=== PATIENT | female | born 1930 | race African-American/Black ===

== ENCOUNTER 2017-06-13 13:53 | Inpatient (IN) | payer MEDICARE, OTHER ==
[~2017-06-13] VITALS: Ht 165.1 cm; Wt 167.8 kg
[2017-06-13 14:23] VITALS: BP 130/8
--- NOTE | 2017-06-13 14:28 | Emergency Room Report ---
History of Present Illness General Chief Complaint: Altered Level of Consciousness Source: Medical Record, EMS Present Illness HPI Patient is an 87-year-old female brought in by EMS after increased altered level consciousness. She gradual onset of symptoms. Patient was noted to have been brought in from home. Patient had reported increased difficulty with ambulation. Patient is normally ambulatory with walker. The patient's history is limited by mental status Allergies: Coded Allergies: IODINE (Verified Allergy, Mild, 08/17/08) Uncoded Allergies: CONTRAST MEDIA (Allergy, Mild, 08/17/08) Patient History Past Medical History: see triage record Reviewed Nursing Documentation: PMH: Agreed, PSxH: Agreed Nursing Documentation-PMH Past Medical History: No History, Except For Hx Hypertension: Yes Hx Diabetes: Yes Review of Systems All Other Systems: negative except mentioned in HPI Physical Exam Vital Signs Date Time Temp Pulse Resp B/P (MAP) Pulse Ox O2 Delivery O2 Flow Rate FiO2 06/13/17 13:49 100.0 120 18 140/90 98 Nasal Cannula 6.0 Sp02 EP Interpretation: reviewed, normal General Appearance: moderate distress, obese, Chronically Ill Head: atraumatic ENT: normal ENT inspection, hearing grossly normal, normal voice Neck: normal inspection, full range of motion, supple, no bony tend Respiratory: normal inspection, no retraction, other - tachypnea Cardiovascular #1: tachycardia, edema Gastrointestinal: normal inspection, normal bowel sounds, non tender, soft, no guarding, no hernia Genitourinary: no CVA tenderness Musculoskeletal: normal inspection, back normal, normal range of motion Neurologic: normal inspection, alert, oriented x3, responsive, permit coordinator III-XII nml as tested, speech normal, motor weakness Psychiatric: normal inspection, judgement/insight normal, mood/affect normal Skin: normal inspection, normal color, no rash Medical Decision Making Diagnostic Impression: Primary Impression: Altered level of consciousness Additional Impressions: Sepsis Pyelonephritis Morbid obesity Hyperkalemia Renal insufficiency Pleural effusion ER Course Patient presented for altered mental status. Differential diagnosis included but was not limited to ischemic stroke, subarachnoid hemorrhage, hypoglycemia, spinal cord injury, neurodegenerative disorder, urinary tract infection, hypoxemia.Because of complexity of patient's case laboratory testing and imaging studies were ordered. EKG interpreted by me shows sinus tachycardia with a rate of [address] or T wave changes patient was noted to have low voltage which is likely related to the patient's body habitus. There is a right branch block. The patient started on IV fluids.Patient started on IV antibiotics. Laboratory testing showed evidence of acute renal insufficiency as well as hyperkalemia. Patient given oral Kayexalate as well as IV calcium. Dr. Fields was contacted for inpatient management due to complexity of medical condition. Labs Test 06/13/17 14:10 White Blood Count 18.5 K/UL (4.8-10.8) Red Blood Count 3.43 M/UL (4.20-5.40) Hemoglobin 10.4 G/DL (12.0-16.0) Hematocrit 35.2 % (37.0-47.0) Mean Corpuscular Volume 103 FL (80-99) Mean Corpuscular Hemoglobin 30.1 PG (27.0-31.0) Mean Corpuscular Hemoglobin Concent 29.4 G/DL (32.0-36.0) Red Cell Distribution Width 14.7 % (11.6-14.8) Platelet Count 204 K/UL (150-450) Mean Platelet Volume 7.1 FL (6.5-10.1) Neutrophils (%) (Auto) % (45.0-75.0) Lymphocytes (%) (Auto) % (20.0-45.0) Monocytes (%) (Auto) % (1.0-10.0) Eosinophils (%) (Auto) % (0.0-3.0) Basophils (%) (Auto) % (0.0-2.0) Prothrombin Time 11.0 SEC (9.30-11.50) Prothromb Time International Ratio 1.1 (0.9-1.1) Activated Partial Thromboplast Time 28 SEC (23-33) Urine Color Yellow Urine Appearance Cloudy Urine pH 7 (4.5-8.0) Urine Specific [place] 1.010 (1.005-1.035) Urine Protein 2+ (NEGATIVE) Urine Glucose (UA) Negative (NEGATIVE) Urine Ketones Negative (NEGATIVE) Urine Occult Blood 4+ (NEGATIVE) Urine Nitrite Negative (NEGATIVE) Urine Bilirubin Negative (NEGATIVE) Urine Urobilinogen Normal MG/DL (0.0-1.0) Urine Leukocyte Esterase 3+ (NEGATIVE) Urine RBC 2-4 /HPF (0 - 2) Urine WBC Tntc /HPF (0 - 2) Urine Squamous Epithelial Cells Few /LPF (NONE/OCC) Urine Bacteria Many /HPF (NONE) Sodium Level 139 MMOL/L (136-145) Potassium Level 6.7 MMOL/L (3.5-5.1) Chloride Level 104 MMOL/L (98-107) Carbon Dioxide Level 24 MMOL/L (21-32) Anion Gap 11 mmol/L (5-15) Blood Urea Nitrogen 97 mg/dL (7-18) Creatinine 4.4 MG/DL (0.55-1.30) Estimat Glomerular Filtration Rate mL/min (>60) Glucose Level 179 MG/DL (74-106) Lactic Acid Level 1.70 mmol/L (0.66-2.22) Calcium Level 9.4 MG/DL (8.5-10.1) Total Bilirubin 0.6 MG/DL (0.2-1.0) Aspartate Amino Transf (AST/SGOT) 49 U/L (15-37) Alanine Aminotransferase (ALT/SGPT) 47 U/L (12-78) Alkaline Phosphatase 323 U/L (46-116) Total Creatine Kinase 27 U/L (26-308) Creatine Kinase MB 0.5 NG/ML (0.0-3.6) Creatine Kinase MB Relative Index 1.8 Troponin I 0.000 ng/mL (0.000-0.056) Pro-B-Type Natriuretic Peptide 1937 pg/mL (0-125) Total Protein 6.2 G/DL (6.4-8.2) Albumin 2.0 G/DL (3.4-5.0) Globulin 4.2 g/dL Albumin/Globulin Ratio 0.5 (1.0-2.7) Lipase 61 U/L (73-393) EKG Diagnostic Results Rate: tachycardiac - 132 ST Segments: no acute changes Rhythm Strip Diag. Results EP Interpretation: yes Rhythm: no PVC's, no ectopy Last Vital Signs Date Time Temp Pulse Resp B/P (MAP) Pulse Ox O2 Delivery O2 Flow Rate FiO2 06/13/17 14:23 99.0 130 24 130/8 98 Nasal Cannula 3.0 Status: unchanged Disposition: ADMITTED INPATIENT Condition: Serious Scripts Unable to Obtain Active Prescriptions or Reported Meds Daryl Holt Jun 13, 2017 14:28
[2017-06-13 14:46] VITALS: BP 109/65
[2017-06-13 14:58] LABS: HEMATOCRIT 35.2 % (37.0-47.0); HEMOGLOBIN 10.4 G/DL (12.0-16.0); MEAN CORPUSCULAR VOLUME 103 FL (80-99); PLATELET COUNT 204 K/UL (150-450); RED BLOOD COUNT 3.43 M/UL (4.20-5.40); RED CELL DISTRIBUTION WIDTH 14.7 % (11.6-14.8); WHITE BLOOD COUNT 18.5 K/UL (4.8-10.8)
[2017-06-13 14:59] LABS: APPEARANCE,URINE CLOUDY; BILIRUBIN, URINE NEGATIVE (NEGATIVE); GLUCOSE, URINE (UA) NEGATIVE (NEGATIVE); KETONES,URINE NEGATIVE (NEGATIVE); LEUKOCYTE ESTERASE ,URINE 3+ (NEGATIVE); NITRITE,URINE NEGATIVE (NEGATIVE); PH,URINE 7 (4.5-8.0); PROTEIN,URINE 2+ (NEGATIVE); UROBILINOGEN,URINE NORMAL MG/DL (0.0-1.0)
[2017-06-13 15:02] LABS: ALANINE AMINOTRANSFERASE 47 U/L (12-78); ALBUMIN/GLOBULIN RATIO 0.5 (1.0-2.7); ALKALINE PHOSPHATASE 323 U/L (46-116); ANION GAP 11 mmol/L (5-15); ASPARTATE AMINO TRANSFERASE 49 U/L (15-37); BILIRUBIN,TOTAL 0.6 MG/DL (0.2-1.0); BLOOD UREA NITROGEN 97 mg/dL (7-18); CALCIUM 9.4 MG/DL (8.5-10.1); CARBON DIOXIDE 24 MMOL/L (21-32); CHLORIDE 104 MMOL/L (98-107); CKMB 0.5 NG/ML (0.0-3.6); CREATINE KINASE 27 U/L (26-308); CREATININE 4.4 MG/DL (0.55-1.30); SODIUM 139 MMOL/L (136-145)
[2017-06-13 15:05] LABS: COLOR,URINE YELLOW
[2017-06-13] MEDS ORDERED: Unasyn 3gm Inj ONE (15:08)
[2017-06-13 15:10] LABS: POTASSIUM 6.7 MMOL/L (3.5-5.1)
[2017-06-13 15:14] LABS: INR 1.1 (0.9-1.1)
[2017-06-13] MEDS ORDERED: Ampicillin/Sulbactam Sod 3 GM in NS 110 ML IVPB ONE (15:15)
[2017-06-13] MEDS ORDERED: Sodium Polystyrene Sulfonate 15gm Powder ORAL ONE (15:45)
[2017-06-13] MEDS ORDERED: Calcium Gluconate 1gm/10ml vial IVP ONE (15:45)
[2017-06-13 15:46] VITALS: BP 136/70
[2017-06-13] MEDS ORDERED: Miralax 17gm pkt ORAL PRN (16:00)
[2017-06-13] MEDS ORDERED: Nitroglycerin Subl 0.4mg tab SL PRN (16:00)
[2017-06-13] MEDS ORDERED: Morphine Sulfate 4mg/ml Inj IVP PRN (16:00)
[2017-06-13] MEDS ORDERED: Albuterol/Ipratropium 3ml neb HHN PRN (16:00)
--- NOTE | 2017-06-13 16:05 | Diagnostic Imaging Report ---
Indication: Shortness of breath Technique: One view of the chest Comparison: 08/16/2008 Findings: There is suggestion of bilateral mild interstitial congestion. Hazy opacity throughout the right lung probably reflects a large pleural effusion, but there could also be some underlying airspace consolidation as well. There is some consolidation and atelectasis at the left lung base. The heart size is upper limits of normal Impression: Suspect large right pleural effusion Bilateral interstitial congestion. Possible right lung airspace disease Left basilar atelectasis and possible consolidation
[2017-06-13 16:57] VITALS: BP 120/67
--- NOTE | 2017-06-13 17:29 | Consultation ---
Consult Note Consult Note asked to eval at the request of dr Eason for renal failure Patient is an 87-year-old female brought in by EMS after increased altered level consciousness. She gradual onset of symptoms. Patient was noted to have been brought in from home. Patient had reported increased difficulty with ambulation. Patient is normally ambulatory with walker. The patient's history is limited by mental status Allergies: IODINE (Verified Allergy, Mild, 08/17/08) CONTRAST MEDIA (Allergy, Mild, 08/17/08) Past Medical History: No History, Except For Hx Hypertension: Yes Hx Diabetes: Yes patient seen in ER Examined Data reviewed Discussed with RN . Assessment/Plan Acute renal failure HyperKalemia Possible CKD Anemia HypoAlbuminemia Leukocytosis and Sepsis and UTI Morbid Obesity Urinary retention: after carrera over one liter urine removed from bladder Fluid challenge- Monitor renal parameters avoid nephrotoxics Anemia goldman Keep BP and BS in check JD WOO Jun 13, 2017 17:29
[2017-06-13 17:45] VITALS: BP 126/54
[2017-06-13] MEDS ORDERED: Cefepime HCl 2 GM in D5W 110 ML IV ONE (18:00)
--- NOTE | 2017-06-13 18:53 | History and Physical ---
History of Present Illness General Date patient seen: Jun 13, 2017 Reason for Hospitalization: Altered Level of Consciousness Present Illness HPI 87-year-old female brought in by EMS after increased altered level consciousness with gradual onset of symptoms. . Patient had reported increased difficulty with ambulation. Patient is normally ambulatory with walker. She was recently hospitalized at [facility] for the same problems including renal failure. Pt can't give any history and all information is obtained form medical records. Allergies: Coded Allergies: IODINE (Verified Allergy, Mild, 08/17/08) Uncoded Allergies: CONTRAST MEDIA (Allergy, Mild, 08/17/08) Medication History Scheduled Allopurinol* (Allopurinol*), 300 MG ORAL DAILY, (Reported) Ferrous Sulfate* (Ferrous Sulfate*), 325 MG ORAL DAILY, (Reported) Gabapentin* (Gabapentin*), 600 MG ORAL BID, (Reported) Levothyroxine Sodium* (Levothyroxine Sodium*), 112 MCG ORAL DAILY, (Reported) Lidocaine (Lidoderm), 1 PATCH TOPIC DAILY, (Reported) Montelukast Sodium* (Montelukast Sodium*), 10 MG ORAL DAILY, (Reported) Omeprazole (Omeprazole), 10 MG ORAL DAILY, (Reported) Ramipril* (Ramipril*), 5 MG ORAL DAILY, (Reported) Simvastatin (Zocor), 20 MG ORAL BEDTIME, (Reported) Scheduled PRN Temazepam* (Temazepam*), 30 MG ORAL BEDTIME PRN for Insomnia, (Reported) Patient History Healthcare 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 Resuscitation status Advanced Directive on File Past Medical/Surgical History Past Medical/Surgical History: (1) Hypothyroid (2) Morbid obesity Review of Systems All Other Systems: negative except mentioned in HPI Physical Exam General Appearance: WD/WN Lines, tubes and drains: peripheral HEENT: normocephalic, atraumatic Neck: non-tender, normal alignment Respiratory/Chest: chest wall non-tender, lungs clear Breasts: no masses Cardiovascular/Chest: normal peripheral pulses Abdomen: normal bowel sounds Genitourinary/Rectal: normal genital exam Last 24 Hour Vital Signs Date Time Temp Pulse Resp B/P (MAP) Pulse Ox O2 Delivery O2 Flow Rate FiO2 06/13/17 16:57 98.2 121 19 120/67 2 06/13/17 15:46 97.1 126 20 136/70 Nasal Cannula 06/13/17 14:46 98.6 125 13 109/65 06/13/17 14:23 99.0 130 24 130/8 98 Nasal Cannula 3.0 06/13/17 13:49 100.0 120 18 140/90 98 Nasal Cannula 6.0 Laboratory Tests Test 06/13/17 14:10 White Blood Count 18.5 K/UL (4.8-10.8) H Red Blood Count 3.43 M/UL (4.20-5.40) L Hemoglobin 10.4 G/DL (12.0-16.0) L Hematocrit 35.2 % (37.0-47.0) L Mean Corpuscular Volume 103 FL (80-99) H Mean Corpuscular Hemoglobin 30.1 PG (27.0-31.0) Mean Corpuscular Hemoglobin Concent 29.4 G/DL (32.0-36.0) L Red Cell Distribution Width 14.7 % (11.6-14.8) Platelet Count 204 K/UL (150-450) Mean Platelet Volume 7.1 FL (6.5-10.1) Neutrophils (%) (Auto) % (45.0-75.0) Lymphocytes (%) (Auto) % (20.0-45.0) Monocytes (%) (Auto) % (1.0-10.0) Eosinophils (%) (Auto) % (0.0-3.0) Basophils (%) (Auto) % (0.0-2.0) Differential Total Cells Counted 100 Neutrophils % (Manual) 77 % (45-75) H Lymphocytes % (Manual) 5 % (20-45) L Monocytes % (Manual) 6 % (1-10) Eosinophils % (Manual) 2 % (0-3) Basophils % (Manual) 0 % (0-2) Band Neutrophils 10 % (0-8) H Platelet Estimate Adequate Platelet Morphology Normal Polychromasia 1+ Hypochromasia 1+ Anisocytosis 1+ Macrocytosis 2+ Prothrombin Time 11.0 SEC (9.30-11.50) Prothromb Time International Ratio 1.1 (0.9-1.1) Activated Partial Thromboplast Time 28 SEC (23-33) Urine Color Yellow Urine Appearance Cloudy Urine pH 7 (4.5-8.0) Urine Specific [place] 1.010 (1.005-1.035) Urine Protein 2+ (NEGATIVE) H Urine Glucose (UA) Negative (NEGATIVE) Urine Ketones Negative (NEGATIVE) Urine Occult Blood 4+ (NEGATIVE) H Urine Nitrite Negative (NEGATIVE) Urine Bilirubin Negative (NEGATIVE) Urine Urobilinogen Normal MG/DL (0.0-1.0) Urine Leukocyte Esterase 3+ (NEGATIVE) H Urine RBC 2-4 /HPF (0 - 2) H Urine WBC Tntc /HPF (0 - 2) H Urine Squamous Epithelial Cells Few /LPF (NONE/OCC) Urine Bacteria Many /HPF (NONE) H Sodium Level 139 MMOL/L (136-145) Potassium Level 6.7 MMOL/L (3.5-5.1) *H Chloride Level 104 MMOL/L (98-107) Carbon Dioxide Level 24 MMOL/L (21-32) Anion Gap 11 mmol/L (5-15) Blood Urea Nitrogen 97 mg/dL (7-18) H Creatinine 4.4 MG/DL (0.55-1.30) H Estimat Glomerular Filtration Rate mL/min (>60) Glucose Level 179 MG/DL (74-106) H Lactic Acid Level 1.70 mmol/L (0.66-2.22) Calcium Level 9.4 MG/DL (8.5-10.1) Total Bilirubin 0.6 MG/DL (0.2-1.0) Aspartate Amino Transf (AST/SGOT) 49 U/L (15-37) H Alanine Aminotransferase (ALT/SGPT) 47 U/L (12-78) Alkaline Phosphatase 323 U/L (46-116) H Total Creatine Kinase 27 U/L (26-308) Creatine Kinase MB 0.5 NG/ML (0.0-3.6) Creatine Kinase MB Relative Index 1.8 Troponin I 0.000 ng/mL (0.000-0.056) C-Reactive Protein, Quantitative 41.9 mg/dL (0.00-0.90) H Pro-B-Type Natriuretic Peptide 1937 pg/mL (0-125) H Total Protein 6.2 G/DL (6.4-8.2) L Albumin 2.0 G/DL (3.4-5.0) L Globulin 4.2 g/dL Albumin/Globulin Ratio 0.5 (1.0-2.7) L Lipase 61 U/L (73-393) L Microbiology Date/Time Source Procedure Growth Status 06/13/17 14:10 Nasal Nares Influenza Types A,B Antigen (STEFAN) - Final Complete Height (Feet): 5 Height (Inches): 5.00 Weight (Pounds): 370 Medications Current Medications Medications (Trade) Dose Ordered Sig/Lakshmi Route PRN Reason Start Time Stop Time Status Last Admin Dose Admin Acetaminophen (Tylenol) 650 mg Q4H PRN ORAL fever 06/13/17 16:00 07/13/17 15:59 Albuterol/ Ipratropium (Albuterol/ Ipratropium) 3 ml Q4H PRN HHN Shortness of Breath 06/13/17 16:00 06/18/17 15:59 Cefepime HCl 1 gm/ Dextrose 55 ml @ 110 mls/hr Q24H IVPB 06/14/17 18:00 06/21/17 17:59 Dextrose (Dextrose 50%) STAT PRN IV Hypoglycemia 06/13/17 16:00 07/13/17 15:59 Docusate Sodium (Colace) 100 mg THREE TIMES A DAY ORAL 06/13/17 18:00 07/13/17 17:59 Famotidine (Pepcid I.v.) 20 mg QHS IVP 06/13/17 21:00 07/13/17 20:59 Heparin Sodium (Porcine) (Heparin 5000 units/ml) 5,000 units EVERY 12 HOURS SUBQ 06/13/17 21:00 07/13/17 20:59 Morphine Sulfate (Morphine Sulfate) 2 mg Q4H PRN IVP Moderate Pain (Pain Scale 4-6) 06/13/17 16:00 06/20/17 15:59 Nitroglycerin (Ntg) 0.4 mg Every 5 Minutes PRN SL Prn Chest Pain 06/13/17 16:00 07/13/17 15:59 Ondansetron HCl (Zofran) 4 mg Q6H PRN IVP Nausea & Vomiting 06/13/17 16:00 07/13/17 15:59 Polyethylene Glycol (Miralax) 17 gm DAILYPRN PRN ORAL Constipation 06/13/17 16:00 07/13/17 15:59 Sodium Chloride 1,000 ml @ 100 mls/hr Q10H IVLG 06/14/17 17:30 07/14/17 17:29 Temazepam (Restoril) 15 mg HSPRN PRN ORAL Insomnia 06/13/17 16:00 06/20/17 15:59 Vancomycin HCl (Vanco rx to dose) 1 ea DAILYPRN PRN MISC RX TO DOSE PROTOCOL 06/13/17 16:45 07/13/17 16:44 Vancomycin HCl/ Dextrose 250 ml @ 166.667 mls/hr ONCE ONCE IVPB 06/13/17 21:00 06/13/17 22:29 Assessment/Plan Problem List: (1) Altered level of consciousness ICD Codes: R40.4 - Transient alteration of awareness SNOMED: 6569805, 05054970780020 (2) Hyperkalemia ICD Codes: E87.5 - Hyperkalemia SNOMED: 90511836, 372956026 (3) Pleural effusion ICD Codes: J90 - Pleural effusion, not elsewhere classified SNOMED: 94783889 (4) Hypothyroid ICD Codes: E03.9 - Hypothyroidism, unspecified SNOMED: 99441560 (5) Renal insufficiency ICD Codes: N28.9 - Disorder of kidney and ureter, unspecified SNOMED: 454701595, 234520748 (6) Morbid obesity ICD Codes: E66.01 - Morbid (severe) obesity due to excess calories SNOMED: 335001311, 87034149320519 Assessment/Plan renal w/u echocardiogram iv fluids check electrolytes check TSH, T3 T4. cardio evaluation dvt prohylaxis KAILA HASSAN Jun 13, 2017 18:53
[2017-06-13 20:00] VITALS: BP 132/57
[2017-06-13] MEDS: Docusate 100mg cap ORAL SCH (20:11)
[2017-06-13] MEDS ORDERED: Vancomycin 1250mg/D5W 250ml 250 ML IVPB ONE (21:00)
--- NOTE | 2017-06-13 21:06 | Consultation ---
History of Present Illness General Date patient seen: Jun 13, 2017 Time patient seen: 20:59 Chief Complaint: Altered Level of Consciousness Present Illness HPI 87 y/o F with hx of HTN, DM, morbid obesity, ?CKD is brought to ED by EMS on with AMS, increased difficulty with ambulation (normally uses walker). In the ED foudn to ahve JERILYN, hyperkalemic, leukocytosis and urinary retention. Upon insertion of carrera 1 L of urine removed. Allergies: Coded Allergies: IODINE (Verified Allergy, Mild, 08/17/08) Uncoded Allergies: CONTRAST MEDIA (Allergy, Mild, 08/17/08) Medication History Scheduled Allopurinol* (Allopurinol*), 300 MG ORAL DAILY, (Reported) Ferrous Sulfate* (Ferrous Sulfate*), 325 MG ORAL DAILY, (Reported) Gabapentin* (Gabapentin*), 600 MG ORAL BID, (Reported) Levothyroxine Sodium* (Levothyroxine Sodium*), 112 MCG ORAL DAILY, (Reported) Lidocaine (Lidoderm), 1 PATCH TOPIC DAILY, (Reported) Montelukast Sodium* (Montelukast Sodium*), 10 MG ORAL DAILY, (Reported) Omeprazole (Omeprazole), 10 MG ORAL DAILY, (Reported) Ramipril* (Ramipril*), 5 MG ORAL DAILY, (Reported) Simvastatin (Zocor), 20 MG ORAL BEDTIME, (Reported) Scheduled PRN Temazepam* (Temazepam*), 30 MG ORAL BEDTIME PRN for Insomnia, (Reported) Patient History Healthcare 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 Resuscitation status Advanced Directive on File Patient History Narrative PMhx: as above SHx: reviewed Fhx: non contributory Review of Systems All Other Systems: negative except mentioned in HPI Physical Exam Physical Exam Narrative General Appearance: moderate distress, obese, Chronically Ill Head: atraumatic ENT: normal ENT inspection, hearing grossly normal, normal voice Neck: normal inspection, full range of motion, supple, no bony tend Respiratory: normal inspection, no retraction, other - tachypnea Cardiovascular tachycardia, edema Gastrointestinal: normal inspection, normal bowel sounds, non tender, soft, no guarding, no hernia Genitourinary: no CVA tenderness Musculoskeletal: normal inspection, back normal, normal range of motion Neurologic: normal inspection, alert, oriented x3, responsive, package checker III-XII nml as tested, speech normal, motor weakness Psychiatric: normal inspection, judgement/insight normal, mood/affect normal Skin: normal inspection, normal color, no rash Last 24 Hour Vital Signs Date Time Temp Pulse Resp B/P (MAP) Pulse Ox O2 Delivery O2 Flow Rate FiO2 06/13/17 19:54 121 21 126/87 Nasal Cannula 06/13/17 18:32 121 06/13/17 17:45 97.3 123 20 126/54 97 Nasal Cannula 2.0 06/13/17 16:57 98.2 121 19 120/67 2 06/13/17 15:46 97.1 126 20 136/70 Nasal Cannula 06/13/17 14:46 98.6 125 13 109/65 06/13/17 14:23 99.0 130 24 130/8 98 Nasal Cannula 3.0 06/13/17 13:49 100.0 120 18 140/90 98 Nasal Cannula 6.0 Laboratory Tests Test 06/13/17 14:10 White Blood Count 18.5 K/UL (4.8-10.8) H Red Blood Count 3.43 M/UL (4.20-5.40) L Hemoglobin 10.4 G/DL (12.0-16.0) L Hematocrit 35.2 % (37.0-47.0) L Mean Corpuscular Volume 103 FL (80-99) H Mean Corpuscular Hemoglobin 30.1 PG (27.0-31.0) Mean Corpuscular Hemoglobin Concent 29.4 G/DL (32.0-36.0) L Red Cell Distribution Width 14.7 % (11.6-14.8) Platelet Count 204 K/UL (150-450) Mean Platelet Volume 7.1 FL (6.5-10.1) Neutrophils (%) (Auto) % (45.0-75.0) Lymphocytes (%) (Auto) % (20.0-45.0) Monocytes (%) (Auto) % (1.0-10.0) Eosinophils (%) (Auto) % (0.0-3.0) Basophils (%) (Auto) % (0.0-2.0) Differential Total Cells Counted 100 Neutrophils % (Manual) 77 % (45-75) H Lymphocytes % (Manual) 5 % (20-45) L Monocytes % (Manual) 6 % (1-10) Eosinophils % (Manual) 2 % (0-3) Basophils % (Manual) 0 % (0-2) Band Neutrophils 10 % (0-8) H Platelet Estimate Adequate Platelet Morphology Normal Polychromasia 1+ Hypochromasia 1+ Anisocytosis 1+ Macrocytosis 2+ Prothrombin Time 11.0 SEC (9.30-11.50) Prothromb Time International Ratio 1.1 (0.9-1.1) Activated Partial Thromboplast Time 28 SEC (23-33) Urine Color Yellow Urine Appearance Cloudy Urine pH 7 (4.5-8.0) Urine Specific [place] 1.010 (1.005-1.035) Urine Protein 2+ (NEGATIVE) H Urine Glucose (UA) Negative (NEGATIVE) Urine Ketones Negative (NEGATIVE) Urine Occult Blood 4+ (NEGATIVE) H Urine Nitrite Negative (NEGATIVE) Urine Bilirubin Negative (NEGATIVE) Urine Urobilinogen Normal MG/DL (0.0-1.0) Urine Leukocyte Esterase 3+ (NEGATIVE) H Urine RBC 2-4 /HPF (0 - 2) H Urine WBC Tntc /HPF (0 - 2) H Urine Squamous Epithelial Cells Few /LPF (NONE/OCC) Urine Bacteria Many /HPF (NONE) H Sodium Level 139 MMOL/L (136-145) Potassium Level 6.7 MMOL/L (3.5-5.1) *H Chloride Level 104 MMOL/L (98-107) Carbon Dioxide Level 24 MMOL/L (21-32) Anion Gap 11 mmol/L (5-15) Blood Urea Nitrogen 97 mg/dL (7-18) H Creatinine 4.4 MG/DL (0.55-1.30) H Estimat Glomerular Filtration Rate mL/min (>60) Glucose Level 179 MG/DL (74-106) H Lactic Acid Level 1.70 mmol/L (0.66-2.22) Calcium Level 9.4 MG/DL (8.5-10.1) Total Bilirubin 0.6 MG/DL (0.2-1.0) Aspartate Amino Transf (AST/SGOT) 49 U/L (15-37) H Alanine Aminotransferase (ALT/SGPT) 47 U/L (12-78) Alkaline Phosphatase 323 U/L (46-116) H Total Creatine Kinase 27 U/L (26-308) Creatine Kinase MB 0.5 NG/ML (0.0-3.6) Creatine Kinase MB Relative Index 1.8 Troponin I 0.000 ng/mL (0.000-0.056) C-Reactive Protein, Quantitative 41.9 mg/dL (0.00-0.90) H Pro-B-Type Natriuretic Peptide 1937 pg/mL (0-125) H Total Protein 6.2 G/DL (6.4-8.2) L Albumin 2.0 G/DL (3.4-5.0) L Globulin 4.2 g/dL Albumin/Globulin Ratio 0.5 (1.0-2.7) L Lipase 61 U/L (73-393) L Microbiology Date/Time Source Procedure Growth Status 06/13/17 14:10 Nasal Nares Influenza Types A,B Antigen (STEFAN) - Final Complete Height (Feet): 5 Height (Inches): 5.00 Weight (Pounds): 370 Medications Current Medications Medications (Trade) Dose Ordered Sig/Lakshmi Route PRN Reason Start Time Stop Time Status Last Admin Dose Admin Acetaminophen (Tylenol) 650 mg Q4H PRN ORAL fever 06/13/17 16:00 07/13/17 15:59 Albuterol/ Ipratropium (Albuterol/ Ipratropium) 3 ml Q4H PRN HHN Shortness of Breath 06/13/17 16:00 06/18/17 15:59 Cefepime HCl 1 gm/ Dextrose 55 ml @ 110 mls/hr Q24H IVPB 06/14/17 18:00 06/21/17 17:59 Dextrose (Dextrose 50%) STAT PRN IV Hypoglycemia 06/13/17 16:00 07/13/17 15:59 Docusate Sodium (Colace) 100 mg THREE TIMES A DAY ORAL 06/13/17 18:00 07/13/17 17:59 06/13/17 20:11 Famotidine (Pepcid I.v.) 20 mg QHS IVP 06/13/17 21:00 07/13/17 20:59 Heparin Sodium (Porcine) (Heparin 5000 units/ml) 5,000 units EVERY 12 HOURS SUBQ 06/13/17 21:00 07/13/17 20:59 Morphine Sulfate (Morphine Sulfate) 2 mg Q4H PRN IVP Moderate Pain (Pain Scale 4-6) 06/13/17 16:00 06/20/17 15:59 Nitroglycerin (Ntg) 0.4 mg Every 5 Minutes PRN SL Prn Chest Pain 06/13/17 16:00 07/13/17 15:59 Ondansetron HCl (Zofran) 4 mg Q6H PRN IVP Nausea & Vomiting 06/13/17 16:00 07/13/17 15:59 Polyethylene Glycol (Miralax) 17 gm DAILYPRN PRN ORAL Constipation 06/13/17 16:00 07/13/17 15:59 Sodium Chloride 1,000 ml @ 100 mls/hr Q10H IVLG 06/14/17 17:30 07/14/17 17:29 Temazepam (Restoril) 15 mg HSPRN PRN ORAL Insomnia 06/13/17 16:00 06/20/17 15:59 Vancomycin HCl (Vanco rx to dose) 1 ea DAILYPRN PRN MISC RX TO DOSE PROTOCOL 06/13/17 16:45 07/13/17 16:44 Vancomycin HCl/ Dextrose 250 ml @ 166.667 mls/hr ONCE ONCE IVPB 06/13/17 21:00 06/13/17 22:29 Assessment/Plan Assessment/Plan Abx: IV Unasyn x1 06/13 IV Vanco 06/13- Cefepime 06/13- Assessment: Sepsis - likely 2ry to UTI, possible PNA -u.a wbc tntc, nit neg, luek +3; ucx p -CXR: Suspect large right pleural effusion Bilateral interstitial congestion. Possible right lung airspace disease Left basilar atelectasis and possible consolidation -Influenza neg Low grade fever/leukocytosis JERILYN/hyperkalemia-?CKD Urinary retention s/p carrera 06/13 -1l removed HTN DM morbid obesity Plan: -Continue IV Vancomycin and Cefepime pending cultures -obtain sputum cx -f/u cx -Monitor CBC/BMP, temperatures -aspiration precautions Thank you for this consultation. Will continue to follow along with you. Discussed with Krystle Nicole M.D. Jun 13, 2017 21:06
[2017-06-13] MEDS: Heparin 5000 units/ml inj SUBQ SCH (21:22)
[2017-06-13 22:24] LABS: APPEARANCE,URINE TURBID; BILIRUBIN, URINE NEGATIVE (NEGATIVE); COLOR,URINE PALE YELLOW; GLUCOSE, URINE (UA) NEGATIVE (NEGATIVE); KETONES,URINE NEGATIVE (NEGATIVE); LEUKOCYTE ESTERASE ,URINE 3+ (NEGATIVE); NITRITE,URINE NEGATIVE (NEGATIVE); PH,URINE 5 (4.5-8.0); PROTEIN,URINE 3+ (NEGATIVE); UROBILINOGEN,URINE NORMAL MG/DL (0.0-1.0)
[2017-06-14] VITALS: BP 111/56
[2017-06-14] MEDS ORDERED: OMEPRAZOLE10 M1 ORAL (00:20)
[2017-06-14] MEDS ORDERED: MONTELUKAST SOD10 MG ORAL (00:20)
[2017-06-14] MEDS ORDERED: FERROUS SULFAT325 MG ORAL (00:20)
[2017-06-14] MEDS ORDERED: LIDODERM700 M1 TOPIC (00:20)
[2017-06-14] MEDS ORDERED: ZOCOR20 M1 ORAL (00:20)
[2017-06-14] MEDS ORDERED: GABAPENTIN600 MG ORAL (00:20)
[2017-06-14] MEDS ORDERED: LEVOTHYROXINE112 MCG ORAL (00:20)
[2017-06-14] MEDS ORDERED: ALLOPURINOL300 M1 ORAL (00:20)
[2017-06-14] MEDS ORDERED: TEMAZEPAM30 MG ORAL (00:20)
[2017-06-14] MEDS ORDERED: RAMIPRIL5 MG ORAL (00:20)
[2017-06-14] MEDS ORDERED: Vancomycin 1 GM in D5W 275 ML IV SCH (00:30)
[2017-06-14 04:00] VITALS: BP 107/58
[2017-06-14 05:51] LABS: HEMATOCRIT 31.2 % (37.0-47.0); HEMOGLOBIN 9.3 G/DL (12.0-16.0); MEAN CORPUSCULAR VOLUME 102 FL (80-99); PLATELET COUNT 174 K/UL (150-450); RED BLOOD COUNT 3.06 M/UL (4.20-5.40); RED CELL DISTRIBUTION WIDTH 14.6 % (11.6-14.8)
[2017-06-14 06:30] LABS: % IRON SATURATION 17 % (15-50); IRON 18 ug/dL (50-175); TOTAL IRON BINDING CAPACITY 105 ug/dL (250-450)
[2017-06-14 06:41] LABS: CREATINE KINASE 23 U/L (26-308); GAMMA GLUTAMYL TRANSPEPTIDASE 134 U/L (5-85); PHOSPHORUS 5.1 MG/DL (2.5-4.9)
[2017-06-14 07:05] LABS: ALANINE AMINOTRANSFERASE 34 U/L (12-78); ALBUMIN/GLOBULIN RATIO 0.5 (1.0-2.7); ALKALINE PHOSPHATASE 250 U/L (46-116); ANION GAP 9 mmol/L (5-15); ASPARTATE AMINO TRANSFERASE 34 U/L (15-37); BILIRUBIN,TOTAL 0.5 MG/DL (0.2-1.0); BLOOD UREA NITROGEN 94 mg/dL (7-18); CALCIUM 9.5 MG/DL (8.5-10.1); CARBON DIOXIDE 23 MMOL/L (21-32); CHLORIDE 107 MMOL/L (98-107); CHOLESTEROL 88 MG/DL (< 200); CREATININE 3.9 MG/DL (0.55-1.30); FERRITIN > 2000 NG/ML (8-388); HDL CHOLESTEROL 27 MG/DL (40-60); SODIUM 140 MMOL/L (136-145); TRIGLYCERIDES 65 MG/DL (30-150)
[2017-06-14 07:07] LABS: POTASSIUM 6.1 MMOL/L (3.5-5.1)
[2017-06-14 08:00] VITALS: BP 132/58
[2017-06-14] MEDS: Docusate 100mg cap ORAL SCH ×3 (08:18→17:07)
[2017-06-14] MEDS: Heparin 5000 units/ml inj SUBQ SCH ×2 (08:20→20:29)
--- NOTE | 2017-06-14 10:24 | Infectious Diseases Prog Note ---
Assessment/Plan Assessment/Plan Abx: IV Unasyn x1 06/13 IV Vanco 06/13- Cefepime 06/13- Assessment: Sepsis - likely 2ry to UTI, possible PNA -u.a wbc tntc, nit neg, luek +3; ucx >100k GNB (id and sensi p) -CXR: Suspect large right pleural effusion Bilateral interstitial congestion. Possible right lung airspace disease Left basilar atelectasis and possible consolidation -Influenza neg -sp cx p Low grade fever/leukocytosis; fever improving, leukocytosis persistent Large R pleural effusion- ?related to JERILYN, r/o parapneumonic pleural effusion JERILYN/hyperkalemia-?CKD; improving Urinary retention s/p carrera 06/13 -1l removed HTN DM morbid obesity Plan: -Continue IV Vancomycin #2 pending sp cx and switch Cefepime #2 to Meropenem for ESBL coverage pending ID [id number] Ucx -06/13 SP Unasyn x1 -obtain sputum cx -f/u cx -Monitor CBC/BMP, temperatures -aspiration precautions Thank you for this consultation. Will continue to follow along with you. Discussed with RN Subjective Allergies: Coded Allergies: IODINE (Verified Allergy, Mild, 08/17/08) Uncoded Allergies: CONTRAST MEDIA (Allergy, Mild, 08/17/08) Subjective afebrile in >12hrs leukocytosis persistent at 3lNC ucx growing GNB Objective Vital Signs Last 24 Hour Vital Signs Date Time Temp Pulse Resp B/P (MAP) Pulse Ox O2 Delivery O2 Flow Rate FiO2 06/14/17 08:00 99.3 121 19 132/58 97 Nasal Cannula 3.0 06/14/17 07:45 121 06/14/17 04:00 120 06/14/17 04:00 98.7 121 22 107/58 97 Nasal Cannula 3.0 06/14/17 00:00 115 06/14/17 00:00 98.7 114 22 111/56 97 Nasal Cannula 3.0 06/13/17 20:00 124 06/13/17 20:00 98.6 98 20 132/57 98 Nasal Cannula 3.0 06/13/17 19:54 121 21 126/87 Nasal Cannula 06/13/17 18:32 121 06/13/17 17:45 97.3 123 20 126/54 97 Nasal Cannula 2.0 06/13/17 16:57 98.2 121 19 120/67 2 06/13/17 15:46 97.1 126 20 136/70 Nasal Cannula 06/13/17 14:46 98.6 125 13 109/65 06/13/17 14:23 99.0 130 24 130/8 98 Nasal Cannula 3.0 06/13/17 13:49 100.0 120 18 140/90 98 Nasal Cannula 6.0 Height (Feet): 5 Height (Inches): 5.00 Weight (Pounds): 370 Objective General Appearance: moderate distress, obese, Chronically Ill HEENT: atraumatic, no oral lesions Neck: normal inspection, full range of motion, supple, no bony tend Respiratory: normal inspection, no retraction, other - tachypnea Cardiovascular : tachycardia, edema Gastrointestinal: normal inspection, normal bowel sounds, non tender, soft, no guarding, no hernia Genitourinary: no CVA tenderness Musculoskeletal: normal inspection, back normal, normal range of motion Skin: normal inspection, normal color, no rash Microbiology Date/Time Source Procedure Growth Status 06/13/17 14:10 Nasal Nares Influenza Types A,B Antigen (STEFAN) - Final Complete 06/13/17 14:10 Urine,Clean Catch Urine Culture - Preliminary Gram Negative Bacillus 1 Resulted Laboratory Tests Test 06/13/17 14:10 06/13/17 22:00 06/14/17 04:55 White Blood Count 18.5 K/UL (4.8-10.8) H 18.0 K/UL (4.8-10.8) H Red Blood Count 3.43 M/UL (4.20-5.40) L 3.06 M/UL (4.20-5.40) L Hemoglobin 10.4 G/DL (12.0-16.0) L 9.3 G/DL (12.0-16.0) L Hematocrit 35.2 % (37.0-47.0) L 31.2 % (37.0-47.0) L Mean Corpuscular Volume 103 FL (80-99) H 102 FL (80-99) H Mean Corpuscular Hemoglobin 30.1 PG (27.0-31.0) 30.5 PG (27.0-31.0) Mean Corpuscular Hemoglobin Concent 29.4 G/DL (32.0-36.0) L 29.9 G/DL (32.0-36.0) L Red Cell Distribution Width 14.7 % (11.6-14.8) 14.6 % (11.6-14.8) Platelet Count 204 K/UL (150-450) 174 K/UL (150-450) Mean Platelet Volume 7.1 FL (6.5-10.1) 7.2 FL (6.5-10.1) Neutrophils (%) (Auto) % (45.0-75.0) % (45.0-75.0) Lymphocytes (%) (Auto) % (20.0-45.0) % (20.0-45.0) Monocytes (%) (Auto) % (1.0-10.0) % (1.0-10.0) Eosinophils (%) (Auto) % (0.0-3.0) % (0.0-3.0) Basophils (%) (Auto) % (0.0-2.0) % (0.0-2.0) Differential Total Cells Counted 100 Neutrophils % (Manual) 77 % (45-75) H Pending Lymphocytes % (Manual) 5 % (20-45) L Pending Monocytes % (Manual) 6 % (1-10) Eosinophils % (Manual) 2 % (0-3) Basophils % (Manual) 0 % (0-2) Band Neutrophils 10 % (0-8) H Platelet Estimate Adequate Pending Platelet Morphology Normal Pending Polychromasia 1+ Hypochromasia 1+ Anisocytosis 1+ Macrocytosis 2+ Prothrombin Time 11.0 SEC (9.30-11.50) Prothromb Time International Ratio 1.1 (0.9-1.1) Activated Partial Thromboplast Time 28 SEC (23-33) Urine Color Yellow Pale yellow Urine Appearance Cloudy Turbid Urine pH 7 (4.5-8.0) 5 (4.5-8.0) Urine Specific [place] 1.010 (1.005-1.035) 1.015 (1.005-1.035) Urine Protein 2+ (NEGATIVE) H 3+ (NEGATIVE) H Urine Glucose (UA) Negative (NEGATIVE) Negative (NEGATIVE) Urine Ketones Negative (NEGATIVE) Negative (NEGATIVE) Urine Occult Blood 4+ (NEGATIVE) H 5+ (NEGATIVE) H Urine Nitrite Negative (NEGATIVE) Negative (NEGATIVE) Urine Bilirubin Negative (NEGATIVE) Negative (NEGATIVE) Urine Urobilinogen Normal MG/DL (0.0-1.0) Normal MG/DL (0.0-1.0) Urine Leukocyte Esterase 3+ (NEGATIVE) H 3+ (NEGATIVE) H Urine RBC 2-4 /HPF (0 - 2) H Tntc /HPF (0 - 2) H Urine WBC Tntc /HPF (0 - 2) H Tntc /HPF (0 - 2) H Urine Squamous Epithelial Cells Few /LPF (NONE/OCC) None /LPF (NONE/OCC) Urine Bacteria Many /HPF (NONE) H Many /HPF (NONE) H Sodium Level 139 MMOL/L (136-145) 140 MMOL/L (136-145) Potassium Level 6.7 MMOL/L (3.5-5.1) *H 6.1 MMOL/L (3.5-5.1) *H Chloride Level 104 MMOL/L (98-107) 107 MMOL/L (98-107) Carbon Dioxide Level 24 MMOL/L (21-32) 23 MMOL/L (21-32) Anion Gap 11 mmol/L (5-15) 9 mmol/L (5-15) Blood Urea Nitrogen 97 mg/dL (7-18) H 94 mg/dL (7-18) H Creatinine 4.4 MG/DL (0.55-1.30) H 3.9 MG/DL (0.55-1.30) H Estimat Glomerular Filtration Rate mL/min (>60) mL/min (>60) Glucose Level 179 MG/DL (74-106) H 122 MG/DL (74-106) H Lactic Acid Level 1.70 mmol/L (0.66-2.22) Calcium Level 9.4 MG/DL (8.5-10.1) 9.5 MG/DL (8.5-10.1) Total Bilirubin 0.6 MG/DL (0.2-1.0) 0.5 MG/DL (0.2-1.0) Aspartate Amino Transf (AST/SGOT) 49 U/L (15-37) H 34 U/L (15-37) Alanine Aminotransferase (ALT/SGPT) 47 U/L (12-78) 34 U/L (12-78) Alkaline Phosphatase 323 U/L (46-116) H 250 U/L (46-116) H Total Creatine Kinase 27 U/L (26-308) 23 U/L (26-308) L Creatine Kinase MB 0.5 NG/ML (0.0-3.6) Creatine Kinase MB Relative Index 1.8 Troponin I 0.000 ng/mL (0.000-0.056) 0.000 ng/mL (0.000-0.056) C-Reactive Protein, Quantitative 41.9 mg/dL (0.00-0.90) H Pro-B-Type Natriuretic Peptide 1937 pg/mL (0-125) H 2248 pg/mL (0-125) H Total Protein 6.2 G/DL (6.4-8.2) L 6.4 G/DL (6.4-8.2) Albumin 2.0 G/DL (3.4-5.0) L 2.0 G/DL (3.4-5.0) L Globulin 4.2 g/dL 4.4 g/dL Albumin/Globulin Ratio 0.5 (1.0-2.7) L 0.5 (1.0-2.7) L Lipase 61 U/L (73-393) L Urine Eosinophils None seen Urine Random Sodium 24 MEQ/L (20-110) Hemoglobin A1c 6.3 % (4.3-6.0) H Uric Acid 4.2 MG/DL (2.6-7.2) Phosphorus Level 5.1 MG/DL (2.5-4.9) H Magnesium Level 1.8 MG/DL (1.8-2.4) Iron Level 18 ug/dL (50-175) L Total Iron Binding Capacity 105 ug/dL (250-450) L Percent Iron Saturation 17 % (15-50) Unsaturated Iron Binding 87 ug/dL (112-346) L Ferritin > 2000 NG/ML (8-388) H Gamma Glutamyl Transpeptidase 134 U/L (5-85) H Triglycerides Level 65 MG/DL (30-150) Cholesterol Level 88 MG/DL (< 200) LDL Cholesterol 47 mg/dL (<100) HDL Cholesterol 27 MG/DL (40-60) L Cholesterol/HDL Ratio 3.3 (3.3-4.4) Vitamin B12 Level 949 PG/ML (193-986) Folate 15.3 NG/ML (8.6-58.9) Thyroid Stimulating Hormone (TSH) 0.946 uiU/mL (0.358-3.740) Current Medications Medications (Trade) Dose Ordered Sig/Lakshmi Route PRN Reason Start Time Stop Time Status Last Admin Dose Admin Acetaminophen (Tylenol) 650 mg Q4H PRN ORAL fever 06/13/17 16:00 07/13/17 15:59 Albuterol/ Ipratropium (Albuterol/ Ipratropium) 3 ml Q4H PRN HHN Shortness of Breath 06/13/17 16:00 06/18/17 15:59 Cefepime HCl 1 gm/ Dextrose 55 ml @ 110 mls/hr Q24H IVPB 06/14/17 18:00 06/21/17 17:59 Dextrose (Dextrose 50%) STAT PRN IV Hypoglycemia 06/13/17 16:00 07/13/17 15:59 Docusate Sodium (Colace) 100 mg THREE TIMES A DAY ORAL 06/13/17 18:00 07/13/17 17:59 06/14/17 08:18 Famotidine (Pepcid I.v.) 20 mg QHS IVP 06/13/17 21:00 07/13/17 20:59 06/13/17 21:19 Heparin Sodium (Porcine) (Heparin 5000 units/ml) 5,000 units EVERY 12 HOURS SUBQ 06/13/17 21:00 07/13/17 20:59 06/14/17 08:20 Morphine Sulfate (Morphine Sulfate) 2 mg Q4H PRN IVP Moderate Pain (Pain Scale 4-6) 06/13/17 16:00 06/20/17 15:59 Nitroglycerin (Ntg) 0.4 mg Every 5 Minutes PRN SL Prn Chest Pain 06/13/17 16:00 07/13/17 15:59 Ondansetron HCl (Zofran) 4 mg Q6H PRN IVP Nausea & Vomiting 06/13/17 16:00 07/13/17 15:59 Polyethylene Glycol (Miralax) 17 gm DAILYPRN PRN ORAL Constipation 06/13/17 16:00 07/13/17 15:59 Sodium Chloride 1,000 ml @ 100 mls/hr Q10H IVLG 06/13/17 23:00 07/13/17 22:59 06/14/17 08:18 Temazepam (Restoril) 15 mg HSPRN PRN ORAL Insomnia 06/13/17 16:00 06/20/17 15:59 Vancomycin HCl (Vanco rx to dose) 1 ea DAILYPRN PRN MISC RX TO DOSE PROTOCOL 06/13/17 16:45 07/13/17 16:44 Krystle Calderon M.D. Jun 14, 2017 10:24
[2017-06-14] MEDS: Meropenem 500 MG in NS 55 ML IVPB SCH (11:03)
--- NOTE | 2017-06-14 11:09 | Pulmonology Progress Note ---
Assessment/Plan Problems: (1) Sepsis (2) Altered level of consciousness (3) Hyperkalemia (4) Renal insufficiency (5) Pleural effusion (6) Hypothyroid (7) Morbid obesity Assessment/Plan kayexalate iv fluids check cultures continue abx check urine cultures. check echo, labs in am all consults reviewed Subjective ROS Limited/Unobtainable: No Constitutional: Reports: no symptoms HEENT: Repors: no symptoms Respiratory: Reports: no symptoms Allergies: Coded Allergies: IODINE (Verified Allergy, Mild, 08/17/08) Uncoded Allergies: CONTRAST MEDIA (Allergy, Mild, 08/17/08) Objective Last 24 Hour Vital Signs Date Time Temp Pulse Resp B/P (MAP) Pulse Ox O2 Delivery O2 Flow Rate FiO2 06/14/17 08:00 99.3 121 19 132/58 97 Nasal Cannula 3.0 06/14/17 07:45 121 06/14/17 04:00 120 06/14/17 04:00 98.7 121 22 107/58 97 Nasal Cannula 3.0 06/14/17 00:00 115 06/14/17 00:00 98.7 114 22 111/56 97 Nasal Cannula 3.0 06/13/17 20:00 124 06/13/17 20:00 98.6 98 20 132/57 98 Nasal Cannula 3.0 06/13/17 19:54 121 21 126/87 Nasal Cannula 06/13/17 18:32 121 06/13/17 17:45 97.3 123 20 126/54 97 Nasal Cannula 2.0 06/13/17 16:57 98.2 121 19 120/67 2 06/13/17 15:46 97.1 126 20 136/70 Nasal Cannula 06/13/17 14:46 98.6 125 13 109/65 06/13/17 14:23 99.0 130 24 130/8 98 Nasal Cannula 3.0 06/13/17 13:49 100.0 120 18 140/90 98 Nasal Cannula 6.0 Intake and Output 06/13/17 06/14/17 19:00 07:00 Intake Total 1410 ml 1780.0 ml Output Total 2000 ml 600 ml Balance -590 ml 1180.0 ml Intake Oral 60 ml 120 ml IV Total 1350 ml 1660.0 ml Output Urine Total 2000 ml 600 ml Objective General Appearance: WD/WN, morbidly obese Lines, tubes and drains: peripheral HEENT: normocephalic, atraumatic Neck: non-tender, normal alignment Respiratory/Chest: chest wall non-tender, lungs clear Breasts: no masses Cardiovascular/Chest: normal peripheral pulses Abdomen: normal bowel sounds EXT. + edema Microbiology Date/Time Source Procedure Growth Status 06/13/17 14:10 Blood Blood Culture - Preliminary Resulted 06/13/17 13:50 Blood Blood Culture - Preliminary Resulted 06/13/17 14:10 Nasal Nares Influenza Types A,B Antigen (STEFAN) - Final Complete 06/13/17 14:10 Urine,Clean Catch Urine Culture - Preliminary Gram Negative Bacillus 1 Resulted Laboratory Tests 06/13/17 14:10: White Blood Count 18.5H, Red Blood Count 3.43L, Hemoglobin 10.4L, Hematocrit 35.2L, Mean Corpuscular Volume 103H, Mean Corpuscular Hemoglobin 30.1, Mean Corpuscular Hemoglobin Concent 29.4L, Red Cell Distribution Width 14.7, Platelet Count 204, Mean Platelet Volume 7.1, Neutrophils (%) (Auto) , Lymphocytes (%) (Auto) , Monocytes (%) (Auto) , Eosinophils (%) (Auto) , Basophils (%) (Auto) , Differential Total Cells Counted 100, Neutrophils % ( Manual) 77H, Lymphocytes % (Manual) 5L, Monocytes % (Manual) 6, Eosinophils % ( Manual) 2, Basophils % (Manual) 0, Band Neutrophils 10H, Platelet Estimate Adequate, Platelet Morphology Normal, Polychromasia 1+, Hypochromasia 1+, Anisocytosis 1+, Macrocytosis 2+, Prothrombin Time 11.0, Prothromb Time International Ratio 1.1, Activated Partial Thromboplast Time 28, Urine Color Yellow, Urine Appearance Cloudy, Urine pH 7, Urine Specific [place] 1.010, Urine Protein 2+H, Urine Glucose (UA) Negative, Urine Ketones Negative, Urine Occult Blood 4+H, Urine Nitrite Negative, Urine Bilirubin Negative, Urine Urobilinogen Normal, Urine Leukocyte Esterase 3+H, Urine RBC 2-4H, Urine WBC TntcH, Urine Squamous Epithelial Cells Few, Urine Bacteria ManyH, Sodium Level 139, Potassium Level 6.7*H, Chloride Level 104, Carbon Dioxide Level 24, Anion Gap 11, Blood Urea Nitrogen 97H, Creatinine 4.4H, Estimat Glomerular Filtration Rate , Glucose Level 179H, Lactic Acid Level 1.70, Calcium Level 9.4, Total Bilirubin 0.6, Aspartate Amino Transf (AST/SGOT) 49H, Alanine Aminotransferase ( ALT/SGPT) 47, Alkaline Phosphatase 323H, Total Creatine Kinase 27, Creatine Kinase MB 0.5, Creatine Kinase MB Relative Index 1.8, Troponin I 0.000, C- Reactive Protein, Quantitative 41.9H, Pro-B-Type Natriuretic Peptide 1937H, Total Protein 6.2L, Albumin 2.0L, Globulin 4.2, Albumin/Globulin Ratio 0.5L, Lipase 61L 06/13/17 22:00: Urine Color Pale yellow, Urine Appearance Turbid, Urine pH 5, Urine Specific [place] 1.015, Urine Protein 3+H, Urine Glucose (UA) Negative, Urine Ketones Negative, Urine Occult Blood 5+H, Urine Nitrite Negative, Urine Bilirubin Negative, Urine Urobilinogen Normal, Urine Leukocyte Esterase 3+H, Urine RBC TntcH, Urine WBC TntcH, Urine Squamous Epithelial Cells None, Urine Bacteria ManyH, Urine Eosinophils None seen, Urine Random Sodium 24 06/14/17 04:55: White Blood Count 18.0H, Red Blood Count 3.06L, Hemoglobin 9.3L, Hematocrit 31.2L, Mean Corpuscular Volume 102H, Mean Corpuscular Hemoglobin 30.5, Mean Corpuscular Hemoglobin Concent 29.9L, Red Cell Distribution Width 14.6, Platelet Count 174, Mean Platelet Volume 7.2, Neutrophils (%) (Auto) , Lymphocytes (%) (Auto) , Monocytes (%) (Auto) , Eosinophils (%) (Auto) , Basophils (%) (Auto) , Neutrophils % (Manual) [Pending], Lymphocytes % (Manual) [Pending], Platelet Estimate [Pending], Platelet Morphology [Pending], Sodium Level 140, Potassium Level 6.1*H, Chloride Level 107, Carbon Dioxide Level 23, Anion Gap 9, Blood Urea Nitrogen 94H, Creatinine 3.9H, Estimat Glomerular Filtration Rate , Glucose Level 122H, Calcium Level 9.5, Total Bilirubin 0.5, Aspartate Amino Transf (AST/SGOT) 34, Alanine Aminotransferase (ALT/SGPT) 34, Alkaline Phosphatase 250H, Total Creatine Kinase 23L, Troponin I 0.000, Pro-B- Type Natriuretic Peptide 2248H, Total Protein 6.4, Albumin 2.0L, Globulin 4.4, Albumin/Globulin Ratio 0.5L, Hemoglobin A1c 6.3H, Uric Acid 4.2, Phosphorus Level 5.1H, Magnesium Level 1.8, Iron Level 18L, Total Iron Binding Capacity 105L, Percent Iron Saturation 17, Unsaturated Iron Binding 87L, Ferritin > 2000H , Gamma Glutamyl Transpeptidase 134H, Triglycerides Level 65, Cholesterol Level 88, LDL Cholesterol 47, HDL Cholesterol 27L, Cholesterol/HDL Ratio 3.3, Vitamin B12 Level 949, Folate 15.3, Thyroid Stimulating Hormone (TSH) 0.946 Current Medications Medications (Trade) Dose Ordered Sig/Lakshmi Route PRN Reason Start Time Stop Time Status Last Admin Dose Admin Acetaminophen (Tylenol) 650 mg Q4H PRN ORAL fever 06/13/17 16:00 07/13/17 15:59 Albuterol/ Ipratropium (Albuterol/ Ipratropium) 3 ml Q4H PRN HHN Shortness of Breath 06/13/17 16:00 06/18/17 15:59 Dextrose (Dextrose 50%) STAT PRN IV Hypoglycemia 06/13/17 16:00 07/13/17 15:59 Docusate Sodium (Colace) 100 mg THREE TIMES A DAY ORAL 06/13/17 18:00 07/13/17 17:59 06/14/17 08:18 Famotidine (Pepcid I.v.) 20 mg QHS IVP 06/13/17 21:00 07/13/17 20:59 06/13/17 21:19 Heparin Sodium (Porcine) (Heparin 5000 units/ml) 5,000 units EVERY 12 HOURS SUBQ 06/13/17 21:00 07/13/17 20:59 06/14/17 08:20 Levothyroxine Sodium (Synthroid) 100 mcg DAILY@0630 ORAL 06/15/17 06:30 07/15/17 06:29 UNV Meropenem 500 mg/ Sodium Chloride 55 ml @ 110 mls/hr DAILY IVPB 06/14/17 11:00 06/19/17 10:59 06/14/17 11:03 Morphine Sulfate (Morphine Sulfate) 2 mg Q4H PRN IVP Moderate Pain (Pain Scale 4-6) 06/13/17 16:00 2/5/18 15:59 Nitroglycerin (Ntg) 0.4 mg Every 5 Minutes PRN SL Prn Chest Pain 06/13/17 16:00 07/13/17 15:59 Ondansetron HCl (Zofran) 4 mg Q6H PRN IVP Nausea & Vomiting 06/13/17 16:00 07/13/17 15:59 Polyethylene Glycol (Miralax) 17 gm DAILYPRN PRN ORAL Constipation 06/13/17 16:00 07/13/17 15:59 Sodium Polystyrene Sulfonate (Kayexalate) 45 gm ONCE ONCE ORAL 06/14/17 11:30 06/14/17 11:31 Sodium Chloride 1,000 ml @ 100 mls/hr Q10H IVLG 06/13/17 23:00 07/13/17 22:59 06/14/17 08:18 Temazepam (Restoril) 15 mg HSPRN PRN ORAL Insomnia 06/13/17 16:00 06/20/17 15:59 Vancomycin HCl (Vanco rx to dose) 1 ea DAILYPRN PRN MISC RX TO DOSE PROTOCOL 06/13/17 16:45 07/13/17 16:44 KAILA HASSAN Jun 14, 2017 11:09
[2017-06-14] MEDS ORDERED: Sodium Polystyrene Sulfonate 15gm Powder ORAL ONE (11:30)
[2017-06-14 12:00] VITALS: BP 123/95
--- NOTE | 2017-06-14 14:30 | Neurology Progress Note ---
Interim History Interim History ROS Limited/Unobtainable: No Objective Physical Exam Last Vital Signs Date Time Temp Pulse Resp B/P (MAP) Pulse Ox O2 Delivery O2 Flow Rate FiO2 06/14/17 12:00 123 06/14/17 12:00 99.2 20 123/95 98 Nasal Cannula 3.0 Laboratory Tests Test 06/13/17 22:00 06/14/17 04:55 Urine Color Pale yellow Urine Appearance Turbid Urine pH 5 (4.5-8.0) Urine Specific [place] 1.015 (1.005-1.035) Urine Protein 3+ (NEGATIVE) H Urine Glucose (UA) Negative (NEGATIVE) Urine Ketones Negative (NEGATIVE) Urine Occult Blood 5+ (NEGATIVE) H Urine Nitrite Negative (NEGATIVE) Urine Bilirubin Negative (NEGATIVE) Urine Urobilinogen Normal MG/DL (0.0-1.0) Urine Leukocyte Esterase 3+ (NEGATIVE) H Urine RBC Tntc /HPF (0 - 2) H Urine WBC Tntc /HPF (0 - 2) H Urine Squamous Epithelial Cells None /LPF (NONE/OCC) Urine Bacteria Many /HPF (NONE) H Urine Eosinophils None seen Urine Random Sodium 24 MEQ/L (20-110) White Blood Count 18.0 K/UL (4.8-10.8) H Red Blood Count 3.06 M/UL (4.20-5.40) L Hemoglobin 9.3 G/DL (12.0-16.0) L Hematocrit 31.2 % (37.0-47.0) L Mean Corpuscular Volume 102 FL (80-99) H Mean Corpuscular Hemoglobin 30.5 PG (27.0-31.0) Mean Corpuscular Hemoglobin Concent 29.9 G/DL (32.0-36.0) L Red Cell Distribution Width 14.6 % (11.6-14.8) Platelet Count 174 K/UL (150-450) Mean Platelet Volume 7.2 FL (6.5-10.1) Neutrophils (%) (Auto) % (45.0-75.0) Lymphocytes (%) (Auto) % (20.0-45.0) Monocytes (%) (Auto) % (1.0-10.0) Eosinophils (%) (Auto) % (0.0-3.0) Basophils (%) (Auto) % (0.0-2.0) Differential Total Cells Counted 100 Neutrophils % (Manual) 77 % (45-75) H Lymphocytes % (Manual) 4 % (20-45) L Monocytes % (Manual) 4 % (1-10) Eosinophils % (Manual) 0 % (0-3) Basophils % (Manual) 0 % (0-2) Band Neutrophils 15 % (0-8) H Platelet Estimate Adequate Platelet Morphology Normal Hypochromasia 1+ Macrocytosis 1+ Sodium Level 140 MMOL/L (136-145) Potassium Level 6.1 MMOL/L (3.5-5.1) *H Chloride Level 107 MMOL/L (98-107) Carbon Dioxide Level 23 MMOL/L (21-32) Anion Gap 9 mmol/L (5-15) Blood Urea Nitrogen 94 mg/dL (7-18) H Creatinine 3.9 MG/DL (0.55-1.30) H Estimat Glomerular Filtration Rate mL/min (>60) Glucose Level 122 MG/DL (74-106) H Hemoglobin A1c 6.3 % (4.3-6.0) H Uric Acid 4.2 MG/DL (2.6-7.2) Calcium Level 9.5 MG/DL (8.5-10.1) Phosphorus Level 5.1 MG/DL (2.5-4.9) H Magnesium Level 1.8 MG/DL (1.8-2.4) Iron Level 18 ug/dL (50-175) L Total Iron Binding Capacity 105 ug/dL (250-450) L Percent Iron Saturation 17 % (15-50) Unsaturated Iron Binding 87 ug/dL (112-346) L Ferritin > 2000 NG/ML (8-388) H Total Bilirubin 0.5 MG/DL (0.2-1.0) Gamma Glutamyl Transpeptidase 134 U/L (5-85) H Aspartate Amino Transf (AST/SGOT) 34 U/L (15-37) Alanine Aminotransferase (ALT/SGPT) 34 U/L (12-78) Alkaline Phosphatase 250 U/L (46-116) H Total Creatine Kinase 23 U/L (26-308) L Troponin I 0.000 ng/mL (0.000-0.056) Pro-B-Type Natriuretic Peptide 2248 pg/mL (0-125) H Total Protein 6.4 G/DL (6.4-8.2) Albumin 2.0 G/DL (3.4-5.0) L Globulin 4.4 g/dL Albumin/Globulin Ratio 0.5 (1.0-2.7) L Triglycerides Level 65 MG/DL (30-150) Cholesterol Level 88 MG/DL (< 200) LDL Cholesterol 47 mg/dL (<100) HDL Cholesterol 27 MG/DL (40-60) L Cholesterol/HDL Ratio 3.3 (3.3-4.4) Vitamin B12 Level 949 PG/ML (193-986) Folate 15.3 NG/ML (8.6-58.9) Thyroid Stimulating Hormone (TSH) 0.946 uiU/mL (0.358-3.740) Impression/Recommendations Recommendations #[id number] PARVIZ JEAN Jun 14, 2017 14:30
[2017-06-14] MEDS ORDERED: Tubing IV Secondary IV ONE (14:47)
[2017-06-14] MEDS ORDERED: NS 500ML ONE (14:47)
--- NOTE | 2017-06-14 15:05 | Nephrology Progress Note ---
Assessment/Plan Problem List: (1) Renal failure (ARF), acute on chronic (2) Sepsis (3) Morbid obesity (4) Hyperkalemia Assessment Acute renal failure cr down 3.9 HyperKalemia K down 6.1 Possible CKD Anemia HypoAlbuminemia Leukocytosis and Sepsis and UTI Morbid Obesity Urinary retention: after carrera over one liter urine removed from bladder Plan Fluid challenge- Monitor renal parameters avoid nephrotoxics Anemia goldman Keep BP and BS in check Kayexelate PO Subjective ROS Limited/Unobtainable: No Constitutional: Reports: malaise, weakness Objective Objective Last 24 Hour Vital Signs Date Time Temp Pulse Resp B/P (MAP) Pulse Ox O2 Delivery O2 Flow Rate FiO2 06/14/17 12:00 123 06/14/17 12:00 99.2 122 20 123/95 98 Nasal Cannula 3.0 06/14/17 08:00 99.3 121 19 132/58 97 Nasal Cannula 3.0 06/14/17 07:45 121 06/14/17 04:00 120 06/14/17 04:00 98.7 121 22 107/58 97 Nasal Cannula 3.0 06/14/17 00:00 115 06/14/17 00:00 98.7 114 22 111/56 97 Nasal Cannula 3.0 06/13/17 20:00 124 06/13/17 20:00 98.6 98 20 132/57 98 Nasal Cannula 3.0 06/13/17 19:54 121 21 126/87 Nasal Cannula 06/13/17 18:32 121 06/13/17 17:45 97.3 123 20 126/54 97 Nasal Cannula 2.0 06/13/17 16:57 98.2 121 19 120/67 2 06/13/17 15:46 97.1 126 20 136/70 Nasal Cannula Intake and Output 06/13/17 06/14/17 19:00 07:00 Intake Total 1410 ml 1780.0 ml Output Total 2000 ml 600 ml Balance -590 ml 1180.0 ml Intake Oral 60 ml 120 ml IV Total 1350 ml 1660.0 ml Output Urine Total 2000 ml 600 ml Laboratory Tests 06/13/17 22:00: Urine Color Pale yellow, Urine Appearance Turbid, Urine pH 5, Urine Specific [place] 1.015, Urine Protein 3+H, Urine Glucose (UA) Negative, Urine Ketones Negative, Urine Occult Blood 5+H, Urine Nitrite Negative, Urine Bilirubin Negative, Urine Urobilinogen Normal, Urine Leukocyte Esterase 3+H, Urine RBC TntcH, Urine WBC TntcH, Urine Squamous Epithelial Cells None, Urine Bacteria ManyH, Urine Eosinophils None seen, Urine Random Sodium 24 06/14/17 04:55: White Blood Count 18.0H, Red Blood Count 3.06L, Hemoglobin 9.3L, Hematocrit 31.2L, Mean Corpuscular Volume 102H, Mean Corpuscular Hemoglobin 30.5, Mean Corpuscular Hemoglobin Concent 29.9L, Red Cell Distribution Width 14.6, Platelet Count 174, Mean Platelet Volume 7.2, Neutrophils (%) (Auto) , Lymphocytes (%) (Auto) , Monocytes (%) (Auto) , Eosinophils (%) (Auto) , Basophils (%) (Auto) , Differential Total Cells Counted 100, Neutrophils % ( Manual) 77H, Lymphocytes % (Manual) 4L, Monocytes % (Manual) 4, Eosinophils % ( Manual) 0, Basophils % (Manual) 0, Band Neutrophils 15H, Platelet Estimate Adequate, Platelet Morphology Normal, Hypochromasia 1+, Macrocytosis 1+, Sodium Level 140, Potassium Level 6.1*H, Chloride Level 107, Carbon Dioxide Level 23, Anion Gap 9, Blood Urea Nitrogen 94H, Creatinine 3.9H, Estimat Glomerular Filtration Rate , Glucose Level 122H, Hemoglobin A1c 6.3H, Uric Acid 4.2, Calcium Level 9.5, Phosphorus Level 5.1H, Magnesium Level 1.8, Iron Level 18L, Total Iron Binding Capacity 105L, Percent Iron Saturation 17, Unsaturated Iron Binding 87L, Ferritin > 2000H, Total Bilirubin 0.5, Gamma Glutamyl Transpeptidase 134H, Aspartate Amino Transf (AST/SGOT) 34, Alanine Aminotransferase (ALT/SGPT) 34, Alkaline Phosphatase 250H, Total Creatine Kinase 23L, Troponin I 0.000, Pro-B-Type Natriuretic Peptide 2248H, Total Protein 6.4, Albumin 2.0L, Globulin 4.4, Albumin/Globulin Ratio 0.5L, Triglycerides Level 65, Cholesterol Level 88, LDL Cholesterol 47, HDL Cholesterol 27L, Cholesterol/HDL Ratio 3.3, Vitamin B12 Level 949, Folate 15.3, Thyroid Stimulating Hormone (TSH) 0.946 Height (Feet): 5 Height (Inches): 5.00 Weight (Pounds): 370 General Appearance: no apparent distress, lethargic Cardiovascular: tachycardia Respiratory/Chest: decreased breath sounds Abdomen: soft, other - obese JD WOO Jun 14, 2017 15:05
[2017-06-14 16:00] VITALS: BP 110/63
--- NOTE | 2017-06-14 16:51 | Cardiology Progress Note ---
Assessment/Plan Assessment/Plan pleural effusion previously exudative hyperdynamic systolic function arf cri copd bacteremia uti metabolic encephalopathy avoid aggressive diuretic albumin or ns if hypotension develops abx may need repeat thoracentesis [id number] Objective Last 24 Hour Vital Signs Date Time Temp Pulse Resp B/P (MAP) Pulse Ox O2 Delivery O2 Flow Rate FiO2 06/14/17 12:00 123 06/14/17 12:00 99.2 122 20 123/95 98 Nasal Cannula 3.0 06/14/17 08:00 99.3 121 19 132/58 97 Nasal Cannula 3.0 06/14/17 07:45 121 06/14/17 04:00 120 06/14/17 04:00 98.7 121 22 107/58 97 Nasal Cannula 3.0 06/14/17 00:00 115 06/14/17 00:00 98.7 114 22 111/56 97 Nasal Cannula 3.0 06/13/17 20:00 124 06/13/17 20:00 98.6 98 20 132/57 98 Nasal Cannula 3.0 06/13/17 19:54 121 21 126/87 Nasal Cannula 06/13/17 18:32 121 06/13/17 17:45 97.3 123 20 126/54 97 Nasal Cannula 2.0 06/13/17 16:57 98.2 121 19 120/67 2 Intake and Output 06/13/17 06/14/17 19:00 07:00 Intake Total 1410 ml 1780.0 ml Output Total 2000 ml 600 ml Balance -590 ml 1180.0 ml Intake Oral 60 ml 120 ml IV Total 1350 ml 1660.0 ml Output Urine Total 2000 ml 600 ml Laboratory Tests Test 06/13/17 22:00 06/14/17 04:55 Urine Color Pale yellow Urine Appearance Turbid Urine pH 5 (4.5-8.0) Urine Specific [place] 1.015 (1.005-1.035) Urine Protein 3+ (NEGATIVE) H Urine Glucose (UA) Negative (NEGATIVE) Urine Ketones Negative (NEGATIVE) Urine Occult Blood 5+ (NEGATIVE) H Urine Nitrite Negative (NEGATIVE) Urine Bilirubin Negative (NEGATIVE) Urine Urobilinogen Normal MG/DL (0.0-1.0) Urine Leukocyte Esterase 3+ (NEGATIVE) H Urine RBC Tntc /HPF (0 - 2) H Urine WBC Tntc /HPF (0 - 2) H Urine Squamous Epithelial Cells None /LPF (NONE/OCC) Urine Bacteria Many /HPF (NONE) H Urine Eosinophils None seen Urine Random Sodium 24 MEQ/L (20-110) White Blood Count 18.0 K/UL (4.8-10.8) H Red Blood Count 3.06 M/UL (4.20-5.40) L Hemoglobin 9.3 G/DL (12.0-16.0) L Hematocrit 31.2 % (37.0-47.0) L Mean Corpuscular Volume 102 FL (80-99) H Mean Corpuscular Hemoglobin 30.5 PG (27.0-31.0) Mean Corpuscular Hemoglobin Concent 29.9 G/DL (32.0-36.0) L Red Cell Distribution Width 14.6 % (11.6-14.8) Platelet Count 174 K/UL (150-450) Mean Platelet Volume 7.2 FL (6.5-10.1) Neutrophils (%) (Auto) % (45.0-75.0) Lymphocytes (%) (Auto) % (20.0-45.0) Monocytes (%) (Auto) % (1.0-10.0) Eosinophils (%) (Auto) % (0.0-3.0) Basophils (%) (Auto) % (0.0-2.0) Differential Total Cells Counted 100 Neutrophils % (Manual) 77 % (45-75) H Lymphocytes % (Manual) 4 % (20-45) L Monocytes % (Manual) 4 % (1-10) Eosinophils % (Manual) 0 % (0-3) Basophils % (Manual) 0 % (0-2) Band Neutrophils 15 % (0-8) H Platelet Estimate Adequate Platelet Morphology Normal Hypochromasia 1+ Macrocytosis 1+ Sodium Level 140 MMOL/L (136-145) Potassium Level 6.1 MMOL/L (3.5-5.1) *H Chloride Level 107 MMOL/L (98-107) Carbon Dioxide Level 23 MMOL/L (21-32) Anion Gap 9 mmol/L (5-15) Blood Urea Nitrogen 94 mg/dL (7-18) H Creatinine 3.9 MG/DL (0.55-1.30) H Estimat Glomerular Filtration Rate mL/min (>60) Glucose Level 122 MG/DL (74-106) H Hemoglobin A1c 6.3 % (4.3-6.0) H Uric Acid 4.2 MG/DL (2.6-7.2) Calcium Level 9.5 MG/DL (8.5-10.1) Phosphorus Level 5.1 MG/DL (2.5-4.9) H Magnesium Level 1.8 MG/DL (1.8-2.4) Iron Level 18 ug/dL (50-175) L Total Iron Binding Capacity 105 ug/dL (250-450) L Percent Iron Saturation 17 % (15-50) Unsaturated Iron Binding 87 ug/dL (112-346) L Ferritin > 2000 NG/ML (8-388) H Total Bilirubin 0.5 MG/DL (0.2-1.0) Gamma Glutamyl Transpeptidase 134 U/L (5-85) H Aspartate Amino Transf (AST/SGOT) 34 U/L (15-37) Alanine Aminotransferase (ALT/SGPT) 34 U/L (12-78) Alkaline Phosphatase 250 U/L (46-116) H Total Creatine Kinase 23 U/L (26-308) L Troponin I 0.000 ng/mL (0.000-0.056) C-Reactive Protein, Quantitative > 70.0 mg/dL (0.00-0.90) H Pro-B-Type Natriuretic Peptide 2248 pg/mL (0-125) H Total Protein 6.4 G/DL (6.4-8.2) Albumin 2.0 G/DL (3.4-5.0) L Globulin 4.4 g/dL Albumin/Globulin Ratio 0.5 (1.0-2.7) L Triglycerides Level 65 MG/DL (30-150) Cholesterol Level 88 MG/DL (< 200) LDL Cholesterol 47 mg/dL (<100) HDL Cholesterol 27 MG/DL (40-60) L Cholesterol/HDL Ratio 3.3 (3.3-4.4) Vitamin B12 Level 949 PG/ML (193-986) Folate 15.3 NG/ML (8.6-58.9) Thyroid Stimulating Hormone (TSH) 0.946 uiU/mL (0.358-3.740) Microbiology Date/Time Source Procedure Growth Status 06/13/17 14:10 Blood Blood Culture - Preliminary Resulted 06/13/17 13:50 Blood Blood Culture - Preliminary Resulted 06/13/17 14:10 Nasal Nares Influenza Types A,B Antigen (STEFAN) - Final Complete 06/13/17 14:10 Urine,Clean Catch Urine Culture - Preliminary Gram Negative Bacillus 1 Resulted KELSI LAL Jun 14, 2017 16:51
--- NOTE | 2017-06-14 17:37 | Cardiology Report ---
APPROVED REPORT EXAM: Two-dimensional and M-mode echocardiogram with Doppler and color Doppler. INDICATION Left ventricular function M-Mode DIMENSIONS IVSd1.5 (0.7-1.1cm)Left Atrium (MM)2.7 (1.6-4.0cm) LVDd2.3 (3.5-5.6cm)Aortic Root2.5 (2.0-3.7cm) PWd1.3 (0.7-1.1cm)Aortic Cusp Exc.1.8 (1.5-2.0cm) LVDs0.5 (2.5-4.0cm) PWs0.8 cm Technically difficult study due to poor acoustical windows. Normal left ventricular chamber size,Hyperdynamic systolic function and wall motion. Left ventricular ejection fraction estimated to be 70-75%.with evidence of cavity obliteration Mild left ventricular hypertrophy. No evidence of pericardial or pleural effusion. Left cardiac chamber sizes are within normal limits. Mild right atrial enlargement by 2D. Focal aortic valve sclerosis with adequate cusp excursion. Thickened mitral valve leaflets with normal excursion. Mild mitral annulus and aortic root calcification. Pulmonic valve not well visualized. Normal tricuspid valve structure. IVC is normal in size and collapsible with respiration. A color flow and spectral Doppler study was performed and revealed: No aortic regurgitation. No mitral regurgitation. Mitral diastolic velocities suggest reduced left ventricular relaxation c/w diastolic dysfunction grade 1. Moderate tricuspid regurgitation. Tricuspid systolic velocities suggests peak right ventricular systolic pressure of 53 mmHg Consistent with severe pulmonary hypertension. Pulmonic regurgitation present.
[2017-06-14] MEDS ORDERED: Cefepime 1gm in D5W 55ml IVPB SCH (18:00)
[2017-06-14 20:00] VITALS: BP 103/52
[2017-06-15] VITALS: BP 104/52
[2017-06-15] MEDS ORDERED: Vancomycin 1250mg/D5W 250ml IVPB ONE
[2017-06-15 04:00] VITALS: BP 130/71
[2017-06-15 06:21] LABS: HEMATOCRIT 32.5 % (37.0-47.0); HEMOGLOBIN 9.8 G/DL (12.0-16.0); MEAN CORPUSCULAR VOLUME 102 FL (80-99); PLATELET COUNT 185 K/UL (150-450); RED BLOOD COUNT 3.19 M/UL (4.20-5.40); RED CELL DISTRIBUTION WIDTH 14.7 % (11.6-14.8); WHITE BLOOD COUNT 19.3 K/UL (4.8-10.8)
[2017-06-15 07:16] LABS: ALANINE AMINOTRANSFERASE 49 U/L (12-78); ALBUMIN 1.8 G/DL (3.4-5.0); ALBUMIN/GLOBULIN RATIO 0.5 (1.0-2.7); ALKALINE PHOSPHATASE 387 U/L (46-116); ANION GAP 10 mmol/L (5-15); ASPARTATE AMINO TRANSFERASE 44 U/L (15-37); BILIRUBIN,TOTAL 0.4 MG/DL (0.2-1.0); BLOOD UREA NITROGEN 86 mg/dL (7-18); CALCIUM 8.8 MG/DL (8.5-10.1); CARBON DIOXIDE 24 MMOL/L (21-32); CHLORIDE 110 MMOL/L (98-107); CREATININE 3.3 MG/DL (0.55-1.30); PHOSPHORUS 5.2 MG/DL (2.5-4.9); POTASSIUM 4.7 MMOL/L (3.5-5.1); SODIUM 144 MMOL/L (136-145)
[2017-06-15 08:00] VITALS: BP 130/62
[2017-06-15] MEDS: Heparin 5000 units/ml inj SUBQ SCH ×2 (09:00→20:55)
[2017-06-15] MEDS: Docusate 100mg cap ORAL SCH ×4 (09:04→18:11)
[2017-06-15] MEDS: Meropenem 500 MG in NS 55 ML IVPB SCH (09:04)
--- NOTE | 2017-06-15 11:59 | Pulmonology Progress Note ---
Assessment/Plan Problems: (1) Sepsis (2) Altered level of consciousness (3) Hyperkalemia (4) Renal insufficiency (5) Bacteremia (6) Morbid obesity (7) Hypothyroid (8) Pleural effusion Assessment/Plan imrpoving iv fluids check cultures continue abx, GNR in blood check urine cultures. check echo, labs in am all consults reviewed Subjective ROS Limited/Unobtainable: No Interval Events: more awake, comfortable Allergies: Coded Allergies: IODINE (Verified Allergy, Mild, 08/17/08) Uncoded Allergies: CONTRAST MEDIA (Allergy, Mild, 08/17/08) Objective Last 24 Hour Vital Signs Date Time Temp Pulse Resp B/P (MAP) Pulse Ox O2 Delivery O2 Flow Rate FiO2 06/15/17 08:00 97.0 117 22 130/62 96 Nasal Cannula 2.0 06/15/17 08:00 116 06/15/17 04:00 98.4 116 16 130/71 97 Nasal Cannula 3.0 06/15/17 04:00 117 06/15/17 00:00 98.9 120 16 104/52 97 Nasal Cannula 3.0 06/15/17 00:00 123 06/14/17 20:00 98.9 120 20 103/52 100 Nasal Cannula 3.0 06/14/17 20:00 123 06/14/17 16:00 98.9 128 20 110/63 99 Nasal Cannula 3.0 06/14/17 16:00 127 06/14/17 12:00 123 06/14/17 12:00 99.2 122 20 123/95 98 Nasal Cannula 3.0 Intake and Output 06/14/17 06/15/17 19:00 07:00 Intake Total 1305 ml Output Total 900 ml 850 ml Balance 405 ml -850 ml Intake Oral 200 ml IV Total 1105 ml Output Urine Total 900 ml 850 ml Objective General Appearance: WD/WN, morbidly obese Lines, tubes and drains: peripheral HEENT: normocephalic, atraumatic Neck: non-tender, normal alignment Respiratory/Chest: chest wall non-tender, lungs clear Breasts: no masses Cardiovascular/Chest: normal peripheral pulses Abdomen: normal bowel sounds EXT. + edema Microbiology Date/Time Source Procedure Growth Status 06/13/17 14:10 Blood Blood Culture - Preliminary Gram Negative Bacillus 1 Resulted 06/13/17 13:50 Blood Blood Culture - Preliminary Gram Negative Bacillus 1 Resulted 06/13/17 14:10 Nasal Nares Influenza Types A,B Antigen (STEFAN) - Final Complete 06/13/17 14:10 Urine,Clean Catch Urine Culture - Final Klebsiella Pneumoniae Complete Laboratory Tests 06/14/17 20:10: Random Vancomycin Level 7.4 06/15/17 06:00: White Blood Count 19.3H, Red Blood Count 3.19L, Hemoglobin 9.8L, Hematocrit 32.5L, Mean Corpuscular Volume 102H, Mean Corpuscular Hemoglobin 30.6, Mean Corpuscular Hemoglobin Concent 30.1L, Red Cell Distribution Width 14.7, Platelet Count 185, Mean Platelet Volume 7.0, Neutrophils (%) (Auto) , Lymphocytes (%) (Auto) , Monocytes (%) (Auto) , Eosinophils (%) (Auto) , Basophils (%) (Auto) , Differential Total Cells Counted 100, Neutrophils % ( Manual) 85H, Lymphocytes % (Manual) 10L, Monocytes % (Manual) 4, Eosinophils % ( Manual) 1, Basophils % (Manual) 0, Band Neutrophils 0, Platelet Estimate Adequate, Platelet Morphology Normal, Sodium Level 144, Potassium Level 4.7, Chloride Level 110H, Carbon Dioxide Level 24, Anion Gap 10, Blood Urea Nitrogen 86H, Creatinine 3.3H, Estimat Glomerular Filtration Rate , Glucose Level 112H, Uric Acid 4.3, Calcium Level 8.8, Phosphorus Level 5.2H, Magnesium Level 1.8, Total Bilirubin 0.4, Aspartate Amino Transf (AST/SGOT) 44H, Alanine Aminotransferase (ALT/SGPT) 49, Alkaline Phosphatase 387H, Troponin I 0.000, Pro -B-Type Natriuretic Peptide 2106H, Total Protein 5.6L, Albumin 1.8L, Globulin 3.8, Albumin/Globulin Ratio 0.5L Current Medications Medications (Trade) Dose Ordered Sig/Lakshmi Route PRN Reason Start Time Stop Time Status Last Admin Dose Admin Acetaminophen (Tylenol) 650 mg Q4H PRN ORAL fever 06/13/17 16:00 07/13/17 15:59 Albuterol/ Ipratropium (Albuterol/ Ipratropium) 3 ml Q4H PRN HHN Shortness of Breath 06/13/17 16:00 06/18/17 15:59 Dextrose (Dextrose 50%) STAT PRN IV Hypoglycemia 1/29/18 16:00 07/13/17 15:59 Docusate Sodium (Colace) 100 mg THREE TIMES A DAY ORAL 06/13/17 18:00 07/13/17 17:59 06/15/17 09:04 Famotidine (Pepcid I.v.) 20 mg QHS IVP 06/13/17 21:00 07/13/17 20:59 06/14/17 20:27 Heparin Sodium (Porcine) (Heparin 5000 units/ml) 5,000 units EVERY 12 HOURS SUBQ 06/13/17 21:00 07/13/17 20:59 06/14/17 20:29 Levothyroxine Sodium (Synthroid) 100 mcg DAILY@0630 ORAL 06/15/17 06:30 07/15/17 06:29 06/15/17 06:40 Meropenem 500 mg/ Sodium Chloride 55 ml @ 110 mls/hr DAILY IVPB 06/14/17 11:00 06/19/17 10:59 06/15/17 09:04 Morphine Sulfate (Morphine Sulfate) 2 mg Q4H PRN IVP Moderate Pain (Pain Scale 4-6) 06/13/17 16:00 06/20/17 15:59 Nitroglycerin (Ntg) 0.4 mg Every 5 Minutes PRN SL Prn Chest Pain 06/13/17 16:00 07/13/17 15:59 Ondansetron HCl (Zofran) 4 mg Q6H PRN IVP Nausea & Vomiting 06/13/17 16:00 07/13/17 15:59 Polyethylene Glycol (Miralax) 17 gm DAILYPRN PRN ORAL Constipation 06/13/17 16:00 07/13/17 15:59 Sodium Chloride 1,000 ml @ 100 mls/hr Q10H IVLG 06/13/17 23:00 07/13/17 22:59 06/15/17 06:40 Temazepam (Restoril) 15 mg HSPRN PRN ORAL Insomnia 06/13/17 16:00 06/20/17 15:59 Vancomycin HCl (Vanco rx to dose) 1 ea DAILYPRN PRN MISC RX TO DOSE PROTOCOL 06/13/17 16:45 07/13/17 16:44 KAILA HASSAN Jun 15, 2017 11:59
[2017-06-15 12:00] VITALS: BP 137/73
--- NOTE | 2017-06-15 12:51 | Nephrology Progress Note ---
Assessment/Plan Problem List: (1) Renal failure (ARF), acute on chronic (2) Sepsis (3) Morbid obesity (4) Hyperkalemia Assessment Acute renal failure cr down 3.3 HyperKalemia K down 6.1 Possible CKD Anemia HypoAlbuminemia Leukocytosis and Sepsis and UTI Morbid Obesity Urinary retention: after carrera over one liter urine removed from bladder Plan Fluid challenge- Monitor renal parameters avoid nephrotoxics Anemia goldman Keep BP and BS in check Subjective ROS Limited/Unobtainable: No Constitutional: Reports: malaise Objective Objective Last 24 Hour Vital Signs Date Time Temp Pulse Resp B/P (MAP) Pulse Ox O2 Delivery O2 Flow Rate FiO2 06/15/17 08:00 97.0 117 22 130/62 96 Nasal Cannula 2.0 06/15/17 08:00 116 06/15/17 04:00 98.4 116 16 130/71 97 Nasal Cannula 3.0 06/15/17 04:00 117 06/15/17 00:00 98.9 120 16 104/52 97 Nasal Cannula 3.0 06/15/17 00:00 123 06/14/17 20:00 98.9 120 20 103/52 100 Nasal Cannula 3.0 06/14/17 20:00 123 06/14/17 16:00 98.9 128 20 110/63 99 Nasal Cannula 3.0 06/14/17 16:00 127 Intake and Output 06/14/17 06/15/17 19:00 07:00 Intake Total 1305 ml Output Total 900 ml 850 ml Balance 405 ml -850 ml Intake Oral 200 ml IV Total 1105 ml Output Urine Total 900 ml 850 ml Laboratory Tests 06/14/17 20:10: Random Vancomycin Level 7.4 06/15/17 06:00: White Blood Count 19.3H, Red Blood Count 3.19L, Hemoglobin 9.8L, Hematocrit 32.5L, Mean Corpuscular Volume 102H, Mean Corpuscular Hemoglobin 30.6, Mean Corpuscular Hemoglobin Concent 30.1L, Red Cell Distribution Width 14.7, Platelet Count 185, Mean Platelet Volume 7.0, Neutrophils (%) (Auto) , Lymphocytes (%) (Auto) , Monocytes (%) (Auto) , Eosinophils (%) (Auto) , Basophils (%) (Auto) , Differential Total Cells Counted 100, Neutrophils % ( Manual) 85H, Lymphocytes % (Manual) 10L, Monocytes % (Manual) 4, Eosinophils % ( Manual) 1, Basophils % (Manual) 0, Band Neutrophils 0, Platelet Estimate Adequate, Platelet Morphology Normal, Sodium Level 144, Potassium Level 4.7, Chloride Level 110H, Carbon Dioxide Level 24, Anion Gap 10, Blood Urea Nitrogen 86H, Creatinine 3.3H, Estimat Glomerular Filtration Rate , Glucose Level 112H, Uric Acid 4.3, Calcium Level 8.8, Phosphorus Level 5.2H, Magnesium Level 1.8, Total Bilirubin 0.4, Aspartate Amino Transf (AST/SGOT) 44H, Alanine Aminotransferase (ALT/SGPT) 49, Alkaline Phosphatase 387H, Troponin I 0.000, Pro -B-Type Natriuretic Peptide 2106H, Total Protein 5.6L, Albumin 1.8L, Globulin 3.8, Albumin/Globulin Ratio 0.5L Height (Feet): 5 Height (Inches): 5.00 Weight (Pounds): 370 General Appearance: no apparent distress Cardiovascular: tachycardia Respiratory/Chest: decreased breath sounds Abdomen: soft JD WOO Jun 15, 2017 12:51
[2017-06-15] MEDS ORDERED: D5 1/2NS 1,000 ML IV SCH (13:00)
--- NOTE | 2017-06-15 13:04 | Infectious Diseases Prog Note ---
Assessment/Plan Assessment/Plan Assessment: Sepsis - 2ry to UTI and bacteremia, possible PNA -r/o pyelonephritis, renal abscess -u.a wbc tntc, nit neg, luek +3; ucx >100k K. Pna (S Ceftriaxone) -CXR: Suspect large right pleural effusion Bilateral interstitial congestion. Possible right lung airspace disease Left basilar atelectasis and possible consolidation -Influenza neg -sp cx p -Bcx 08/17 GNB (id and sensi pending) Low grade fever/leukocytosis; fever improving, leukocytosis persistent Large R pleural effusion- ?related to JERILYN, r/o parapneumonic pleural effusion JERILYN/hyperkalemia-?CKD; improving Urinary retention s/p carrera 06/13 -1l removed HTN DM morbid obesity Plan: -Continue IV Vancomycin #3 pending sp cx and Continue Meropenem #2 for ESBL coverage pending ID GNR Bcx -06/14 SP Cefepime #2 -06/13 SP Unasyn x1 -f/u renal US -may need CT abd/p given bacteremia -obtain sputum cx -f/u cx -Monitor CBC/BMP, temperatures -aspiration precautions Thank you for this consultation. Will continue to follow along with you. Discussed with RN Subjective Allergies: Coded Allergies: IODINE (Verified Allergy, Mild, 08/17/08) Uncoded Allergies: CONTRAST MEDIA (Allergy, Mild, 08/17/08) Subjective afebrile in 48hrs leukocytosis persistent now bacteremic with GNRs Objective Vital Signs Last 24 Hour Vital Signs Date Time Temp Pulse Resp B/P (MAP) Pulse Ox O2 Delivery O2 Flow Rate FiO2 06/15/17 12:00 126 06/15/17 12:00 98.2 124 18 137/73 96 Nasal Cannula 2.0 06/15/17 08:00 97.0 117 22 130/62 96 Nasal Cannula 2.0 06/15/17 08:00 116 06/15/17 04:00 98.4 116 16 130/71 97 Nasal Cannula 3.0 06/15/17 04:00 117 06/15/17 00:00 98.9 120 16 104/52 97 Nasal Cannula 3.0 06/15/17 00:00 123 06/14/17 20:00 98.9 120 20 103/52 100 Nasal Cannula 3.0 06/14/17 20:00 123 06/14/17 16:00 98.9 128 20 110/63 99 Nasal Cannula 3.0 06/14/17 16:00 127 Height (Feet): 5 Height (Inches): 5.00 Weight (Pounds): 370 Objective General Appearance: moderate distress, obese, Chronically Ill HEENT: atraumatic, no oral lesions Neck: normal inspection, full range of motion, supple, no bony tend Respiratory: normal inspection, no retraction, other - tachypnea Cardiovascular : tachycardia, edema Gastrointestinal: normal inspection, normal bowel sounds, non tender, soft, no guarding, no hernia Genitourinary: no CVA tenderness Musculoskeletal: normal inspection, back normal, normal range of motion Skin: normal inspection, normal color, no rash Microbiology Date/Time Source Procedure Growth Status 06/13/17 14:10 Blood Blood Culture - Preliminary Gram Negative Bacillus 1 Resulted 06/13/17 13:50 Blood Blood Culture - Preliminary Gram Negative Bacillus 1 Resulted 06/13/17 14:10 Nasal Nares Influenza Types A,B Antigen (STEFAN) - Final Complete 06/13/17 14:10 Urine,Clean Catch Urine Culture - Final Klebsiella Pneumoniae Complete Laboratory Tests Test 06/14/17 20:10 06/15/17 06:00 Random Vancomycin Level 7.4 ug/mL White Blood Count 19.3 K/UL (4.8-10.8) H Red Blood Count 3.19 M/UL (4.20-5.40) L Hemoglobin 9.8 G/DL (12.0-16.0) L Hematocrit 32.5 % (37.0-47.0) L Mean Corpuscular Volume 102 FL (80-99) H Mean Corpuscular Hemoglobin 30.6 PG (27.0-31.0) Mean Corpuscular Hemoglobin Concent 30.1 G/DL (32.0-36.0) L Red Cell Distribution Width 14.7 % (11.6-14.8) Platelet Count 185 K/UL (150-450) Mean Platelet Volume 7.0 FL (6.5-10.1) Neutrophils (%) (Auto) % (45.0-75.0) Lymphocytes (%) (Auto) % (20.0-45.0) Monocytes (%) (Auto) % (1.0-10.0) Eosinophils (%) (Auto) % (0.0-3.0) Basophils (%) (Auto) % (0.0-2.0) Differential Total Cells Counted 100 Neutrophils % (Manual) 85 % (45-75) H Lymphocytes % (Manual) 10 % (20-45) L Monocytes % (Manual) 4 % (1-10) Eosinophils % (Manual) 1 % (0-3) Basophils % (Manual) 0 % (0-2) Band Neutrophils 0 % (0-8) Platelet Estimate Adequate Platelet Morphology Normal Sodium Level 144 MMOL/L (136-145) Potassium Level 4.7 MMOL/L (3.5-5.1) Chloride Level 110 MMOL/L (98-107) H Carbon Dioxide Level 24 MMOL/L (21-32) Anion Gap 10 mmol/L (5-15) Blood Urea Nitrogen 86 mg/dL (7-18) H Creatinine 3.3 MG/DL (0.55-1.30) H Estimat Glomerular Filtration Rate mL/min (>60) Glucose Level 112 MG/DL (74-106) H Uric Acid 4.3 MG/DL (2.6-7.2) Calcium Level 8.8 MG/DL (8.5-10.1) Phosphorus Level 5.2 MG/DL (2.5-4.9) H Magnesium Level 1.8 MG/DL (1.8-2.4) Total Bilirubin 0.4 MG/DL (0.2-1.0) Aspartate Amino Transf (AST/SGOT) 44 U/L (15-37) H Alanine Aminotransferase (ALT/SGPT) 49 U/L (12-78) Alkaline Phosphatase 387 U/L (46-116) H Troponin I 0.000 ng/mL (0.000-0.056) Pro-B-Type Natriuretic Peptide 2106 pg/mL (0-125) H Total Protein 5.6 G/DL (6.4-8.2) L Albumin 1.8 G/DL (3.4-5.0) L Globulin 3.8 g/dL Albumin/Globulin Ratio 0.5 (1.0-2.7) L Current Medications Medications (Trade) Dose Ordered Sig/Lakshmi Route PRN Reason Start Time Stop Time Status Last Admin Dose Admin Acetaminophen (Tylenol) 650 mg Q4H PRN ORAL fever 06/13/17 16:00 07/13/17 15:59 Albumin Human 500 ml @ 0 mls/hr Q0M ONCE IV 06/15/17 13:00 06/15/17 13:01 Albuterol/ Ipratropium (Albuterol/ Ipratropium) 3 ml Q4H PRN HHN Shortness of Breath 06/13/17 16:00 06/18/17 15:59 Dextrose (Dextrose 50%) STAT PRN IV Hypoglycemia 06/13/17 16:00 07/13/17 15:59 Dextrose/Sodium Chloride 1,000 ml @ 50 mls/hr Q20H IV 06/15/17 13:00 07/15/17 12:59 Docusate Sodium (Colace) 100 mg THREE TIMES A DAY ORAL 06/13/17 18:00 07/13/17 17:59 06/15/17 09:04 Famotidine (Pepcid I.v.) 20 mg QHS IVP 06/13/17 21:00 07/13/17 20:59 06/14/17 20:27 Heparin Sodium (Porcine) (Heparin 5000 units/ml) 5,000 units EVERY 12 HOURS SUBQ 06/13/17 21:00 07/13/17 20:59 06/14/17 20:29 Levothyroxine Sodium (Synthroid) 100 mcg DAILY@0630 ORAL 06/15/17 06:30 07/15/17 06:29 06/15/17 06:40 Meropenem 500 mg/ Sodium Chloride 55 ml @ 110 mls/hr DAILY IVPB 06/14/17 11:00 06/19/17 10:59 06/15/17 09:04 Morphine Sulfate (Morphine Sulfate) 2 mg Q4H PRN IVP Moderate Pain (Pain Scale 4-6) 06/13/17 16:00 06/20/17 15:59 Nitroglycerin (Ntg) 0.4 mg Every 5 Minutes PRN SL Prn Chest Pain 06/13/17 16:00 07/13/17 15:59 Ondansetron HCl (Zofran) 4 mg Q6H PRN IVP Nausea & Vomiting 06/13/17 16:00 07/13/17 15:59 Polyethylene Glycol (Miralax) 17 gm DAILYPRN PRN ORAL Constipation 06/13/17 16:00 07/13/17 15:59 Temazepam (Restoril) 15 mg HSPRN PRN ORAL Insomnia 06/13/17 16:00 06/20/17 15:59 Vancomycin HCl (Vanco rx to dose) 1 ea DAILYPRN PRN MISC RX TO DOSE PROTOCOL 06/13/17 16:45 07/13/17 16:44 Krystle Calderon M.D. Jun 15, 2017 13:03
--- NOTE | 2017-06-15 15:31 | Diagnostic Imaging Report ---
Indication: Abnormal renal function tests Technique: Grayscale and duplex images of the kidneys, retroperitoneum, and bladder were obtained. Comparison: none Findings: Right kidney measures 9.8 cm in length. Left kidney measures 10.5 cm in length. Both kidneys demonstrate normal echogenicity. There is mild to moderate left hydronephrosis. There is a 14 mm left renal parapelvic cyst. Normal inferior vena cava. Bladder is empty, contains a Mendez catheter. Impression: Mild to moderate left hydronephrosis, etiology not demonstrated. Consider CT for better characterization if clinically indicated Unremarkable right kidney Incidental finding left renal parapelvic cyst Empty bladder with a Mendez catheter.
[2017-06-15 16:00] VITALS: BP 137/73
--- NOTE | 2017-06-15 16:30 | Cardiology Progress Note ---
Assessment/Plan Assessment/Plan pleural effusion previously exudative hyperdynamic systolic function pulm htn arf cri copd bacteremia uti metabolic encephalopathy sinus tachy albumin or ns if hypotension develops hypotension abx iv wbc sltighlty more elevated to day may need repeat thoracentesis more awake and responsive to day remain tachy likely related to bacteremia echo noted hyperdynamic lv systolic function but pulm htn Subjective Cardiovascular: Denies: chest pain, lightheadedness Respiratory: Denies: shortness of breath Gastrointestinal/Abdominal: Denies: abdominal pain Genitourinary: Denies: burning Objective Last 24 Hour Vital Signs Date Time Temp Pulse Resp B/P (MAP) Pulse Ox O2 Delivery O2 Flow Rate FiO2 06/15/17 12:00 126 06/15/17 12:00 98.2 124 18 137/73 96 Nasal Cannula 2.0 06/15/17 08:00 97.0 117 22 130/62 96 Nasal Cannula 2.0 06/15/17 08:00 116 06/15/17 04:00 98.4 116 16 130/71 97 Nasal Cannula 3.0 06/15/17 04:00 117 06/15/17 00:00 98.9 120 16 104/52 97 Nasal Cannula 3.0 06/15/17 00:00 123 06/14/17 20:00 98.9 120 20 103/52 100 Nasal Cannula 3.0 06/14/17 20:00 123 General Appearance: no apparent distress, alert Neck: supple Cardiovascular: regular rhythm, tachycardia Respiratory/Chest: decreased breath sounds - right side , expiratory wheezing - left side Abdomen: normal bowel sounds, non tender, soft Extremities: no swelling Intake and Output 06/14/17 06/15/17 19:00 07:00 Intake Total 1305 ml Output Total 900 ml 850 ml Balance 405 ml -850 ml Intake Oral 200 ml IV Total 1105 ml Output Urine Total 900 ml 850 ml Laboratory Tests Test 06/14/17 20:10 06/15/17 06:00 Random Vancomycin Level 7.4 ug/mL White Blood Count 19.3 K/UL (4.8-10.8) H Red Blood Count 3.19 M/UL (4.20-5.40) L Hemoglobin 9.8 G/DL (12.0-16.0) L Hematocrit 32.5 % (37.0-47.0) L Mean Corpuscular Volume 102 FL (80-99) H Mean Corpuscular Hemoglobin 30.6 PG (27.0-31.0) Mean Corpuscular Hemoglobin Concent 30.1 G/DL (32.0-36.0) L Red Cell Distribution Width 14.7 % (11.6-14.8) Platelet Count 185 K/UL (150-450) Mean Platelet Volume 7.0 FL (6.5-10.1) Neutrophils (%) (Auto) % (45.0-75.0) Lymphocytes (%) (Auto) % (20.0-45.0) Monocytes (%) (Auto) % (1.0-10.0) Eosinophils (%) (Auto) % (0.0-3.0) Basophils (%) (Auto) % (0.0-2.0) Differential Total Cells Counted 100 Neutrophils % (Manual) 85 % (45-75) H Lymphocytes % (Manual) 10 % (20-45) L Monocytes % (Manual) 4 % (1-10) Eosinophils % (Manual) 1 % (0-3) Basophils % (Manual) 0 % (0-2) Band Neutrophils 0 % (0-8) Platelet Estimate Adequate Platelet Morphology Normal Sodium Level 144 MMOL/L (136-145) Potassium Level 4.7 MMOL/L (3.5-5.1) Chloride Level 110 MMOL/L (98-107) H Carbon Dioxide Level 24 MMOL/L (21-32) Anion Gap 10 mmol/L (5-15) Blood Urea Nitrogen 86 mg/dL (7-18) H Creatinine 3.3 MG/DL (0.55-1.30) H Estimat Glomerular Filtration Rate mL/min (>60) Glucose Level 112 MG/DL (74-106) H Uric Acid 4.3 MG/DL (2.6-7.2) Calcium Level 8.8 MG/DL (8.5-10.1) Phosphorus Level 5.2 MG/DL (2.5-4.9) H Magnesium Level 1.8 MG/DL (1.8-2.4) Total Bilirubin 0.4 MG/DL (0.2-1.0) Aspartate Amino Transf (AST/SGOT) 44 U/L (15-37) H Alanine Aminotransferase (ALT/SGPT) 49 U/L (12-78) Alkaline Phosphatase 387 U/L (46-116) H Troponin I 0.000 ng/mL (0.000-0.056) Pro-B-Type Natriuretic Peptide 2106 pg/mL (0-125) H Total Protein 5.6 G/DL (6.4-8.2) L Albumin 1.8 G/DL (3.4-5.0) L Globulin 3.8 g/dL Albumin/Globulin Ratio 0.5 (1.0-2.7) L Microbiology Date/Time Source Procedure Growth Status 06/13/17 14:10 Blood Blood Culture - Preliminary Gram Negative Bacillus 1 Resulted 06/13/17 13:50 Blood Blood Culture - Preliminary Gram Negative Bacillus 1 Resulted 06/13/17 14:10 Nasal Nares Influenza Types A,B Antigen (STEFAN) - Final Complete 06/13/17 14:10 Urine,Clean Catch Urine Culture - Final Klebsiella Pneumoniae Complete KELSI LAL Jun 15, 2017 16:30
[2017-06-15] MEDS ORDERED: Miralax 17gm pkt ORAL PRN (17:30)
[2017-06-15] MEDS ORDERED: Albuterol/Ipratropium 3ml neb HHN PRN (17:30)
[2017-06-15] MEDS ORDERED: Nitroglycerin Subl 0.4mg tab SL PRN (17:30)
[2017-06-15] MEDS ORDERED: Morphine Sulfate 4mg/ml Inj IVP PRN (17:30)
[2017-06-15] MEDS: D5 1/2NS 1,000 ML IV SCH (18:11)
--- NOTE | 2017-06-15 18:29 | General Progress Note ---
Assessment/Plan Problem List: (1) Hypothyroid ICD Codes: E03.9 - Hypothyroidism, unspecified SNOMED: 95725666 (2) Altered level of consciousness ICD Codes: R40.4 - Transient alteration of awareness SNOMED: 6868698, 74442661020198 (3) Renal insufficiency ICD Codes: N28.9 - Disorder of kidney and ureter, unspecified SNOMED: 275624706, 885622264 (4) Morbid obesity ICD Codes: E66.01 - Morbid (severe) obesity due to excess calories SNOMED: 224060836, 17471183141228 Assessment/Plan TSH is at target as OP on Levothyroxine 112 mcg daily resume same dosage I will sign off Subjective ROS Limited/Unobtainable: Yes Allergies: Coded Allergies: IODINE (Verified Allergy, Mild, 08/17/08) Uncoded Allergies: CONTRAST MEDIA (Allergy, Mild, 08/17/08) Subjective events noted Objective Last 24 Hour Vital Signs Date Time Temp Pulse Resp B/P (MAP) Pulse Ox O2 Delivery O2 Flow Rate FiO2 06/15/17 16:00 98.7 124 19 137/73 96 Nasal Cannula 2.0 06/15/17 16:00 121 06/15/17 12:00 126 06/15/17 12:00 98.2 124 18 137/73 96 Nasal Cannula 2.0 06/15/17 08:00 97.0 117 22 130/62 96 Nasal Cannula 2.0 06/15/17 08:00 116 06/15/17 04:00 98.4 116 16 130/71 97 Nasal Cannula 3.0 06/15/17 04:00 117 06/15/17 00:00 98.9 120 16 104/52 97 Nasal Cannula 3.0 06/15/17 00:00 123 06/14/17 20:00 98.9 120 20 103/52 100 Nasal Cannula 3.0 06/14/17 20:00 123 Intake and Output 06/14/17 06/15/17 19:00 07:00 Intake Total 1305 ml Output Total 900 ml 850 ml Balance 405 ml -850 ml Intake Oral 200 ml IV Total 1105 ml Output Urine Total 900 ml 850 ml Laboratory Tests 06/14/17 20:10: Random Vancomycin Level 7.4 06/15/17 06:00: White Blood Count 19.3H, Red Blood Count 3.19L, Hemoglobin 9.8L, Hematocrit 32.5L, Mean Corpuscular Volume 102H, Mean Corpuscular Hemoglobin 30.6, Mean Corpuscular Hemoglobin Concent 30.1L, Red Cell Distribution Width 14.7, Platelet Count 185, Mean Platelet Volume 7.0, Neutrophils (%) (Auto) , Lymphocytes (%) (Auto) , Monocytes (%) (Auto) , Eosinophils (%) (Auto) , Basophils (%) (Auto) , Differential Total Cells Counted 100, Neutrophils % ( Manual) 85H, Lymphocytes % (Manual) 10L, Monocytes % (Manual) 4, Eosinophils % ( Manual) 1, Basophils % (Manual) 0, Band Neutrophils 0, Platelet Estimate Adequate, Platelet Morphology Normal, Sodium Level 144, Potassium Level 4.7, Chloride Level 110H, Carbon Dioxide Level 24, Anion Gap 10, Blood Urea Nitrogen 86H, Creatinine 3.3H, Estimat Glomerular Filtration Rate , Glucose Level 112H, Uric Acid 4.3, Calcium Level 8.8, Phosphorus Level 5.2H, Magnesium Level 1.8, Total Bilirubin 0.4, Aspartate Amino Transf (AST/SGOT) 44H, Alanine Aminotransferase (ALT/SGPT) 49, Alkaline Phosphatase 387H, Troponin I 0.000, Pro -B-Type Natriuretic Peptide 2106H, Total Protein 5.6L, Albumin 1.8L, Globulin 3.8, Albumin/Globulin Ratio 0.5L Height (Feet): 5 Height (Inches): 5.00 Weight (Pounds): 370 General Appearance: no apparent distress Neck: normal alignment Cardiovascular: normal rate Respiratory/Chest: decreased breath sounds Abdomen: normal bowel sounds Edema: 1+ Arm (L), 1+ Arm (R), 1+ Leg (L), 1+ Leg (R), 1+ Pedal (L), 1+ Pedal ( R), 1+ Generalized Objective Current Medications Medications (Trade) Dose Ordered Sig/Lakshmi Route PRN Reason Start Time Stop Time Status Last Admin Dose Admin Acetaminophen (Tylenol) 650 mg Q4H PRN ORAL T>100.5 06/15/17 17:30 07/13/17 17:29 Albuterol/ Ipratropium (Albuterol/ Ipratropium) 3 ml Q4H PRN HHN Shortness of Breath 06/15/17 17:30 06/18/17 17:29 Dextrose (Dextrose 50%) STAT PRN IV Hypoglycemia 06/16/17 17:30 07/13/17 17:29 Dextrose/Sodium Chloride 1,000 ml @ 50 mls/hr Q20H IV 06/15/17 17:30 07/15/17 17:29 06/15/17 18:11 Docusate Sodium (Colace) 100 mg THREE TIMES A DAY ORAL 06/15/17 18:00 07/13/17 17:59 Famotidine (Pepcid I.v.) 20 mg QHS IVP 06/15/17 21:00 07/13/17 20:59 Heparin Sodium (Porcine) (Heparin 5000 units/ml) 5,000 units EVERY 12 HOURS SUBQ 06/15/17 21:00 07/13/17 20:59 Levothyroxine Sodium (Synthroid) 100 mcg DAILY@0630 ORAL 06/16/17 06:30 07/15/17 06:29 Meropenem 500 mg/ Sodium Chloride 55 ml @ 110 mls/hr DAILY IVPB 06/16/17 09:00 06/19/17 10:59 Morphine Sulfate (Morphine Sulfate) 2 mg Q4H PRN IVP Moderate Pain (Pain Scale 4-6) 06/15/17 17:30 06/20/17 17:29 Nitroglycerin (Ntg) 0.4 mg Every 5 Minutes PRN SL Prn Chest Pain 06/15/17 17:30 07/13/17 17:29 Ondansetron HCl (Zofran) 4 mg Q6H PRN IVP Nausea & Vomiting 06/15/17 17:30 07/13/17 17:29 Polyethylene Glycol (Miralax) 17 gm DAILYPRN PRN ORAL Constipation 06/15/17 17:30 07/15/17 17:29 Temazepam (Restoril) 15 mg HSPRN PRN ORAL Insomnia 06/16/17 21:00 06/20/17 20:59 Vancomycin HCl (Vanco rx to dose) 1 ea DAILYPRN PRN MISC RX TO DOSE PROTOCOL 06/15/17 17:30 07/15/17 17:29 CARMELO POLK Jun 15, 2017 18:29
--- NOTE | 2017-06-15 19:17 | Cardiology Report ---
APPROVED REPORT EKG Measurement Heart [id number] Sinus tachycardia Low voltage QRS Borderline ECG
[2017-06-15 20:00] VITALS: BP 147/57
[2017-06-16] VITALS: BP 148/76
--- NOTE | 2017-06-16 02:15 | Consultation ---
DATE OF CONSULTATION: 06/14/2017 CARDIOLOGY CONSULTATION CONSULTING PHYSICIAN: Alan Sheikh M.D. REFERRING PHYSICIAN: Beatriz Fields M.D. REASON FOR REFERRAL: Altered mentation and congestive heart failure. HISTORY OF PRESENT ILLNESS: This is an elderly female, who has got most of the care at [facility] where she was recently hospitalized and discharged from the acute hospital on 05/19/2017 to rehabilitation at the hospital itself subsequently discharged home. Apparently, she was discharged, she was actually doing much better, walking and talking, and being able to take care, so she was discharged home. Her daughters who are here right now tell me that she does not tell the much in terms of her medical conditions, but she has been doing much better and over the past few days has deteriorated, decreased mentation, and decreased ability to talk and walk and not as vibrant and awake as she usually is and therefore the paramedics were summoned. The patient was brought to the emergency room at [facility] and noted to have abnormalities and therefore admitted to the hospital. She is not able to provide any meaningful history at this time. She somewhat appears drowsy. PAST MEDICAL HISTORY: According to some records from [facility] that were sent here from her recent hospitalization includes history of acute congestive heart failure, acute exacerbation of obstructive pulmonary disease, respiratory distress, chronic thyroid disease, hypertension, renal insufficiency, pleural effusion, felt to be exudative in nature based on the report of the discharge summary, chronic cervical spine disease, chronic lumbar spine disease, history of bilateral cataract surgery, chronic hyperuricemia, hyperlipidemia, osteoarthritis, vitamin D deficiency, and insomnia and she had some urinary tract infections and hematuria apparently as well as possible obstructive sleep apnea, for which she has just received a CPAP. MEDICATIONS: Her medications, previously has been on allopurinol, iron, gabapentin, Synthroid, Lidoderm, Singulair, omeprazole, ramipril, temazepam, Zocor, and vitamin D, and also sildenafil 20 mg three times a day for pulmonary hypertension. SOCIAL HISTORY: She apparently lives at home right now. She does not smoke at this time, she used 40 years ago. She does drink some wine occasionally. REVIEW OF SYSTEMS: Unable to obtain. According to family members, GASTROINTESTINAL: There has not been any diarrhea or vomiting. GENITOURINARY: There has not been any complaints of discomfort on urination. PULMONARY: She has had occasional a week ago. CONSTITUTIONAL: There are no fevers or chills that have been reported. NEUROLOGICAL: . PHYSICAL EXAMINATION: GENERAL: Shows to be a tall elderly female, in no respiratory distress. NECK: Supple. No jugular venous distention. No abdominojugular reflux noted. LUNGS: Decreased breath sounds are noted on the right side. Few crackles on the left base. CARDIAC: Regular rhythm. Tachycardic. No RV lifts, heaves, or thrills. ABDOMEN: Abdomen is soft and obese. Positive bowel sounds. EXTREMITIES: A 1+ to 2+ edema of the lower extremities bilaterally. NEUROLOGICAL: She is arousable and responsive, but really noncommunicative. LABORATORY AND DIAGNOSTIC DATA: Echocardiogram shows ejection fraction of 70% to 75%, pulmonary artery systolic pressure in the 50s, mild diastolic relaxation abnormalities being noted on the electrocardiogram. Telemetry data shows sinus tachycardia. Her EKG is not available for me to review unfortunately in the chart. Laboratories, white count was 18.5, now 18, hemoglobin 9.3, and platelet count of 174. Sodium 140, potassium 6.1, chloride 107, bicarbonate 23, BUN 94, creatinine 3.9, and glucose of 122. A1c of 6.3 and her ferritin is greater than 2000. GGT of 134, AST and ALT are 34 each, and alkaline phosphatase of 250. CK of 23. CRP greater than 70. Troponin is 0. ProBNP of 2200. Albumin of 2.0. B12 949. Folic acid 15, and TSH is 0.946. INR is 1 and PTT of 28. Urinalysis, too numerous to count WBCs and RBCs, 3+ leukocyte esterase. Imaging, chest x-ray was performed showing large right-sided pleural effusion, bilateral interstitial congestion, possible lung airspace disease, left basilar atelectasis, possible consolidation. ASSESSMENT AND PLAN: 1. Pleural effusion with history of the same felt on prior evaluation to be transudative. 2. Tachycardia sinus, likely related to underlying infection. 3. Urinary tract infection. 4. Acute on chronic renal insufficiency. 5. History of systemic hypertension. 6. History of pulmonary hypertension. 7. History of diastolic heart failure. 8. Respiratory failure history. 9. Chronic obstructive pulmonary disease with recent exacerbation. 10. Spine disorder. 11. Hypothyroidism. 12. Gram-negative shabbir bacteremia. Dr. Fields, this patient was seen in cardiac consultation. Her echocardiogram shows hyperdynamic systolic function. I am not sure how much of her symptoms of heart failure, but certainly alteration of mentation may be related to her urinary tract infection. She does have a pleural effusion on the right side, previously felt to be exudative in nature. It looks like fluid is reaccumulated and she may require further thoracentesis. She has been seen in Neurology consultation by Dr. Bose and the recommendation depending. Her blood pressure appears to be adequate controlled was quite hesitant to give her too much medications for her blood pressure in light of the fact that she has hyperdynamic LV systolic function. I will follow up on the echocardiogram to see if truly that degree of hyperdynamic nature. I would be concerned about an intracardiac volume depletion and subsequent hypotension with that, so care must be used in terms of antibiotic administration. The patient is getting antibiotics for bacteremia that should help likely the tachycardia is related to the bacteremia as well. Alan Sheikh M.D. DR: CONI JOB#: [id number] CC:
[2017-06-16 04:00] VITALS: BP 152/83
--- NOTE | 2017-06-16 04:30 | Consultation ---
DATE OF CONSULTATION: 06/14/2017 NEUROLOGICAL CONSULTATION CONSULTING PHYSICIAN: John Bose M.D. REQUESTING PHYSICIAN: Beatriz Fields M.D. HISTORY OF PRESENT ILLNESS: This is an 87-year-old female, seen in neurological consultation to evaluate inability to ambulate. The patient, who appears to be fully awake and coherent, was unable to provide with a full medical history. She was brought to this facility from home where she was having increasing difficulty with ambulation. Usually, she was able to ambulate with a walker, but no longer, she was able to do so and with this, she was brought to this hospital. On admission, her vital signs were stable except temperature 100 and heart rate of 120. Her EKG revealed sinus tachycardia at rate of 132 with right bundle-branch block. The patient was initially treated with IV fluids and antibiotics. Diagnostic studies included a chest x-ray revealing suspected large right pleural effusion, bilateral interstitial congestion, and possibly right lung airspace disease. There was left basilar atelectasis and possible central aeration. Her laboratory work included CBC study with WBC 18.5, hemoglobin 10.4, and hematocrit 35.1. Coagulation panel was normal. Urinalysis with WBCs too numerous to count, 3+ leukocyte esterase, and 2+ protein. Her chemistry was abnormal, potassium 6.7, BUN of 97, creatinine 4.4, and blood sugar 179. Elevated BNP at 1937. Alkaline phosphatase 325. Normal troponin. BNP elevated at 2248 and CRP is 41.9. Normal B12, folate, and TSH. Since admission till present, there was no much changes in mental status although the patient is maintained now on IV fluids and antibiotics. FAMILY HISTORY: Noncontributory. SOCIAL HISTORY: The patient insists she lives alone. She is able to ambulate with a walker, no longer though. She is indicating also that she has no close family. REVIEW OF SYSTEMS: Generalized weakness, hard to ambulate, and swelling in both lower extremities. PHYSICAL EXAMINATION: GENERAL: Well-developed and morbidly obese female, lying comfortably in bed, fully awake. VITAL SIGNS: Now are stable with heart rate of 122, temperature 99.2, blood pressure 123/95, and pulse oximetry 98%. HEENT: Head normocephalic. There is no evidence of trauma. Eyes, ears, and throat are clear. NECK: Supple. No meningeal signs. MUSCULOSKELETAL EXAMINATION: Remarkable for significant lymphedema of both lower extremities. Peripheral pulses 1+ of both upper extremities. Unable to palpate lower extremities. MENTAL STATUS: She is alert and oriented to her name, age, year, and address, but unable to recall who is the President of [employer]. She was insisting she has no major medical problems. She was unaware of having any medications. Although according to admission notes, she is maintained on allopurinol, gabapentin, Montelukast, omeprazole, Ramipril, simvastatin, and temazepam. CRANIAL NERVE II: Pupils both responding to light and accommodation. Extraocular movements intact. No nystagmus. CRANIAL NERVE V: Normal corneal responses. CRANIAL NERVE VII: No asymmetry. CRANIAL NERVE VIII: Slight decrease in hearing. CRANIAL NERVES IX THROUGH XII: Tongue is in midline. Symmetric palate elevation. MOTOR EXAMINATION: Able to lift arms against the gravity with the strength 5-/5. The patient was able to wiggle both feet and able to bend slightly right knee, but not left knee. Unable to lift both lower extremities against the gravity. Deep tendon reflexes depressed bilaterally. Plantar responses flexor. SENSORY EXAMINATION: Decreased response to pin stimulation at the stockings distribution of both lower extremities. GAIT: Not tested. IMPRESSION: 1. New onset of generalized weakness due to underlying toxic metabolic derangement. 2. Morbid obesity. 3. Significant lower extremity lymphostasis. 4. Diabetes with diabetic polyneuropathy, paraparesis. 5. Hypothyroidism. 6. Urinary tract infection, rule out urosepsis. 7. Pulmonary insufficiency, bilateral interstitial congestion, and large right pleural effusion. DISCUSSION: The patient has mild cognitive impairment, but otherwise fully oriented. She is describing generalized weakness, which is contributing to an underlying infection and metabolic derangement. In addition, she has evidence of diabetic polyneuropathy, which may explain the part of her weakness in lower extremities. At this time, the patient is treated for underlying infection and metabolic derangement. We will get PT and OT to start mobility protocol. Start her on Ecotrin 81 mg daily. Hold statins for one month to rule out a statin myopathy. The patient needs a placement. She is unsafe to stay alone in an apartment. John Bose M.D. DR: BONIFACIO JOB#: [id number] CC:
[2017-06-16 07:08] LABS: HEMATOCRIT 30.3 % (37.0-47.0); HEMOGLOBIN 9.5 G/DL (12.0-16.0); MEAN CORPUSCULAR VOLUME 101 FL (80-99); PLATELET COUNT 195 K/UL (150-450); RED BLOOD COUNT 2.99 M/UL (4.20-5.40); RED CELL DISTRIBUTION WIDTH 14.4 % (11.6-14.8); WHITE BLOOD COUNT 20.3 K/UL (4.8-10.8)
[2017-06-16 07:26] LABS: ALANINE AMINOTRANSFERASE 38 U/L (12-78); ALBUMIN/GLOBULIN RATIO 0.4 (1.0-2.7); ALKALINE PHOSPHATASE 335 U/L (46-116); ANION GAP 10 mmol/L (5-15); ASPARTATE AMINO TRANSFERASE 28 U/L (15-37); BILIRUBIN,TOTAL 0.4 MG/DL (0.2-1.0); BLOOD UREA NITROGEN 75 mg/dL (7-18); CALCIUM 9.2 MG/DL (8.5-10.1); CARBON DIOXIDE 26 MMOL/L (21-32); CHLORIDE 110 MMOL/L (98-107); PHOSPHORUS 4.9 MG/DL (2.5-4.9); POTASSIUM 3.8 MMOL/L (3.5-5.1); SODIUM 146 MMOL/L (136-145)
[2017-06-16 08:00] VITALS: BP 158/91
[2017-06-16] MEDS: Docusate 100mg cap ORAL SCH ×3 (08:43→17:16)
[2017-06-16] MEDS: Heparin 5000 units/ml inj SUBQ SCH ×3 (08:49→20:34)
[2017-06-16] MEDS ORDERED: Meropenem 500 MG in NS 55 ML IVPB SCH (09:00)
[2017-06-16 12:00] VITALS: BP 168/88
--- NOTE | 2017-06-16 12:46 | Infectious Diseases Prog Note ---
Assessment/Plan Assessment/Plan Assessment: Sepsis - 2ry to UTI and bacteremia, possible PNA -r/o pyelonephritis, renal abscess -u.a wbc tntc, nit neg, luek +3; ucx >100k K. Pna (S Ceftriaxone) -Renal US: Mild to moderate left hydronephrosis, etiology not demonstrated. ConsiderCT for better characterization if clinically indicate. Unremarkable right kidney. Incidental finding left renal parapelvic cyst. Empty bladder with a Carrera catheter. -CXR: Suspect large right pleural effusion Bilateral interstitial congestion. Possible right lung airspace disease Left basilar atelectasis and possible consolidation -Influenza neg -sp cx p -Bcx 06/13 08/17 K. pna(S Ceftriaxone); 06/15 Bcx p Low grade fever/leukocytosis; fever improving, leukocytosis worsening- likely 2ry to either obstructive infected stone vs renal absces (likely poor source control rather than abx failure) Large R pleural effusion- ?related to JERILYN, r/o parapneumonic pleural effusion JERILYN/hyperkalemia-?CKD; improving Urinary retention s/p carrera 06/13 -1l removed HTN DM morbid obesity Plan: -Continue IV Vancomycin #4 pending sp cx and switch Meropenem #08/27 to Ceftriaxone for K.pna UTI and bacteremia -06/14 SP Cefepime #2 -06/13 SP Unasyn x1 -CT abd/p wo to further evaluate -Recommend urology evaluation -f/u cx -Monitor CBC/BMP, temperatures -aspiration precautions Thank you for this consultation. Will continue to follow along with you. Discussed with RN Subjective Allergies: Coded Allergies: IODINE (Verified Allergy, Mild, 08/17/08) Uncoded Allergies: CONTRAST MEDIA (Allergy, Mild, 08/17/08) Subjective afebrile in 72 hrs leukocytosis worsening repaet Bcx p Hydronephrosis on renal US Cr improving Objective Vital Signs Last 24 Hour Vital Signs Date Time Temp Pulse Resp B/P (MAP) Pulse Ox O2 Delivery O2 Flow Rate FiO2 06/16/17 08:00 97.9 114 20 158/91 96 06/16/17 06:50 Nasal Cannula 3.0 32 06/16/17 06:50 106 16 Nasal Cannula 3.0 32 06/16/17 06:50 96 Nasal Cannula 3.0 32 06/16/17 04:00 97.7 103 20 152/83 95 2/1/18 00:00 97.9 110 22 148/76 94 06/15/17 21:42 98.6 06/15/17 21:16 97 Nasal Cannula 3.0 32 06/15/17 21:16 Nasal Cannula 3.0 32 06/15/17 21:16 111 18 Nasal Cannula 3.0 32 06/15/17 20:00 98.6 22 147/57 95 06/15/17 16:00 98.7 124 19 137/73 96 Nasal Cannula 2.0 06/15/17 16:00 121 Height (Feet): 5 Height (Inches): 5.00 Weight (Pounds): 370 Objective General Appearance: moderate distress, obese, Chronically Ill HEENT: atraumatic, no oral lesions Neck: normal inspection, full range of motion, supple, no bony tend Respiratory: normal inspection, no retraction, other - tachypnea Cardiovascular : tachycardia, edema Gastrointestinal: normal inspection, normal bowel sounds, non tender, soft, no guarding, no hernia Genitourinary: no CVA tenderness Musculoskeletal: normal inspection, back normal, normal range of motion Skin: normal inspection, normal color, no rash Microbiology Date/Time Source Procedure Growth Status 06/13/17 14:10 Blood Blood Culture - Final Klebsiella Pneumoniae Complete 06/13/17 13:50 Blood Blood Culture - Final Klebsiella Pneumoniae Complete 06/13/17 22:49 Nasal Nares Left MRSA Culture - Final NO METHICILLIN RESISTANT STAPH AUREUS... Complete 06/13/17 14:10 Nasal Nares Influenza Types A,B Antigen (STEFAN) - Final Complete 06/13/17 14:10 Urine,Clean Catch Urine Culture - Final Klebsiella Pneumoniae Complete 06/13/17 22:49 Rectum VRE Culture - Final NO VANCOMYCIN RESISTANT ENTEROCOCCUS ... Complete Laboratory Tests Test 06/16/17 04:35 White Blood Count 20.3 K/UL (4.8-10.8) H Red Blood Count 2.99 M/UL (4.20-5.40) L Hemoglobin 9.5 G/DL (12.0-16.0) L Hematocrit 30.3 % (37.0-47.0) L Mean Corpuscular Volume 101 FL (80-99) H Mean Corpuscular Hemoglobin 31.6 PG (27.0-31.0) H Mean Corpuscular Hemoglobin Concent 31.3 G/DL (32.0-36.0) L Red Cell Distribution Width 14.4 % (11.6-14.8) Platelet Count 195 K/UL (150-450) Mean Platelet Volume 7.1 FL (6.5-10.1) Neutrophils (%) (Auto) % (45.0-75.0) Lymphocytes (%) (Auto) % (20.0-45.0) Monocytes (%) (Auto) % (1.0-10.0) Eosinophils (%) (Auto) % (0.0-3.0) Basophils (%) (Auto) % (0.0-2.0) Differential Total Cells Counted 100 Neutrophils % (Manual) 91 % (45-75) H Lymphocytes % (Manual) 6 % (20-45) L Monocytes % (Manual) 3 % (1-10) Eosinophils % (Manual) 0 % (0-3) Basophils % (Manual) 0 % (0-2) Band Neutrophils 0 % (0-8) Platelet Estimate Adequate Platelet Morphology Normal Hypochromasia 1+ Macrocytosis 1+ Sodium Level 146 MMOL/L (136-145) H Potassium Level 3.8 MMOL/L (3.5-5.1) Chloride Level 110 MMOL/L (98-107) H Carbon Dioxide Level 26 MMOL/L (21-32) Anion Gap 10 mmol/L (5-15) Blood Urea Nitrogen 75 mg/dL (7-18) H Creatinine 3.0 MG/DL (0.55-1.30) H Estimat Glomerular Filtration Rate mL/min (>60) Glucose Level 135 MG/DL (74-106) H Uric Acid 4.5 MG/DL (2.6-7.2) Calcium Level 9.2 MG/DL (8.5-10.1) Phosphorus Level 4.9 MG/DL (2.5-4.9) Magnesium Level 1.8 MG/DL (1.8-2.4) Total Bilirubin 0.4 MG/DL (0.2-1.0) Aspartate Amino Transf (AST/SGOT) 28 U/L (15-37) Alanine Aminotransferase (ALT/SGPT) 38 U/L (12-78) Alkaline Phosphatase 335 U/L (46-116) H Troponin I 0.000 ng/mL (0.000-0.056) C-Reactive Protein, Quantitative 22.9 mg/dL (0.00-0.90) H Pro-B-Type Natriuretic Peptide 2314 pg/mL (0-125) H Total Protein 6.5 G/DL (6.4-8.2) Albumin 2.0 G/DL (3.4-5.0) L Globulin 4.5 g/dL Albumin/Globulin Ratio 0.4 (1.0-2.7) L Current Medications Medications (Trade) Dose Ordered Sig/Lakshmi Route PRN Reason Start Time Stop Time Status Last Admin Dose Admin Acetaminophen (Tylenol) 650 mg Q4H PRN ORAL T>100.5 06/15/17 17:30 07/13/17 17:29 Albuterol/ Ipratropium (Albuterol/ Ipratropium) 3 ml Q4H PRN HHN Shortness of Breath 06/15/17 17:30 06/18/17 17:29 Dextrose (Dextrose 50%) STAT PRN IV Hypoglycemia 06/16/17 17:30 07/13/17 17:29 Dextrose/Sodium Chloride 1,000 ml @ 50 mls/hr Q20H IV 06/15/17 17:30 07/15/17 17:29 06/15/17 18:11 Docusate Sodium (Colace) 100 mg THREE TIMES A DAY ORAL 06/15/17 18:00 07/13/17 17:59 Famotidine (Pepcid I.v.) 20 mg QHS IVP 06/15/17 21:00 07/13/17 20:59 06/15/17 21:12 Heparin Sodium (Porcine) (Heparin 5000 units/ml) 5,000 units EVERY 12 HOURS SUBQ 06/15/17 21:00 07/13/17 20:59 Levothyroxine Sodium (Synthroid) 112 mcg DAILY@0630 ORAL 06/16/17 06:30 07/16/17 06:29 06/16/17 06:21 Meropenem 500 mg/ Sodium Chloride 55 ml @ 110 mls/hr DAILY IVPB 06/16/17 09:00 06/19/17 10:59 06/16/17 08:50 Morphine Sulfate (Morphine Sulfate) 2 mg Q4H PRN IVP Moderate Pain (Pain Scale 4-6) 06/15/17 17:30 06/20/17 17:29 06/15/17 21:12 Nitroglycerin (Ntg) 0.4 mg Every 5 Minutes PRN SL Prn Chest Pain 06/15/17 17:30 07/13/17 17:29 Ondansetron HCl (Zofran) 4 mg Q6H PRN IVP Nausea & Vomiting 06/15/17 17:30 07/13/17 17:29 Polyethylene Glycol (Miralax) 17 gm DAILYPRN PRN ORAL Constipation 06/15/17 17:30 07/15/17 17:29 Temazepam (Restoril) 15 mg HSPRN PRN ORAL Insomnia 06/16/17 21:00 06/20/17 20:59 Vancomycin HCl (Vanco rx to dose) 1 ea DAILYPRN PRN MISC RX TO DOSE PROTOCOL 06/15/17 17:30 07/15/17 17:29 Krystle Calderon M.D. Jun 16, 2017 12:46
[2017-06-16] MEDS: D5 1/2NS 1,000 ML IV SCH (13:16)
[2017-06-16 16:00] VITALS: BP 149/83
[2017-06-16] MEDS: Carvedilol 12.5mg tab ORAL ONE ×2 (17:28→17:42)
--- NOTE | 2017-06-16 19:30 | Cardiology Progress Note ---
Assessment/Plan Assessment/Plan pleural effusion previously exudative hyperdynamic systolic function pulm htn arf cri copd bacteremia uti metabolic encephalopathy sinus tachy albumin or ns if hypotension develops hypotension abx iv wbc more elevated to day may need repeat thoracentesis more awake and responsive to day remain tachy likely related to bacteremia seem Abit improved echo noted hyperdynamic lv systolic function but pulm htn want to go hoem but i have todl her she si not ready d/w dtr at bedside Subjective Cardiovascular: Reports: palpitations, Denies: chest pain, lightheadedness Respiratory: Denies: shortness of breath Gastrointestinal/Abdominal: Denies: abdominal pain Genitourinary: Denies: burning Objective Last 24 Hour Vital Signs Date Time Temp Pulse Resp B/P (MAP) Pulse Ox O2 Delivery O2 Flow Rate FiO2 06/16/17 17:42 117 168/88 06/16/17 16:00 97.7 124 20 149/83 93 06/16/17 12:00 98.1 117 20 168/88 97 06/16/17 08:00 97.9 114 20 158/91 96 06/16/17 06:50 Nasal Cannula 3.0 32 06/16/17 06:50 106 16 Nasal Cannula 3.0 32 06/16/17 06:50 96 Nasal Cannula 3.0 32 06/16/17 04:00 97.7 103 20 152/83 95 06/16/17 00:00 97.9 110 22 148/76 94 06/15/17 21:42 98.6 06/15/17 21:16 97 Nasal Cannula 3.0 32 06/15/17 21:16 Nasal Cannula 3.0 32 06/15/17 21:16 111 18 Nasal Cannula 3.0 32 06/15/17 20:00 98.6 22 147/57 95 General Appearance: alert Neck: supple Cardiovascular: normal rate, regular rhythm Respiratory/Chest: decreased breath sounds Abdomen: normal bowel sounds, non tender, soft Extremities: severe edema Intake and Output 06/15/17 06/16/17 19:00 07:00 Intake Total 1542 ml 600 ml Output Total 1250 ml 2200 ml Balance 292 ml -1600 ml Intake Oral 337 ml IV Total 1205 ml 600 ml Output Urine Total 1250 ml 2200 ml # Bowel Movements 2 5 Laboratory Tests Test 06/16/17 04:35 White Blood Count 20.3 K/UL (4.8-10.8) H Red Blood Count 2.99 M/UL (4.20-5.40) L Hemoglobin 9.5 G/DL (12.0-16.0) L Hematocrit 30.3 % (37.0-47.0) L Mean Corpuscular Volume 101 FL (80-99) H Mean Corpuscular Hemoglobin 31.6 PG (27.0-31.0) H Mean Corpuscular Hemoglobin Concent 31.3 G/DL (32.0-36.0) L Red Cell Distribution Width 14.4 % (11.6-14.8) Platelet Count 195 K/UL (150-450) Mean Platelet Volume 7.1 FL (6.5-10.1) Neutrophils (%) (Auto) % (45.0-75.0) Lymphocytes (%) (Auto) % (20.0-45.0) Monocytes (%) (Auto) % (1.0-10.0) Eosinophils (%) (Auto) % (0.0-3.0) Basophils (%) (Auto) % (0.0-2.0) Differential Total Cells Counted 100 Neutrophils % (Manual) 91 % (45-75) H Lymphocytes % (Manual) 6 % (20-45) L Monocytes % (Manual) 3 % (1-10) Eosinophils % (Manual) 0 % (0-3) Basophils % (Manual) 0 % (0-2) Band Neutrophils 0 % (0-8) Platelet Estimate Adequate Platelet Morphology Normal Hypochromasia 1+ Macrocytosis 1+ Sodium Level 146 MMOL/L (136-145) H Potassium Level 3.8 MMOL/L (3.5-5.1) Chloride Level 110 MMOL/L (98-107) H Carbon Dioxide Level 26 MMOL/L (21-32) Anion Gap 10 mmol/L (5-15) Blood Urea Nitrogen 75 mg/dL (7-18) H Creatinine 3.0 MG/DL (0.55-1.30) H Estimat Glomerular Filtration Rate mL/min (>60) Glucose Level 135 MG/DL (74-106) H Uric Acid 4.5 MG/DL (2.6-7.2) Calcium Level 9.2 MG/DL (8.5-10.1) Phosphorus Level 4.9 MG/DL (2.5-4.9) Magnesium Level 1.8 MG/DL (1.8-2.4) Total Bilirubin 0.4 MG/DL (0.2-1.0) Aspartate Amino Transf (AST/SGOT) 28 U/L (15-37) Alanine Aminotransferase (ALT/SGPT) 38 U/L (12-78) Alkaline Phosphatase 335 U/L (46-116) H Troponin I 0.000 ng/mL (0.000-0.056) C-Reactive Protein, Quantitative 22.9 mg/dL (0.00-0.90) H Pro-B-Type Natriuretic Peptide 2314 pg/mL (0-125) H Total Protein 6.5 G/DL (6.4-8.2) Albumin 2.0 G/DL (3.4-5.0) L Globulin 4.5 g/dL Albumin/Globulin Ratio 0.4 (1.0-2.7) L Microbiology Date/Time Source Procedure Growth Status 06/13/17 22:49 Nasal Nares Left MRSA Culture - Final NO METHICILLIN RESISTANT STAPH AUREUS... Complete 06/13/17 22:49 Rectum VRE Culture - Final NO VANCOMYCIN RESISTANT ENTEROCOCCUS ... Complete KELSI LAL Jun 16, 2017 19:30
[2017-06-16 20:00] VITALS: BP 112/73
[2017-06-16] MEDS: Carvedilol 12.5mg tab ORAL SCH (20:33)
--- NOTE | 2017-06-16 22:19 | Pulmonology Progress Note ---
Assessment/Plan Problems: (1) Sepsis (2) Renal failure (ARF), acute on chronic (3) Altered level of consciousness (4) Hyperkalemia (5) Bacteremia (6) Hypothyroid (7) Pleural effusion (8) Hydronephrosis (9) Morbid obesity Assessment/Plan imrpoving iv fluids check cultures psych evaluation continue abx, GNR in blood check urine cultures. check echo, labs in am all consults reviewed urology consult called Subjective ROS Limited/Unobtainable: No Interval Events: awake, confused, Allergies: Coded Allergies: IODINE (Verified Allergy, Mild, 08/17/08) Uncoded Allergies: CONTRAST MEDIA (Allergy, Mild, 08/17/08) Objective Last 24 Hour Vital Signs Date Time Temp Pulse Resp B/P (MAP) Pulse Ox O2 Delivery O2 Flow Rate FiO2 06/16/17 20:33 103 112/73 06/16/17 20:00 98.0 103 20 112/73 96 06/16/17 19:34 115 18 Nasal Cannula 3.0 32 06/16/17 19:34 Nasal Cannula 3.0 32 06/16/17 19:34 96 Nasal Cannula 3.0 32 06/16/17 17:42 117 168/88 06/16/17 16:00 97.7 124 20 149/83 93 06/16/17 12:00 98.1 117 20 168/88 97 06/16/17 08:00 97.9 114 20 158/91 96 06/16/17 06:50 Nasal Cannula 3.0 32 06/16/17 06:50 106 16 Nasal Cannula 3.0 32 06/16/17 06:50 96 Nasal Cannula 3.0 32 06/16/17 04:00 97.7 103 20 152/83 95 06/16/17 00:00 97.9 110 22 148/76 94 Intake and Output 06/15/17 06/16/17 19:00 07:00 Intake Total 1542 ml 600 ml Output Total 1250 ml 2200 ml Balance 292 ml -1600 ml Intake Oral 337 ml IV Total 1205 ml 600 ml Output Urine Total 1250 ml 2200 ml # Bowel Movements 2 5 Objective General Appearance: WD/WN, morbidly obese Lines, tubes and drains: peripheral HEENT: normocephalic, atraumatic Neck: non-tender, normal alignment Respiratory/Chest: chest wall non-tender, lungs clear Breasts: no masses Cardiovascular/Chest: normal peripheral pulses Abdomen: normal bowel sounds EXT. + edema Microbiology Date/Time Source Procedure Growth Status 06/13/17 22:49 Nasal Nares Left MRSA Culture - Final NO METHICILLIN RESISTANT STAPH AUREUS... Complete 06/13/17 22:49 Rectum VRE Culture - Final NO VANCOMYCIN RESISTANT ENTEROCOCCUS ... Complete Laboratory Tests 06/16/17 04:35: White Blood Count 20.3H, Red Blood Count 2.99L, Hemoglobin 9.5L, Hematocrit 30.3L, Mean Corpuscular Volume 101H, Mean Corpuscular Hemoglobin 31.6H, Mean Corpuscular Hemoglobin Concent 31.3L, Red Cell Distribution Width 14.4, Platelet Count 195, Mean Platelet Volume 7.1, Neutrophils (%) (Auto) , Lymphocytes (%) (Auto) , Monocytes (%) (Auto) , Eosinophils (%) (Auto) , Basophils (%) (Auto) , Differential Total Cells Counted 100, Neutrophils % ( Manual) 91H, Lymphocytes % (Manual) 6L, Monocytes % (Manual) 3, Eosinophils % ( Manual) 0, Basophils % (Manual) 0, Band Neutrophils 0, Platelet Estimate Adequate, Platelet Morphology Normal, Hypochromasia 1+, Macrocytosis 1+, Sodium Level 146H, Potassium Level 3.8, Chloride Level 110H, Carbon Dioxide Level 26, Anion Gap 10, Blood Urea Nitrogen 75H, Creatinine 3.0H, Estimat Glomerular Filtration Rate , Glucose Level 135H, Uric Acid 4.5, Calcium Level 9.2, Phosphorus Level 4.9, Magnesium Level 1.8, Total Bilirubin 0.4, Aspartate Amino Transf (AST/SGOT) 28, Alanine Aminotransferase (ALT/SGPT) 38, Alkaline Phosphatase 335H, Troponin I 0.000, C-Reactive Protein, Quantitative 22.9H, Pro- B-Type Natriuretic Peptide 2314H, Total Protein 6.5, Albumin 2.0L, Globulin 4.5 , Albumin/Globulin Ratio 0.4L Current Medications Medications (Trade) Dose Ordered Sig/Lakshmi Route PRN Reason Start Time Stop Time Status Last Admin Dose Admin Acetaminophen (Tylenol) 650 mg Q4H PRN ORAL T>100.5 06/15/17 17:30 07/13/17 17:29 Albuterol/ Ipratropium (Albuterol/ Ipratropium) 3 ml Q4H PRN HHN Shortness of Breath 06/15/17 17:30 06/18/17 17:29 Carvedilol (Coreg) 12.5 mg EVERY 12 HOURS ORAL 06/16/17 21:00 07/16/17 20:59 06/16/17 20:33 Ceftriaxone Sodium 2 gm/ Sodium Chloride 55 ml @ 110 mls/hr Q24H IVPB 06/17/17 09:00 06/24/17 08:59 Clonidine HCl (Catapres Tab) 0.1 mg Q6H PRN ORAL elevated BP 06/16/17 15:45 07/16/17 15:44 Dextrose 1,000 ml @ 50 mls/hr Q20H IV 06/16/17 16:30 07/16/17 16:29 06/16/17 17:42 Dextrose (Dextrose 50%) STAT PRN IV Hypoglycemia 06/16/17 17:30 07/13/17 17:29 Docusate Sodium (Colace) 100 mg THREE TIMES A DAY ORAL 06/15/17 18:00 07/13/17 17:59 Famotidine (Pepcid I.v.) 20 mg QHS IVP 06/15/17 21:00 07/13/17 20:59 06/16/17 20:33 Heparin Sodium (Porcine) (Heparin 5000 units/ml) 5,000 units EVERY 12 HOURS SUBQ 06/15/17 21:00 07/13/17 20:59 06/16/17 20:34 Levothyroxine Sodium (Synthroid) 112 mcg DAILY@0630 ORAL 06/16/17 06:30 07/16/17 06:29 06/16/17 06:21 Morphine Sulfate (Morphine Sulfate) 2 mg Q4H PRN IVP Moderate Pain (Pain Scale 4-6) 06/15/17 17:30 06/20/17 17:29 06/15/17 21:12 Nitroglycerin (Ntg) 0.4 mg Every 5 Minutes PRN SL Prn Chest Pain 06/15/17 17:30 07/13/17 17:29 Ondansetron HCl (Zofran) 4 mg Q6H PRN IVP Nausea & Vomiting 06/15/17 17:30 07/13/17 17:29 Polyethylene Glycol (Miralax) 17 gm DAILYPRN PRN ORAL Constipation 06/15/17 17:30 07/15/17 17:29 Quetiapine Fumarate (SEROquel) 25 mg Q6H PRN ORAL AGITATION 06/16/17 18:00 07/16/17 17:59 06/16/17 20:33 Temazepam (Restoril) 15 mg HSPRN PRN ORAL Insomnia 06/16/17 21:00 06/20/17 20:59 Vancomycin HCl (Vanco rx to dose) 1 ea DAILYPRN PRN MISC RX TO DOSE PROTOCOL 06/15/17 17:30 07/15/17 17:29 KAILA HASSAN Jun 16, 2017 22:18
[2017-06-17] VITALS (7 sets, daily range): BP systolic 95–137; BP diastolic 58–88
[2017-06-17 08:57] LABS: HEMATOCRIT 31.8 % (37.0-47.0); HEMOGLOBIN 9.5 G/DL (12.0-16.0); MEAN CORPUSCULAR VOLUME 102 FL (80-99); PLATELET COUNT 208 K/UL (150-450); RED BLOOD COUNT 3.11 M/UL (4.20-5.40); RED CELL DISTRIBUTION WIDTH 14.8 % (11.6-14.8); WHITE BLOOD COUNT 15.7 K/UL (4.8-10.8)
--- NOTE | 2017-06-17 09:00 | Pulmonology Progress Note ---
Assessment/Plan Assessment/Plan ASSESSMENT Sepsis with Klebsiella bacteremia( due to UTI) Klebsiella UTI acute toxic metabolic encephalopathy ( likely due to sepsis and metabolic derangement/ARF, hyperkalemia)-resolving Acute on chronic renal failure Hyperkalemia R pleural effusion anemia of chronic disease moderate pulmonary HTN L hydronephrosis ( mild to moderate) urinary retention ( s/p Mendez) hypothyroidism PLAN OF CARE [facility] floor still signif. leukocytosis, afebrile Abx, ID follows bl and urine cx + Klebsiella, last bl cx 06/15 prel negative Influenza screen negative ECHO no evidence of vegetation, with pEF 70-75% and RVSP of 53 c/w moderate pulm HTN O2 HHN prn initial CXR with large R pleural effusion ECHO no evidence of effusion fup with CXR today for pleural effusion nephro follows Gentle IVF monitor renal parameters, lytes, correct as needed, creat trending down renal US c/w mild to moderate L hydroneprosis, evidence of urinary retention relieved with Mendez placement monitor counts, anemia w/up c/w anemia of chronic disease and high ferritin level TSH WNL, cont current dose of levothyroxine DVT GI prophylaxis elevate LE currently on oral diuretic daily consider to intensify diuretic treatment when renal function normalized dc plan to SNF this afternoon ID to clarify abx regimen case discussed and evaluated by supervising physician Subjective Allergies: Coded Allergies: IODINE (Verified Allergy, Mild, 08/17/08) Uncoded Allergies: CONTRAST MEDIA (Allergy, Mild, 08/17/08) Subjective still with leukocytosis , but trengind down; afebrile creat down to 2.7 Objective Last 24 Hour Vital Signs Date Time Temp Pulse Resp B/P (MAP) Pulse Ox O2 Delivery O2 Flow Rate FiO2 06/17/17 08:02 97.9 96 22 124/72 99 Nasal Cannula 2.0 06/17/17 07:12 94 20 Nasal Cannula 2.0 28 06/17/17 07:12 Nasal Cannula 2.0 28 06/17/17 07:12 96 Nasal Cannula 2.0 28 06/17/17 04:00 97.5 90 20 112/71 100 06/17/17 00:00 98.6 100 20 125/88 95 06/16/17 20:33 103 112/73 06/16/17 20:00 98.0 103 20 112/73 96 06/16/17 19:34 115 18 Nasal Cannula 3.0 32 06/16/17 19:34 Nasal Cannula 3.0 32 06/16/17 19:34 96 Nasal Cannula 3.0 32 06/16/17 17:42 117 168/88 06/16/17 16:00 97.7 124 20 149/83 93 06/16/17 12:00 98.1 117 20 168/88 97 Intake and Output 06/16/17 06/17/17 19:00 07:00 Intake Total 775 ml 600 ml Output Total 1600 ml Balance 775 ml -1000 ml Intake Oral 75 ml IV Total 700 ml 600 ml Output Urine Total 1600 ml # Bowel Movements 1 General Appearance: no acute distress, other - elderly morbidly obese AA female in NAD HEENT: normocephalic, atraumatic, anicteric, mucous membranes moist Respiratory/Chest: lungs clear - with moderate air exchange Abdomen: normal bowel sounds, soft, non tender - obese Extremities: other - +3 edema BLE Neurologic/Psychiatric: abnormal gait, alert, responsive Microbiology Date/Time Source Procedure Growth Status 06/15/17 15:15 Blood Blood Culture - Preliminary NO GROWTH AFTER 24 HOURS Resulted 06/15/17 15:00 Blood Blood Culture - Preliminary NO GROWTH AFTER 24 HOURS Resulted Laboratory Tests 06/17/17 06:51: White Blood Count [Pending], Red Blood Count [Pending], Hemoglobin [Pending], Hematocrit [Pending], Mean Corpuscular Volume [Pending], Mean Corpuscular Hemoglobin [Pending], Mean Corpuscular Hemoglobin Concent [Pending], Red Cell Distribution Width [Pending], Platelet Count [Pending], Mean Platelet Volume [ Pending], Neutrophils (%) (Auto) [Pending], Lymphocytes (%) (Auto) [Pending], Monocytes (%) (Auto) [Pending], Eosinophils (%) (Auto) [Pending], Basophils (%) (Auto) [Pending], Erythrocyte Sedimentation Rate [Pending], Sodium Level [ Pending], Potassium Level [Pending], Chloride Level [Pending], Carbon Dioxide Level [Pending], Blood Urea Nitrogen [Pending], Creatinine [Pending], Estimat Glomerular Filtration Rate [Pending], Glucose Level [Pending], Calcium Level [ Pending], Phosphorus Level [Pending], Magnesium Level [Pending], Total Bilirubin [Pending], Aspartate Amino Transf (AST/SGOT) [Pending], Alanine Aminotransferase (ALT/SGPT) [Pending], Alkaline Phosphatase [Pending], C- Reactive Protein, Quantitative [Pending], Total Protein [Pending], Albumin [ Pending], Globulin [Pending], Random Vancomycin Level [Pending] Current Medications Medications (Trade) Dose Ordered Sig/Lakshmi Route PRN Reason Start Time Stop Time Status Last Admin Dose Admin Acetaminophen (Tylenol) 650 mg Q4H PRN ORAL T>100.5 06/15/17 17:30 07/13/17 17:29 Albuterol/ Ipratropium (Albuterol/ Ipratropium) 3 ml Q4H PRN HHN Shortness of Breath 06/15/17 17:30 06/18/17 17:29 Carvedilol (Coreg) 12.5 mg EVERY 12 HOURS ORAL 06/16/17 21:00 07/16/17 20:59 06/16/17 20:33 Ceftriaxone Sodium 2 gm/ Sodium Chloride 55 ml @ 110 mls/hr Q24H IVPB 06/17/17 09:00 06/24/17 08:59 Clonidine HCl (Catapres Tab) 0.1 mg Q6H PRN ORAL elevated BP 06/16/17 15:45 07/16/17 15:44 Dextrose 1,000 ml @ 50 mls/hr Q20H IV 06/16/17 16:30 07/16/17 16:29 06/16/17 17:42 Dextrose (Dextrose 50%) STAT PRN IV Hypoglycemia 06/16/17 17:30 07/13/17 17:29 Docusate Sodium (Colace) 100 mg THREE TIMES A DAY ORAL 06/15/17 18:00 07/13/17 17:59 Famotidine (Pepcid I.v.) 20 mg QHS IVP 06/15/17 21:00 07/13/17 20:59 06/16/17 20:33 Heparin Sodium (Porcine) (Heparin 5000 units/ml) 5,000 units EVERY 12 HOURS SUBQ 06/15/17 21:00 07/13/17 20:59 06/16/17 20:34 Levothyroxine Sodium (Synthroid) 112 mcg DAILY@0630 ORAL 06/16/17 06:30 07/16/17 06:29 06/17/17 06:21 Morphine Sulfate (Morphine Sulfate) 2 mg Q4H PRN IVP Moderate Pain (Pain Scale 4-6) 06/15/17 17:30 06/20/17 17:29 06/15/17 21:12 Nitroglycerin (Ntg) 0.4 mg Every 5 Minutes PRN SL Prn Chest Pain 06/15/17 17:30 07/13/17 17:29 Ondansetron HCl (Zofran) 4 mg Q6H PRN IVP Nausea & Vomiting 06/15/17 17:30 07/13/17 17:29 Polyethylene Glycol (Miralax) 17 gm DAILYPRN PRN ORAL Constipation 06/15/17 17:30 07/15/17 17:29 Quetiapine Fumarate (SEROquel) 25 mg Q6H PRN ORAL AGITATION 06/16/17 18:00 07/16/17 17:59 06/16/17 20:33 Temazepam (Restoril) 15 mg HSPRN PRN ORAL Insomnia 06/16/17 21:00 06/20/17 20:59 Vancomycin HCl (Vanco rx to dose) 1 ea DAILYPRN PRN MISC RX TO DOSE PROTOCOL 06/15/17 17:30 07/15/17 17:29 Meron Parekh NP ([facility]) Jun 17, 2017 09:00
[2017-06-17] MEDS: Docusate 100mg cap ORAL SCH ×3 (09:12→18:00)
[2017-06-17] MEDS: Carvedilol 12.5mg tab ORAL SCH ×2 (09:12→20:53)
[2017-06-17] MEDS: Heparin 5000 units/ml inj SUBQ SCH ×2 (09:13→20:53)
[2017-06-17] MEDS ORDERED: Albuterol/Ipratropium 3ml neb HHN PRN (09:30)
[2017-06-17 09:35] LABS: ALANINE AMINOTRANSFERASE 36 U/L (12-78); ALBUMIN/GLOBULIN RATIO 0.4 (1.0-2.7); ALKALINE PHOSPHATASE 309 U/L (46-116); ANION GAP 9 mmol/L (5-15); ASPARTATE AMINO TRANSFERASE 24 U/L (15-37); BILIRUBIN,TOTAL 0.4 MG/DL (0.2-1.0); BLOOD UREA NITROGEN 68 mg/dL (7-18); CALCIUM 9.2 MG/DL (8.5-10.1); CARBON DIOXIDE 27 MMOL/L (21-32); CHLORIDE 108 MMOL/L (98-107); CREATININE 2.7 MG/DL (0.55-1.30); POTASSIUM 4.1 MMOL/L (3.5-5.1); SODIUM 144 MMOL/L (136-145)
[2017-06-17 09:36] LABS: PHOSPHORUS 4.8 MG/DL (2.5-4.9)
[2017-06-17] MEDS: cefTRIAXone 2 GM in NS 55 ML IVPB SCH (10:25)
[2017-06-17] MEDS ORDERED: Vancomycin 1250mg/D5W 250ml IVPB ONE (11:30)
--- NOTE | 2017-06-17 11:55 | Nephrology Progress Note ---
Assessment/Plan Problem List: (1) Renal failure (ARF), acute on chronic Assessment: better (2) Morbid obesity (3) Anasarca (4) UTI (urinary tract infection) Plan abxs diuretics follow labs 24 hr urine once S creatinine stable --> nephrotic ? Subjective Subjective feels ok Objective Objective Last 24 Hour Vital Signs Date Time Temp Pulse Resp B/P (MAP) Pulse Ox O2 Delivery O2 Flow Rate FiO2 06/17/17 11:33 98.0 98 20 125/59 97 06/17/17 09:12 96 124/72 06/17/17 08:02 97.9 96 22 124/72 99 Nasal Cannula 2.0 06/17/17 07:12 94 20 Nasal Cannula 2.0 28 06/17/17 07:12 Nasal Cannula 2.0 28 06/17/17 07:12 96 Nasal Cannula 2.0 28 06/17/17 04:00 97.5 90 20 112/71 100 06/17/17 00:00 98.6 100 20 125/88 95 06/16/17 20:33 103 112/73 06/16/17 20:00 98.0 103 20 112/73 96 06/16/17 19:34 115 18 Nasal Cannula 3.0 32 06/16/17 19:34 Nasal Cannula 3.0 32 06/16/17 19:34 96 Nasal Cannula 3.0 32 06/16/17 17:42 117 168/88 06/16/17 16:00 97.7 124 20 149/83 93 06/16/17 12:00 98.1 117 20 168/88 97 Intake and Output 06/16/17 06/17/17 19:00 07:00 Intake Total 775 ml 600 ml Output Total 1600 ml Balance 775 ml -1000 ml Intake Oral 75 ml IV Total 700 ml 600 ml Output Urine Total 1600 ml # Bowel Movements 1 Laboratory Tests 06/17/17 06:51: White Blood Count 15.7H, Red Blood Count 3.11L, Hemoglobin 9.5L, Hematocrit 31.8L, Mean Corpuscular Volume 102H, Mean Corpuscular Hemoglobin 30.6, Mean Corpuscular Hemoglobin Concent 30.0L, Red Cell Distribution Width 14.8, Platelet Count 208, Mean Platelet Volume 6.9, Neutrophils (%) (Auto) , Lymphocytes (%) (Auto) , Monocytes (%) (Auto) , Eosinophils (%) (Auto) , Basophils (%) (Auto) , Differential Total Cells Counted 100, Neutrophils % ( Manual) 84H, Lymphocytes % (Manual) 6L, Monocytes % (Manual) 9, Eosinophils % ( Manual) 1, Basophils % (Manual) 0, Band Neutrophils 0, Platelet Estimate Adequate, Platelet Morphology Normal, Hypochromasia 2+, Macrocytosis 1+, Erythrocyte Sedimentation Rate 109H, Sodium Level 144, Potassium Level 4.1, Chloride Level 108H, Carbon Dioxide Level 27, Anion Gap 9, Blood Urea Nitrogen 68H, Creatinine 2.7H, Estimat Glomerular Filtration Rate , Glucose Level 111H, Calcium Level 9.2, Phosphorus Level 4.8, Magnesium Level 1.7L, Total Bilirubin 0.4, Aspartate Amino Transf (AST/SGOT) 24, Alanine Aminotransferase (ALT/SGPT) 36, Alkaline Phosphatase 309H, C-Reactive Protein, Quantitative 36.3H, Total Protein 6.6, Albumin 2.0L, Globulin 4.6, Albumin/Globulin Ratio 0.4L, Random Vancomycin Level 9.9 Height (Feet): 5 Height (Inches): 5.00 Weight (Pounds): 370 Cardiovascular: normal rate Respiratory/Chest: lungs clear Extremities: severe edema LESLIE JACKSON Jun 17, 2017 11:55
[2017-06-17] MEDS ORDERED: COREG12.5 MG ORAL (13:59)
[2017-06-17] MEDS ORDERED: COLACE100 MG ORAL (13:59)
[2017-06-17] MEDS ORDERED: FUROSEMIDE40 MG ORAL (13:59)
[2017-06-17] MEDS ORDERED: CEFTRIAXON2 GM/50 ML IV (13:59)
[2017-06-17] MEDS ORDERED: SEROQUEL25 MG ORAL (13:59)
[2017-06-17] MEDS ORDERED: MIRALAX17 G2 ORAL (13:59)
--- NOTE | 2017-06-17 14:17 | Diagnostic Imaging Report ---
Indication: Dyspnea Comparison: 06/13/2017 A single view chest radiograph was obtained. Findings: There is evidence of a right pleural effusion. There is evidence of pulmonary edema. Basal atelectasis present. Heart is enlarged. IMPRESSION: No significant change. Evidence of interstitial edema and right pleural effusion
[2017-06-17] MEDS: Furosemide 40mg tab ORAL SCH (14:30)
--- NOTE | 2017-06-17 14:44 | Infectious Diseases Prog Note ---
Assessment/Plan Assessment/Plan Assessment: Sepsis - 2ry to UTI and bacteremia, possible PNA -r/o pyelonephritis, renal abscess ; improving -u.a wbc tntc, nit neg, luek +3; ucx >100k K. Pna (S Ceftriaxone, Cipro/levo) -Renal US: Mild to moderate left hydronephrosis, etiology not demonstrated. ConsiderCT for better characterization if clinically indicate. Unremarkable right kidney. Incidental finding left renal parapelvic cyst. Empty bladder with a Carrera catheter. -CXR: Suspect large right pleural effusion Bilateral interstitial congestion. Possible right lung airspace disease Left basilar atelectasis and possible consolidation -Influenza neg -sp cx p -Bcx 06/13 08/17 K. pna(S Ceftriaxone); 06/15 Bcx NTD Low grade fever/leukocytosis; fever improving, leukocytosis improving Large R pleural effusion- ?related to JERILYN, r/o parapneumonic pleural effusion JERILYN/hyperkalemia-?CKD; improving Urinary retention s/p carrera 06/13 -1l removed HTN DM morbid obesity Plan: -d/c IV Vancomycin #5 and continue Ceftriaxone #5/ for K.pna UTI and bacteremia -06/16 SP Meropenem #4 -06/14 SP Cefepime #2 -06/13 SP Unasyn x1 -needs f/u of hydronephrosis seen in Renal US; ordered CT abd/p but could not be bone as patient did not fit on CT scan machine -f/u cx -Monitor CBC/BMP, temperatures -aspiration precautions Thank you for this consultation. Will continue to follow along with you. Discussed with RN and primary team. Subjective Allergies: Coded Allergies: IODINE (Verified Allergy, Mild, 08/17/08) Uncoded Allergies: CONTRAST MEDIA (Allergy, Mild, 08/17/08) Subjective afebrile leukocytosis improving repaet Bcx NTD Cr improving Objective Vital Signs Last 24 Hour Vital Signs Date Time Temp Pulse Resp B/P (MAP) Pulse Ox O2 Delivery O2 Flow Rate FiO2 06/17/17 13:53 Nasal Cannula 2.0 06/17/17 11:33 98.0 98 20 125/59 97 06/17/17 09:12 96 124/72 06/17/17 08:02 97.9 96 22 124/72 99 Nasal Cannula 2.0 06/17/17 07:12 94 20 Nasal Cannula 2.0 28 06/17/17 07:12 Nasal Cannula 2.0 28 06/17/17 07:12 96 Nasal Cannula 2.0 28 06/17/17 04:00 97.5 90 20 112/71 100 06/17/17 00:00 98.6 100 20 125/88 95 06/16/17 20:33 103 112/73 06/16/17 20:00 98.0 103 20 112/73 96 06/16/17 19:34 115 18 Nasal Cannula 3.0 32 06/16/17 19:34 Nasal Cannula 3.0 32 06/16/17 19:34 96 Nasal Cannula 3.0 32 06/16/17 17:42 117 168/88 06/16/17 16:00 97.7 124 20 149/83 93 Height (Feet): 5 Height (Inches): 5.00 Weight (Pounds): 370 Objective General Appearance: moderate distress, obese, Chronically Ill HEENT: atraumatic, no oral lesions Neck: normal inspection, full range of motion, supple, no bony tend Respiratory: normal inspection, no retraction, other - tachypnea Cardiovascular : tachycardia, edema Gastrointestinal: normal inspection, normal bowel sounds, non tender, soft, no guarding, no hernia Genitourinary: no CVA tenderness Musculoskeletal: normal inspection, back normal, normal range of motion Skin: normal inspection, normal color, no rash Microbiology Date/Time Source Procedure Growth Status 06/15/17 15:15 Blood Blood Culture - Preliminary NO GROWTH AFTER 24 HOURS Resulted 06/15/17 15:00 Blood Blood Culture - Preliminary NO GROWTH AFTER 24 HOURS Resulted Laboratory Tests Test 06/17/17 06:51 White Blood Count 15.7 K/UL (4.8-10.8) H Red Blood Count 3.11 M/UL (4.20-5.40) L Hemoglobin 9.5 G/DL (12.0-16.0) L Hematocrit 31.8 % (37.0-47.0) L Mean Corpuscular Volume 102 FL (80-99) H Mean Corpuscular Hemoglobin 30.6 PG (27.0-31.0) Mean Corpuscular Hemoglobin Concent 30.0 G/DL (32.0-36.0) L Red Cell Distribution Width 14.8 % (11.6-14.8) Platelet Count 208 K/UL (150-450) Mean Platelet Volume 6.9 FL (6.5-10.1) Neutrophils (%) (Auto) % (45.0-75.0) Lymphocytes (%) (Auto) % (20.0-45.0) Monocytes (%) (Auto) % (1.0-10.0) Eosinophils (%) (Auto) % (0.0-3.0) Basophils (%) (Auto) % (0.0-2.0) Differential Total Cells Counted 100 Neutrophils % (Manual) 84 % (45-75) H Lymphocytes % (Manual) 6 % (20-45) L Monocytes % (Manual) 9 % (1-10) Eosinophils % (Manual) 1 % (0-3) Basophils % (Manual) 0 % (0-2) Band Neutrophils 0 % (0-8) Platelet Estimate Adequate Platelet Morphology Normal Hypochromasia 2+ Macrocytosis 1+ Erythrocyte Sedimentation Rate 109 MM/HR (0-42) H Sodium Level 144 MMOL/L (136-145) Potassium Level 4.1 MMOL/L (3.5-5.1) Chloride Level 108 MMOL/L (98-107) H Carbon Dioxide Level 27 MMOL/L (21-32) Anion Gap 9 mmol/L (5-15) Blood Urea Nitrogen 68 mg/dL (7-18) H Creatinine 2.7 MG/DL (0.55-1.30) H Estimat Glomerular Filtration Rate mL/min (>60) Glucose Level 111 MG/DL (74-106) H Calcium Level 9.2 MG/DL (8.5-10.1) Phosphorus Level 4.8 MG/DL (2.5-4.9) Magnesium Level 1.7 MG/DL (1.8-2.4) L Total Bilirubin 0.4 MG/DL (0.2-1.0) Aspartate Amino Transf (AST/SGOT) 24 U/L (15-37) Alanine Aminotransferase (ALT/SGPT) 36 U/L (12-78) Alkaline Phosphatase 309 U/L (46-116) H C-Reactive Protein, Quantitative 36.3 mg/dL (0.00-0.90) H Total Protein 6.6 G/DL (6.4-8.2) Albumin 2.0 G/DL (3.4-5.0) L Globulin 4.6 g/dL Albumin/Globulin Ratio 0.4 (1.0-2.7) L Random Vancomycin Level 9.9 ug/mL Current Medications Medications (Trade) Dose Ordered Sig/Lakshmi Route PRN Reason Start Time Stop Time Status Last Admin Dose Admin Acetaminophen (Tylenol) 650 mg Q4H PRN ORAL T>100.5 06/15/17 17:30 07/13/17 17:29 Albuterol/ Ipratropium (Albuterol/ Ipratropium) 3 ml Q4H PRN HHN Shortness of Breath 06/17/17 09:30 06/20/17 09:29 Carvedilol (Coreg) 12.5 mg EVERY 12 HOURS ORAL 06/16/17 21:00 07/16/17 20:59 06/17/17 09:12 Ceftriaxone Sodium 2 gm/ Sodium Chloride 55 ml @ 110 mls/hr Q24H IVPB 06/17/17 09:00 06/24/17 08:59 06/17/17 10:25 Clonidine HCl (Catapres Tab) 0.1 mg Q6H PRN ORAL elevated BP 06/16/17 15:45 07/16/17 15:44 Dextrose (Dextrose 50%) STAT PRN IV Hypoglycemia 06/16/17 17:30 07/13/17 17:29 Docusate Sodium (Colace) 100 mg THREE TIMES A DAY ORAL 06/15/17 18:00 07/13/17 17:59 06/17/17 14:30 Famotidine (Pepcid I.v.) 20 mg QHS IVP 06/15/17 21:00 07/13/17 20:59 06/16/17 20:33 Furosemide (Lasix) 40 mg DAILY ORAL 06/17/17 12:30 07/17/17 12:29 06/17/17 14:30 Heparin Sodium (Porcine) (Heparin 5000 units/ml) 5,000 units EVERY 12 HOURS SUBQ 06/15/17 21:00 07/13/17 20:59 06/17/17 09:13 Levothyroxine Sodium (Synthroid) 112 mcg DAILY@0630 ORAL 06/16/17 06:30 07/16/17 06:29 06/17/17 06:21 Morphine Sulfate (Morphine Sulfate) 2 mg Q4H PRN IVP Moderate Pain (Pain Scale 4-6) 06/15/17 17:30 06/20/17 17:29 06/15/17 21:12 Nitroglycerin (Ntg) 0.4 mg Every 5 Minutes PRN SL Prn Chest Pain 06/15/17 17:30 07/13/17 17:29 Ondansetron HCl (Zofran) 4 mg Q6H PRN IVP Nausea & Vomiting 06/15/17 17:30 07/13/17 17:29 Polyethylene Glycol (Miralax) 17 gm DAILYPRN PRN ORAL Constipation 06/15/17 17:30 07/15/17 17:29 Quetiapine Fumarate (SEROquel) 25 mg Q6H PRN ORAL AGITATION 06/16/17 18:00 07/16/17 17:59 06/16/17 20:33 Temazepam (Restoril) 15 mg HSPRN PRN ORAL Insomnia 06/16/17 21:00 06/20/17 20:59 Vancomycin HCl (Vanco rx to dose) 1 ea DAILYPRN PRN MISC RX TO DOSE PROTOCOL 06/15/17 17:30 07/15/17 17:29 Krystle Calderon M.D. Jun 17, 2017 14:44
--- NOTE | 2017-06-17 17:41 | Cardiology Progress Note ---
Assessment/Plan Assessment/Plan pleural effusion previously exudative hyperdynamic systolic function pulm htn arf cri copd bacteremia uti metabolic encephalopathy sinus tachy albumin or ns if hypotension develops hypotension abx iv wbc more elevated to day may need repeat thoracentesis less tachy echo noted hyperdynamic lv systolic function but pulm htn want to go hoem Subjective Cardiovascular: Denies: chest pain, lightheadedness, palpitations Respiratory: Denies: shortness of breath Gastrointestinal/Abdominal: Denies: abdominal pain Genitourinary: Denies: burning Objective Last 24 Hour Vital Signs Date Time Temp Pulse Resp B/P (MAP) Pulse Ox O2 Delivery O2 Flow Rate FiO2 06/17/17 16:00 97.7 94 21 137/70 96 06/17/17 13:53 Nasal Cannula 2.0 06/17/17 11:33 98.0 98 20 125/59 97 06/17/17 09:12 96 124/72 06/17/17 08:02 97.9 96 22 124/72 99 Nasal Cannula 2.0 06/17/17 07:12 94 20 Nasal Cannula 2.0 28 06/17/17 07:12 Nasal Cannula 2.0 28 06/17/17 07:12 96 Nasal Cannula 2.0 28 06/17/17 04:00 97.5 90 20 112/71 100 06/17/17 00:00 98.6 100 20 125/88 95 06/16/17 20:33 103 112/73 06/16/17 20:00 98.0 103 20 112/73 96 06/16/17 19:34 115 18 Nasal Cannula 3.0 32 06/16/17 19:34 Nasal Cannula 3.0 32 06/16/17 19:34 96 Nasal Cannula 3.0 32 06/16/17 17:42 117 168/88 General Appearance: alert Cardiovascular: normal rate, regular rhythm Respiratory/Chest: lungs clear Abdomen: normal bowel sounds, non tender, soft Extremities: moderate edema Intake and Output 06/16/17 06/17/17 19:00 07:00 Intake Total 775 ml 600 ml Output Total 1600 ml Balance 775 ml -1000 ml Intake Oral 75 ml IV Total 700 ml 600 ml Output Urine Total 1600 ml # Bowel Movements 1 Laboratory Tests Test 06/17/17 06:51 White Blood Count 15.7 K/UL (4.8-10.8) H Red Blood Count 3.11 M/UL (4.20-5.40) L Hemoglobin 9.5 G/DL (12.0-16.0) L Hematocrit 31.8 % (37.0-47.0) L Mean Corpuscular Volume 102 FL (80-99) H Mean Corpuscular Hemoglobin 30.6 PG (27.0-31.0) Mean Corpuscular Hemoglobin Concent 30.0 G/DL (32.0-36.0) L Red Cell Distribution Width 14.8 % (11.6-14.8) Platelet Count 208 K/UL (150-450) Mean Platelet Volume 6.9 FL (6.5-10.1) Neutrophils (%) (Auto) % (45.0-75.0) Lymphocytes (%) (Auto) % (20.0-45.0) Monocytes (%) (Auto) % (1.0-10.0) Eosinophils (%) (Auto) % (0.0-3.0) Basophils (%) (Auto) % (0.0-2.0) Differential Total Cells Counted 100 Neutrophils % (Manual) 84 % (45-75) H Lymphocytes % (Manual) 6 % (20-45) L Monocytes % (Manual) 9 % (1-10) Eosinophils % (Manual) 1 % (0-3) Basophils % (Manual) 0 % (0-2) Band Neutrophils 0 % (0-8) Platelet Estimate Adequate Platelet Morphology Normal Hypochromasia 2+ Macrocytosis 1+ Erythrocyte Sedimentation Rate 109 MM/HR (0-42) H Sodium Level 144 MMOL/L (136-145) Potassium Level 4.1 MMOL/L (3.5-5.1) Chloride Level 108 MMOL/L (98-107) H Carbon Dioxide Level 27 MMOL/L (21-32) Anion Gap 9 mmol/L (5-15) Blood Urea Nitrogen 68 mg/dL (7-18) H Creatinine 2.7 MG/DL (0.55-1.30) H Estimat Glomerular Filtration Rate mL/min (>60) Glucose Level 111 MG/DL (74-106) H Calcium Level 9.2 MG/DL (8.5-10.1) Phosphorus Level 4.8 MG/DL (2.5-4.9) Magnesium Level 1.7 MG/DL (1.8-2.4) L Total Bilirubin 0.4 MG/DL (0.2-1.0) Aspartate Amino Transf (AST/SGOT) 24 U/L (15-37) Alanine Aminotransferase (ALT/SGPT) 36 U/L (12-78) Alkaline Phosphatase 309 U/L (46-116) H C-Reactive Protein, Quantitative 36.3 mg/dL (0.00-0.90) H Total Protein 6.6 G/DL (6.4-8.2) Albumin 2.0 G/DL (3.4-5.0) L Globulin 4.6 g/dL Albumin/Globulin Ratio 0.4 (1.0-2.7) L Random Vancomycin Level 9.9 ug/mL Microbiology Date/Time Source Procedure Growth Status 06/15/17 15:15 Blood Blood Culture - Preliminary NO GROWTH AFTER 24 HOURS Resulted 06/15/17 15:00 Blood Blood Culture - Preliminary NO GROWTH AFTER 24 HOURS Resulted KELSI LAL Jun 17, 2017 17:41
--- NOTE | 2017-06-17 20:00 | Consultation ---
DATE OF CONSULTATION: 06/17/2017 UROLOGY CONSULTATION ATTENDING/CONSULTING PHYSICIAN: Beatriz Fields M.D. CHIEF COMPLAINT/HISTORY OF PRESENT ILLNESS: I was asked by Dr. Fields to evaluate this 87-year-old female regarding history of hydronephrosis noted on renal ultrasound. Briefly, the patient was brought in by EMS with altered mental status. She was recently hospitalized with a note for the same and also had renal failure at that time. She was admitted for management of these issues. A renal ultrasound was done to evaluate her renal function and revealed [id number] left hydronephrosis. As such, I was asked to evaluate the patient. PAST MEDICAL HISTORY: 1. Hypothyroidism. 2. Morbid obesity. 3. Renal insufficiency. MEDICATIONS: Please see chart for current medications and administration details. Briefly, the patient is receiving ceftriaxone for antibiotic coverage as well as vancomycin. ALLERGIES: No known drug allergies. SOCIAL HISTORY: Unremarkable. FAMILY HISTORY: Noncontributory. REVIEW OF SYSTEMS: A 12-system review of systems was limited by the patient's mental status. She could not provide any additional information. PHYSICAL EXAMINATION: GENERAL: The patient is an elderly female, awake, alert, and in no obvious distress. HEENT: NC/AT. EOMI. NECK: Supple. Full range of motion. Oropharynx clear. CHEST: Within normal limits. ABDOMEN: Soft, obese, nontender, and nondistended. EXTREMITIES: Warm and well-perfused. No cyanosis, clubbing, or edema. BACK: No CVA tenderness to percussion. NEUROLOGIC: Grossly nonfocal. LABORATORY DATA: Sodium 146, potassium 3.8, chloride 110, bicarbonate 26, BUN 75, creatinine 3, glucose 135, and calcium 9.2. LFTs within normal limits. Alkaline phosphatase 335. White blood cell count 20.3, hematocrit 30.3, and platelets 195,000. PT 11.0. INR 1.1. PTT 28. Urinalysis, specific gravity 1.015 and pH 5.0. Dip test notable for 3+ protein, 5+ occult blood, and 3+ leukocyte esterase. Microanalysis is too numerous to count white and red blood cells per high-power field and many bacteria seen. Urine culture with Klebsiella pneumoniae. Blood cultures with same. DIAGNOSTIC IMAGING: Renal ultrasound with [id number] left hydronephrosis, etiology not demonstrated. Both kidneys demonstrate normal echogenicity. There is a left parapelvic renal cyst. Bladder is empty and contains a Mendez catheter. ASSESSMENT AND PLAN: In summary, the patient is an 87-year-old female with a history of renal insufficiency. Renal ultrasound to evaluate the same revealed left [id number] hydronephrosis. The patient also had a urinary tract infection, which has been treated. Physical exam is essentially unremarkable outside of some alteration in mental status. I am going to order a CT stone survey to evaluate for the presence of a ureteral stone or other source of obstruction to explain the hydronephrosis. Depending on the results, we will institute a plan of care for this patient. Thank you for allowing me to participate in the care of this nice lady. Please do not hesitate to contact me with any questions that you may further have regarding her care. I will see her with you as needed. Billy Butterfield M.D. DR: JESSICA JOB#: [id number] CC:
--- NOTE | 2017-06-17 22:15 | Progress Note ---
DATE: 06/17/2017 SUBJECTIVE: The patient has a sitter and confused. She was holding a phone and talking pretending that she was talking to other person. She is illogical and not able to be engaged and answer the questions appropriately. The patient has no insight. She lacks capacity and is unable to discuss her medical conditions. MENTAL STATUS EXAMINATION: The patient is alert and oriented times self. Mood is agitated. Affect is flat. Thought process, there is a paucity of thought content. Thought content, no suicidal or homicidal ideations. ASSESSMENT: Encephalopathy and dementia. PLAN: 1. We will continue the Seroquel p.r.n. 2. Continue the sitter. 3. The patient lacks capacity to leave against medical advice. Alyssa Alvarado M.D. DR: CALVIN JOB#: [id number] CC:
--- NOTE | 2017-06-18 02:15 | Consultation ---
DATE OF CONSULTATION: 06/16/2017 HISTORY OF PRESENT ILLNESS: This is an 87-year-old female with a history of multiple medical problems. The patient has been confused, disorganized, is unable to provide history. The patient has cognitive impairment and is illogical. The patient has been agitated and wanted to leave. Therefore, family was contacted who apparently came and calmed the patient down. The patient is delusional and is unable to understand process, communicate, nor appreciate. The patient is unable to appreciate information given to her in regards to her medical condition. PAST PSYCHIATRIC HISTORY: Dementia, depression, and agitation. PAST MEDICAL HISTORY: Pleural effusion, hyperkalemia, morbid obesity, pyelonephritis, renal insufficiency, sepsis, hypothyroid, bacteremia, hydronephrosis, anasarca, and urinary tract infection. ALLERGIES: Contrast media and iodine. SUBSTANCE ABUSE HISTORY: No known history of illicit drug use or alcohol. MENTAL STATUS EXAMINATION: The patient is alert and oriented times self and place. Mood is agitated. Affect is flat. Thought process is disorganized. Thought content positive for delusions. No suicidal or homicidal ideations. Cognition is impaired. Insight and judgment non-existent. ASSESSMENT: AXIS I Dementia. Encephalopathy. AXIS II Deferred. AXIS III As above. AXIS IV Low. AXIS V Global assessment of functioning is 20. PLAN: 1. The patient will be continued on Seroquel 25 mg q.6 h. p.r.n. for agitation. 2. The patient lacks capacity to leave against medical advice. 3. We will continue follow and readjust the medications. Alyssa Alvarado M.D. DR: JESUS ALBERTO JOB#: [id number] CC:
[2017-06-18 03:40] VITALS: BP 122/70
[2017-06-18 08:18] VITALS: BP 137/74
[2017-06-18] MEDS ORDERED: CEFTRIAXON2 GM/50 ML IV (08:32)
--- NOTE | 2017-06-18 08:32 | Pulmonology Progress Note ---
Assessment/Plan Assessment/Plan ASSESSMENT Sepsis with Klebsiella bacteremia( due to UTI) Klebsiella UTI acute toxic metabolic encephalopathy ( likely due to sepsis and metabolic derangement/ARF, hyperkalemia)-resolving Acute on chronic renal failure Hyperkalemia R pleural effusion diabetes diabetic polyneuropathy with paraparesis new onset of generalized weakness due to underlying toxic metabolic derangement. significant lower extremity lymphostasis. anemia of chronic disease moderate pulmonary HTN L hydronephrosis ( mild to moderate) urinary retention ( s/p Mendez) hypothyroidism morbid obesity anasarca PLAN OF CARE [facility] floor still leukocytosis, but trending down, afebrile Abx, ID follows bl and urine cx + Klebsiella, last bl cx 06/15 prel negative Influenza screen negative ECHO no evidence of vegetation, with pEF 70-75% and RVSP of 53 c/w moderate pulm HTN O2 HHN prn initial CXR with large R pleural effusion ECHO no evidence of effusion fup CXR with pleural effusion nephro follows Gentle IVF monitor renal parameters, lytes, correct as needed, creat trending down renal US c/w mild to moderate L hydroneprosis, evidence of urinary retention relieved with Mendez placement monitor counts, anemia w/up c/w anemia of chronic disease and high ferritin level TSH WNL, cont current dose of levothyroxine DVT GI prophylaxis elevate LE currently on oral diuretic daily consider to intensify diuretic treatment when renal function normalized BS stable HgA1c- 6.3 ; Staplix upon dc dc to SNF today on IV abx case discussed and evaluated by supervising physician Subjective Allergies: Coded Allergies: IODINE (Verified Allergy, Mild, 08/17/08) Uncoded Allergies: CONTRAST MEDIA (Allergy, Mild, 08/17/08) Subjective mild leukocytosis; afebrile creat down to 2.6 unable to be dc today since ambulance did not have bariatric gurney Objective Last 24 Hour Vital Signs Date Time Temp Pulse Resp B/P (MAP) Pulse Ox O2 Delivery O2 Flow Rate FiO2 06/18/17 08:18 97.7 95 21 137/74 95 Nasal Cannula 3.0 06/18/17 03:40 97.9 87 20 122/70 99 Room Air 06/18/17 00:00 97 Nasal Cannula 2.0 06/17/17 23:40 97.9 92 20 95/58 96 Nasal Cannula 06/17/17 20:53 99 137/71 2//18 19:43 98.1 99 20 137/71 98 Nasal Cannula 06/17/17 19:10 Nasal Cannula 2.0 28 06/17/17 19:10 97 Nasal Cannula 2.0 28 06/17/17 19:10 101 20 Nasal Cannula 2.0 28 06/17/17 16:00 97.7 94 21 137/70 96 06/17/17 13:53 Nasal Cannula 2.0 06/17/17 11:33 98.0 98 20 125/59 97 06/17/17 09:12 96 124/72 Intake and Output 06/17/17 06/18/17 19:00 07:00 Intake Total 720 ml Output Total 700 ml Balance 20 ml Intake Oral 720 ml Output Urine Total 700 ml # Bowel Movements 1 Objective General Appearance: no acute distress, elderly morbidly obese AA female in NAD HEENT: normocephalic, atraumatic, anicteric, mucous membranes moist Respiratory/Chest: lungs clear - with moderate air exchange Abdomen: normal bowel sounds, soft, non tender - obese Extremities: +3 edema BLE Neurologic/Psychiatric: abnormal gait, alert, responsive Microbiology Date/Time Source Procedure Growth Status 06/15/17 15:15 Blood Blood Culture - Preliminary NO GROWTH AFTER 24 HOURS Resulted 06/15/17 15:00 Blood Blood Culture - Preliminary NO GROWTH AFTER 24 HOURS Resulted Laboratory Tests 06/18/17 07:40: White Blood Count [Pending], Red Blood Count [Pending], Hemoglobin [Pending], Hematocrit [Pending], Mean Corpuscular Volume [Pending], Mean Corpuscular Hemoglobin [Pending], Mean Corpuscular Hemoglobin Concent [Pending], Red Cell Distribution Width [Pending], Platelet Count [Pending], Mean Platelet Volume [ Pending], Neutrophils (%) (Auto) [Pending], Lymphocytes (%) (Auto) [Pending], Monocytes (%) (Auto) [Pending], Eosinophils (%) (Auto) [Pending], Basophils (%) (Auto) [Pending], Sodium Level [Pending], Potassium Level [Pending], Chloride Level [Pending], Carbon Dioxide Level [Pending], Blood Urea Nitrogen [Pending], Creatinine [Pending], Estimat Glomerular Filtration Rate [Pending], Glucose Level [Pending], Calcium Level [Pending] Current Medications Medications (Trade) Dose Ordered Sig/Lakshmi Route PRN Reason Start Time Stop Time Status Last Admin Dose Admin Acetaminophen (Tylenol) 650 mg Q4H PRN ORAL T>100.5 06/15/17 17:30 07/13/17 17:29 Albuterol/ Ipratropium (Albuterol/ Ipratropium) 3 ml Q4H PRN HHN Shortness of Breath 06/17/17 09:30 06/20/17 09:29 Carvedilol (Coreg) 12.5 mg EVERY 12 HOURS ORAL 06/16/17 21:00 07/16/17 20:59 06/17/17 20:53 Ceftriaxone Sodium 2 gm/ Sodium Chloride 55 ml @ 110 mls/hr Q24H IVPB 06/17/17 09:00 06/24/17 08:59 06/17/17 10:25 Clonidine HCl (Catapres Tab) 0.1 mg Q6H PRN ORAL elevated BP 06/16/17 15:45 07/16/17 15:44 Dextrose (Dextrose 50%) STAT PRN IV Hypoglycemia 06/16/17 17:30 07/13/17 17:29 Docusate Sodium (Colace) 100 mg THREE TIMES A DAY ORAL 06/15/17 18:00 07/13/17 17:59 06/17/17 14:30 Famotidine (Pepcid I.v.) 20 mg QHS IVP 06/15/17 21:00 07/13/17 20:59 06/16/17 20:33 Furosemide (Lasix) 40 mg DAILY ORAL 06/17/17 12:30 07/17/17 12:29 06/17/17 14:30 Heparin Sodium (Porcine) (Heparin 5000 units/ml) 5,000 units EVERY 12 HOURS SUBQ 06/15/17 21:00 07/13/17 20:59 06/17/17 09:13 Levothyroxine Sodium (Synthroid) 112 mcg DAILY@0630 ORAL 06/16/17 06:30 07/16/17 06:29 06/18/17 05:49 Morphine Sulfate (Morphine Sulfate) 2 mg Q4H PRN IVP Moderate Pain (Pain Scale 4-6) 06/15/17 17:30 06/20/17 17:29 06/15/17 21:12 Nitroglycerin (Ntg) 0.4 mg Every 5 Minutes PRN SL Prn Chest Pain 06/15/17 17:30 07/13/17 17:29 Ondansetron HCl (Zofran) 4 mg Q6H PRN IVP Nausea & Vomiting 06/15/17 17:30 07/13/17 17:29 Polyethylene Glycol (Miralax) 17 gm DAILYPRN PRN ORAL Constipation 06/15/17 17:30 07/15/17 17:29 Quetiapine Fumarate (SEROquel) 25 mg Q6H PRN ORAL AGITATION 06/16/17 18:00 07/16/17 17:59 06/18/17 05:49 Temazepam (Restoril) 15 mg HSPRN PRN ORAL Insomnia 06/16/17 21:00 06/20/17 20:59 06/17/17 21:25 [facility] center[facility] Urias NP Jun 18, 2017 08:32
[2017-06-18] MEDS: Carvedilol 12.5mg tab ORAL SCH (08:59)
[2017-06-18] MEDS: Furosemide 40mg tab ORAL SCH (08:59)
[2017-06-18] MEDS: Docusate 100mg cap ORAL SCH ×2 (08:59→13:00)
[2017-06-18] MEDS: Heparin 5000 units/ml inj SUBQ SCH (09:00)
[2017-06-18 09:08] LABS: EOSINOPHILS % (AUTO) 1.3 % (0.0-3.0); HEMATOCRIT 30.3 % (37.0-47.0); LYMPHOCYTES % (AUTO) 7.8 % (20.0-45.0); MEAN CORPUSCULAR VOLUME 103 FL (80-99); MONOCYTES % (AUTO) 5.1 % (1.0-10.0); NEUTROPHILS % (AUTO) 84.7 % (45.0-75.0); PLATELET COUNT 217 K/UL (150-450); RED BLOOD COUNT 2.95 M/UL (4.20-5.40); WHITE BLOOD COUNT 12.8 K/UL (4.8-10.8)
[2017-06-18] MEDS: cefTRIAXone 2 GM in NS 55 ML IVPB SCH (09:32)
[2017-06-18 10:22] LABS: ANION GAP 8 mmol/L (5-15); BLOOD UREA NITROGEN 71 mg/dL (7-18); CALCIUM 8.7 MG/DL (8.5-10.1); CARBON DIOXIDE 28 MMOL/L (21-32); CHLORIDE 109 MMOL/L (98-107); CREATININE 2.6 MG/DL (0.55-1.30); POTASSIUM 4.7 MMOL/L (3.5-5.1); SODIUM 145 MMOL/L (136-145)
--- NOTE | 2017-06-18 10:59 | Nephrology Progress Note ---
Assessment/Plan Problem List: (1) Renal failure (ARF), acute on chronic Assessment: better (2) Morbid obesity (3) Anasarca (4) UTI (urinary tract infection) Plan daily lasix DC today Subjective Subjective feels ok Objective Objective Last 24 Hour Vital Signs Date Time Temp Pulse Resp B/P (MAP) Pulse Ox O2 Delivery O2 Flow Rate FiO2 06/18/17 08:59 95 137/74 06/18/17 08:18 97.7 95 21 137/74 95 Nasal Cannula 3.0 06/18/17 03:40 97.9 87 20 122/70 99 Room Air 06/18/17 00:00 97 Nasal Cannula 2.0 06/17/17 23:40 97.9 92 20 95/58 96 Nasal Cannula 06/17/17 20:53 99 137/71 06/17/17 19:43 98.1 99 20 137/71 98 Nasal Cannula 06/17/17 19:10 Nasal Cannula 2.0 28 06/17/17 19:10 97 Nasal Cannula 2.0 28 06/17/17 19:10 101 20 Nasal Cannula 2.0 28 06/17/17 16:00 97.7 94 21 137/70 96 06/17/17 13:53 Nasal Cannula 2.0 06/17/17 11:33 98.0 98 20 125/59 97 Intake and Output 06/17/17 06/18/17 19:00 07:00 Intake Total 720 ml Output Total 700 ml Balance 20 ml Intake Oral 720 ml Output Urine Total 700 ml # Bowel Movements 1 Laboratory Tests 06/18/17 07:40: White Blood Count 12.8H, Red Blood Count 2.95L, Hemoglobin 9.0L, Hematocrit 30.3L, Mean Corpuscular Volume 103H, Mean Corpuscular Hemoglobin 30.5, Mean Corpuscular Hemoglobin Concent 29.7L, Red Cell Distribution Width 15.0H, Platelet Count 217, Mean Platelet Volume 7.6, Neutrophils (%) (Auto) 84.7H, Lymphocytes (%) (Auto) 7.8L, Monocytes (%) (Auto) 5.1, Eosinophils (%) (Auto) 1.3, Basophils (%) (Auto) 1.0, Sodium Level 145, Potassium Level 4.7, Chloride Level 109H, Carbon Dioxide Level 28, Anion Gap 8, Blood Urea Nitrogen 71H, Creatinine 2.6H, Estimat Glomerular Filtration Rate , Glucose Level 106, Calcium Level 8.7 Height (Feet): 5 Height (Inches): 5.00 Weight (Pounds): 370 Cardiovascular: normal rate Respiratory/Chest: lungs clear Extremities: moderate edema LESLIE JACKSON Jun 18, 2017 10:59
--- NOTE | 2017-06-18 11:07 | Infectious Diseases Prog Note ---
Assessment/Plan Assessment/Plan Assessment: Sepsis - 2ry to UTI and bacteremia, possible PNA -r/o pyelonephritis, renal abscess ; improving -u.a wbc tntc, nit neg, luek +3; ucx >100k K. Pna (S Ceftriaxone, Cipro/levo) -Renal US: Mild to moderate left hydronephrosis, etiology not demonstrated. ConsiderCT for better characterization if clinically indicate. Unremarkable right kidney. Incidental finding left renal parapelvic cyst. Empty bladder with a Carrera catheter. -CXR: Suspect large right pleural effusion Bilateral interstitial congestion. Possible right lung airspace disease Left basilar atelectasis and possible consolidation -Influenza neg -sp cx p -Bcx 06/13 08/17 K. pna(S Ceftriaxone); 06/15 Bcx NTD Low grade fever/leukocytosis; fever improving, leukocytosis improving Large R pleural effusion- ?related to JERILYN, r/o parapneumonic pleural effusion JERILYN/hyperkalemia-?CKD; improving Urinary retention s/p carrera 06/13 -1l removed HTN DM morbid obesity Plan: -Continue Ceftriaxone #10/27 for K.pna UTI and bacteremia -2/2 SP IV Vancomycin #5 -06/16 SP Meropenem #4 -06/14 SP Cefepime #2 -06/13 SP Unasyn x1 -needs f/u of hydronephrosis seen in Renal US; ordered CT abd/p but could not be bone as patient did not fit on CT scan machine -f/u cx -Monitor CBC/BMP, temperatures -aspiration precautions Thank you for this consultation. Will continue to follow along with you. Discussed with RN and primary team. Subjective Allergies: Coded Allergies: IODINE (Verified Allergy, Mild, 08/17/08) Uncoded Allergies: CONTRAST MEDIA (Allergy, Mild, 08/17/08) Subjective afebrile leukocytosis improving repaet Bcx NTD Cr improving Objective Vital Signs Last 24 Hour Vital Signs Date Time Temp Pulse Resp B/P (MAP) Pulse Ox O2 Delivery O2 Flow Rate FiO2 06/18/17 08:59 95 137/74 06/18/17 08:18 97.7 95 21 137/74 95 Nasal Cannula 3.0 06/18/17 03:40 97.9 87 20 122/70 99 Room Air 06/18/17 00:00 97 Nasal Cannula 2.0 06/17/17 23:40 97.9 92 20 95/58 96 Nasal Cannula 06/17/17 20:53 99 137/71 06/17/17 19:43 98.1 99 20 137/71 98 Nasal Cannula 06/17/17 19:10 Nasal Cannula 2.0 28 06/17/17 19:10 97 Nasal Cannula 2.0 28 06/17/17 19:10 101 20 Nasal Cannula 2.0 28 06/17/17 16:00 97.7 94 21 137/70 96 06/17/17 13:53 Nasal Cannula 2.0 06/17/17 11:33 98.0 98 20 125/59 97 Height (Feet): 5 Height (Inches): 5.00 Weight (Pounds): 370 Objective General Appearance: moderate distress, obese, Chronically Ill HEENT: atraumatic, no oral lesions Neck: normal inspection, full range of motion, supple, no bony tend Respiratory: normal inspection, no retraction, other - tachypnea Cardiovascular : tachycardia, edema Gastrointestinal: normal inspection, normal bowel sounds, non tender, soft, no guarding, no hernia Genitourinary: no CVA tenderness Musculoskeletal: normal inspection, back normal, normal range of motion Skin: normal inspection, normal color, no rash Microbiology Date/Time Source Procedure Growth Status 06/15/17 15:15 Blood Blood Culture - Preliminary NO GROWTH AFTER 24 HOURS Resulted 06/15/17 15:00 Blood Blood Culture - Preliminary NO GROWTH AFTER 24 HOURS Resulted Laboratory Tests Test 06/18/17 07:40 White Blood Count 12.8 K/UL (4.8-10.8) H Red Blood Count 2.95 M/UL (4.20-5.40) L Hemoglobin 9.0 G/DL (12.0-16.0) L Hematocrit 30.3 % (37.0-47.0) L Mean Corpuscular Volume 103 FL (80-99) H Mean Corpuscular Hemoglobin 30.5 PG (27.0-31.0) Mean Corpuscular Hemoglobin Concent 29.7 G/DL (32.0-36.0) L Red Cell Distribution Width 15.0 % (11.6-14.8) H Platelet Count 217 K/UL (150-450) Mean Platelet Volume 7.6 FL (6.5-10.1) Neutrophils (%) (Auto) 84.7 % (45.0-75.0) H Lymphocytes (%) (Auto) 7.8 % (20.0-45.0) L Monocytes (%) (Auto) 5.1 % (1.0-10.0) Eosinophils (%) (Auto) 1.3 % (0.0-3.0) Basophils (%) (Auto) 1.0 % (0.0-2.0) Sodium Level 145 MMOL/L (136-145) Potassium Level 4.7 MMOL/L (3.5-5.1) Chloride Level 109 MMOL/L (98-107) H Carbon Dioxide Level 28 MMOL/L (21-32) Anion Gap 8 mmol/L (5-15) Blood Urea Nitrogen 71 mg/dL (7-18) H Creatinine 2.6 MG/DL (0.55-1.30) H Estimat Glomerular Filtration Rate mL/min (>60) Glucose Level 106 MG/DL (74-106) Calcium Level 8.7 MG/DL (8.5-10.1) Current Medications Medications (Trade) Dose Ordered Sig/Lakshmi Route PRN Reason Start Time Stop Time Status Last Admin Dose Admin Acetaminophen (Tylenol) 650 mg Q4H PRN ORAL T>100.5 06/15/17 17:30 07/13/17 17:29 Albuterol/ Ipratropium (Albuterol/ Ipratropium) 3 ml Q4H PRN HHN Shortness of Breath 06/17/17 09:30 06/20/17 09:29 Carvedilol (Coreg) 12.5 mg EVERY 12 HOURS ORAL 06/16/17 21:00 07/16/17 20:59 06/18/17 08:59 Ceftriaxone Sodium 2 gm/ Sodium Chloride 55 ml @ 110 mls/hr Q24H IVPB 06/17/17 09:00 06/24/17 08:59 06/18/17 09:32 Clonidine HCl (Catapres Tab) 0.1 mg Q6H PRN ORAL elevated BP 06/16/17 15:45 07/16/17 15:44 Dextrose (Dextrose 50%) STAT PRN IV Hypoglycemia 06/16/17 17:30 07/13/17 17:29 Docusate Sodium (Colace) 100 mg THREE TIMES A DAY ORAL 06/15/17 18:00 07/13/17 17:59 06/18/17 08:59 Famotidine (Pepcid I.v.) 20 mg QHS IVP 06/15/17 21:00 07/13/17 20:59 06/16/17 20:33 Furosemide (Lasix) 40 mg DAILY ORAL 06/17/17 12:30 07/17/17 12:29 06/18/17 08:59 Heparin Sodium (Porcine) (Heparin 5000 units/ml) 5,000 units EVERY 12 HOURS SUBQ 06/15/17 21:00 07/13/17 20:59 06/18/17 09:00 Levothyroxine Sodium (Synthroid) 112 mcg DAILY@0630 ORAL 06/16/17 06:30 07/16/17 06:29 06/18/17 05:49 Morphine Sulfate (Morphine Sulfate) 2 mg Q4H PRN IVP Moderate Pain (Pain Scale 4-6) 06/15/17 17:30 06/20/17 17:29 06/15/17 21:12 Nitroglycerin (Ntg) 0.4 mg Every 5 Minutes PRN SL Prn Chest Pain 06/15/17 17:30 07/13/17 17:29 Ondansetron HCl (Zofran) 4 mg Q6H PRN IVP Nausea & Vomiting 06/15/17 17:30 07/13/17 17:29 Polyethylene Glycol (Miralax) 17 gm DAILYPRN PRN ORAL Constipation 06/15/17 17:30 07/15/17 17:29 Quetiapine Fumarate (SEROquel) 25 mg Q6H PRN ORAL AGITATION 06/16/17 18:00 07/16/17 17:59 06/18/17 05:49 Temazepam (Restoril) 15 mg HSPRN PRN ORAL Insomnia 06/16/17 21:00 06/20/17 20:59 06/17/17 21:25 Krystle Calderon M.D. Jun 18, 2017 11:06
[2017-06-18 12:00] VITALS: BP 120/64
--- NOTE | 2017-06-18 16:02 | Cardiology Report ---
APPROVED REPORT EKG Measurement Heart [id number] VT [id number] Sinus rhythm with arrhythmia RBBB Otherwise normal ECG
--- NOTE | 2017-06-19 23:05 | Progress Note ---
DATE: 06/18/2017 SUBJECTIVE: The patient continues to be dysphoric, withdrawn, has waxing waning consciousness, agitation. Poor insight and judgment. Cognitive impairment. MENTAL STATUS EXAMINATION: The patient is alert and oriented times self. Mood is neutral. Affect is flat. Thought process, there is a paucity of thought content. Thought content, no suicidal or homicidal ideation. ASSESSMENT: 1. Encephalopathy. 2. Dementia. 3. Depression. PLAN: We will continue current medication. Alyssa Alvarado M.D. DR: Yao JOB#: [id number] CC:
[2017-06-22] MEDS ORDERED: STARLIX60 MG ORAL (09:10)
[2017-06-22] MEDS ORDERED: ASPIRIN EC81 MG ORAL (09:10)
--- NOTE | 2017-06-22 09:10 | Discharge Summary ---
Discharge Summary Hospital Course Date of Admission Jun 13, 2017 at 14:35 Date of Discharge Jun 18, 2017 at 13:00 Admitting Diagnosis AMS, SEPSIS HPI Lena Bro is a 87 year old female who was admitted on Jun 13, 2017 at 14: 35 for Aletered Mental Status, Sepsis Hospital Course dc summary #[id number] Discharge Medications New Medications: Aspirin Ec* (Aspirin Ec*) 81 Mg Tablet.dr 81 MG ORAL DAILY, #30 TAB Ceftriaxone Na/Dextrose,Iso (Ceftriaxone 2 Gm Piggyback) 2 Gm/50 Ml Froz.piggy 2 GM IV DAILY, #8 BAG Nateglinide* (Starlix*) 60 Mg Tablet 60 MG ORAL THREE TIMES A DAY, #90 TAB Carvedilol (Coreg) 12.5 Mg Tablet 12.5 MG ORAL EVERY 12 HOURS, #60 TAB Docusate Sodium* (Colace*) 100 Mg Capsule 100 MG ORAL THREE TIMES A DAY, #30 CAP Furosemide* (Lasix*) 40 Mg Tablet 40 MG ORAL DAILY, #30 TAB Polyethylene Glycol 3350* (Miralax*) 17 Gm Powd.pack 17 GM ORAL DAILYPRN PRN, #30 PACK Quetiapine Fumarate* (Seroquel*) 25 Mg Tablet 25 MG ORAL Q6H PRN, #20 TAB Continued Medications: Gabapentin* (Gabapentin*) 600 Mg Tablet 600 MG ORAL BID, TAB Levothyroxine Sodium* (Levothyroxine Sodium*) 112 Mcg Tablet 112 MCG ORAL DAILY, TAB Take in the morning on an empty stomach, at least 30 minutes before food. Montelukast Sodium* (Montelukast Sodium*) 10 Mg Tablet 10 MG ORAL DAILY, TAB Omeprazole (Omeprazole) 10 Mg Capsule.dr 10 MG ORAL DAILY, #30 CAP 0 Refills Temazepam* (Temazepam*) 30 Mg Capsule 30 MG ORAL BEDTIME PRN for Insomnia, CAP Discharge Condition Upon Discharge: stable Discharge Disposition Patient was discharged to SNF/Subacute Facility(03) Discharge Diagnoses: Iglesia (Antony)Meron NP Jun 22, 2017 09:10
--- NOTE | 2017-06-23 00:01 | Discharge Summary 2 SIG ---
DATE OF ADMISSION: 06/13/2017 DATE OF DISCHARGE: 06/18/2017 HISTORY OF PRESENT ILLNESS: 87-year-old female with past medical history of diabetes and hypothyroidism, was brought to emergency department for evaluation with altered level of consciousness. The patient was brought from home. She had difficulty with ambulation. At baseline, she was ambulatory with a walker. Workup in the emergency room revealed fever, tachycardia, leukocytosis. The patient required placement on nasal cannula to maintain pulse oximetry above 92%, evidence of acute renal failure with BUN - 97 and creatinine -4.4. Urinalysis with evidence of urinary tract infection. Troponin negative. Pro BNP- 1937. Lipase and LFT within normal limits. Elevated potassium - 6.7. Chest x-ray revealed findings suspicious of large right pleural effusion.The patient was admitted with diagnoses of sepsis, altered mental status, hyperkalemia, pyelonephritis, renal insufficiency, and pleural effusion. HOSPITAL COURSE: The patient admitted. Cardiology, Urology, Neurology, ID, Nephrology, Endocrinology, and Psychiatric consults were requested. The patient started on empiric antibiotics. ID closely followed. Urine culture positive for Klebsiella. Blood culture positive for Klebsiella. Antibiotic regimen optimized based on culture as per ID management. Surveillance blood culture from 06/15/2017 were negative. Influenza screen test negative. The patient was discharged on IV antibiotics to complete the course for duration as specified by ID specialist. Aerospace Mechanic closely followed. Echocardiogram revealed no evidence of vegetation, ejection fraction of 70% to 75%, right ventricular systolic pressure of 53 consistent with moderate pulmonary hypertension, no evidence of pleural effusion. Supplemental oxygen and pulmonary toilet provided as needed. Initial chest x-ray showed large right pleural effusion. Followup chest x-ray still showed pleural effusion. Aerospace Mechanic recommended to intensify diuretic treatment when renal function normalized. Facility Engineer closely followed. The patient initially was on the IV fluids with monitoring of renal parameters and electrolytes. Electrolytes were corrected as needed. Hyperkalemia resolved with treatment. Creatinine trending down from initial 4.4 down to 2.6. Renal ultrasound revealed mild to moderate left hydronephrosis, evidence of urinary retention relieved with Mendez placement. Urologist seen and evaluated the patient, recommended close followup. If no improvement in the renal function, recommended CT scan to evaluate for presence of ureteral stone or other source of obstruction to explain the cause of hydronephrosis. Neurology consult was requested. Per neurologist, the patient had a new onset of generalized weakness due to the underlying toxic metabolic derangement including infection, acute renal failure, hyperkalemia. The patient also had significant lower extremities lymphostasis and evidence of diabetic polyneuropathy with paraparesis. Diabetic polyneuropathy along with the contributing infection likely contributed to the new onset of generalized weakness. The patient was treated for underlying infection and metabolic derangement. Mobility protocol started with PT/OT services. The patient was started on Ecotrin. Neurologist recommended to hold statin for one month to rule out statin myopathy. Neurologist recommended [facility] to the jail facility, at least for short time, since patient was unsafe to stay alone in apartment. BS was stable, [id number]. TSH was within normal limits. Roper Operator followed. DVT and GI prophylaxis provided. Hemoglobin and hematocrit were closely monitored, remained at baseline. Goal to keep hemoglobin above 7. Anemia workup was consistent with anemia of chronic disease, high ferritin noted. Psychiatrist seen and evaluated the patient, diagnosed the patient with encephalopathy, dementia, depression and n optimized her psychiatric medication regimen. Placement was found to jail facility. The patient was stable for discharge. FINAL DIAGNOSES: 1. Sepsis with Klebsiella bacteremia (due to urinary tract infection) 2. Klebsiella urinary tract infection. 3. Acute toxic metabolic encephalopathy (likely due to sepsis and metabolic derangement/acute renal failure, hyperkalemia), resolving. 4. Acute on chronic renal failure. 5. Hyperkalemia, resolved. 6. Right pleural effusion. 7. Anemia of chronic disease. 8. Moderate pulmonary hypertension. 9. Left hydronephrosis( [id number]) 10. Urinary retention , status post Mendez catheter. 11. Hypothyroidism. 12. Morbid obesity. 13. Anasarca. 14. Diabetes with diabetic polyneuropathy. 15. New onset of generalized weakness likely due to the underlying toxic metabolic derangement. 16. Significant lower extremity lymphostasis. 17. Diabetic polyneuropathy with paraparesis. 18. Depression 19. Dementia DISCHARGE MEDICATIONS: See medication reconciliation list. DISCHARGE INSTRUCTIONS: The patient discharged to jail facility. FOLLOWUP: Followup with medical doctor at the facility. Beatriz Fields M.D. I have been assigned to dictate discharge summary on this account and I was not involved in the patient's management. Meron Blandontawanda NJcPJc DR: Demond JOB#: [id number] CC: KARLENE
== END 2017-06-18 13:00 | DRG 871 ==
LOC: EDBD 13:53 → EMR 14:20 → 2E 14:35 → EDBEDREQ 15:02 → EDBEDREQSVC 15:58 → 2W 16:12 → 4W 06-15 16:37
DX: A41.9 Sepsis, unspecified organism (principal); G93.41 Metabolic encephalopathy; J90 Pleural effusion, not elsewhere classified; N17.9 Acute kidney failure, unspecified; I27.20 Pulmonary hypertension, unspecified; G82.20 Paraplegia, unspecified; Z68.42 Body mass index [BMI] 45.0-49.9, adult; N39.0 Urinary tract infection, site not specified; N13.30 Unspecified hydronephrosis; F03.90 Unspecified dementia, unspecified severity, without behavioral disturbance, psychotic disturbance, mood disturbance, and anxiety; E11.22 Type 2 diabetes mellitus with diabetic chronic kidney disease; E88.09 Other disorders of plasma-protein metabolism, not elsewhere classified; E11.40 Type 2 diabetes mellitus with diabetic neuropathy, unspecified; E87.5 Hyperkalemia; D63.8 Anemia in other chronic diseases classified elsewhere; E66.01 Morbid (severe) obesity due to excess calories; I12.9 Hypertensive chronic kidney disease with stage 1 through stage 4 chronic kidney disease, or unspecified chronic kidney disease; N18.9 Chronic kidney disease, unspecified; B96.1 Klebsiella pneumoniae [K. pneumoniae] as the cause of diseases classified elsewhere; E03.9 Hypothyroidism, unspecified; R33.9 Retention of urine, unspecified; R60.1 Generalized edema; I89.8 Other specified noninfective disorders of lymphatic vessels and lymph nodes; Z91.041 Radiographic dye allergy status; E78.5 Hyperlipidemia, unspecified; M19.90 Unspecified osteoarthritis, unspecified site; N28.1 Cyst of kidney, acquired; F32.9 Major depressive disorder, single episode, unspecified
CPT/HCPCS: 36415; 71045; 76775; 80048; 80053; 80061; 80202; 81001; 81003; 82378; 82550; 82553; 82607; 82728; 82746; 82803; 82977; 83036; 83540; 83550; 83605; 83690; 83735; 83880; 84100; 84300; 84443; 84484; 84550; 85007; 85025; 85610; 85651; 85730; 86140; 86710; 87040; 87070; 87081; 87086; 87181; 87205; 89050; 93005; 93306; 94664; 94760; 99285

== ENCOUNTER 2017-07-01 00:34 | Inpatient (IN) | payer MEDICARE, OTHER ==
[~2017-07-01] VITALS: Ht 172.7 cm; Wt 78.5 kg
[2017-07-01] VITALS (7 sets, daily range): BP systolic 108–153; BP diastolic 56–89
[~2017-07-01 00:34] MED LIST: ALLOPURINOL300 M1 ORAL; ASPIRIN EC81 MG ORAL; CEFTRIAXON2 GM/50 ML IV; COLACE100 MG ORAL; COREG12.5 MG ORAL; FERROUS SULFAT325 MG ORAL; FUROSEMIDE40 MG ORAL; GABAPENTIN600 MG ORAL; LEVOTHYROXINE112 MCG ORAL; LIDODERM700 M1 TOPIC; MIRALAX17 G2 ORAL; MONTELUKAST SOD10 MG ORAL; OMEPRAZOLE10 M1 ORAL; RAMIPRIL5 MG ORAL; SEROQUEL25 MG ORAL; STARLIX60 MG ORAL; TEMAZEPAM30 MG ORAL; ZOCOR20 M1 ORAL
[2017-07-01] MEDS ORDERED: Solu-MEDROL 125mg Inj IVP ONE (01:00)
[2017-07-01] MEDS ORDERED: Ipratropium 0.02% Inh Soln 2.5ml UD HHN ONE (01:00)
[2017-07-01] MEDS ORDERED: Albuterol ud Inhalation HHN ONE (01:00)
[2017-07-01] MEDS ORDERED: HUMULIN R100 UNIT/1 SUBQ (01:28)
[2017-07-01] MEDS ORDERED: CARVEDILOL12.5 MG ORAL (01:28)
[2017-07-01] MEDS ORDERED: ALBUTEROL2.5 MG/3 M INH (01:28)
[2017-07-01] MEDS ORDERED: MACRODANTIN50 MG ORAL (01:28)
[2017-07-01] MEDS ORDERED: MONTELUKAST SOD10 MG ORAL (01:28)
[2017-07-01] MEDS ORDERED: TEMAZEPAM30 MG ORAL (01:28)
[2017-07-01] MEDS ORDERED: LANTUS SOL100 UNIT/1 SUBQ (01:28)
[2017-07-01] MEDS ORDERED: NORCO 5-325 TA1 EACH ORAL (01:28)
[2017-07-01] MEDS ORDERED: ZOCOR20 MG ORAL (01:28)
[2017-07-01] MEDS ORDERED: LORazepam Inj 2mg/ml 1ml IM ONE (02:15)
[2017-07-01 03:38] LABS: HEMATOCRIT 32.1 % (37.0-47.0); HEMOGLOBIN 9.2 G/DL (12.0-16.0); MEAN CORPUSCULAR VOLUME 105 FL (80-99); PLATELET COUNT 338 K/UL (150-450); RED BLOOD COUNT 3.06 M/UL (4.20-5.40); RED CELL DISTRIBUTION WIDTH 14.7 % (11.6-14.8); WHITE BLOOD COUNT 6.9 K/UL (4.8-10.8)
[2017-07-01 04:01] LABS: ALANINE AMINOTRANSFERASE 38 U/L (12-78); ALBUMIN 2.5 G/DL (3.4-5.0); ALBUMIN/GLOBULIN RATIO 0.5 (1.0-2.7); ALKALINE PHOSPHATASE 149 U/L (46-116); ANION GAP -6 mmol/L (5-15); ASPARTATE AMINO TRANSFERASE 33 U/L (15-37); BILIRUBIN,TOTAL 0.3 MG/DL (0.2-1.0); BLOOD UREA NITROGEN 37 mg/dL (7-18); CALCIUM 9.6 MG/DL (8.5-10.1); CHLORIDE 104 MMOL/L (98-107); CKMB < 0.5 NG/ML (0.0-3.6); CREATINE KINASE 41 U/L (26-308); CREATININE 1.6 MG/DL (0.55-1.30); POTASSIUM 5.8 MMOL/L (3.5-5.1); SODIUM 142 MMOL/L (136-145)
[2017-07-01 04:05] LABS: CARBON DIOXIDE 43 MMOL/L (21-32)
--- NOTE | 2017-07-01 04:45 | Emergency Room Report ---
History of Present Illness General Chief Complaint: Dyspnea/Respdistress Source: Patient, Medical Record Present Illness HPI 87-year-old female presents to ED for shortness of breath. Per EMS patient hypoxic at group home. O2 sats in the 80s. Improved with oxygen. Patient notes history of COPD. Denies fevers or chills. Denies cough. Denies chest pain. No other aggravating relieving factors. Denies any other associated symptoms Allergies: Coded Allergies: IODINE (Verified Allergy, Mild, 08/17/08) Uncoded Allergies: CONTRAST MEDIA (Allergy, Mild, 08/17/08) Patient History Past Medical History: DM, COPD, pneumonia, CVA/TIA Past Surgical History: none Pertinent Family History: none Social History: Denies: smoking, alcohol use, drug use Last Menstrual Period: NA Now: No Immunizations: UTD Reviewed Nursing Documentation: PMH: Agreed, PSxH: Agreed Nursing Documentation-PMH Hx Cardiac Problems: Yes - Rt. pleural effusion, Rt. Thoracentensis Hx Hypertension: Yes - pulmonary HTN Hx COPD: Yes - pneumonia, dysphagia, sepsis Hx Diabetes: Yes Hx Cancer: No Hx Gastrointestinal Problems: No - acute kidney failure, ams Hx Neurological Problems: No - abnormal gait Hx Cerebrovascular Accident: Yes - hemiplegia, hemiparesis Review of Systems All Other Systems: negative except mentioned in HPI Physical Exam Vital Signs Date Time Temp Pulse Resp B/P (MAP) Pulse Ox O2 Delivery O2 Flow Rate FiO2 07/01/17 00:32 98.6 112 22 146/84 94 Nasal Cannula 6.0 98.6 07/01/17 01:00 32 Sp02 EP Interpretation: reviewed, normal General Appearance: no apparent distress, alert, GCS 15, non-toxic Head: normocephalic Eyes: bilateral eye normal inspection, bilateral eye PERRL ENT: hearing grossly normal, normal pharynx, no angioedema, normal voice Neck: normal inspection Respiratory: decreased breath sounds, wheezing Cardiovascular #1: no edema, tachycardia Gastrointestinal: normal bowel sounds, non tender, soft, non-distended, no guarding, no rebound Rectal: deferred Genitourinary: no CVA tenderness Musculoskeletal: normal inspection Neurologic: alert, oriented x3, responsive, motor strength/tone normal, sensory intact, speech normal Psychiatric: normal inspection Skin: normal inspection Lymphatic: normal inspection Medical Decision Making Diagnostic Impression: Primary Impression: Pleural effusion Additional Impressions: COPD exacerbation Renal failure (ARF), acute on chronic Qualified Codes: N17.9 - Acute kidney failure, unspecified; N18.9 - Chronic kidney disease, unspecified ER Course Hospital Course 87-year-old F presenting to ED with SOB. h/o COPD Differential diagnoses include: Pneumonia, CHF exacerbation, pneumothorax, fluid overload Clinical course Patient placed on stretcher. On grease cup filler with stable vitals. After initial history and physical, I ordered nebulizer treatments. I ordered labs, IV fluids, EKG, chest x-ray, blood cultures, UA. Labs - no leukocytosis noted, hemoglobin/hematocrit stable, BUN/Cr elevated, trop negative, lactate ok CXR - cardiomegaly, large R pleural effusion EKG - sinus tachycardia, no acute ischemic changes interpreted by me abx given Case discussed with Dr. Berman and he agreed to the patient to his service for further care and support I feel this is a highly complex case requiring extensive working including EKG/ Rhythm strip, Xray/CT/US, Blood/urine lab work, repeat exams while in ED, and administration of strong opiates/narcotics for pain control, admission to hospital or close patient follow up. Diagnosis - COPD exacerbation, pleural effusion, acute on chronic renal failure Patient admitted to telemetry in serious condition Labs Test 07/01/17 03:15 White Blood Count 6.9 K/UL (4.8-10.8) Red Blood Count 3.06 M/UL (4.20-5.40) Hemoglobin 9.2 G/DL (12.0-16.0) Hematocrit 32.1 % (37.0-47.0) Mean Corpuscular Volume 105 FL (80-99) Mean Corpuscular Hemoglobin 30.1 PG (27.0-31.0) Mean Corpuscular Hemoglobin Concent 28.7 G/DL (32.0-36.0) Red Cell Distribution Width 14.7 % (11.6-14.8) Platelet Count 338 K/UL (150-450) Mean Platelet Volume 6.6 FL (6.5-10.1) Neutrophils (%) (Auto) % (45.0-75.0) Lymphocytes (%) (Auto) % (20.0-45.0) Monocytes (%) (Auto) % (1.0-10.0) Eosinophils (%) (Auto) % (0.0-3.0) Basophils (%) (Auto) % (0.0-2.0) Sodium Level 142 MMOL/L (136-145) Potassium Level 5.8 MMOL/L (3.5-5.1) Chloride Level 104 MMOL/L (98-107) Carbon Dioxide Level 43 MMOL/L (21-32) Anion Gap -6 mmol/L (5-15) Blood Urea Nitrogen 37 mg/dL (7-18) Creatinine 1.6 MG/DL (0.55-1.30) Estimat Glomerular Filtration Rate mL/min (>60) Glucose Level 129 MG/DL (74-106) Lactic Acid Level 0.90 mmol/L (0.66-2.22) Calcium Level 9.6 MG/DL (8.5-10.1) Total Bilirubin 0.3 MG/DL (0.2-1.0) Aspartate Amino Transf (AST/SGOT) 33 U/L (15-37) Alanine Aminotransferase (ALT/SGPT) 38 U/L (12-78) Alkaline Phosphatase 149 U/L (46-116) Total Creatine Kinase 41 U/L (26-308) Creatine Kinase MB < 0.5 NG/ML (0.0-3.6) Creatine Kinase MB Relative Index 1.2 Troponin I 0.000 ng/mL (0.000-0.056) Pro-B-Type Natriuretic Peptide 1053 pg/mL (0-125) Total Protein 7.7 G/DL (6.4-8.2) Albumin 2.5 G/DL (3.4-5.0) Globulin 5.2 g/dL Albumin/Globulin Ratio 0.5 (1.0-2.7) EKG Diagnostic Results Rate: tachycardiac Rhythm: NSR ST Segments: no acute changes ASA given to the pt in ED: No Rhythm Strip Diag. Results EP Interpretation: yes Rhythm: NSR, no PVC's, no ectopy Chest X-Ray Diagnostic Results Chest X-Ray Diagnostic Results : Chest X-Ray Ordered: Yes # of Views/Limited/Complete: 1 View Indication: Shortness of Breath EP Interpretation: Yes Interpretation: no consolidation, no pneumothorax, other - large R pleural effusion Impression: Other - pleural effusion Electronically Signed by: Electronically signed by Aki Boss MD Last Vital Signs Date Time Temp Pulse Resp B/P (MAP) Pulse Ox O2 Delivery O2 Flow Rate FiO2 07/01/17 01:25 112 20 98 Nasal Cannula 4.0 36 07/01/17 00:50 98.6 133/66 98.6 Status: improved Disposition: ADMITTED INPATIENT Condition: Serious Referrals: KAILA HASSAN (PCP) AKI BOSS M.D. Jul 01, 2017 04:45
[2017-07-01] MEDS ORDERED: Acetaminophen 650 MG SUPP RECTAL PRN ×4 (05:30→13:30)
[2017-07-01] MEDS ORDERED: Norco 5mg/325mg tab ORAL PRN ×2 (05:30→12:00)
[2017-07-01] MEDS ORDERED: Miralax 17gm pkt ORAL PRN ×2 (05:30→12:00)
[2017-07-01] MEDS ORDERED: Albuterol/Ipratropium 3ml neb HHN PRN ×2 (05:30→12:00)
[2017-07-01] MEDS ORDERED: Solu-MEDROL 40mg Inj IVP SCH (06:00)
[2017-07-01] MEDS ORDERED: NovoLOG Insulin Flexpen SUBQ SCH (06:30)
[2017-07-01] MEDS ORDERED: Albuterol/Ipratropium 3ml neb HHN SCH ×2 (07:00→13:00)
[2017-07-01] MEDS ORDERED: Ramipril 5mg cap ORAL SCH (09:00)
[2017-07-01] MEDS ORDERED: Docusate 100mg cap ORAL SCH ×2 (09:00→13:00)
[2017-07-01] MEDS ORDERED: Nateglinide 60mg tab ORAL SCH (09:00)
[2017-07-01] MEDS ORDERED: Aspirin EC 81mg tab ORAL SCH (09:00)
[2017-07-01] MEDS ORDERED: Montelukast 10mg tablet ORAL SCH (09:00)
[2017-07-01] MEDS ORDERED: Heparin 5000 units/ml inj SUBQ SCH (09:00)
[2017-07-01] MEDS ORDERED: Carvedilol 12.5mg tab ORAL SCH (09:00)
[2017-07-01] MEDS ORDERED: Furosemide 40mg tab ORAL SCH (09:00)
--- NOTE | 2017-07-01 09:45 | Diagnostic Imaging Report ---
Indication: Shortness of breath Technique: One view of the chest Comparison: June 17, 2017 Findings: Interim increase in size of large right pleural effusion, with only a small amount of residual aerated lung in the right upper hemithorax. There is also increasing pleural fluid on the left. The heart size is difficult to assess, heart borders are obscured. There is generalized interstitial congestion which is similar in extent to the previous study. Impression: Increased large right pleural effusion, since June 17, 2017 Increased left pleural effusion as well, smaller than that on the right Interstitial edema
--- NOTE | 2017-07-01 12:02 | Wound Care Consultation ---
Wound Assessment Wound Assessment : Wound Number: 1 Wound Present on Admission: Yes New Wound: No Status Change of Wound: No Wound Location Body Site Modif: mid Wound Location Body Site: coccyx Wound Type: pressure ulcer Bola Test: Does not Bola Pressure Ulcer Stage: II Wound Thickness: Partial Thickness Wound Length: 1.5 Wound Width: 0.3 Wound Depth: 0.1 Percent of Wound Rodriguez Hevia/Red: 100 Wound Drainage Description: Serosanguineous Wound Drainage Amount: Scant Wound Drainage Odor: None/Absent Tissue Surrounding Wound: Macerated Wound General Appearance: Reddened, Draining Wound Comment #1 Coccyx stage II pressure ulcer Recommendation -Local wound care per protocol -Keep clean and dry -Offload both heels -Heel protector on both heels -Optimize nutrition -Low air loss mattress -Turn and reposition -Assess and f/u accordingly for any changes DARREL PETER RN Jul 01, 2017 12:02
[2017-07-01] MEDS: NovoLOG Insulin Flexpen SUBQ SCH ×3 (12:30→20:08)
--- NOTE | 2017-07-01 12:42 | Consultation ---
History of Present Illness General Date patient seen: Jul 01, 2017 Time patient seen: 11:00 Chief Complaint: Dyspnea/Respdistress Referring physician: dr Berman Reason for Consultation: pulm consult Present Illness HPI 87-year-old female with PMH of COPD, pleural effusion, s/p thoracentesis, HTN, DM, CVA, presented to ED for shortness of breath. Per EMS patient was hypoxic at [facility]ial. O2 sats was in 80s, but improved with oxygen. No fevers or chills. No cough. No chest pain. patient presented tachycardic, tachypneic, afebrile, no leucocytosis on 6L O2 via NC sat only 94% ABG with evidence of severe acute respiratory acidosis, stared on BiPAp ABG repeated with some improvement, however still significant acidosis with hypercapnia K-5.8 BUN/creat- 37/1.6 lactic acid WNL CXR with large R pleural effusion, significantly increased compared with prior CXR troponin negative ECG with NSR no acute ischemic changes LFT ok HH down to 9.2/32.1 patient was admitted for further management Allergies: Coded Allergies: IODINE (Verified Allergy, Mild, 08/17/08) Uncoded Allergies: CONTRAST MEDIA (Allergy, Mild, 08/17/08) Medication History Scheduled Allopurinol* (Allopurinol*), 300 MG ORAL DAILY, (Reported) Aspirin Ec* (Aspirin Ec*), 81 MG ORAL DAILY Carvedilol (Coreg), 12.5 MG ORAL EVERY 12 HOURS Carvedilol* (Carvedilol*), 12.5 MG ORAL EVERY 12 HOURS, (Reported) Ceftriaxone Na/Dextrose,Iso (Ceftriaxone 2 Gm Piggyback), 2 GM IV DAILY Docusate Sodium* (Colace*), 100 MG ORAL THREE TIMES A DAY Ferrous Sulfate* (Ferrous Sulfate*), 325 MG ORAL DAILY, (Reported) Furosemide* (Lasix*), 40 MG ORAL DAILY Gabapentin* (Gabapentin*), 600 MG ORAL BID, (Reported) Insulin Glargine (Lantus), 0 SUBQ BEDTIME, (Reported) Levothyroxine Sodium* (Levothyroxine Sodium*), 112 MCG ORAL DAILY, (Reported) Lidocaine (Lidoderm), 1 PATCH TOPIC DAILY, (Reported) Montelukast Sodium* (Montelukast Sodium*), 10 MG ORAL DAILY, (Reported) Montelukast Sodium* (Montelukast Sodium*), 10 MG ORAL DAILY, (Reported) Nateglinide* (Starlix*), 60 MG ORAL THREE TIMES A DAY Nitrofurantoin Macrocrystal (Macrodantin*), 100 MG ORAL BID, (Reported) Omeprazole (Omeprazole), 10 MG ORAL DAILY, (Reported) Ramipril* (Ramipril*), 5 MG ORAL DAILY, (Reported) Simvastatin (Zocor), 20 MG ORAL BEDTIME, (Reported) Scheduled PRN Albuterol Sulfate* (Albuterol Sulfate Hhn*), 3 ML INH Q4H PRN for Shortness of Breath, (Reported) Hydrocodone Bit/Acetaminophen 5-325* (Shoshone 5-325*), 1 TAB ORAL Q12HR PRN for For Pain, (Reported) Polyethylene Glycol 3350* (Miralax*), 17 GM ORAL DAILYPRN PRN Quetiapine Fumarate* (Seroquel*), 25 MG ORAL Q6H PRN Temazepam* (Temazepam*), 30 MG ORAL BEDTIME PRN for Insomnia, (Reported) Temazepam* (Temazepam*), 15 MG ORAL BEDTIME PRN for Insomnia, (Reported) Miscellaneous Medications Insulin Regular, Human (Humulin R), 0 SUBQ, (Reported) Patient History Healthcare 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 Resuscitation status Full Code Advanced Directive on File Past Medical/Surgical History Past Medical/Surgical History: (1) HLD (hyperlipidemia) (2) CKD (chronic kidney disease) (3) DM2 (diabetes mellitus, type 2) (4) Hyperkalemia (5) COPD (chronic obstructive pulmonary disease) (6) Hypothyroidism (7) HTN (hypertension) (8) Pleural effusion (9) Anasarca Review of Systems ROS Narrative unable to obtain due to patient ALOC Physical Exam General Appearance: other - bedridden, obese, somnolent, poorly resposnive4 AA female on BiPAP 15/5 FiO2 35% Lines, tubes and drains: peripheral HEENT: normocephalic, atraumatic, anicteric Neck: supple Respiratory/Chest: decreased breath sounds - R>L Cardiovascular/Chest: tachycardia - ST on tele Abdomen: normal bowel sounds, non tender, soft - obese Extremities: other - edema BLE with chronic lymphedema Skin Exam: other - coccyx st 2 POA decub ulcer Neurologic: abnormal gait, other - somnolent, Last 24 Hour Vital Signs Date Time Temp Pulse Resp B/P (MAP) Pulse Ox O2 Delivery O2 Flow Rate FiO2 07/01/17 10:19 78 26 95 Bi-pap 07/01/17 10:18 78 26 Bi-pap 35 07/01/17 10:12 78 26 95 Bi-pap 35 07/01/17 09:38 97.2 105 22 153/88 100 Bi-pap 07/01/17 09:00 93 118/70 07/01/17 09:00 97.5 93 22 118/70 95 Bi-pap 07/01/17 08:42 78 26 94 Facial 35 07/01/17 07:38 101 29 92 Facial 35 07/01/17 05:33 109 28 133/66 99 3.0 07/01/17 05:20 98.1 108 21 141/74 99 Nasal Cannula 4.0 36 98.1 07/01/17 01:25 112 20 98 Nasal Cannula 4.0 36 07/01/17 01:01 108 26 94 Nasal Cannula 3.0 32 07/01/17 01:00 108 26 Nasal Cannula 3.0 32 07/01/17 00:50 98.6 28 133/66 99 Nasal Cannula 6.0 98.6 07/01/17 00:45 109 28 Nasal Cannula 4.0 07/01/17 00:32 98.6 112 22 146/84 94 Nasal Cannula 6.0 98.6 Laboratory Tests Test 07/01/17 03:15 07/01/17 06:46 07/01/17 09:18 07/01/17 12:00 White Blood Count 6.9 K/UL (4.8-10.8) Red Blood Count 3.06 M/UL (4.20-5.40) L Hemoglobin 9.2 G/DL (12.0-16.0) L Hematocrit 32.1 % (37.0-47.0) L Mean Corpuscular Volume 105 FL (80-99) H Mean Corpuscular Hemoglobin 30.1 PG (27.0-31.0) Mean Corpuscular Hemoglobin Concent 28.7 G/DL (32.0-36.0) L Red Cell Distribution Width 14.7 % (11.6-14.8) Platelet Count 338 K/UL (150-450) Mean Platelet Volume 6.6 FL (6.5-10.1) Neutrophils (%) (Auto) % (45.0-75.0) Lymphocytes (%) (Auto) % (20.0-45.0) Monocytes (%) (Auto) % (1.0-10.0) Eosinophils (%) (Auto) % (0.0-3.0) Basophils (%) (Auto) % (0.0-2.0) Sodium Level 142 MMOL/L (136-145) Pending Potassium Level 5.8 MMOL/L (3.5-5.1) H Pending Chloride Level 104 MMOL/L (98-107) Pending Carbon Dioxide Level 43 MMOL/L (21-32) *H Pending Anion Gap -6 mmol/L (5-15) L Blood Urea Nitrogen 37 mg/dL (7-18) H Pending Creatinine 1.6 MG/DL (0.55-1.30) H Pending Estimat Glomerular Filtration Rate mL/min (>60) Pending Glucose Level 129 MG/DL (74-106) H Pending Lactic Acid Level 0.90 mmol/L (0.66-2.22) Calcium Level 9.6 MG/DL (8.5-10.1) Pending Total Bilirubin 0.3 MG/DL (0.2-1.0) Aspartate Amino Transf (AST/SGOT) 33 U/L (15-37) Alanine Aminotransferase (ALT/SGPT) 38 U/L (12-78) Alkaline Phosphatase 149 U/L (46-116) H Total Creatine Kinase 41 U/L (26-308) Creatine Kinase MB < 0.5 NG/ML (0.0-3.6) Creatine Kinase MB Relative Index 1.2 Troponin I 0.000 ng/mL (0.000-0.056) Pro-B-Type Natriuretic Peptide 1053 pg/mL (0-125) H Total Protein 7.7 G/DL (6.4-8.2) Albumin 2.5 G/DL (3.4-5.0) L Globulin 5.2 g/dL Albumin/Globulin Ratio 0.5 (1.0-2.7) L Arterial Blood pH 7.200 (7.350-7.450) 7.330 (7.350-7.450) Arterial Blood Partial Pressure CO2 129.6 mmHg (35.0-45.0) *H 83.2 mmHg (35.0-45.0) *H Arterial Blood Partial Pressure O2 77.7 mmHg (75.0-100.0) 59.3 mmHg (75.0-100.0) L Arterial Blood HCO3 50.2 mmol/L (22.0-26.0) H 43.1 mmol/L (22.0-26.0) H Arterial Blood Oxygen Saturation 94.2 % (92.0-98.0) 91.7 % (92.0-98.0) L Arterial Blood Base Excess 18.4 14.6 Chapito Test Positive Positive Microbiology Date/Time Source Procedure Growth Status 07/01/17 05:10 Nasal Nares Influenza Types A,B Antigen (STEFAN) - Final Complete Height (Feet): 5 Height (Inches): 8.00 Weight (Pounds): 200 Medications Current Medications Medications (Trade) Dose Ordered Sig/Lakshmi Route PRN Reason Start Time Stop Time Status Last Admin Dose Admin Acetaminophen (Tylenol) 650 mg Q4H PRN ORAL Mild Pain (Pain Scale 1-3) 07/01/17 12:00 07/31/17 11:59 Acetaminophen (Tylenol) 650 mg Q4H PRN ORAL fever 07/01/17 12:00 07/31/17 11:59 Acetaminophen (Tylenol) 650 mg Q4H PRN RECTAL fever 07/01/17 12:00 07/31/17 11:59 Acetaminophen (Tylenol) 650 mg Q4H PRN RECTAL Mild Pain (Pain Scale 1-3) 07/01/17 13:30 07/31/17 05:29 Acetaminophen/ Hydrocodone Bitart (Shoshone 5/325) 1 tab Q12H PRN ORAL Pain 4-10 07/01/17 12:00 07/08/17 11:59 Albuterol/ Ipratropium (Albuterol/ Ipratropium) 3 ml Q4H PRN HHN Shortness of Breath 07/01/17 12:00 07/06/17 11:59 Albuterol/ Ipratropium (Albuterol/ Ipratropium) 3 ml Q6HRT HHN 07/01/17 13:00 07/06/17 06:59 Allopurinol (Allopurinol) 300 mg DAILY ORAL 07/01/17 13:00 07/31/17 12:59 Aspirin (Ecotrin) 81 mg DAILY ORAL 07/01/17 13:00 07/31/17 12:59 Atorvastatin Calcium (Lipitor) 10 mg BEDTIME ORAL 07/01/17 21:00 07/31/17 20:59 Bisacodyl (Dulcolax) 10 mg DAILYPRN PRN RECTAL Constipation 07/01/17 12:00 07/31/17 11:59 Carvedilol (Coreg) 12.5 mg EVERY 12 HOURS ORAL 07/01/17 13:00 07/31/17 12:59 Dextrose (Dextrose 50%) STAT PRN IV Hypoglycemia 07/01/17 12:00 07/31/17 11:59 Docusate Sodium (Colace) 100 mg EVERY 12 HOURS ORAL 07/01/17 13:00 07/31/17 12:59 Ferrous Sulfate (Feosol) 325 mg DAILY ORAL 07/01/17 13:00 07/31/17 12:59 Gabapentin (Neurontin) 600 mg BID ORAL 07/01/17 13:00 07/31/17 12:59 Heparin Sodium (Porcine) (Heparin 5000 units/ml) 5,000 units EVERY 12 HOURS SUBQ 07/01/17 13:00 07/31/17 12:59 Insulin Aspart (NovoLOG) BEFORE MEALS AND HS SUBQ 07/01/17 12:30 07/31/17 12:29 Levofloxacin 150 ml @ 100 mls/hr Q48H IVPB 07/03/17 05:00 07/10/17 04:59 Levothyroxine Sodium (Synthroid) 112 mcg DAILY@0630 ORAL 07/02/17 06:30 07/31/17 06:29 Lidocaine (Lidoderm 5% PATCH) 1 patch DAILY TDERMAL 07/01/17 13:00 07/31/17 12:59 Methylprednisolone Sodium Succinate (Solu-MEDROL) 40 mg EVERY 6 HOURS IVP 07/01/17 12:00 07/31/17 05:59 Montelukast Sodium (Singulair) 10 mg DAILY ORAL 07/01/17 13:00 07/31/17 12:59 Nateglinide (Starlix) 60 mg THREE TIMES A DAY ORAL 07/01/17 13:00 07/31/17 08:59 Ondansetron HCl (Zofran) 4 mg Q6H PRN IVP Nausea & Vomiting 07/01/17 12:00 07/31/17 11:59 Polyethylene Glycol (Miralax) 17 gm DAILYPRN PRN ORAL Constipation 07/01/17 12:00 07/31/17 11:59 Quetiapine Fumarate (SEROquel) 25 mg Q6H PRN ORAL agitation 07/01/17 12:00 07/31/17 11:59 Assessment/Plan Assessment/Plan ASSESSMENT acute hypoxemic hypercapnic RF requiring BiPAP large R pleural effusion acute COPD exacerbation moderate pulmonary HTN acute renal failure on CKD hyperkalemia DM HTN Hx of CVA Hyperlipidemia Hypothyroidism anemia sacral st 2 decub ulcer, POA PLAN OF CARE NITHIN Bipap pulmonary toilet ATC and PRN add CPT with HHN tid elevate R side of the chest at all times to promote drainage for now thoracentesis pending wth pleural fluid analysis and cx check INR prior IV steroids empiric abx sputum cx fup with CXR ID consult per PMD last ECHO with pEF, and evidence of moderate pulmonary HTN likely due to COPD check ECHO venous Duplex BLE on ASA, BB, LALO , statin BP, BS management check TSH, continue current dose of levothyroxine for now monitor renal parameters, lytes, avoid nephrotoxic, treat hyperkalemia nephro consult ARF likely due to diuretic use, on hold now , on CKD renal US DVT prophylaxis pain management bowel regimen monitor HH, transfuse prn BS management , check HgA1c wound care as per wound nurse recs case discussed and evaluated by supervising physician [facility]Meron CHADWICK Jul 01, 2017 12:42
[2017-07-01] MEDS: Solu-MEDROL 40mg Inj IVP SCH ×3 (12:53→23:48)
[2017-07-01] MEDS: Aspirin EC 81mg tab ORAL SCH (13:00)
[2017-07-01] MEDS: Heparin 5000 units/ml inj SUBQ SCH ×2 (13:00→20:05)
[2017-07-01] MEDS: Montelukast 10mg tablet ORAL SCH (13:00)
[2017-07-01] MEDS: Nateglinide 60mg tab ORAL SCH ×2 (13:00→20:01)
[2017-07-01] MEDS: Carvedilol 12.5mg tab ORAL SCH ×2 (13:00→20:01)
[2017-07-01 13:27] LABS: INR 1.1 (0.9-1.1)
--- NOTE | 2017-07-01 14:12 | Cardiology Report ---
APPROVED REPORT EKG Measurement Heart [id number] Sinus tachycardia Possible Left atrial enlargement Low voltage QRS Borderline ECG
--- NOTE | 2017-07-01 14:28 | History and Physical ---
History of Present Illness General Date patient seen: Jul 01, 2017 Time patient seen: 14:00 Reason for Hospitalization: Acute COPD exacerbation, Large R pleural effusion Present Illness HPI 87y/o female with pmh of HTN, DM2, hypothyroidism, COPD who presents with SOB. Unable to obtain history from pt as she is currently on BiPAP. Per EMS, pt hypoxic at SNF. O2 says in the 80s but improved w/ supplemental O2. No reports of f/c, chest pain, cough, abd pain, n/v, d/c, dysuria. In ED, pt w/ O2 sat 94% on 6L O2 via NC.CXR showed large R pleural effusion. Pt given levaquin, nebs, solumedrol 125mg IV, ativan 2mg IM. On admission to [facility], pt noted to be drowsy/sleepy. ABG showed acute respiratory acidosis w/ pH 7.2 and CO2 120s. Pt placed on BiPAP 15/5 and transferred to [facility]. Allergies: Coded Allergies: IODINE (Verified Allergy, Mild, 08/17/08) Uncoded Allergies: CONTRAST MEDIA (Allergy, Mild, 08/17/08) Medication History Scheduled Allopurinol* (Allopurinol*), 300 MG ORAL DAILY, (Reported) Aspirin Ec* (Aspirin Ec*), 81 MG ORAL DAILY Carvedilol (Coreg), 12.5 MG ORAL EVERY 12 HOURS Carvedilol* (Carvedilol*), 12.5 MG ORAL EVERY 12 HOURS, (Reported) Ceftriaxone Na/Dextrose,Iso (Ceftriaxone 2 Gm Piggyback), 2 GM IV DAILY Docusate Sodium* (Colace*), 100 MG ORAL THREE TIMES A DAY Ferrous Sulfate* (Ferrous Sulfate*), 325 MG ORAL DAILY, (Reported) Furosemide* (Lasix*), 40 MG ORAL DAILY Gabapentin* (Gabapentin*), 600 MG ORAL BID, (Reported) Insulin Glargine (Lantus), 0 SUBQ BEDTIME, (Reported) Levothyroxine Sodium* (Levothyroxine Sodium*), 112 MCG ORAL DAILY, (Reported) Lidocaine (Lidoderm), 1 PATCH TOPIC DAILY, (Reported) Montelukast Sodium* (Montelukast Sodium*), 10 MG ORAL DAILY, (Reported) Montelukast Sodium* (Montelukast Sodium*), 10 MG ORAL DAILY, (Reported) Nateglinide* (Starlix*), 60 MG ORAL THREE TIMES A DAY Nitrofurantoin Macrocrystal (Macrodantin*), 100 MG ORAL BID, (Reported) Omeprazole (Omeprazole), 10 MG ORAL DAILY, (Reported) Ramipril* (Ramipril*), 5 MG ORAL DAILY, (Reported) Simvastatin (Zocor), 20 MG ORAL BEDTIME, (Reported) Scheduled PRN Albuterol Sulfate* (Albuterol Sulfate Hhn*), 3 ML INH Q4H PRN for Shortness of Breath, (Reported) Hydrocodone Bit/Acetaminophen 5-325* ([place] 5-325*), 1 TAB ORAL Q12HR PRN for For Pain, (Reported) Polyethylene Glycol 3350* (Miralax*), 17 GM ORAL DAILYPRN PRN Quetiapine Fumarate* (Seroquel*), 25 MG ORAL Q6H PRN Temazepam* (Temazepam*), 30 MG ORAL BEDTIME PRN for Insomnia, (Reported) Temazepam* (Temazepam*), 15 MG ORAL BEDTIME PRN for Insomnia, (Reported) Miscellaneous Medications Insulin Regular, Human (Humulin R), 0 SUBQ, (Reported) Patient History History Provided By: Patient, Medical Record, EMS Healthcare 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 Resuscitation status Full Code Advanced Directive on File Past Medical/Surgical History Past Medical/Surgical History: (1) COPD (chronic obstructive pulmonary disease) (2) CKD (chronic kidney disease) (3) DM2 (diabetes mellitus, type 2) (4) HTN (hypertension) (5) HLD (hyperlipidemia) (6) Hypothyroidism (7) Hypothyroid Family History Family History: Patient reports no known family medical history. Social History Social History: (1) resides in [facility] Review of Systems Constitutional: Reports: malaise, weakness Eye: Reports: no symptoms ENT: Reports: no symptoms Respiratory: Reports: shortness of breath, wheezing Cardiovascular: Reports: no symptoms Gastrointestinal: Reports: no symptoms Genitourinary: Reports: no symptoms Musculoskeletal: Reports: no symptoms Skin: Reports: no symptoms Psychiatric: Reports: no symptoms Neurological: Reports: no symptoms Endocrine: Reports: no symptoms Hematologic/Lymphatic: Reports: no symptoms Physical Exam Physical Exam Narrative General: alert, cooperative, no distress, appears stated age, boese Head: normocephalic, without obvious abnormality, atraumatic Eyes: conjunctivae/corneas clear. PERRL, EOM's intact Throat: lips, mucosa, and tongue normal. MMM Neck: supple, symmetrical, trachea midline, and no JVD Lungs: +wheezing b/l, decreased breath sounds R>L Heart: regular rate and rhythm, S1, S2 normal, no murmur, click, rub or gallop Abdomen: soft, non-tender, non-distended, bowel sounds normal; no masses or organomegaly Extremities: extremities normal, atraumatic, no cyanosis or edema Pulses: 2+ and symmetric Skin: skin color, texture, turgor normal; no rashes or lesions Neurologic: grossly normal, no focal deficits Last 24 Hour Vital Signs Date Time Temp Pulse Resp B/P (MAP) Pulse Ox O2 Delivery O2 Flow Rate FiO2 07/01/17 13:00 102 148/89 07/01/17 12:58 107 26 95 Bi-pap 07/01/17 12:45 102 26 96 Facial 35 07/01/17 12:41 102 24 96 07/01/17 10:19 78 26 95 Bi-pap 07/01/17 10:18 78 26 Bi-pap 35 07/01/17 10:12 78 26 95 Bi-pap 35 07/01/17 09:38 97.2 105 22 153/88 100 Bi-pap 07/01/17 09:00 93 118/70 07/01/17 09:00 97.5 93 22 118/70 95 Bi-pap 07/01/17 08:42 78 26 94 Facial 35 07/01/17 07:38 101 29 92 Facial 35 07/01/17 05:33 109 28 133/66 99 3.0 07/01/17 05:20 98.1 108 21 141/74 99 Nasal Cannula 4.0 36 98.1 07/01/17 01:25 112 20 98 Nasal Cannula 4.0 36 07/01/17 01:01 108 26 94 Nasal Cannula 3.0 32 07/01/17 01:00 108 26 Nasal Cannula 3.0 32 07/01/17 00:50 98.6 28 133/66 99 Nasal Cannula 6.0 98.6 07/01/17 00:45 109 28 Nasal Cannula 4.0 07/01/17 00:32 98.6 112 22 146/84 94 Nasal Cannula 6.0 98.6 Laboratory Tests Test 07/01/17 03:15 07/01/17 06:46 07/01/17 09:18 07/01/17 12:00 White Blood Count 6.9 K/UL (4.8-10.8) Red Blood Count 3.06 M/UL (4.20-5.40) L Hemoglobin 9.2 G/DL (12.0-16.0) L Hematocrit 32.1 % (37.0-47.0) L Mean Corpuscular Volume 105 FL (80-99) H Mean Corpuscular Hemoglobin 30.1 PG (27.0-31.0) Mean Corpuscular Hemoglobin Concent 28.7 G/DL (32.0-36.0) L Red Cell Distribution Width 14.7 % (11.6-14.8) Platelet Count 338 K/UL (150-450) Mean Platelet Volume 6.6 FL (6.5-10.1) Neutrophils (%) (Auto) % (45.0-75.0) Lymphocytes (%) (Auto) % (20.0-45.0) Monocytes (%) (Auto) % (1.0-10.0) Eosinophils (%) (Auto) % (0.0-3.0) Basophils (%) (Auto) % (0.0-2.0) Sodium Level 142 MMOL/L (136-145) Pending Potassium Level 5.8 MMOL/L (3.5-5.1) H Pending Chloride Level 104 MMOL/L (98-107) Pending Carbon Dioxide Level 43 MMOL/L (21-32) *H Pending Anion Gap -6 mmol/L (5-15) L Blood Urea Nitrogen 37 mg/dL (7-18) H Pending Creatinine 1.6 MG/DL (0.55-1.30) H Pending Estimat Glomerular Filtration Rate mL/min (>60) Pending Glucose Level 129 MG/DL (74-106) H Pending Lactic Acid Level 0.90 mmol/L (0.66-2.22) Calcium Level 9.6 MG/DL (8.5-10.1) Pending Total Bilirubin 0.3 MG/DL (0.2-1.0) Aspartate Amino Transf (AST/SGOT) 33 U/L (15-37) Alanine Aminotransferase (ALT/SGPT) 38 U/L (12-78) Alkaline Phosphatase 149 U/L (46-116) H Total Creatine Kinase 41 U/L (26-308) Creatine Kinase MB < 0.5 NG/ML (0.0-3.6) Creatine Kinase MB Relative Index 1.2 Troponin I 0.000 ng/mL (0.000-0.056) Pro-B-Type Natriuretic Peptide 1053 pg/mL (0-125) H Total Protein 7.7 G/DL (6.4-8.2) Albumin 2.5 G/DL (3.4-5.0) L Globulin 5.2 g/dL Albumin/Globulin Ratio 0.5 (1.0-2.7) L Arterial Blood pH 7.200 (7.350-7.450) 7.330 (7.350-7.450) Arterial Blood Partial Pressure CO2 129.6 mmHg (35.0-45.0) *H 83.2 mmHg (35.0-45.0) *H Arterial Blood Partial Pressure O2 77.7 mmHg (75.0-100.0) 59.3 mmHg (75.0-100.0) L Arterial Blood HCO3 50.2 mmol/L (22.0-26.0) H 43.1 mmol/L (22.0-26.0) H Arterial Blood Oxygen Saturation 94.2 % (92.0-98.0) 91.7 % (92.0-98.0) L Arterial Blood Base Excess 18.4 14.6 Chapito Test Positive Positive Test 07/01/17 13:10 Prothrombin Time 11.1 SEC (9.30-11.50) Prothromb Time International Ratio 1.1 (0.9-1.1) Activated Partial Thromboplast Time 21 SEC (23-33) L Microbiology Date/Time Source Procedure Growth Status 07/01/17 05:10 Nasal Nares Influenza Types A,B Antigen (STEFAN) - Final Complete Height (Feet): 5 Height (Inches): 8.00 Weight (Pounds): 200 Medications Current Medications Medications (Trade) Dose Ordered Sig/Lakshmi Route PRN Reason Start Time Stop Time Status Last Admin Dose Admin Acetaminophen (Tylenol) 650 mg Q4H PRN ORAL Mild Pain (Pain Scale 1-3) 07/01/17 12:00 07/31/17 11:59 Acetaminophen (Tylenol) 650 mg Q4H PRN ORAL fever 07/01/17 12:00 07/31/17 11:59 Acetaminophen (Tylenol) 650 mg Q4H PRN RECTAL fever 07/01/17 12:00 07/31/17 11:59 Acetaminophen (Tylenol) 650 mg Q4H PRN RECTAL Mild Pain (Pain Scale 1-3) 07/01/17 13:30 07/31/17 05:29 Acetaminophen/ Hydrocodone Bitart ([place] 5/325) 1 tab Q12H PRN ORAL Pain 4-10 07/01/17 12:00 07/08/17 11:59 Albuterol/ Ipratropium (Albuterol/ Ipratropium) 3 ml Q4H PRN HHN Shortness of Breath 07/01/17 12:00 07/06/17 11:59 Albuterol/ Ipratropium (Albuterol/ Ipratropium) 3 ml Q6HRT HHN 07/01/17 19:00 07/06/17 18:59 Allopurinol (Allopurinol) 300 mg DAILY ORAL 07/01/17 13:00 07/31/17 12:59 Aspirin (Ecotrin) 81 mg DAILY ORAL 07/01/17 13:00 07/31/17 12:59 Atorvastatin Calcium (Lipitor) 10 mg BEDTIME ORAL 07/01/17 21:00 07/31/17 20:59 Bisacodyl (Dulcolax) 10 mg DAILYPRN PRN RECTAL Constipation 07/01/17 12:00 07/31/17 11:59 Carvedilol (Coreg) 12.5 mg EVERY 12 HOURS ORAL 07/01/17 13:00 07/31/17 12:59 Dextrose (Dextrose 50%) STAT PRN IV Hypoglycemia 07/01/17 12:00 07/31/17 11:59 Docusate Sodium (Colace) 100 mg EVERY 12 HOURS ORAL 07/01/17 13:00 07/31/17 12:59 Ferrous Sulfate (Feosol) 325 mg DAILY ORAL 07/01/17 13:00 07/31/17 12:59 Gabapentin (Neurontin) 600 mg BID ORAL 07/01/17 13:00 07/31/17 12:59 Heparin Sodium (Porcine) (Heparin 5000 units/ml) 5,000 units EVERY 12 HOURS SUBQ 07/01/17 13:00 07/31/17 12:59 Insulin Aspart (NovoLOG) BEFORE MEALS AND HS SUBQ 07/01/17 12:30 07/31/17 12:29 Levofloxacin 150 ml @ 100 mls/hr Q48H IVPB 07/03/17 05:00 07/10/17 04:59 Levothyroxine Sodium (Synthroid) 112 mcg DAILY@0630 ORAL 07/02/17 06:30 07/31/17 06:29 Lidocaine (Lidoderm 5% PATCH) 1 patch DAILY TDERMAL 07/01/17 13:00 07/31/17 12:59 07/01/17 13:28 Methylprednisolone Sodium Succinate (Solu-MEDROL) 40 mg EVERY 6 HOURS IVP 07/01/17 12:00 07/31/17 05:59 07/01/17 12:53 Montelukast Sodium (Singulair) 10 mg DAILY ORAL 07/01/17 13:00 07/31/17 12:59 Nateglinide (Starlix) 60 mg THREE TIMES A DAY ORAL 07/01/17 13:00 07/31/17 08:59 Ondansetron HCl (Zofran) 4 mg Q6H PRN IVP Nausea & Vomiting 07/01/17 12:00 07/31/17 11:59 Polyethylene Glycol (Miralax) 17 gm DAILYPRN PRN ORAL Constipation 07/01/17 12:00 07/31/17 11:59 Quetiapine Fumarate (SEROquel) 25 mg Q6H PRN ORAL agitation 07/01/17 12:00 07/31/17 11:59 Assessment/Plan Problem List: (1) Acute respiratory failure with hypoxia and hypercapnia ICD Codes: J96.01 - Acute respiratory failure with hypoxia; J96.02 - Acute respiratory failure with hypercapnia SNOMED: 96697302, 67151233, 984125366 (2) Acute toxic metabolic encephalopathy (3) COPD with acute exacerbation ICD Codes: J44.1 - Chronic obstructive pulmonary disease with (acute) exacerbation SNOMED: 374176667 (4) CKD (chronic kidney disease) ICD Codes: N18.9 - Chronic kidney disease, unspecified SNOMED: 890617986 (5) Hyperkalemia ICD Codes: E87.5 - Hyperkalemia SNOMED: 72969383 (6) DM2 (diabetes mellitus, type 2) ICD Codes: E11.9 - Type 2 diabetes mellitus without complications SNOMED: 77226447 (7) HLD (hyperlipidemia) ICD Codes: E78.5 - Hyperlipidemia, unspecified SNOMED: 81218406 (8) HTN (hypertension) ICD Codes: I10 - Essential (primary) hypertension SNOMED: 79187223 (9) Hypothyroidism ICD Codes: E03.9 - Hypothyroidism, unspecified SNOMED: 70929014 Status: stable Assessment/Plan Admit to [facility] Pulm consulted Cont on BiPAP 15/5, titrate FiO2 to 88-92% Trend ABG Thoracentesis ordered given large R pleural effusion ID consulted Empiric levaquin for now F/u cultures Renal consulted Lasix 40mg IV fro volume overload and hyperkalemia Trend BMP closely Cont SNF meds Pain control, bowel regimen Supportive care DVT Prophylaxis: HSQ Code Status: Full Hospital Classification Declaration: Based on this initial evaluation, and depending on the patient's clinical course, I anticipate that this patient will require hospitalization for 2-3 days for acute COPD exacerbation and close respiratory/hemodynamic monitoring. Disposition: Once the patient is stable to leave the hospital, I anticipate the patient will likely be discharged to the following environment: back to SNF I spent 73 minutes on this patient's case, and >50% was dedicated to counseling and/or care coordination. Discussed with patient/family, nursing staff, SW/CM, pulm, ID regarding clinical status, treatment course, and disposition planning. Time of note may not reflect time of encounter. Luciana Velázquez M.D. Jul 01, 2017 14:28
[2017-07-01 14:50] LABS: ANION GAP 2 mmol/L (5-15); BLOOD UREA NITROGEN 36 mg/dL (7-18); CALCIUM 9.8 MG/DL (8.5-10.1); CHLORIDE 102 MMOL/L (98-107); CREATININE 1.6 MG/DL (0.55-1.30); POTASSIUM 5.5 MMOL/L (3.5-5.1); SODIUM 146 MMOL/L (136-145)
[2017-07-01 14:53] LABS: PHOSPHORUS 3.1 MG/DL (2.5-4.9)
[2017-07-01 14:57] LABS: CARBON DIOXIDE 43 MMOL/L (21-32)
--- NOTE | 2017-07-01 15:45 | Diagnostic Imaging Report ---
Indication: Post thoracentesis Technique: One view of the chest Comparison: 14 hours earlier Findings: Interim considerable improvement of previously demonstrated large right pleural effusion, with possibly some residual pleural fluid still present. Improved aeration of the right lung. No gross pneumothorax. There is some atelectasis at the right lung base. There is persistent left pleural fluid. Impression: Improved right pleural effusion, post thoracentesis. No radiographically evident convocation Other findings as described
--- NOTE | 2017-07-01 16:08 | Diagnostic Imaging Report ---
Indications: Right Pleural effusion, abnormal recent chest radiograph, shortness of breath Technique: Ultrasound used to localize optimal puncture site. Sterile prepping and draping right chest. Local anesthesia with 1% lidocaine. Under real-time ultrasound guidance, puncture pleural space using thoracentesis needle. Stylet removed. Catheter placed to vacuum bottle suction. Total 1000 milliliters of fluid aspirated. Patient tolerated procedure well, without immediate complication. Findings: Followup sonography demonstrates near complete resolution of pleural fluid. Impression: Successful ultrasound-guided thoracentesis, yielding 1000 milliliters of fluid
[2017-07-01] MEDS ORDERED: Sodium Polystyrene Sulfonate 15gm Powder ORAL ONE (16:30)
--- NOTE | 2017-07-01 16:49 | Consultation ---
Consult Note Consult Note asked to evaluate at the request of Dr Berman for renal failure and electrolyte imbalance 87y/o female with pmh of HTN, DM2, hypothyroidism, COPD who presents with SOB. Unable to obtain history from pt as she is currently on BiPAP. Per EMS, pt hypoxic at SNF. O2 says in the 80s but improved w/ supplemental O2. No reports of f/c, chest pain, cough, abd pain, n/v, d/c, dysuria. In ED, pt w/ O2 sat 94% on 6L O2 via NC.CXR showed large R pleural effusion. Pt given levaquin, nebs, solumedrol 125mg IV, ativan 2mg IM. On admission to tele, pt noted to be drowsy/sleepy. ABG showed acute respiratory acidosis w/ pH 7.2 and CO2 120s. Pt placed on BiPAP 15/5 and transferred to [facility]. 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 Acute component HyperKalemia Anemia HypoThyroidism DM Respiratory failure and Hypoxia Plan: Mendez UA U Na Anemia goldman 2D Echo Kidney GONZALES monitor renal parameters per orders JD WOO Jul 01, 2017 16:49
[2017-07-01 18:41] LABS: APPEARANCE,URINE CLEAR; BILIRUBIN, URINE NEGATIVE (NEGATIVE); COLOR,URINE PALE YELLOW; GLUCOSE, URINE (UA) NEGATIVE (NEGATIVE); KETONES,URINE 1+ (NEGATIVE); LEUKOCYTE ESTERASE ,URINE 2+ (NEGATIVE); NITRITE,URINE NEGATIVE (NEGATIVE); PH,URINE 5 (4.5-8.0); PROTEIN,URINE 2+ (NEGATIVE); UROBILINOGEN,URINE NORMAL MG/DL (0.0-1.0)
[2017-07-01] MEDS: Albuterol/Ipratropium 3ml neb HHN SCH (19:34)
[2017-07-01] MEDS: Docusate 100mg cap ORAL SCH (20:02)
[2017-07-02] VITALS: BP 135/69
[2017-07-02] MEDS: Albuterol/Ipratropium 3ml neb HHN SCH ×4 (01:32→20:03)
[2017-07-02 04:00] VITALS: BP 128/62
[2017-07-02 04:01] LABS: HEMATOCRIT 29.3 % (37.0-47.0); HEMOGLOBIN 8.6 G/DL (12.0-16.0); MEAN CORPUSCULAR VOLUME 102 FL (80-99); PLATELET COUNT 272 K/UL (150-450); RED BLOOD COUNT 2.86 M/UL (4.20-5.40); RED CELL DISTRIBUTION WIDTH 14.7 % (11.6-14.8); WHITE BLOOD COUNT 5.2 K/UL (4.8-10.8)
[2017-07-02 04:21] LABS: % IRON SATURATION 16 % (15-50); IRON 31 ug/dL (50-175); TOTAL IRON BINDING CAPACITY 193 ug/dL (250-450)
[2017-07-02 04:33] LABS: CREATINE KINASE 18 U/L (26-308); GAMMA GLUTAMYL TRANSPEPTIDASE 67 U/L (5-85)
[2017-07-02 04:36] LABS: CHOLESTEROL 144 MG/DL (< 200); FERRITIN 550 NG/ML (8-388); HDL CHOLESTEROL 52 MG/DL (40-60); TRIGLYCERIDES 66 MG/DL (30-150)
[2017-07-02 05:07] LABS: ALANINE AMINOTRANSFERASE 33 U/L (12-78); ALBUMIN 2.4 G/DL (3.4-5.0); ALBUMIN/GLOBULIN RATIO 0.5 (1.0-2.7); ALKALINE PHOSPHATASE 131 U/L (46-116); ANION GAP 3 mmol/L (5-15); ASPARTATE AMINO TRANSFERASE 19 U/L (15-37); BILIRUBIN,TOTAL 0.3 MG/DL (0.2-1.0); BLOOD UREA NITROGEN 38 mg/dL (7-18); CALCIUM 9.8 MG/DL (8.5-10.1); CARBON DIOXIDE 40 MMOL/L (21-32); CHLORIDE 103 MMOL/L (98-107); CREATININE 1.7 MG/DL (0.55-1.30); PHOSPHORUS 2.6 MG/DL (2.5-4.9); POTASSIUM 5.3 MMOL/L (3.5-5.1); SODIUM 146 MMOL/L (136-145)
[2017-07-02] MEDS: Solu-MEDROL 40mg Inj IVP SCH ×4 (05:34→23:42)
[2017-07-02] MEDS: NovoLOG Insulin Flexpen SUBQ SCH ×5 (05:34→21:11)
[2017-07-02 08:00] VITALS: BP 139/62
--- NOTE | 2017-07-02 09:20 | Nephrology Progress Note ---
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 Acute component HyperKalemia Anemia HypoThyroidism DM Respiratory failure and Hypoxia . Plan Low dose Lasix and Diamox Mendez UA : Proteinuria ++ U Na Anemia goldman 2D Echo Pending Kidney GONZALES Pending monitor renal parameters Optimize pulmonary status taper steroids as possible kayexelate per orders Subjective ROS Limited/Unobtainable: No Constitutional: Reports: malaise, weakness Objective Objective Last 24 Hour Vital Signs Date Time Temp Pulse Resp B/P (MAP) Pulse Ox O2 Delivery O2 Flow Rate FiO2 07/02/17 08:38 29 Facial 35 07/02/17 08:00 98.0 92 19 139/62 07/02/17 07:22 Bi-pap 35 07/02/17 07:22 Bi-pap 35 07/02/17 07:21 89 27 96 Facial 35 07/02/17 05:13 96 27 95 Facial 35 07/02/17 04:00 82 07/02/17 04:00 98.8 93 27 128/62 100 Bi-pap 35 07/02/17 03:07 89 28 96 Facial 35 07/02/17 01:09 91 26 96 Bi-pap 07/02/17 01:02 96 26 96 Bi-pap 35 07/02/17 01:00 98 26 94 Facial 35 07/02/17 00:00 92 07/02/17 00:00 99.0 101 26 135/69 98 Bi-pap 35 07/01/17 23:05 91 24 96 Facial 35 07/01/17 21:02 93 28 96 Facial 35 07/01/17 20:01 105 108/56 07/01/17 20:00 99.2 105 25 108/56 98 Bi-pap 35 07/01/17 20:00 102 07/01/17 19:29 98 28 95 Bi-pap 07/01/17 19:24 94 26 95 Bi-pap 35 18 19:21 96 32 95 Facial 35 07/01/17 19:02 94 29 Bi-pap 35 07/01/17 17:40 90 24 96 Facial 35 07/01/17 16:00 97 07/01/17 16:00 98.2 95 20 135/71 95 Bi-pap 35 07/01/17 15:19 96 24 96 Facial 35 07/01/17 13:00 102 148/89 07/01/17 12:58 107 26 95 Bi-pap 07/01/17 12:45 102 26 96 Facial 35 07/01/17 12:41 102 24 96 07/01/17 12:00 101 07/01/17 12:00 97.2 102 20 148/89 96 Bi-pap 35 07/01/17 10:19 78 26 95 Bi-pap 07/01/17 10:18 78 26 Bi-pap 35 07/01/17 10:12 78 26 95 Bi-pap 35 07/01/17 09:38 97.2 105 22 153/88 100 Bi-pap Intake and Output 07/01/17 07/02/17 19:00 07:00 Intake Total 200 ml Output Total 200 ml 800 ml Balance -200 ml -600 ml Intake Oral 200 ml Output Urine Total 200 ml 800 ml # Bowel Movements 1 Laboratory Tests 07/01/17 09:18: Arterial Blood pH 7.330L, Arterial Blood Partial Pressure CO2 83.2*H, Arterial Blood Partial Pressure O2 59.3L, Arterial Blood HCO3 43.1H, Arterial Blood Oxygen Saturation 91.7L, Arterial Blood Base Excess 14.6, Chapito Test Positive 07/01/17 13:10: Prothrombin Time 11.1, Prothromb Time International Ratio 1.1, Activated Partial Thromboplast Time 21L 07/01/17 14:15: Sodium Level 146H, Potassium Level 5.5H, Chloride Level 102, Carbon Dioxide Level 43*H, Anion Gap 2L, Blood Urea Nitrogen 36H, Creatinine 1.6H, Estimat Glomerular Filtration Rate , Glucose Level 137H, Calcium Level 9.8, Phosphorus Level 3.1, Magnesium Level 1.8 07/01/17 15:30: Body Fluid Source [Pending], Body Fluid Volume [Pending], Body Fluid Appearance Bloody, [place] [address], Body Fluid Total Nucleated Cells 112, Body Fluid Polynuclear WBCs (%) 5, Body Fluid Mononuclear WBCs (%) 15, Body Fluid Mesothelial Cells (%) 80, Body Fluid Total Protein [Pending], Body Fluid Lactate Dehydrogenase [Pending], Body Fluid Comment 07/01/17 18:15: Urine Color Pale yellow, Urine Appearance Clear, Urine pH 5, Urine Specific [place] 1.015, Urine Protein 2+H, Urine Glucose (UA) Negative, Urine Ketones 1+H , Urine Occult Blood 2+H, Urine Nitrite Negative, Urine Bilirubin Negative, Urine Urobilinogen Normal, Urine Leukocyte Esterase 2+H, Urine RBC 0-2, Urine WBC 0-2, Urine Squamous Epithelial Cells Occasional, Urine Amorphous Sediment FewH, Urine Bacteria Few, Urine Random Sodium 32 07/02/17 03:20: White Blood Count 5.2, Red Blood Count 2.86L, Hemoglobin 8.6L, Hematocrit 29.3L , Mean Corpuscular Volume 102H, Mean Corpuscular Hemoglobin 30.2, Mean Corpuscular Hemoglobin Concent 29.5L, Red Cell Distribution Width 14.7, Platelet Count 272, Mean Platelet Volume 7.0, Neutrophils (%) (Auto) , Lymphocytes (%) (Auto) , Monocytes (%) (Auto) , Eosinophils (%) (Auto) , Basophils (%) (Auto) , Differential Total Cells Counted 100, Neutrophils % ( Manual) 89H, Lymphocytes % (Manual) 10L, Monocytes % (Manual) 1, Eosinophils % ( Manual) 0, Basophils % (Manual) 0, Band Neutrophils 0, Platelet Estimate Adequate, Platelet Morphology Normal, Hypochromasia 1+, Anisocytosis 1+, Macrocytosis 1+, Sodium Level 146H, Potassium Level 5.3H, Chloride Level 103, Carbon Dioxide Level 40H, Anion Gap 3L, Blood Urea Nitrogen 38H, Creatinine 1.7H , Estimat Glomerular Filtration Rate , Glucose Level 133H, Hemoglobin A1c 6.8H, Uric Acid 6.0, Calcium Level 9.8, Phosphorus Level 2.6, Magnesium Level 1.7L, Iron Level 31L, Total Iron Binding Capacity 193L, Percent Iron Saturation 16, Unsaturated Iron Binding 162, Ferritin 550H, Total Bilirubin 0.3, Gamma Glutamyl Transpeptidase 67, Aspartate Amino Transf (AST/SGOT) 19, Alanine Aminotransferase (ALT/SGPT) 33, Alkaline Phosphatase 131H, Total Creatine Kinase 18L, Troponin I 0.009, Pro-B-Type Natriuretic Peptide 1622H, Total Protein 7.1, Albumin 2.4L, Globulin 4.7, Albumin/Globulin Ratio 0.5L, Triglycerides Level 66, Cholesterol Level 144, LDL Cholesterol 88, HDL Cholesterol 52, Cholesterol/HDL Ratio 2.8L, Vitamin B12 Level 793, Folate 15.1, Thyroid Stimulating Hormone (TSH) 2.299 07/02/17 08:58: Arterial Blood pH 7.540H, Arterial Blood Partial Pressure CO2 45.7H, Arterial Blood Partial Pressure O2 48.4*L, Arterial Blood HCO3 39.0H, Arterial Blood Oxygen Saturation 88.8L, Arterial Blood Base Excess 15.1, Chapito Test Positive Height (Feet): 5 Height (Inches): 8.00 Weight (Pounds): 200 General Appearance: mild distress EENT: other - on bipapa Cardiovascular: regular rhythm Respiratory/Chest: decreased breath sounds Abdomen: distended JD WOO Jul 02, 2017 09:20
[2017-07-02] MEDS ORDERED: Sodium Polystyrene Sulfonate 15gm Powder NG ONE (09:30)
[2017-07-02] MEDS: Docusate 100mg cap ORAL SCH ×3 (09:59→17:27)
[2017-07-02] MEDS: Nateglinide 60mg tab ORAL SCH ×3 (09:59→17:26)
[2017-07-02] MEDS: Carvedilol 12.5mg tab ORAL SCH ×2 (09:59→21:09)
[2017-07-02] MEDS: Aspirin EC 81mg tab ORAL SCH (10:00)
[2017-07-02] MEDS: Montelukast 10mg tablet ORAL SCH (10:00)
[2017-07-02] MEDS: Heparin 5000 units/ml inj SUBQ SCH ×2 (10:17→20:43)
--- NOTE | 2017-07-02 11:21 | Diagnostic Imaging Report ---
Indication: NG tube placement Comparison: None Single view of the abdomen obtained Findings: NG tube is in the stomach in good position. Bowel gas pattern is nonspecific. The lower infiltrates noted in the lungs. IMPRESSION: NG tube in good position
--- NOTE | 2017-07-02 11:55 | Diagnostic Imaging Report ---
Indication: Dyspnea Comparison: 07/01/2017 A single view chest radiograph was obtained. Findings: Bilateral pleural effusions suspected with interstitial edema. Heart size is normal. NG tube is in good position. IMPRESSION: CHF/interstitial edema. Bilateral pleural effusion
[2017-07-02 12:00] VITALS: BP 133/67
--- NOTE | 2017-07-02 12:00 | Consultation ---
Consult Note Consult Note ID dic # [id number] LEATHA HUTCHINSON M.D. Jul 02, 2017 12:00
--- NOTE | 2017-07-02 14:29 | Pulmonology Progress Note ---
Assessment/Plan Assessment/Plan ASSESSMENT acute hypoxemic hypercapnic RF requiring BiPAP large R pleural effusion s/p thoracentesis-1L acute COPD exacerbation moderate pulmonary HTN acute renal failure on CKD hyperkalemia DM HTN Hx of CVA Hyperlipidemia Hypothyroidism anemia sacral st 2 decub ulcer, POA PLAN OF CARE NITHIN dc Bipap, titrate O2 to keep sat above 92% BiPAP prn pulmonary toilet ATC and PRN conservative measures until tap , all done s/p thoracentesis 1L CXR post tap-no PNT pleural fluid cx prel negative , pleural fluid analysis noted , noninfectious hypercapnia resolved started on low dose Diamox s/p Lasix x 1 as pr nephro IV steroids and taper empiric abx sputum cx fup with CXR ID follows last ECHO with pEF, and evidence of moderate pulmonary HTN likely due to COPD ECHO venous Duplex BLE on ASA, BB, LALO , statin BP, BS management TSH WNL continue current dose of levothyroxine for now monitor renal parameters, lytes, avoid nephrotoxic, K -5.3 Kayexalate, s/p Lasix, check K in am nephro follows ARF likely due to diuretic use, on hold now , on CKD renal US DVT prophylaxis pain management bowel regimen monitor HH, transfuse prn BS management , HgA1c WNL wound care as per wound nurse recs case discussed and evaluated by supervising physician Subjective Allergies: Coded Allergies: IODINE (Verified Allergy, Mild, 08/17/08) Uncoded Allergies: CONTRAST MEDIA (Allergy, Mild, 08/17/08) Subjective on BiPAP ABG with resolved hypercapnia Objective Last 24 Hour Vital Signs Date Time Temp Pulse Resp B/P (MAP) Pulse Ox O2 Delivery O2 Flow Rate FiO2 07/02/17 12:43 87 22 98 Nasal Cannula 3.0 32 07/02/17 12:33 85 22 95 Nasal Cannula 3.0 32 07/02/17 12:00 97.8 98 19 133/67 98 Nasal Cannula 3.0 07/02/17 11:48 80 07/02/17 09:59 92 139/62 07/02/17 09:21 92 Nasal Cannula 2.0 28 07/02/17 09:21 Nasal Cannula 2.0 28 07/02/17 08:38 29 Facial 35 07/02/17 08:00 98.0 92 19 139/62 07/02/17 08:00 86 2/17/18 07:22 Bi-pap 35 07/02/17 07:22 Bi-pap 35 07/02/17 07:21 89 27 96 Facial 35 07/02/17 05:13 96 27 95 Facial 35 07/02/17 04:00 82 07/02/17 04:00 98.8 93 27 128/62 100 Bi-pap 35 07/02/17 03:07 89 28 96 Facial 35 07/02/17 01:09 91 26 96 Bi-pap 07/02/17 01:02 96 26 96 Bi-pap 35 07/02/17 01:00 98 26 94 Facial 35 07/02/17 00:00 92 07/02/17 00:00 99.0 101 26 135/69 98 Bi-pap 35 07/01/17 23:05 91 24 96 Facial 35 07/01/17 21:02 93 28 96 Facial 35 07/01/17 20:01 105 108/56 07/01/17 20:00 99.2 105 25 108/56 98 Bi-pap 35 07/01/17 20:00 102 07/01/17 19:29 98 28 95 Bi-pap 07/01/17 19:24 94 26 95 Bi-pap 35 07/01/17 19:21 96 32 95 Facial 35 07/01/17 19:02 94 29 Bi-pap 35 07/01/17 17:40 90 24 96 Facial 35 07/01/17 16:00 97 07/01/17 16:00 98.2 95 20 135/71 95 Bi-pap 35 07/01/17 15:19 96 24 96 Facial 35 Intake and Output 07/01/17 07/02/17 19:00 07:00 Intake Total 200 ml Output Total 200 ml 800 ml Balance -200 ml -600 ml Intake Oral 200 ml Output Urine Total 200 ml 800 ml # Bowel Movements 1 Objective General Appearance: bedridden, obese, awake, elderly AA female on BiPAP 15/5 FiO2 35% Lines, tubes and drains: peripheral HEENT: normocephalic, atraumatic, anicteric Neck: supple Respiratory/Chest: decreased breath sounds - R>L Cardiovascular/Chest: regular, SR on tele Abdomen: normal bowel sounds, non tender, soft - obese Extremities: edema BLE with chronic lymphedema Skin Exam: coccyx st 2 POA decub ulcer Neurologic: abnormal gait, somnolent, Microbiology Date/Time Source Procedure Growth Status 07/01/17 03:15 Blood Blood Culture - Preliminary NO GROWTH AFTER 24 HOURS Resulted 07/01/17 03:10 Blood Blood Culture - Preliminary NO GROWTH AFTER 24 HOURS Resulted 07/01/17 15:30 Pleural Fluid Gram Stain - Final Resulted 07/01/17 15:30 Pleural Fluid Body Fluid Culture - Preliminary NO GROWTH Resulted 07/01/17 05:10 Nasal Nares Influenza Types A,B Antigen (STEFAN) - Final Complete Laboratory Tests 07/01/17 15:30: Body Fluid Source [Pending], Body Fluid Volume [Pending], Body Fluid Appearance Bloody, Body Fluid [place] [address], Body Fluid Total Nucleated Cells 112, Body Fluid Polynuclear WBCs (%) 5, Body Fluid Mononuclear WBCs (%) 15, Body Fluid Mesothelial Cells (%) 80, Body Fluid Total Protein [Pending], Body Fluid Lactate Dehydrogenase [Pending], Body Fluid Comment 07/01/17 18:15: Urine Color Pale yellow, Urine Appearance Clear, Urine pH 5, Urine Specific [place] 1.015, Urine Protein 2+H, Urine Glucose (UA) Negative, Urine Ketones 1+H , Urine Occult Blood 2+H, Urine Nitrite Negative, Urine Bilirubin Negative, Urine Urobilinogen Normal, Urine Leukocyte Esterase 2+H, Urine RBC 0-2, Urine WBC 0-2, Urine Squamous Epithelial Cells Occasional, Urine Amorphous Sediment FewH, Urine Bacteria Few, Urine Random Sodium 32 07/02/17 03:20: White Blood Count 5.2, Red Blood Count 2.86L, Hemoglobin 8.6L, Hematocrit 29.3L , Mean Corpuscular Volume 102H, Mean Corpuscular Hemoglobin 30.2, Mean Corpuscular Hemoglobin Concent 29.5L, Red Cell Distribution Width 14.7, Platelet Count 272, Mean Platelet Volume 7.0, Neutrophils (%) (Auto) , Lymphocytes (%) (Auto) , Monocytes (%) (Auto) , Eosinophils (%) (Auto) , Basophils (%) (Auto) , Differential Total Cells Counted 100, Neutrophils % ( Manual) 89H, Lymphocytes % (Manual) 10L, Monocytes % (Manual) 1, Eosinophils % ( Manual) 0, Basophils % (Manual) 0, Band Neutrophils 0, Platelet Estimate Adequate, Platelet Morphology Normal, Hypochromasia 1+, Anisocytosis 1+, Macrocytosis 1+, Sodium Level 146H, Potassium Level 5.3H, Chloride Level 103, Carbon Dioxide Level 40H, Anion Gap 3L, Blood Urea Nitrogen 38H, Creatinine 1.7H , Estimat Glomerular Filtration Rate , Glucose Level 133H, Hemoglobin A1c 6.8H, Uric Acid 6.0, Calcium Level 9.8, Phosphorus Level 2.6, Magnesium Level 1.7L, Iron Level 31L, Total Iron Binding Capacity 193L, Percent Iron Saturation 16, Unsaturated Iron Binding 162, Ferritin 550H, Total Bilirubin 0.3, Gamma Glutamyl Transpeptidase 67, Aspartate Amino Transf (AST/SGOT) 19, Alanine Aminotransferase (ALT/SGPT) 33, Alkaline Phosphatase 131H, Total Creatine Kinase 18L, Troponin I 0.009, Pro-B-Type Natriuretic Peptide 1622H, Total Protein 7.1, Albumin 2.4L, Globulin 4.7, Albumin/Globulin Ratio 0.5L, Triglycerides Level 66, Cholesterol Level 144, LDL Cholesterol 88, HDL Cholesterol 52, Cholesterol/HDL Ratio 2.8L, Vitamin B12 Level 793, Folate 15.1, Thyroid Stimulating Hormone (TSH) 2.299 07/02/17 08:58: Arterial Blood pH 7.540H, Arterial Blood Partial Pressure CO2 45.7H, Arterial Blood Partial Pressure O2 48.4*L, Arterial Blood HCO3 39.0H, Arterial Blood Oxygen Saturation 88.8L, Arterial Blood Base Excess 15.1, Chapito Test Positive Current Medications Medications (Trade) Dose Ordered Sig/Lakshmi Route PRN Reason Start Time Stop Time Status Last Admin Dose Admin Acetaminophen (Tylenol) 650 mg Q4H PRN RECTAL fever 07/01/17 12:00 07/31/17 11:59 Acetaminophen (Tylenol) 650 mg Q4H PRN RECTAL Mild Pain (Pain Scale 1-3) 07/01/17 13:30 07/31/17 05:29 Acetaminophen/ Hydrocodone Bitart ([place] 5/325) 1 tab Q12H PRN ORAL Pain 4-10 07/01/17 12:00 07/08/17 11:59 Acetazolamide (Diamox) 250 mg TWICE A DAY NG 07/02/17 18:00 08/01/17 17:59 Albuterol/ Ipratropium (Albuterol/ Ipratropium) 3 ml Q4H PRN HHN Shortness of Breath 07/01/17 12:00 07/06/17 11:59 Albuterol/ Ipratropium (Albuterol/ Ipratropium) 3 ml Q6HRT HHN 07/01/17 19:00 07/06/17 18:59 07/02/17 12:32 Allopurinol (Allopurinol) 300 mg DAILY ORAL 07/01/17 13:00 07/31/17 12:59 07/02/17 10:00 Aspirin (Ecotrin) 81 mg DAILY ORAL 07/01/17 13:00 07/31/17 12:59 07/02/17 10:00 Atorvastatin Calcium (Lipitor) 10 mg BEDTIME ORAL 07/01/17 21:00 07/31/17 20:59 07/01/17 20:02 Bisacodyl (Dulcolax) 10 mg DAILYPRN PRN RECTAL Constipation 07/01/17 12:00 07/31/17 11:59 Carvedilol (Coreg) 12.5 mg EVERY 12 HOURS ORAL 07/01/17 13:00 07/31/17 12:59 07/02/17 09:59 Dextrose (Dextrose 50%) STAT PRN IV Hypoglycemia 07/01/17 12:00 07/31/17 11:59 Docusate Sodium (Colace) 100 mg TID ORAL 07/01/17 18:00 07/31/17 12:59 07/02/17 12:23 Heparin Sodium (Porcine) (Heparin 5000 units/ml) 5,000 units EVERY 12 HOURS SUBQ 07/01/17 13:00 07/31/17 12:59 07/01/17 20:05 Insulin Aspart (NovoLOG) BEFORE MEALS AND HS SUBQ 07/01/17 12:30 07/31/17 12:29 07/01/17 17:38 Lansoprazole (Prevacid) 30 mg BID NG 07/02/17 18:00 07/31/17 19:59 Levofloxacin 150 ml @ 100 mls/hr Q48H IVPB 07/03/17 05:00 07/10/17 04:59 Levothyroxine Sodium (Synthroid) 112 mcg DAILY@0630 ORAL 07/02/17 06:30 07/31/17 06:29 07/02/17 05:40 Lidocaine (Lidoderm 5% PATCH) 1 patch DAILY TDERMAL 07/01/17 13:00 07/31/17 12:59 07/02/17 10:01 Methylprednisolone Sodium Succinate (Solu-MEDROL) 40 mg EVERY 6 HOURS IVP 07/01/17 12:00 07/31/17 05:59 07/02/17 12:23 Montelukast Sodium (Singulair) 10 mg DAILY ORAL 07/01/17 13:00 07/31/17 12:59 07/02/17 10:00 Nateglinide (Starlix) 60 mg THREE TIMES A DAY ORAL 07/01/17 13:00 07/31/17 08:59 07/02/17 12:23 Ondansetron HCl (Zofran) 4 mg Q6H PRN IVP Nausea & Vomiting 07/01/17 12:00 07/31/17 11:59 Polyethylene Glycol (Miralax) 17 gm DAILYPRN PRN ORAL Constipation 07/01/17 12:00 07/31/17 11:59 Quetiapine Fumarate (SEROquel) 25 mg Q6H PRN ORAL agitation 07/01/17 12:00 07/31/17 11:59 [facility]Meron NP Jul 02, 2017 14:29
--- NOTE | 2017-07-02 15:00 | General Progress Note ---
Assessment/Plan Problem List: (1) Acute respiratory failure with hypoxia and hypercapnia ICD Codes: J96.01 - Acute respiratory failure with hypoxia; J96.02 - Acute respiratory failure with hypercapnia SNOMED: 11917438, 94829009, 401428501 (2) Acute toxic metabolic encephalopathy (3) COPD with acute exacerbation ICD Codes: J44.1 - Chronic obstructive pulmonary disease with (acute) exacerbation SNOMED: 892066177 (4) CKD (chronic kidney disease) ICD Codes: N18.9 - Chronic kidney disease, unspecified SNOMED: 578747664 (5) Hyperkalemia ICD Codes: E87.5 - Hyperkalemia SNOMED: 51121646 (6) DM2 (diabetes mellitus, type 2) Assessment & Plan: A1C 6.8 ICD Codes: E11.9 - Type 2 diabetes mellitus without complications SNOMED: 10911590 (7) HLD (hyperlipidemia) ICD Codes: E78.5 - Hyperlipidemia, unspecified SNOMED: 58129068 (8) HTN (hypertension) ICD Codes: I10 - Essential (primary) hypertension SNOMED: 44262649 (9) Hypothyroidism ICD Codes: E03.9 - Hypothyroidism, unspecified SNOMED: 18164793 Status: stable Assessment/Plan Pulm consulted Cont on BiPAP 15/5 qHS and PRN, titrate FiO2 to 88-92% Trend ABG Cont Nebs ATC and PRN Cont solu-medrol per pulm: currently 40mg IV q8h, wean as tolerated s/p thoracentesis w/ 1L removed from R side F/u pleural fluid studies ID consulted Empiric levaquin for now F/u cultures Renal consulted Lasix 20mg IV fro volume overload and hyperkalemia Diamox per renal for metabolic alkalosis s/p kayexylate on 07/01/17 for hyperkalemia Trend BMP closely Cont SNF meds Pain control, bowel regimen Supportive care DVT Prophylaxis: HSQ Code Status: Full Hospital Classification Declaration: Based on this initial evaluation, and depending on the patient's clinical course, I anticipate that this patient will require hospitalization for 2-3 days for acute COPD exacerbation and close respiratory/hemodynamic monitoring. Disposition: Once the patient is stable to leave the hospital, I anticipate the patient will likely be discharged to the following environment: back to SNF Discussed with patient/family, nursing staff, SW/CM, pulm, ID regarding clinical status, treatment course, and disposition planning. Time of note may not reflect time of encounter. Subjective Date patient seen: Jul 02, 2017 Time patient seen: 15:00 ROS Limited/Unobtainable: Yes Constitutional: Reports: malaise, weakness HEENT: Reports: no symptoms Cardiovascular: Reports: no symptoms Respiratory: Reports: shortness of breath Gastrointestinal/Abdominal: Reports: no symptoms Allergies: Coded Allergies: IODINE (Verified Allergy, Mild, 08/17/08) Uncoded Allergies: CONTRAST MEDIA (Allergy, Mild, 08/17/08) Subjective No acute o/n events s/p thoracentesis yesterday w/ 1L removed Off BiPAP today, ABG w/ improved CO2 to 40s Pt more awake, alert. SOB improved. Denies pain, f/c, n/v Objective Last 24 Hour Vital Signs Date Time Temp Pulse Resp B/P (MAP) Pulse Ox O2 Delivery O2 Flow Rate FiO2 07/02/17 12:43 87 22 98 Nasal Cannula 3.0 32 07/02/17 12:33 85 22 95 Nasal Cannula 3.0 32 07/02/17 12:00 97.8 98 19 133/67 98 Nasal Cannula 3.0 07/02/17 11:48 80 07/02/17 09:59 92 139/62 07/02/17 09:21 92 Nasal Cannula 2.0 28 07/02/17 09:21 Nasal Cannula 2.0 28 07/02/17 08:38 29 Facial 35 07/02/17 08:00 98.0 92 19 139/62 07/02/17 08:00 86 07/02/17 07:22 Bi-pap 35 07/02/17 07:22 Bi-pap 35 07/02/18 07:21 89 27 96 Facial 35 07/02/17 05:13 96 27 95 Facial 35 07/02/17 04:00 82 07/02/17 04:00 98.8 93 27 128/62 100 Bi-pap 35 07/02/17 03:07 89 28 96 Facial 35 07/02/ 01:09 91 26 96 Bi-pap 07/02/17 01:02 96 26 96 Bi-pap 35 07/02/ 01:00 98 26 94 Facial 35 07/02/17 00:00 92 07/02/17 00:00 99.0 101 26 135/69 98 Bi-pap 35 07/01/17 23:05 91 24 96 Facial 35 07/01/17 21:02 93 28 96 Facial 35 07/01/17 20:01 105 108/56 07/01/17 20:00 99.2 105 25 108/56 98 Bi-pap 35 07/01/17 20:00 102 07/01/17 19:29 98 28 95 Bi-pap 07/01/17 19:24 94 26 95 Bi-pap 35 07/01/17 19:21 96 32 95 Facial 35 07/01/17 19:02 94 29 Bi-pap 35 07/01/17 17:40 90 24 96 Facial 35 07/01/17 16:00 97 07/01/17 16:00 98.2 95 20 135/71 95 Bi-pap 35 07/01/17 15:19 96 24 96 Facial 35 Intake and Output 07/01/17 07/02/17 19:00 07:00 Intake Total 200 ml Output Total 200 ml 800 ml Balance -200 ml -600 ml Intake Oral 200 ml Output Urine Total 200 ml 800 ml # Bowel Movements 1 Laboratory Tests 07/01/17 15:30: Body Fluid Source [Pending], Body Fluid Volume [Pending], Body Fluid Appearance Bloody, Body Fluid RBC 17866, Body Fluid Total Nucleated Cells 112, Body Fluid Polynuclear WBCs (%) 5, Body Fluid Mononuclear WBCs (%) 15, Body Fluid Mesothelial Cells (%) 80, Body Fluid Total Protein [Pending], Body Fluid Lactate Dehydrogenase [Pending], Body Fluid Comment 07/01/17 18:15: Urine Color Pale yellow, Urine Appearance Clear, Urine pH 5, Urine Specific [place] 1.015, Urine Protein 2+H, Urine Glucose (UA) Negative, Urine Ketones 1+H , Urine Occult Blood 2+H, Urine Nitrite Negative, Urine Bilirubin Negative, Urine Urobilinogen Normal, Urine Leukocyte Esterase 2+H, Urine RBC 0-2, Urine WBC 0-2, Urine Squamous Epithelial Cells Occasional, Urine Amorphous Sediment FewH, Urine Bacteria Few, Urine Random Sodium 32 07/02/17 03:20: White Blood Count 5.2, Red Blood Count 2.86L, Hemoglobin 8.6L, Hematocrit 29.3L , Mean Corpuscular Volume 102H, Mean Corpuscular Hemoglobin 30.2, Mean Corpuscular Hemoglobin Concent 29.5L, Red Cell Distribution Width 14.7, Platelet Count 272, Mean Platelet Volume 7.0, Neutrophils (%) (Auto) , Lymphocytes (%) (Auto) , Monocytes (%) (Auto) , Eosinophils (%) (Auto) , Basophils (%) (Auto) , Differential Total Cells Counted 100, Neutrophils % ( Manual) 89H, Lymphocytes % (Manual) 10L, Monocytes % (Manual) 1, Eosinophils % ( Manual) 0, Basophils % (Manual) 0, Band Neutrophils 0, Platelet Estimate Adequate, Platelet Morphology Normal, Hypochromasia 1+, Anisocytosis 1+, Macrocytosis 1+, Sodium Level 146H, Potassium Level 5.3H, Chloride Level 103, Carbon Dioxide Level 40H, Anion Gap 3L, Blood Urea Nitrogen 38H, Creatinine 1.7H , Estimat Glomerular Filtration Rate , Glucose Level 133H, Hemoglobin A1c 6.8H, Uric Acid 6.0, Calcium Level 9.8, Phosphorus Level 2.6, Magnesium Level 1.7L, Iron Level 31L, Total Iron Binding Capacity 193L, Percent Iron Saturation 16, Unsaturated Iron Binding 162, Ferritin 550H, Total Bilirubin 0.3, Gamma Glutamyl Transpeptidase 67, Aspartate Amino Transf (AST/SGOT) 19, Alanine Aminotransferase (ALT/SGPT) 33, Alkaline Phosphatase 131H, Total Creatine Kinase 18L, Troponin I 0.009, Pro-B-Type Natriuretic Peptide 1622H, Total Protein 7.1, Albumin 2.4L, Globulin 4.7, Albumin/Globulin Ratio 0.5L, Triglycerides Level 66, Cholesterol Level 144, LDL Cholesterol 88, HDL Cholesterol 52, Cholesterol/HDL Ratio 2.8L, Vitamin B12 Level 793, Folate 15.1, Thyroid Stimulating Hormone (TSH) 2.299 07/02/17 08:58: Arterial Blood pH 7.540H, Arterial Blood Partial Pressure CO2 45.7H, Arterial Blood Partial Pressure O2 48.4*L, Arterial Blood HCO3 39.0H, Arterial Blood Oxygen Saturation 88.8L, Arterial Blood Base Excess 15.1, Chapito Test Positive Height (Feet): 5 Height (Inches): 8.00 Weight (Pounds): 200 Objective General: alert, cooperative, no distress, appears stated age, obese Head: normocephalic, without obvious abnormality, atraumatic Eyes: conjunctivae/corneas clear. PERRL, EOM's intact Throat: lips, mucosa, and tongue normal. MMM Neck: supple, symmetrical, trachea midline, and no JVD Lungs: +mild wheezing b/l Heart: regular rate and rhythm, S1, S2 normal, no murmur, click, rub or gallop Abdomen: soft, non-tender, non-distended, bowel sounds normal; no masses or organomegaly Extremities: extremities normal, atraumatic, no cyanosis or edema Pulses: 2+ and symmetric Skin: skin color, texture, turgor normal; no rashes or lesions Neurologic: grossly normal, no focal deficits Luciana Velázquez M.D. Jul 02, 2017 15:00
[2017-07-02 16:00] VITALS: BP 135/69
--- NOTE | 2017-07-02 16:00 | Consultation ---
DATE OF CONSULTATION: 07/02/2017 INFECTIOUS DISEASES CONSULTATION CONSULTING PHYSICIAN: Vinicius Brower M.D. REFERRING PHYSICIAN: Beatriz Fields M.D. and Luciana Velázquez M.D. REASON FOR CONSULTATION: Evaluation of the patient for pneumonia and COPD exacerbation. HISTORY OF PRESENT ILLNESS: The patient is an 87-year-old female with multiple medical problems as listed below, who was admitted to this medical center due to shortness of breath. The patient was found to have large pleural effusion. Infectious Diseases consultation has been requested for evaluation of the patient's antibiotic management for possible pneumonia and COPD exacerbation. The patient is confused, not able to provide detailed information. Information is gathered through the chart and speaking to the staff. REVIEW OF SYSTEMS: Limited due to the above and the patient's confusion. PAST MEDICAL HISTORY: 1. History of sepsis. 2. History of large pleural effusion. 3. History of acute kidney injury. 4. Hypertension. 5. Diabetes. 6. Morbid obesity. 7. Dementia. MEDICATIONS: Levaquin. ALLERGIES: No allergies to antibiotics. FAMILY HISTORY: Not available. PHYSICAL EXAMINATION: VITAL SIGNS: Temperature 98 degrees, pulse 86, and respiratory rate 18. HEENT: No pale conjunctivae. No icterus. NECK: No lymphadenopathy. CHEST: Coarse breathing sounds. Mild wheezes at bases of both lungs. Decreased right lower lobe breathing sounds. ABDOMEN: Soft. EXTREMITIES: No cyanosis at this time. NEUROLOGIC: Awake and confused. LABORATORY AND DIAGNOSTIC DATA: White blood cells 5, hemoglobin 8, and platelets 272. UA unremarkable. Pleural effusion resulted in 96,000 red blood cells, 112 white blood cells, LDH is pending, many mesothelial clumps, protein is pending. BUN 38 and creatinine 1.7. ALT and AST unremarkable. Alkaline phosphatase 131. Body fluid culture is pending. Influenza A and B test negative. Blood culture no growth. Abdominal x-ray is unremarkable. Chest x-ray showed improved right pleural effusion post thoracocentesis. ASSESSMENT: The patient is an 87-year-old female with, 1. Chronic obstructive pulmonary disease exacerbation. 2. Right-sided pleural effusion, status post tap, no evidence of parapneumonic versus empyema. 3. Afebrile. 4. Normal white blood cells. 5. Influenza A/B screen negative. PLAN: 1. We will continue the patient on Levaquin day #2/5. 2. Monitor CBC. 3. Monitor BMP. 4. Monitor cultures. 5. Monitor chest x-ray. 6. Continue respiratory support. 7. Based on the patient's clinical course and labs, we will do further recommendation. Thank you for this consultation. I will follow the patient during this admission. Vinicius Brower M.D. DR: MAYA JOB#: [id number] CC:
[2017-07-02 20:00] VITALS: BP 144/71
[2017-07-03] VITALS (7 sets, daily range): BP systolic 108–135; BP diastolic 55–74
[2017-07-03] MEDS: Albuterol/Ipratropium 3ml neb HHN SCH ×4 (01:10→18:58)
[2017-07-03] MEDS: NovoLOG Insulin Flexpen SUBQ SCH ×4 (05:45→21:00)
[2017-07-03] MEDS ORDERED: Solu-MEDROL 40mg Inj IVP SCH (06:00)
[2017-07-03 08:56] LABS: HEMOGLOBIN 8.2 G/DL (12.0-16.0); MEAN CORPUSCULAR VOLUME 99 FL (80-99); PLATELET COUNT 223 K/UL (150-450); RED BLOOD COUNT 2.71 M/UL (4.20-5.40); RED CELL DISTRIBUTION WIDTH 14.1 % (11.6-14.8); WHITE BLOOD COUNT 7.2 K/UL (4.8-10.8)
[2017-07-03] MEDS: Heparin 5000 units/ml inj SUBQ SCH ×2 (09:03→20:47)
[2017-07-03] MEDS: Montelukast 10mg tablet ORAL SCH (09:04)
[2017-07-03] MEDS: Nateglinide 60mg tab ORAL SCH ×3 (09:04→17:04)
[2017-07-03] MEDS: Docusate 100mg cap ORAL SCH ×3 (09:05→17:05)
[2017-07-03] MEDS: Aspirin EC 81mg tab ORAL SCH (09:05)
[2017-07-03] MEDS: Carvedilol 12.5mg tab ORAL SCH ×2 (09:05→20:51)
[2017-07-03 09:22] LABS: ALANINE AMINOTRANSFERASE 25 U/L (12-78); ALBUMIN 2.4 G/DL (3.4-5.0); ALBUMIN/GLOBULIN RATIO 0.5 (1.0-2.7); ALKALINE PHOSPHATASE 109 U/L (46-116); ANION GAP 4 mmol/L (5-15); ASPARTATE AMINO TRANSFERASE 20 U/L (15-37); BILIRUBIN,TOTAL 0.3 MG/DL (0.2-1.0); BLOOD UREA NITROGEN 41 mg/dL (7-18); CARBON DIOXIDE 39 MMOL/L (21-32); CHLORIDE 100 MMOL/L (98-107); CREATININE 1.9 MG/DL (0.55-1.30); PHOSPHORUS 3.2 MG/DL (2.5-4.9); POTASSIUM 3.4 MMOL/L (3.5-5.1); SODIUM 143 MMOL/L (136-145)
--- NOTE | 2017-07-03 10:40 | Pulmonology Progress Note ---
Assessment/Plan Assessment/Plan ASSESSMENT acute hypoxemic hypercapnic RF requiring BiPAP -resolved large R pleural effusion s/p thoracentesis-1L acute COPD exacerbation moderate pulmonary HTN acute renal failure on CKD hyperkalemia DM HTN Hx of CVA Hyperlipidemia Hypothyroidism anemia sacral st 2 decub ulcer, POA PLAN OF CARE NITHIN off Bipap, titrate O2 to keep sat above 92% BiPAP prn pulmonary toilet ATC and PRN conservative measures until tap , - all done s/p thoracentesis 1L CXR post tap-no PNT pleural fluid cx prel negative , pleural fluid analysis noted , noninfectious hypercapnia resolved started on low dose Diamox and s/p Lasix x 1 as pr nephro IV steroids and taper empiric abx sputum cx fup with CXR in am ID follows last ECHO with pEF, and evidence of moderate pulmonary HTN likely due to COPD ECHO venous Duplex BLE on ASA, BB, LALO , statin BP, BS management TSH WNL continue current dose of levothyroxine for now monitor renal parameters, lytes, avoid nephrotoxic, nephro follows ARF likely due to diuretic use, on hold now , on CKD renal US DVT prophylaxis pain management bowel regimen monitor HH, transfuse prn BS management , HgA1c WNL wound care as per wound nurse recs transfer to tele case discussed and evaluated by supervising physician Subjective Allergies: Coded Allergies: IODINE (Verified Allergy, Mild, 08/17/08) Uncoded Allergies: CONTRAST MEDIA (Allergy, Mild, 08/17/08) Subjective on O2 via NC sat stable more awake and responsive Objective Last 24 Hour Vital Signs Date Time Temp Pulse Resp B/P (MAP) Pulse Ox O2 Delivery O2 Flow Rate FiO2 07/03/17 09:05 95 111/65 07/03/17 08:00 98.2 95 19 111/65 100 Nasal Cannula 3.0 07/03/17 07:47 100 07/03/17 06:44 78 20 98 Nasal Cannula 3.0 32 07/03/17 06:33 Nasal Cannula 3.0 32 07/03/17 06:33 93 Nasal Cannula 3.0 32 07/03/17 06:33 77 20 94 Nasal Cannula 3.0 32 07/03/17 04:05 82 18 98 Facial 35 07/03/17 04:00 65 07/03/17 04:00 98.5 95 24 135/74 95 Nasal Cannula 3.0 07/03/17 01:24 82 18 97 Facial 30.0 35 07/03/17 01:22 82 18 97 Bi-pap 30 07/03/17 01:09 30 07/03/17 01:09 82 18 97 Bi-pap 30.0 30 07/03/17 00:19 82 18 97 Facial 35 07/03/17 00:00 98.6 97 24 119/55 97 Nasal Cannula 3.0 07/03/17 00:00 79 07/02/17 21:09 82 144/71 07/02/17 20:15 82 18 97 Nasal Cannula 3.0 32 07/02/17 20:02 82 18 97 Nasal Cannula 3.0 32 07/02/17 20:02 32 07/02/17 20:02 Nasal Cannula 3.0 32 07/02/17 20:01 97 Nasal Cannula 3.0 32 07/02/17 20:00 99.1 95 24 144/71 97 Nasal Cannula 3.0 07/02/17 20:00 102 07/02/17 16:00 82 07/02/17 16:00 98.9 90 18 135/69 97 Nasal Cannula 3.0 07/02/17 12:43 87 22 98 Nasal Cannula 3.0 32 07/02/17 12:33 85 22 95 Nasal Cannula 3.0 32 07/02/17 12:00 97.8 98 19 133/67 98 Nasal Cannula 3.0 07/02/17 11:48 80 Intake and Output 07/02/17 07/03/17 19:00 07:00 Intake Total 700 ml 200 ml Output Total 1000 ml 1000 ml Balance -300 ml -800 ml Intake Oral 700 ml 200 ml Output Urine Total 1000 ml 1000 ml # Bowel Movements 2 Objective General Appearance: bedridden, obese, awake, responsive, elderly AA female Lines, tubes and drains: peripheral HEENT: normocephalic, atraumatic, anicteric Neck: supple Respiratory/Chest : CTAB with decreased air exchange Cardiovascular/Chest: regular, SR on tele Abdomen: normal bowel sounds, non tender, soft , obese Extremities: edema BLE with chronic lymphedema Skin Exam: coccyx st 2 POA decub ulcer Neurologic: abnormal gait, somnolent, Microbiology Date/Time Source Procedure Growth Status 07/01/17 03:15 Blood Blood Culture - Preliminary NO GROWTH AFTER 48 HOURS Resulted 07/01/17 03:10 Blood Blood Culture - Preliminary NO GROWTH AFTER 48 HOURS Resulted 07/01/17 15:30 Pleural Fluid Gram Stain - Final Resulted 07/01/17 15:30 Pleural Fluid Body Fluid Culture - Preliminary NO GROWTH Resulted 07/01/17 05:26 Nose MRSA Culture - Final NO METHICILLIN RESISTANT STAPH AUREUS... Complete 07/01/17 05:10 Nasal Nares Influenza Types A,B Antigen (STEFAN) - Final Complete Laboratory Tests 07/03/17 08:30: White Blood Count 7.2, Red Blood Count 2.71L, Hemoglobin 8.2L, Hematocrit 27.0L , Mean Corpuscular Volume 99, Mean Corpuscular Hemoglobin 30.1, Mean Corpuscular Hemoglobin Concent 30.3L, Red Cell Distribution Width 14.1, Platelet Count 223, Mean Platelet Volume 6.9, Neutrophils (%) (Auto) , Lymphocytes (%) (Auto) , Monocytes (%) (Auto) , Eosinophils (%) (Auto) , Basophils (%) (Auto) , Differential Total Cells Counted 100, Neutrophils % ( Manual) 90H, Lymphocytes % (Manual) 8L, Monocytes % (Manual) 2, Eosinophils % ( Manual) 0, Basophils % (Manual) 0, Band Neutrophils 0, Platelet Estimate Adequate, Platelet Morphology Normal, Hypochromasia 1+, Sodium Level 143, Potassium Level 3.4L, Chloride Level 100, Carbon Dioxide Level 39H, Anion Gap 4L , Blood Urea Nitrogen 41H, Creatinine 1.9H, Estimat Glomerular Filtration Rate , Glucose Level 205H, Uric Acid 5.5, Calcium Level 9.0, Phosphorus Level 3.2, Magnesium Level 1.7L, Total Bilirubin 0.3, Aspartate Amino Transf (AST/SGOT) 20 , Alanine Aminotransferase (ALT/SGPT) 25, Alkaline Phosphatase 109, Pro-B-Type Natriuretic Peptide 2109H, Total Protein 6.8, Albumin 2.4L, Globulin 4.4, Albumin/Globulin Ratio 0.5L Current Medications Medications (Trade) Dose Ordered Sig/Lakshmi Route PRN Reason Start Time Stop Time Status Last Admin Dose Admin Acetaminophen (Tylenol) 650 mg Q4H PRN RECTAL fever 07/01/17 12:00 07/31/17 11:59 Acetaminophen (Tylenol) 650 mg Q4H PRN RECTAL Mild Pain (Pain Scale 1-3) 2/16/18 13:30 07/31/17 05:29 Acetaminophen/ Hydrocodone Bitart (Blanchard 5/325) 1 tab Q12H PRN ORAL Pain 4-10 07/01/17 12:00 07/08/17 11:59 Acetazolamide (Diamox) 250 mg TWICE A DAY ORAL 07/02/17 18:00 08/01/17 17:59 07/03/17 09:05 Albuterol/ Ipratropium (Albuterol/ Ipratropium) 3 ml Q4H PRN HHN Shortness of Breath 07/01/17 12:00 07/06/17 11:59 Albuterol/ Ipratropium (Albuterol/ Ipratropium) 3 ml Q6HRT HHN 07/01/17 19:00 07/06/17 18:59 07/03/17 06:33 Allopurinol (Allopurinol) 300 mg DAILY ORAL 07/01/17 13:00 07/31/17 12:59 07/03/17 09:04 Aspirin (Ecotrin) 81 mg DAILY ORAL 07/01/17 13:00 07/31/17 12:59 07/03/17 09:05 Atorvastatin Calcium (Lipitor) 10 mg BEDTIME ORAL 07/01/17 21:00 07/31/17 20:59 07/02/17 21:09 Bisacodyl (Dulcolax) 10 mg DAILYPRN PRN RECTAL Constipation 07/01/17 12:00 07/31/17 11:59 Carvedilol (Coreg) 12.5 mg EVERY 12 HOURS ORAL 07/01/17 13:00 07/31/17 12:59 07/03/17 09:05 Dextrose (Dextrose 50%) STAT PRN IV Hypoglycemia 07/01/17 12:00 07/31/17 11:59 Docusate Sodium (Colace) 100 mg TID ORAL 07/01/17 18:00 07/31/17 12:59 07/03/17 09:05 Heparin Sodium (Porcine) (Heparin 5000 units/ml) 5,000 units EVERY 12 HOURS SUBQ 07/01/17 13:00 07/31/17 12:59 07/03/17 09:03 Insulin Aspart (NovoLOG) BEFORE MEALS AND HS SUBQ 07/01/17 12:30 07/31/17 12:29 07/03/17 05:45 Lansoprazole (Prevacid) 30 mg BID ORAL 07/02/17 18:00 08/01/17 17:59 07/03/17 09:05 Levofloxacin 150 ml @ 100 mls/hr Q48H IVPB 07/03/17 05:00 07/10/17 04:59 07/03/17 05:23 Levothyroxine Sodium (Synthroid) 112 mcg DAILY@0630 ORAL 07/02/17 06:30 07/31/17 06:29 07/03/17 05:36 Lidocaine (Lidoderm 5% PATCH) 1 patch DAILY TDERMAL 07/01/17 13:00 07/31/17 12:59 07/03/17 09:04 Methylprednisolone Sodium Succinate (Solu-MEDROL) 40 mg EVERY 8 HOURS IVP 07/03/17 06:00 07/31/17 05:59 07/03/17 05:24 Montelukast Sodium (Singulair) 10 mg DAILY ORAL 07/01/17 13:00 07/31/17 12:59 07/03/17 09:04 Nateglinide (Starlix) 60 mg THREE TIMES A DAY ORAL 07/01/17 13:00 07/31/17 08:59 07/03/17 09:04 Ondansetron HCl (Zofran) 4 mg Q6H PRN IVP Nausea & Vomiting 07/01/17 12:00 07/31/17 11:59 Polyethylene Glycol (Miralax) 17 gm DAILYPRN PRN ORAL Constipation 07/01/17 12:00 07/31/17 11:59 Quetiapine Fumarate (SEROquel) 25 mg Q6H PRN ORAL agitation 07/01/17 12:00 07/31/17 11:59 Meron Parekh NP ([facility]) Jul 03, 2017 10:40
--- NOTE | 2017-07-03 11:26 | Nephrology Progress Note ---
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 Acute component HyperKalemia Anemia HypoThyroidism DM Respiratory failure and Hypoxia . Plan Low dose Lasix and Diamox Mendez UA : Proteinuria ++ U Na Anemia goldman 2D Echo Pending Kidney GONZALES Pending monitor renal parameters Optimize pulmonary status taper steroids as possible per orders Subjective ROS Limited/Unobtainable: No Constitutional: Reports: malaise Objective Objective Last 24 Hour Vital Signs Date Time Temp Pulse Resp B/P (MAP) Pulse Ox O2 Delivery O2 Flow Rate FiO2 07/03/17 09:05 95 111/65 07/03/17 08:00 98.2 95 19 111/65 100 Nasal Cannula 3.0 07/03/17 07:47 100 07/03/17 06:44 78 20 98 Nasal Cannula 3.0 32 07/03/17 06:33 Nasal Cannula 3.0 32 07/03/17 06:33 93 Nasal Cannula 3.0 32 07/03/17 06:33 77 20 94 Nasal Cannula 3.0 32 07/03/17 04:05 82 18 98 Facial 35 07/03/17 04:00 65 07/03/17 04:00 98.5 95 24 135/74 95 Nasal Cannula 3.0 07/03/17 01:24 82 18 97 Facial 30.0 35 07/03/17 01:22 82 18 97 Bi-pap 30 07/03/17 01:09 30 07/03/17 01:09 82 18 97 Bi-pap 30.0 30 07/03/17 00:19 82 18 97 Facial 35 07/03/17 00:00 98.6 97 24 119/55 97 Nasal Cannula 3.0 07/03/17 00:00 79 07/02/17 21:09 82 144/71 07/02/17 20:15 82 18 97 Nasal Cannula 3.0 32 07/02/17 20:02 82 18 97 Nasal Cannula 3.0 32 07/02/17 20:02 32 07/02/17 20:02 Nasal Cannula 3.0 32 07/02/17 20:01 97 Nasal Cannula 3.0 32 07/02/17 20:00 99.1 95 24 144/71 97 Nasal Cannula 3.0 07/02/17 20:00 102 07/02/17 16:00 82 07/02/17 16:00 98.9 90 18 135/69 97 Nasal Cannula 3.0 07/02/17 12:43 87 22 98 Nasal Cannula 3.0 32 07/02/17 12:33 85 22 95 Nasal Cannula 3.0 32 07/02/17 12:00 97.8 98 19 133/67 98 Nasal Cannula 3.0 07/02/17 11:48 80 Intake and Output 07/02/17 07/03/17 19:00 07:00 Intake Total 700 ml 200 ml Output Total 1000 ml 1000 ml Balance -300 ml -800 ml Intake Oral 700 ml 200 ml Output Urine Total 1000 ml 1000 ml # Bowel Movements 2 Laboratory Tests 07/03/17 08:30: White Blood Count 7.2, Red Blood Count 2.71L, Hemoglobin 8.2L, Hematocrit 27.0L , Mean Corpuscular Volume 99, Mean Corpuscular Hemoglobin 30.1, Mean Corpuscular Hemoglobin Concent 30.3L, Red Cell Distribution Width 14.1, Platelet Count 223, Mean Platelet Volume 6.9, Neutrophils (%) (Auto) , Lymphocytes (%) (Auto) , Monocytes (%) (Auto) , Eosinophils (%) (Auto) , Basophils (%) (Auto) , Differential Total Cells Counted 100, Neutrophils % ( Manual) 90H, Lymphocytes % (Manual) 8L, Monocytes % (Manual) 2, Eosinophils % ( Manual) 0, Basophils % (Manual) 0, Band Neutrophils 0, Platelet Estimate Adequate, Platelet Morphology Normal, Hypochromasia 1+, Sodium Level 143, Potassium Level 3.4L, Chloride Level 100, Carbon Dioxide Level 39H, Anion Gap 4L , Blood Urea Nitrogen 41H, Creatinine 1.9H, Estimat Glomerular Filtration Rate , Glucose Level 205H, Uric Acid 5.5, Calcium Level 9.0, Phosphorus Level 3.2, Magnesium Level 1.7L, Total Bilirubin 0.3, Aspartate Amino Transf (AST/SGOT) 20 , Alanine Aminotransferase (ALT/SGPT) 25, Alkaline Phosphatase 109, Pro-B-Type Natriuretic Peptide 2109H, Total Protein 6.8, Albumin 2.4L, Globulin 4.4, Albumin/Globulin Ratio 0.5L Height (Feet): 5 Height (Inches): 8.00 Weight (Pounds): 172 General Appearance: no apparent distress, other - breathing much easier EENT: other - on cannula Cardiovascular: tachycardia Respiratory/Chest: decreased breath sounds Abdomen: soft Objective no other changes JD WOO Jul 03, 2017 11:26
[2017-07-03 11:54] LABS: APPEARANCE,URINE SLIGHTLY CLOUDY; BILIRUBIN, URINE NEGATIVE (NEGATIVE); COLOR,URINE PALE YELLOW; GLUCOSE, URINE (UA) NEGATIVE (NEGATIVE); KETONES,URINE NEGATIVE (NEGATIVE); LEUKOCYTE ESTERASE ,URINE 3+ (NEGATIVE); NITRITE,URINE NEGATIVE (NEGATIVE); PH,URINE 8 (4.5-8.0); PROTEIN,URINE 2+ (NEGATIVE); UROBILINOGEN,URINE NORMAL MG/DL (0.0-1.0)
--- NOTE | 2017-07-03 21:43 | General Progress Note ---
Assessment/Plan Problem List: (1) Acute respiratory failure with hypoxia and hypercapnia ICD Codes: J96.01 - Acute respiratory failure with hypoxia; J96.02 - Acute respiratory failure with hypercapnia SNOMED: 19810547, 23344874, 683216056 (2) Acute toxic metabolic encephalopathy (3) COPD with acute exacerbation ICD Codes: J44.1 - Chronic obstructive pulmonary disease with (acute) exacerbation SNOMED: 534314487 (4) JERILYN on CKD (5) Hyperkalemia ICD Codes: E87.5 - Hyperkalemia SNOMED: 66012274 (6) DM2 (diabetes mellitus, type 2) Assessment & Plan: A1C 6.8 ICD Codes: E11.9 - Type 2 diabetes mellitus without complications SNOMED: 64064492 (7) HLD (hyperlipidemia) ICD Codes: E78.5 - Hyperlipidemia, unspecified SNOMED: 52358996 (8) HTN (hypertension) ICD Codes: I10 - Essential (primary) hypertension SNOMED: 20712035 (9) Hypothyroidism ICD Codes: E03.9 - Hypothyroidism, unspecified SNOMED: 65880570 Status: stable Assessment/Plan Pulm consulted Cont on BiPAP 15/5 qHS and PRN, titrate FiO2 to SpO2 88-92% Trend ABG Cont Nebs ATC and PRN Cont solu-medrol per pulm: decr to 40mg IV q12h, wean as tolerated s/p thoracentesis w/ 1L removed from R side F/u pleural fluid studies ID consulted Empiric levaquin for now F/u cultures Renal consulted LasixIV PRN for volume overload and hyperkalemia per renal Diamox per renal for metabolic alkalosis s/p kayexylate on 07/01/17 for hyperkalemia Trend BMP closely Cont SNF meds Pain control, bowel regimen Supportive care DVT Prophylaxis: HSQ Code Status: Full Hospital Classification Declaration: Based on this initial evaluation, and depending on the patient's clinical course, I anticipate that this patient will require hospitalization for 1-2 days for acute COPD exacerbation and close respiratory/hemodynamic monitoring. Disposition: Once the patient is stable to leave the hospital, I anticipate the patient will likely be discharged to the following environment: back to SNF Discussed with patient/family, nursing staff, SW/CM, pulm, ID regarding clinical status, treatment course, and disposition planning. Time of note may not reflect time of encounter. Subjective Date patient seen: Jul 03, 2017 Time patient seen: 15:20 ROS Limited/Unobtainable: No Constitutional: Reports: no symptoms HEENT: Reports: no symptoms Cardiovascular: Reports: no symptoms Respiratory: Reports: cough, shortness of breath Gastrointestinal/Abdominal: Reports: no symptoms Genitourinary: Reports: no symptoms Neurologic/Psychiatric: Reports: no symptoms Endocrine: Reports: no symptoms Allergies: Coded Allergies: IODINE (Verified Allergy, Mild, 08/17/08) Uncoded Allergies: CONTRAST MEDIA (Allergy, Mild, 08/17/08) All Systems: reviewed and negative except above Subjective No acute o/n events Used BiPAP last night, now doing well on NC Pt more awake, alert. SOB improved. Denies pain, f/c, n/v Objective Last 24 Hour Vital Signs Date Time Temp Pulse Resp B/P (MAP) Pulse Ox O2 Delivery O2 Flow Rate FiO2 07/03/17 20:51 84 115/60 07/03/17 20:00 98.0 88 19 108/64 95 Nasal Cannula 3.0 07/03/17 19:06 83 19 96 Nasal Cannula 3.0 32 07/03/17 18:57 Nasal Cannula 3.0 32 07/03/17 18:57 83 19 96 Nasal Cannula 3.0 32 07/03/17 18:57 32 07/03/17 18:56 96 Nasal Cannula 3.0 32 07/03/17 16:00 86 07/03/17 16:00 98.8 85 19 108/57 96 Nasal Cannula 3.0 07/03/17 15:42 97 07/03/17 12:47 89 22 Nasal Cannula 3.0 32 07/03/17 12:36 87 22 96 Nasal Cannula 3.0 32 07/03/17 11:54 75 07/03/17 11:51 99.0 83 19 114/61 96 Nasal Cannula 3.0 07/03/17 09:05 95 111/65 07/03/17 08:00 98.2 95 19 111/65 100 Nasal Cannula 3.0 07/03/17 07:47 100 07/03/17 06:44 78 20 98 Nasal Cannula 3.0 32 07/03/17 06:33 Nasal Cannula 3.0 32 07/03/17 06:33 93 Nasal Cannula 3.0 32 07/03/17 06:33 77 20 94 Nasal Cannula 3.0 32 07/03/17 04:05 82 18 98 Facial 35 07/03/17 04:00 65 07/03/17 04:00 98.5 95 24 135/74 95 Nasal Cannula 3.0 07/03/17 01:24 82 18 97 Facial 30.0 35 07/03/17 01:22 82 18 97 Bi-pap 30 07/03/17 01:09 30 07/03/17 01:09 82 18 97 Bi-pap 30.0 30 07/03/17 00:19 82 18 97 Facial 35 07/03/17 00:00 98.6 97 24 119/55 97 Nasal Cannula 3.0 07/03/17 00:00 79 07/02/17 21:09 82 144/71 Intake and Output 07/02/17 07/03/17 19:00 07:00 Intake Total 700 ml 200 ml Output Total 1000 ml 1000 ml Balance -300 ml -800 ml Intake Oral 700 ml 200 ml Output Urine Total 1000 ml 1000 ml # Bowel Movements 2 Laboratory Tests 07/03/17 08:30: White Blood Count 7.2, Red Blood Count 2.71L, Hemoglobin 8.2L, Hematocrit 27.0L , Mean Corpuscular Volume 99, Mean Corpuscular Hemoglobin 30.1, Mean Corpuscular Hemoglobin Concent 30.3L, Red Cell Distribution Width 14.1, Platelet Count 223, Mean Platelet Volume 6.9, Neutrophils (%) (Auto) , Lymphocytes (%) (Auto) , Monocytes (%) (Auto) , Eosinophils (%) (Auto) , Basophils (%) (Auto) , Differential Total Cells Counted 100, Neutrophils % ( Manual) 90H, Lymphocytes % (Manual) 8L, Monocytes % (Manual) 2, Eosinophils % ( Manual) 0, Basophils % (Manual) 0, Band Neutrophils 0, Platelet Estimate Adequate, Platelet Morphology Normal, Hypochromasia 1+, Sodium Level 143, Potassium Level 3.4L, Chloride Level 100, Carbon Dioxide Level 39H, Anion Gap 4L , Blood Urea Nitrogen 41H, Creatinine 1.9H, Estimat Glomerular Filtration Rate , Glucose Level 205H, Uric Acid 5.5, Calcium Level 9.0, Phosphorus Level 3.2, Magnesium Level 1.7L, Total Bilirubin 0.3, Aspartate Amino Transf (AST/SGOT) 20 , Alanine Aminotransferase (ALT/SGPT) 25, Alkaline Phosphatase 109, Pro-B-Type Natriuretic Peptide 2109H, Total Protein 6.8, Albumin 2.4L, Globulin 4.4, Albumin/Globulin Ratio 0.5L 07/03/17 09:00: Urine Color Pale yellow, Urine Appearance Slightly cloudy, Urine pH 8, Urine Specific [place] 1.010, Urine Protein 2+H, Urine Glucose (UA) Negative, Urine Ketones Negative, Urine Occult Blood 3+H, Urine Nitrite Negative, Urine Bilirubin Negative, Urine Urobilinogen Normal, Urine Leukocyte Esterase 3+H, Urine RBC 2-4H, Urine WBC 30-40H, Urine Squamous Epithelial Cells Few, Urine Bacteria Few Height (Feet): 5 Height (Inches): 8.00 Weight (Pounds): 172 Objective General: alert, cooperative, no distress, appears stated age, obese Head: normocephalic, without obvious abnormality, atraumatic Eyes: conjunctivae/corneas clear. PERRL, EOM's intact Throat: lips, mucosa, and tongue normal. MMM Neck: supple, symmetrical, trachea midline, and no JVD Lungs: +mild wheezing b/l Heart: regular rate and rhythm, S1, S2 normal, no murmur, click, rub or gallop Abdomen: soft, non-tender, non-distended, bowel sounds normal; no masses or organomegaly Extremities: extremities normal, atraumatic, no cyanosis or edema Pulses: 2+ and symmetric Skin: skin color, texture, turgor normal; no rashes or lesions Neurologic: grossly normal, no focal deficits Luciana Velázquez M.D. Jul 03, 2017 21:43
[2017-07-04] VITALS: BP 104/56
[2017-07-04] MEDS: Albuterol/Ipratropium 3ml neb HHN SCH ×4 (01:03→19:27)
[2017-07-04] MEDS ORDERED: Acetaminophen 650 MG SUPP RECTAL PRN ×4 (01:30→16:00)
[2017-07-04 04:00] VITALS: BP 119/62
[2017-07-04] MEDS: NovoLOG Insulin Flexpen SUBQ SCH ×4 (06:16→20:52)
[2017-07-04 07:41] LABS: BASOPHILS % (AUTO) 1.1 % (0.0-2.0); HEMATOCRIT 28.2 % (37.0-47.0); HEMOGLOBIN 8.5 G/DL (12.0-16.0); LYMPHOCYTES % (AUTO) 13.5 % (20.0-45.0); MEAN CORPUSCULAR VOLUME 101 FL (80-99); MONOCYTES % (AUTO) 10.3 % (1.0-10.0); NEUTROPHILS % (AUTO) 75.2 % (45.0-75.0); PLATELET COUNT 190 K/UL (150-450); RED BLOOD COUNT 2.81 M/UL (4.20-5.40); RED CELL DISTRIBUTION WIDTH 14.6 % (11.6-14.8)
[2017-07-04 07:44] LABS: ANION GAP 3 mmol/L (5-15); BLOOD UREA NITROGEN 44 mg/dL (7-18); CALCIUM 9.1 MG/DL (8.5-10.1); CARBON DIOXIDE 37 MMOL/L (21-32); CHLORIDE 102 MMOL/L (98-107); CREATININE 1.8 MG/DL (0.55-1.30); SODIUM 142 MMOL/L (136-145)
[2017-07-04 08:00] VITALS: BP 107/57
[2017-07-04 08:20] LABS: PHOSPHORUS 3.2 MG/DL (2.5-4.9)
[2017-07-04] MEDS ORDERED: Montelukast 10mg tablet ORAL SCH (09:00)
[2017-07-04] MEDS: Docusate 100mg cap ORAL SCH ×3 (09:00→18:18)
[2017-07-04] MEDS ORDERED: Aspirin EC 81mg tab ORAL SCH (09:00)
[2017-07-04] MEDS ORDERED: Heparin 5000 units/ml inj SUBQ SCH (09:00)
[2017-07-04] MEDS ORDERED: Carvedilol 12.5mg tab ORAL SCH (09:00)
[2017-07-04] MEDS: Nateglinide 60mg tab ORAL SCH ×3 (09:37→18:18)
--- NOTE | 2017-07-04 10:32 | Diagnostic Imaging Report ---
Indication: Shortness of breath Technique: One view of the chest Comparison: 07/02/2017 Findings: There are large bilateral pleural effusions again demonstrated. Pulmonary interstitial edema persist, unchanged. Interim removal of nasogastric tube. Heart size is difficult to assess. Impression: Bilateral pleural effusions and interstitial congestion, unchanged over 2 days Interim nasogastric tube removal
--- NOTE | 2017-07-04 10:44 | Pulmonology Progress Note ---
Assessment/Plan Assessment/Plan ASSESSMENT acute hypoxemic hypercapnic RF requiring BiPAP -resolved large R pleural effusion s/p thoracentesis-1L acute COPD exacerbation moderate pulmonary HTN acute renal failure on CKD hyperkalemia DM HTN Hx of CVA Hyperlipidemia Hypothyroidism anemia sacral st 2 decub ulcer, POA hypokalemia PLAN OF CARE tele off Bipap, titrate O2 to keep sat above 92% BiPAP prn pulmonary toilet ATC and PRN conservative measures until tap , - all done s/p thoracentesis 1L CXR post tap-no PNT pleural fluid cx prel negative , pleural fluid analysis noted , noninfectious hypercapnia resolved started on low dose Diamox and s/p Lasix x 1 as pr nephro IV steroids and taper empiric abx sputum cx fup with CXR in am ID follows last ECHO with pEF, and evidence of moderate pulmonary HTN likely due to COPD ECHO venous Duplex BLE on ASA, BB, LALO , statin BP, BS management TSH WNL continue current dose of levothyroxine for now monitor renal parameters, lytes, avoid nephrotoxic, nephro follows ARF likely due to diuretic use, on hold now , on CKD renal US DVT prophylaxis pain management bowel regimen monitor HH, transfuse prn BS management , HgA1c WNL wound care as per wound nurse recs transfer to [place] replace K, Mg stable case discussed and evaluated by supervising physician Subjective Allergies: Coded Allergies: IODINE (Verified Allergy, Mild, 08/17/08) Uncoded Allergies: CONTRAST MEDIA (Allergy, Mild, 08/17/08) All Systems: reviewed and negative except above Subjective on O2 via NC sat stable more awake and responsive no signs of res distress low K Objective Last 24 Hour Vital Signs Date Time Temp Pulse Resp B/P (MAP) Pulse Ox O2 Delivery O2 Flow Rate FiO2 07/04/17 09:38 72 108/59 07/04/17 08:20 84 18 100 Nasal Cannula 3.0 07/04/17 08:10 76 18 99 Nasal Cannula 3.0 07/04/17 08:09 Nasal Cannula 3.0 07/04/17 08:08 99 Nasal Cannula 3.0 07/04/17 08:00 97.3 71 18 107/57 97 3.0 07/04/17 04:00 71 07/04/17 04:00 97.5 75 18 119/62 96 Bi-pap 07/04/17 01:13 74 20 96 Bi-pap 35 07/04/17 01:12 74 20 96 Facial 35 07/04/17 01:02 35 07/04/17 01:01 72 20 96 Bi-pap 35 07/04/17 00:00 96.4 81 20 104/56 96 Bi-pap 07/04/17 00:00 72 07/03/17 23:09 90 19 95 Facial 3.0 32 07/03/17 22:30 98.4 90 19 131/68 95 Nasal Cannula 3.0 07/03/17 20:51 84 115/60 07/03/17 20:00 82 07/03/17 20:00 98.0 88 19 108/64 95 Nasal Cannula 3.0 07/03/17 19:06 83 19 96 Nasal Cannula 3.0 32 07/03/17 18:57 Nasal Cannula 3.0 32 07/03/17 18:57 83 19 96 Nasal Cannula 3.0 32 07/03/17 18:57 32 07/03/17 18:56 96 Nasal Cannula 3.0 32 07/03/17 16:00 86 07/03/17 16:00 98.8 85 19 108/57 96 Nasal Cannula 3.0 07/03/17 15:42 97 07/03/17 12:47 89 22 Nasal Cannula 3.0 32 07/03/17 12:36 87 22 96 Nasal Cannula 3.0 32 07/03/17 11:54 75 07/03/17 11:51 99.0 83 19 114/61 96 Nasal Cannula 3.0 Intake and Output 07/03/17 07/04/17 19:00 07:00 Intake Total 510 ml Output Total 700 ml 1150 ml Balance -190 ml -1150 ml Intake Oral 260 ml IV Total 250 ml Output Urine Total 700 ml 1150 ml Objective General Appearance: bedridden, obese, awake, responsive, elderly AA female Lines, tubes and drains: peripheral HEENT: normocephalic, atraumatic, anicteric Neck: supple Respiratory/Chest : CTAB with decreased air exchange Cardiovascular/Chest: regular, SR on tele Abdomen: normal bowel sounds, non tender, soft , obese Extremities: edema BLE with chronic lymphedema Skin Exam: coccyx st 2 POA decub ulcer Neurologic: abnormal gait, somnolent, Microbiology Date/Time Source Procedure Growth Status 07/01/17 15:30 Pleural Fluid Gram Stain - Final Resulted 07/01/17 15:30 Pleural Fluid Body Fluid Culture - Preliminary NO GROWTH Resulted 07/03/17 09:00 Urine,Clean Catch Urine Culture - Preliminary NO GROWTH Resulted Laboratory Tests 07/04/17 06:40: White Blood Count 7.0, Red Blood Count 2.81L, Hemoglobin 8.5L, Hematocrit 28.2L , Mean Corpuscular Volume 101H, Mean Corpuscular Hemoglobin 30.2, Mean Corpuscular Hemoglobin Concent 30.0L, Red Cell Distribution Width 14.6, Platelet Count 190, Mean Platelet Volume 7.1, Neutrophils (%) (Auto) 75.2H, Lymphocytes (%) (Auto) 13.5L, Monocytes (%) (Auto) 10.3H, Eosinophils (%) (Auto ) 0.0, Basophils (%) (Auto) 1.1, Sodium Level 142, Potassium Level 3.0L, Chloride Level 102, Carbon Dioxide Level 37H, Anion Gap 3L, Blood Urea Nitrogen 44H, Creatinine 1.8H, Estimat Glomerular Filtration Rate , Glucose Level 80#, Calcium Level 9.1, Phosphorus Level 3.2, Magnesium Level 1.8 Current Medications Medications (Trade) Dose Ordered Sig/Lakshmi Route PRN Reason Start Time Stop Time Status Last Admin Dose Admin Acetaminophen (Tylenol) 650 mg Q4H PRN RECTAL fever 07/04/17 00:00 07/31/17 11:59 Acetaminophen (Tylenol) 650 mg Q4H PRN RECTAL Mild Pain (Pain Scale 1-3) 07/04/17 01:30 07/31/17 05:29 Acetaminophen/ Hydrocodone Bitart ([place] 5/325) 1 tab Q12H PRN ORAL Pain 4-10 07/04/17 00:00 07/08/17 11:59 Acetazolamide (Diamox) 250 mg TWICE A DAY ORAL 07/04/17 09:00 08/01/17 17:59 07/04/17 09:37 Albuterol/ Ipratropium (Albuterol/ Ipratropium) 3 ml Q4H PRN HHN Shortness of Breath 07/04/17 00:00 07/06/17 11:59 Albuterol/ Ipratropium (Albuterol/ Ipratropium) 3 ml Q6HRT HHN 07/04/17 01:00 07/06/17 18:59 07/04/17 08:10 Allopurinol (Allopurinol) 300 mg DAILY ORAL 07/04/17 09:00 07/31/17 12:59 07/04/17 09:38 Aspirin (Ecotrin) 81 mg DAILY ORAL 07/04/17 09:00 07/31/17 12:59 07/04/17 09:39 Atorvastatin Calcium (Lipitor) 10 mg BEDTIME ORAL 07/04/17 21:00 07/31/17 20:59 Bisacodyl (Dulcolax) 10 mg DAILYPRN PRN RECTAL Constipation 07/04/17 12:00 07/31/17 11:59 Carvedilol (Coreg) 12.5 mg EVERY 12 HOURS ORAL 07/04/17 09:00 07/31/17 12:59 07/04/17 09:38 Dextrose (Dextrose 50%) STAT PRN IV Hypoglycemia 07/04/17 12:00 07/31/17 11:59 Docusate Sodium (Colace) 100 mg TID ORAL 07/04/17 09:00 07/31/17 12:59 07/04/17 09:00 Heparin Sodium (Porcine) (Heparin 5000 units/ml) 5,000 units EVERY 12 HOURS SUBQ 07/04/17 09:00 07/31/17 12:59 07/04/17 09:46 Insulin Aspart (NovoLOG) BEFORE MEALS AND HS SUBQ 07/04/17 06:30 07/31/17 12:29 Lansoprazole (Prevacid) 30 mg BID ORAL 07/04/17 09:00 08/01/17 17:59 07/04/17 09:37 Levofloxacin 150 ml @ 100 mls/hr Q48H IVPB 07/05/17 05:00 07/10/17 04:59 Levothyroxine Sodium (Synthroid) 112 mcg DAILY@0630 ORAL 07/04/17 06:30 07/31/17 06:29 07/04/17 06:19 Lidocaine (Lidoderm 5% PATCH) 1 patch DAILY TDERMAL 07/04/17 09:00 07/31/17 12:59 07/04/17 09:39 Methylprednisolone Sodium Succinate (Solu-MEDROL) 40 mg Q12H IVP 07/04/17 18:00 08/03/17 17:59 Montelukast Sodium (Singulair) 10 mg DAILY ORAL 07/04/17 09:00 07/31/17 12:59 07/04/17 09:37 Nateglinide (Starlix) 60 mg THREE TIMES A DAY ORAL 07/04/17 09:00 07/31/17 08:59 07/04/17 09:37 Ondansetron HCl (Zofran) 4 mg Q6H PRN IVP Nausea & Vomiting 07/04/17 00:00 07/31/17 11:59 Polyethylene Glycol (Miralax) 17 gm DAILYPRN PRN ORAL Constipation 07/04/17 12:00 07/31/17 11:59 Quetiapine Fumarate (SEROquel) 25 mg Q6H PRN ORAL agitation 07/04/17 00:00 07/31/17 11:59 [facility] ([facility])Meron NP Jul 04, 2017 10:44
--- NOTE | 2017-07-04 11:27 | Infectious Diseases Prog Note ---
Assessment/Plan Assessment/Plan ASSESSMENT: The patient is an 87-year-old female with, COPD exacerbation Right-sided pleural effusion sp tap, no evidence of parapneumonic versus empyema cxray : Bilateral pleural effusions and interstitial congestion, unchanged over 2 days Afebrile. Normal white blood cells. Influenza A/B screen negative. History of sepsis. HTN DM Morbid obesity Dementia. PLAN: continue the patient on Levaquin day # 4 /5 Monitor CBC. Monitor BMP. Monitor cultures. Monitor chest x-ray. Continue respiratory support. Subjective Constitutional: Denies: no symptoms, fever, chills, fatigue, anorexia, drenching sweats, other Allergies: Coded Allergies: IODINE (Verified Allergy, Mild, 08/17/08) Uncoded Allergies: CONTRAST MEDIA (Allergy, Mild, 08/17/08) Objective Vital Signs Last 24 Hour Vital Signs Date Time Temp Pulse Resp B/P (MAP) Pulse Ox O2 Delivery O2 Flow Rate FiO2 07/04/17 09:38 72 108/59 07/04/17 08:20 84 18 100 Nasal Cannula 3.0 07/04/17 08:10 76 18 99 Nasal Cannula 3.0 07/04/17 08:09 Nasal Cannula 3.0 07/04/17 08:08 99 Nasal Cannula 3.0 07/04/17 08:00 88 07/04/17 08:00 97.3 71 18 107/57 97 3.0 07/04/17 04:00 71 07/04/17 04:00 97.5 75 18 119/62 96 Bi-pap 07/04/17 01:13 74 20 96 Bi-pap 35 07/04/17 01:12 74 20 96 Facial 35 07/04/17 01:02 35 07/04/17 01:01 72 20 96 Bi-pap 35 07/04/17 00:00 96.4 81 20 104/56 96 Bi-pap 07/04/17 00:00 72 07/03/17 23:09 90 19 95 Facial 3.0 32 07/03/17 22:30 98.4 90 19 131/68 95 Nasal Cannula 3.0 07/03/17 20:51 84 115/60 07/03/17 20:00 82 07/03/17 20:00 98.0 88 19 108/64 95 Nasal Cannula 3.0 07/03/17 19:06 83 19 96 Nasal Cannula 3.0 32 07/03/17 18:57 Nasal Cannula 3.0 32 07/03/17 18:57 83 19 96 Nasal Cannula 3.0 32 07/03/17 18:57 32 07/03/17 18:56 96 Nasal Cannula 3.0 32 07/03/17 16:00 86 07/03/17 16:00 98.8 85 19 108/57 96 Nasal Cannula 3.0 07/03/17 15:42 97 07/03/17 12:47 89 22 Nasal Cannula 3.0 32 07/03/17 12:36 87 22 96 Nasal Cannula 3.0 32 07/03/17 11:54 75 07/03/17 11:51 99.0 83 19 114/61 96 Nasal Cannula 3.0 Height (Feet): 5 Height (Inches): 8.00 Weight (Pounds): 173 HEENT: mucous membranes moist Respiratory/Chest: no respiratory distress Cardiovascular: regular rhythm Abdomen: no organomegaly Microbiology Date/Time Source Procedure Growth Status 07/01/17 15:30 Pleural Fluid Gram Stain - Final Resulted 07/01/17 15:30 Pleural Fluid Body Fluid Culture - Preliminary NO GROWTH AFTER 48 HOURS Resulted 07/03/17 09:00 Urine,Clean Catch Urine Culture - Preliminary NO GROWTH Resulted Laboratory Tests Test 07/04/17 06:40 White Blood Count 7.0 K/UL (4.8-10.8) Red Blood Count 2.81 M/UL (4.20-5.40) L Hemoglobin 8.5 G/DL (12.0-16.0) L Hematocrit 28.2 % (37.0-47.0) L Mean Corpuscular Volume 101 FL (80-99) H Mean Corpuscular Hemoglobin 30.2 PG (27.0-31.0) Mean Corpuscular Hemoglobin Concent 30.0 G/DL (32.0-36.0) L Red Cell Distribution Width 14.6 % (11.6-14.8) Platelet Count 190 K/UL (150-450) Mean Platelet Volume 7.1 FL (6.5-10.1) Neutrophils (%) (Auto) 75.2 % (45.0-75.0) H Lymphocytes (%) (Auto) 13.5 % (20.0-45.0) L Monocytes (%) (Auto) 10.3 % (1.0-10.0) H Eosinophils (%) (Auto) 0.0 % (0.0-3.0) Basophils (%) (Auto) 1.1 % (0.0-2.0) Sodium Level 142 MMOL/L (136-145) Potassium Level 3.0 MMOL/L (3.5-5.1) L Chloride Level 102 MMOL/L (98-107) Carbon Dioxide Level 37 MMOL/L (21-32) H Anion Gap 3 mmol/L (5-15) L Blood Urea Nitrogen 44 mg/dL (7-18) H Creatinine 1.8 MG/DL (0.55-1.30) H Estimat Glomerular Filtration Rate mL/min (>60) Glucose Level 80 MG/DL (74-106) # Calcium Level 9.1 MG/DL (8.5-10.1) Phosphorus Level 3.2 MG/DL (2.5-4.9) Magnesium Level 1.8 MG/DL (1.8-2.4) Current Medications Medications (Trade) Dose Ordered Sig/Lakshmi Route PRN Reason Start Time Stop Time Status Last Admin Dose Admin Acetaminophen (Tylenol) 650 mg Q4H PRN RECTAL fever 07/04/17 00:00 07/31/17 11:59 Acetaminophen (Tylenol) 650 mg Q4H PRN RECTAL Mild Pain (Pain Scale 1-3) 07/04/17 01:30 07/31/17 05:29 Acetaminophen/ Hydrocodone Bitart ([place] 5/325) 1 tab Q12H PRN ORAL Pain 4-10 07/04/17 00:00 07/08/17 11:59 Acetazolamide (Diamox) 250 mg TWICE A DAY ORAL 07/04/17 09:00 08/01/17 17:59 07/04/17 09:37 Albuterol/ Ipratropium (Albuterol/ Ipratropium) 3 ml Q4H PRN HHN Shortness of Breath 07/04/17 00:00 07/06/17 11:59 Albuterol/ Ipratropium (Albuterol/ Ipratropium) 3 ml Q6HRT HHN 07/04/17 01:00 07/06/17 18:59 07/04/17 08:10 Allopurinol (Allopurinol) 300 mg DAILY ORAL 07/04/17 09:00 07/31/17 12:59 07/04/17 09:38 Aspirin (Ecotrin) 81 mg DAILY ORAL 07/04/17 09:00 07/31/17 12:59 07/04/17 09:39 Atorvastatin Calcium (Lipitor) 10 mg BEDTIME ORAL 07/04/17 21:00 07/31/17 20:59 Bisacodyl (Dulcolax) 10 mg DAILYPRN PRN RECTAL Constipation 07/04/17 12:00 07/31/17 11:59 Carvedilol (Coreg) 12.5 mg EVERY 12 HOURS ORAL 07/04/17 09:00 07/31/17 12:59 07/04/17 09:38 Dextrose (Dextrose 50%) STAT PRN IV Hypoglycemia 07/04/17 12:00 07/31/17 11:59 Docusate Sodium (Colace) 100 mg TID ORAL 07/04/17 09:00 07/31/17 12:59 07/04/17 09:00 Heparin Sodium (Porcine) (Heparin 5000 units/ml) 5,000 units EVERY 12 HOURS SUBQ 07/04/17 09:00 07/31/17 12:59 07/04/17 09:46 Insulin Aspart (NovoLOG) BEFORE MEALS AND HS SUBQ 07/04/17 06:30 07/31/17 12:29 Lansoprazole (Prevacid) 30 mg BID ORAL 07/04/17 09:00 08/01/17 17:59 07/04/17 09:37 Levofloxacin 150 ml @ 100 mls/hr Q48H IVPB 07/05/17 05:00 07/10/17 04:59 Levothyroxine Sodium (Synthroid) 112 mcg DAILY@0630 ORAL 07/04/17 06:30 07/31/17 06:29 07/04/17 06:19 Lidocaine (Lidoderm 5% PATCH) 1 patch DAILY TDERMAL 07/04/17 09:00 07/31/17 12:59 07/04/17 09:39 Methylprednisolone Sodium Succinate (Solu-MEDROL) 40 mg Q12H IVP 07/04/17 18:00 08/03/17 17:59 Montelukast Sodium (Singulair) 10 mg DAILY ORAL 07/04/17 09:00 07/31/17 12:59 07/04/17 09:37 Nateglinide (Starlix) 60 mg THREE TIMES A DAY ORAL 07/04/17 09:00 07/31/17 08:59 07/04/17 09:37 Ondansetron HCl (Zofran) 4 mg Q6H PRN IVP Nausea & Vomiting 07/04/17 00:00 07/31/17 11:59 Polyethylene Glycol (Miralax) 17 gm DAILYPRN PRN ORAL Constipation 07/04/17 12:00 07/31/17 11:59 Quetiapine Fumarate (SEROquel) 25 mg Q6H PRN ORAL agitation 07/04/17 00:00 07/31/17 11:59 LEATHA HUTCHINSON M.D. Jul 04, 2017 11:27
[2017-07-04 12:00] VITALS: BP 108/67
[2017-07-04] MEDS ORDERED: Miralax 17gm pkt ORAL PRN (12:00)
--- NOTE | 2017-07-04 13:34 | Nephrology Progress Note ---
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 Acute component HyperKalemia Anemia HypoThyroidism DM Respiratory failure and Hypoxia . Plan K supplement Low dose Lasix and Diamox Mendez UA : Proteinuria ++ U Na Anemia goldman 2D Echo Pending Kidney GONZALES Pending monitor renal parameters Optimize pulmonary status taper steroids as possible per orders Subjective ROS Limited/Unobtainable: No Constitutional: Reports: malaise Objective Objective Last 24 Hour Vital Signs Date Time Temp Pulse Resp B/P (MAP) Pulse Ox O2 Delivery O2 Flow Rate FiO2 07/04/17 12:00 98.0 85 18 108/67 95 Nasal Cannula 3.0 07/04/17 09:38 72 108/59 07/04/17 08:20 84 18 100 Nasal Cannula 3.0 07/04/17 08:10 76 18 99 Nasal Cannula 3.0 07/04/17 08:09 Nasal Cannula 3.0 07/04/17 08:08 99 Nasal Cannula 3.0 07/04/17 08:00 88 07/04/17 08:00 97.3 71 18 107/57 97 3.0 07/04/17 04:00 71 07/04/17 04:00 97.5 75 18 119/62 96 Bi-pap 07/04/17 01:13 74 20 96 Bi-pap 35 07/04/17 01:12 74 20 96 Facial 35 07/04/17 01:02 35 07/04/17 01:01 72 20 96 Bi-pap 35 07/04/17 00:00 96.4 81 20 104/56 96 Bi-pap 07/04/17 00:00 72 07/03/17 23:09 90 19 95 Facial 3.0 32 07/03/17 22:30 98.4 90 19 131/68 95 Nasal Cannula 3.0 07/03/17 20:51 84 115/60 07/03/17 20:00 82 07/03/17 20:00 98.0 88 19 108/64 95 Nasal Cannula 3.0 07/03/17 19:06 83 19 96 Nasal Cannula 3.0 32 07/03/17 18:57 Nasal Cannula 3.0 32 07/03/17 18:57 83 19 96 Nasal Cannula 3.0 32 07/03/17 18:57 32 07/03/17 18:56 96 Nasal Cannula 3.0 32 07/03/17 16:00 86 07/03/17 16:00 98.8 85 19 108/57 96 Nasal Cannula 3.0 07/03/17 15:42 97 Intake and Output 07/03/17 07/04/17 19:00 07:00 Intake Total 510 ml Output Total 700 ml 1150 ml Balance -190 ml -1150 ml Intake Oral 260 ml IV Total 250 ml Output Urine Total 700 ml 1150 ml Laboratory Tests 07/04/17 06:40: White Blood Count 7.0, Red Blood Count 2.81L, Hemoglobin 8.5L, Hematocrit 28.2L , Mean Corpuscular Volume 101H, Mean Corpuscular Hemoglobin 30.2, Mean Corpuscular Hemoglobin Concent 30.0L, Red Cell Distribution Width 14.6, Platelet Count 190, Mean Platelet Volume 7.1, Neutrophils (%) (Auto) 75.2H, Lymphocytes (%) (Auto) 13.5L, Monocytes (%) (Auto) 10.3H, Eosinophils (%) (Auto ) 0.0, Basophils (%) (Auto) 1.1, Sodium Level 142, Potassium Level 3.0L, Chloride Level 102, Carbon Dioxide Level 37H, Anion Gap 3L, Blood Urea Nitrogen 44H, Creatinine 1.8H, Estimat Glomerular Filtration Rate , Glucose Level 80#, Calcium Level 9.1, Phosphorus Level 3.2, Magnesium Level 1.8 Height (Feet): 5 Height (Inches): 8.00 Weight (Pounds): 173 General Appearance: no apparent distress Respiratory/Chest: decreased breath sounds Abdomen: soft Objective no other changes JD WOO Jul 04, 2017 13:34
[2017-07-04 16:00] VITALS: BP 120/62
[2017-07-04] MEDS ORDERED: Albuterol/Ipratropium 3ml neb HHN PRN ×2 (16:00)
[2017-07-04] MEDS ORDERED: Norco 5mg/325mg tab ORAL PRN ×2 (16:00)
[2017-07-04] MEDS ORDERED: Solu-MEDROL 40mg Inj IVP SCH ×2 (18:00)
[2017-07-04] MEDS: Solu-MEDROL 40mg Inj IVP SCH (18:18)
[2017-07-04 20:00] VITALS: BP 123/72
[2017-07-04] MEDS: Carvedilol 12.5mg tab ORAL SCH (20:51)
[2017-07-04] MEDS: Heparin 5000 units/ml inj SUBQ SCH (20:52)
--- NOTE | 2017-07-04 22:23 | General Progress Note ---
Assessment/Plan Problem List: (1) Acute respiratory failure with hypoxia and hypercapnia ICD Codes: J96.01 - Acute respiratory failure with hypoxia; J96.02 - Acute respiratory failure with hypercapnia SNOMED: 25401967, 29757389, 051598319 (2) Acute toxic metabolic encephalopathy (3) COPD with acute exacerbation ICD Codes: J44.1 - Chronic obstructive pulmonary disease with (acute) exacerbation SNOMED: 164928933 (4) JERILYN on CKD (5) Hyperkalemia ICD Codes: E87.5 - Hyperkalemia SNOMED: 75174198 (6) DM2 (diabetes mellitus, type 2) Assessment & Plan: A1C 6.8 ICD Codes: E11.9 - Type 2 diabetes mellitus without complications SNOMED: 04845885 (7) HLD (hyperlipidemia) ICD Codes: E78.5 - Hyperlipidemia, unspecified SNOMED: 99500982 (8) HTN (hypertension) ICD Codes: I10 - Essential (primary) hypertension SNOMED: 91198345 (9) Hypothyroidism ICD Codes: E03.9 - Hypothyroidism, unspecified SNOMED: 98835996 Status: stable Assessment/Plan Pulm consulted Cont on BiPAP 15/5 qHS and PRN, titrate FiO2 to SpO2 88-92% Trend ABG Cont Nebs ATC and PRN Cont solu-medrol per pulm: decr to 40mg IV q12h, wean as tolerated s/p thoracentesis w/ 1L removed from R side F/u pleural fluid studies ID consulted Empiric levaquin x 5 days per ID, currently day 4/5 F/u cultures Renal consulted Lasix IV PRN for volume overload and hyperkalemia per renal Diamox 250mg PO BID per renal for metabolic alkalosis s/p kayexylate on 07/01/17 for hyperkalemia Trend BMP closely Cont SNF meds Pain control, bowel regimen Supportive care DC planning likely back to SNF tomorrow. Renal would like to watch kidney fcn and electrolytes for one more day DVT Prophylaxis: HSQ Code Status: Full Hospital Classification Declaration: Based on this initial evaluation, and depending on the patient's clinical course, I anticipate that this patient will require hospitalization for 1-2 days for acute COPD exacerbation and close respiratory/hemodynamic monitoring. Disposition: Once the patient is stable to leave the hospital, I anticipate the patient will likely be discharged to the following environment: back to SNF Discussed with patient/family, nursing staff, SW/CM, pulm, ID regarding clinical status, treatment course, and disposition planning. Time of note may not reflect time of encounter. Subjective Date patient seen: Jul 04, 2017 Time patient seen: 15:00 ROS Limited/Unobtainable: No Constitutional: Reports: no symptoms HEENT: Reports: no symptoms Cardiovascular: Reports: no symptoms Respiratory: Reports: shortness of breath Gastrointestinal/Abdominal: Reports: no symptoms Genitourinary: Reports: no symptoms Neurologic/Psychiatric: Reports: no symptoms Endocrine: Reports: no symptoms Hematologic/Lymphatic: Reports: no symptoms Allergies: Coded Allergies: IODINE (Verified Allergy, Mild, 08/17/08) Uncoded Allergies: CONTRAST MEDIA (Allergy, Mild, 08/17/08) All Systems: reviewed and negative except above Subjective No acute o/n events Used BiPAP last night, now doing well on NC Pt more awake, alert. SOB improved. Denies pain, f/c, n/v Pt asking to go home but per family they are unable to care for pt at this time Objective Last 24 Hour Vital Signs Date Time Temp Pulse Resp B/P (MAP) Pulse Ox O2 Delivery O2 Flow Rate FiO2 07/04/17 20:51 81 123/72 07/04/17 20:00 98.2 81 20 123/72 94 07/04/17 19:47 77 20 97 Nasal Cannula 2.0 28 07/04/17 19:22 28 07/04/17 19:22 77 20 97 Nasal Cannula 2.0 28 07/04/17 19:21 Nasal Cannula 2.0 28 07/04/17 19:21 97 Nasal Cannula 2.0 28 07/04/17 16:00 97.3 77 20 120/62 97 07/04/17 14:05 70 20 100 Nasal Cannula 2.0 07/04/17 13:55 78 20 98 Nasal Cannula 3.0 07/04/17 12:00 98.0 85 18 108/67 95 Nasal Cannula 3.0 07/04/17 12:00 84 07/04/17 09:38 72 108/59 07/04/17 08:20 84 18 100 Nasal Cannula 3.0 07/04/17 08:10 76 18 99 Nasal Cannula 3.0 07/04/17 08:09 Nasal Cannula 3.0 07/04/17 08:08 99 Nasal Cannula 3.0 07/04/17 08:00 88 07/04/17 08:00 97.3 71 18 107/57 97 3.0 07/04/17 04:00 71 07/04/17 04:00 97.5 75 18 119/62 96 Bi-pap 07/04/17 01:13 74 20 96 Bi-pap 35 07/04/17 01:12 74 20 96 Facial 35 07/04/17 01:02 35 07/04/17 01:01 72 20 96 Bi-pap 35 07/04/17 00:00 96.4 81 20 104/56 96 Bi-pap 07/04/17 00:00 72 07/03/17 23:09 90 19 95 Facial 3.0 32 07/03/17 22:30 98.4 90 19 131/68 95 Nasal Cannula 3.0 Intake and Output 07/03/17 07/04/17 19:00 07:00 Intake Total 510 ml Output Total 700 ml 1150 ml Balance -190 ml -1150 ml Intake Oral 260 ml IV Total 250 ml Output Urine Total 700 ml 1150 ml Laboratory Tests 07/04/17 06:40: White Blood Count 7.0, Red Blood Count 2.81L, Hemoglobin 8.5L, Hematocrit 28.2L , Mean Corpuscular Volume 101H, Mean Corpuscular Hemoglobin 30.2, Mean Corpuscular Hemoglobin Concent 30.0L, Red Cell Distribution Width 14.6, Platelet Count 190, Mean Platelet Volume 7.1, Neutrophils (%) (Auto) 75.2H, Lymphocytes (%) (Auto) 13.5L, Monocytes (%) (Auto) 10.3H, Eosinophils (%) (Auto ) 0.0, Basophils (%) (Auto) 1.1, Sodium Level 142, Potassium Level 3.0L, Chloride Level 102, Carbon Dioxide Level 37H, Anion Gap 3L, Blood Urea Nitrogen 44H, Creatinine 1.8H, Estimat Glomerular Filtration Rate , Glucose Level 80#, Calcium Level 9.1, Phosphorus Level 3.2, Magnesium Level 1.8 Height (Feet): 5 Height (Inches): 8.00 Weight (Pounds): 173 Objective General: alert, cooperative, no distress, appears stated age, obese Head: normocephalic, without obvious abnormality, atraumatic Eyes: conjunctivae/corneas clear. PERRL, EOM's intact Throat: lips, mucosa, and tongue normal. MMM Neck: supple, symmetrical, trachea midline, and no JVD Lungs: +mild wheezing b/l Heart: regular rate and rhythm, S1, S2 normal, no murmur, click, rub or gallop Abdomen: soft, non-tender, non-distended, bowel sounds normal; no masses or organomegaly Extremities: extremities normal, atraumatic, no cyanosis or edema Pulses: 2+ and symmetric Skin: skin color, texture, turgor normal; no rashes or lesions Neurologic: grossly normal, no focal deficits Luciana Velázquez M.D. Jul 04, 2017 22:23
[2017-07-05] VITALS: BP 120/61
[2017-07-05] MEDS: Albuterol/Ipratropium 3ml neb HHN SCH ×3 (01:02→13:51)
[2017-07-05 04:00] VITALS: BP 117/66
[2017-07-05] MEDS: Solu-MEDROL 40mg Inj IVP SCH (06:12)
[2017-07-05] MEDS: NovoLOG Insulin Flexpen SUBQ SCH ×2 (06:20→12:24)
[2017-07-05 08:26] VITALS: BP 133/65
[2017-07-05] MEDS: Nateglinide 60mg tab ORAL SCH ×2 (08:57→14:41)
[2017-07-05] MEDS: Carvedilol 12.5mg tab ORAL SCH (08:58)
[2017-07-05] MEDS: Docusate 100mg cap ORAL SCH ×2 (08:58→14:41)
[2017-07-05] MEDS: Heparin 5000 units/ml inj SUBQ SCH (09:00)
[2017-07-05] MEDS ORDERED: Aspirin EC 81mg tab ORAL SCH (09:00)
[2017-07-05] MEDS ORDERED: Montelukast 10mg tablet ORAL SCH (09:00)
--- NOTE | 2017-07-05 09:13 | Infectious Diseases Prog Note ---
Assessment/Plan Assessment/Plan ASSESSMENT: The patient is an 87-year-old female with, COPD exacerbation Right-sided pleural effusion sp tap, no evidence of parapneumonic versus empyema cxray : Bilateral pleural effusions and interstitial congestion, unchanged over 2 days Afebrile. Normal white blood cells. Influenza A/B screen negative. History of sepsis. HTN DM Morbid obesity Dementia. PLAN: continue the patient on Levaquin day # 5 / , ok to DC pt off of AB Rx Monitor CBC. Monitor BMP. Monitor cultures. Monitor chest x-ray. Continue respiratory support. Monitor Blood Cx Subjective Constitutional: Denies: no symptoms, fever, chills, fatigue, anorexia, drenching sweats, other Allergies: Coded Allergies: IODINE (Verified Allergy, Mild, 08/17/08) Uncoded Allergies: CONTRAST MEDIA (Allergy, Mild, 08/17/08) Objective Vital Signs Last 24 Hour Vital Signs Date Time Temp Pulse Resp B/P (MAP) Pulse Ox O2 Delivery O2 Flow Rate FiO2 07/05/17 08:58 79 133/65 07/05/17 08:26 98.1 79 20 133/65 98 07/05/17 07:12 60 20 Nasal Cannula 2.0 28 07/05/17 07:11 Nasal Cannula 2.0 28 07/05/17 06:58 57 20 90 Room Air 21 07/05/17 06:55 90 Room Air 21 07/05/17 04:33 74 24 97 Facial 35 07/05/17 04:00 97.5 75 22 117/66 99 07/05/17 02:15 77 20 95 Bi-pap 2.0 35 07/05/17 02:15 77 20 95 Facial 35 07/05/17 01:00 35 07/05/17 01:00 77 20 95 Bi-pap 35 07/05/17 00:00 Nasal Cannula 2.0 07/05/17 00:00 98.3 60 22 120/61 95 07/04/17 23:36 86 20 95 Facial 35 07/04/17 20:51 81 123/72 07/04/17 20:00 98.2 81 20 123/72 94 07/04/17 20:00 Nasal Cannula 2.0 07/04/17 19:47 77 20 97 Nasal Cannula 2.0 28 07/04/17 19:22 28 07/04/17 19:22 77 20 97 Nasal Cannula 2.0 28 07/04/17 19:21 Nasal Cannula 2.0 28 07/04/17 19:21 97 Nasal Cannula 2.0 28 07/04/17 16:00 97.3 77 20 120/62 97 07/04/17 14:05 70 20 100 Nasal Cannula 2.0 07/04/17 13:55 78 20 98 Nasal Cannula 3.0 07/04/17 12:00 98.0 85 18 108/67 95 Nasal Cannula 3.0 07/04/17 12:00 84 07/04/17 09:38 72 108/59 Height (Feet): 5 Height (Inches): 8.00 Weight (Pounds): 173 HEENT: anicteric Respiratory/Chest: normal breath sounds Cardiovascular: regular rhythm Abdomen: no organomegaly Microbiology Date/Time Source Procedure Growth Status 07/03/17 09:00 Urine,Clean Catch Urine Culture - Preliminary NO GROWTH AFTER 24 HOURS Resulted Current Medications Medications (Trade) Dose Ordered Sig/Lakshmi Route PRN Reason Start Time Stop Time Status Last Admin Dose Admin Acetaminophen (Tylenol) 650 mg Q4H PRN RECTAL fever 07/04/17 16:00 07/31/17 11:59 Acetaminophen (Tylenol) 650 mg Q4H PRN RECTAL Mild Pain (Pain Scale 1-3) 07/04/17 16:00 07/31/17 15:59 Acetaminophen/ Hydrocodone Bitart ([place] 5/325) 1 tab Q12H PRN ORAL Pain 4-10 07/04/17 16:00 07/11/17 15:59 Acetazolamide (Diamox) 250 mg TWICE A DAY ORAL 07/04/17 18:00 08/01/17 17:59 07/05/17 08:57 Albuterol/ Ipratropium (Albuterol/ Ipratropium) 3 ml Q4H PRN HHN Shortness of Breath 07/04/17 16:00 07/06/17 11:59 Albuterol/ Ipratropium (Albuterol/ Ipratropium) 3 ml Q6HRT HHN 07/04/17 19:00 07/06/17 18:59 07/05/17 07:07 Allopurinol (Allopurinol) 300 mg DAILY ORAL 07/05/17 09:00 07/31/17 12:59 07/05/17 08:57 Aspirin (Ecotrin) 81 mg DAILY ORAL 07/05/17 09:00 07/31/17 12:59 07/05/17 08:58 Atorvastatin Calcium (Lipitor) 10 mg BEDTIME ORAL 07/04/17 21:00 07/31/17 20:59 07/04/17 20:51 Bisacodyl (Dulcolax) 10 mg DAILYPRN PRN RECTAL Constipation 07/04/17 16:00 08/03/17 15:59 Carvedilol (Coreg) 12.5 mg EVERY 12 HOURS ORAL 07/04/17 21:00 07/31/17 12:59 07/05/17 08:58 Dextrose (Dextrose 50%) STAT PRN IV Hypoglycemia 07/04/17 16:00 08/03/17 15:59 Docusate Sodium (Colace) 100 mg TID ORAL 07/04/17 18:00 07/31/17 12:59 07/05/17 08:58 Heparin Sodium (Porcine) (Heparin 5000 units/ml) 5,000 units EVERY 12 HOURS SUBQ 07/04/17 21:00 07/31/17 12:59 07/05/17 09:00 Insulin Aspart (NovoLOG) BEFORE MEALS AND HS SUBQ 07/04/17 16:30 07/31/17 12:29 Lansoprazole (Prevacid) 30 mg BID ORAL 07/04/17 18:00 08/01/17 17:59 07/05/17 08:57 Levofloxacin 150 ml @ 100 mls/hr Q48H IVPB 07/05/17 05:00 07/10/17 04:59 07/05/17 06:14 Levothyroxine Sodium (Synthroid) 112 mcg DAILY@0630 ORAL 07/05/17 06:30 07/31/17 06:29 07/05/17 06:12 Lidocaine (Lidoderm 5% PATCH) 1 patch DAILY TDERMAL 07/05/17 09:00 07/31/17 12:59 07/05/17 08:57 Methylprednisolone Sodium Succinate (Solu-MEDROL) 40 mg Q12H IVP 07/04/17 18:00 08/03/17 17:59 07/05/17 06:12 Montelukast Sodium (Singulair) 10 mg DAILY ORAL 07/05/17 09:00 07/31/17 12:59 07/05/17 08:58 Nateglinide (Starlix) 60 mg THREE TIMES A DAY ORAL 07/04/17 18:00 07/31/17 08:59 07/05/17 08:57 Ondansetron HCl (Zofran) 4 mg Q6H PRN IVP Nausea & Vomiting 07/04/17 16:00 07/31/17 15:59 Polyethylene Glycol (Miralax) 17 gm DAILYPRN PRN ORAL Constipation 07/05/17 16:00 07/31/17 15:59 Quetiapine Fumarate (SEROquel) 25 mg Q6H PRN ORAL agitation 07/04/17 16:00 07/31/17 15:59 LEATHA HUTCHINSON M.D. Jul 05, 2017 09:13
[2017-07-05 09:23] LABS: ANION GAP 5 mmol/L (5-15); BLOOD UREA NITROGEN 44 mg/dL (7-18); CALCIUM 8.9 MG/DL (8.5-10.1); CARBON DIOXIDE 30 MMOL/L (21-32); CHLORIDE 103 MMOL/L (98-107); CREATININE 1.7 MG/DL (0.55-1.30); POTASSIUM 4.6 MMOL/L (3.5-5.1); SODIUM 138 MMOL/L (136-145)
[2017-07-05 11:47] VITALS: BP 116/53
[2017-07-05] MEDS ORDERED: medrol (12:02)
[2017-07-05] MEDS ORDERED: Medrol (13:11)
--- NOTE | 2017-07-05 13:23 | Pulmonology Progress Note ---
Assessment/Plan Assessment/Plan ASSESSMENT acute hypoxemic hypercapnic RF requiring BiPAP -resolved large R pleural effusion s/p thoracentesis-1L acute COPD exacerbation moderate pulmonary HTN acute renal failure on CKD hyperkalemia DM HTN Hx of CVA Hyperlipidemia Hypothyroidism anemia sacral st 2 decub ulcer, POA hypokalemia PLAN OF CARE MS floor off Bipap, titrate O2 to keep sat above 92% BiPAP prn pulmonary toilet ATC and PRN conservative measures until tap , - all done s/p thoracentesis 1L CXR post tap-no PNT pleural fluid cx prel negative , pleural fluid analysis noted , noninfectious hypercapnia resolved started on low dose Diamox and s/p Lasix x 1 as pr nephro IV steroids and taper empiric abx sputum cx ID follows last ECHO with pEF, and evidence of moderate pulmonary HTN likely due to COPD ECHO venous Duplex BLE on ASA, BB, LALO , statin BP, BS management TSH WNL continue current dose of levothyroxine for now monitor renal parameters, lytes, avoid nephrotoxic, nephro follows ARF likely due to diuretic use, on hold now , on CKD renal US DVT prophylaxis pain management bowel regimen monitor HH, transfuse prn BS management , HgA1c WNL wound care as per wound nurse recs dc plan as per PMD case discussed and evaluated by supervising physician Subjective Allergies: Coded Allergies: IODINE (Verified Allergy, Mild, 08/17/08) Uncoded Allergies: CONTRAST MEDIA (Allergy, Mild, 08/17/08) Subjective on O2 via NC sat stable more awake and responsive no signs of resp distress Objective Last 24 Hour Vital Signs Date Time Temp Pulse Resp B/P (MAP) Pulse Ox O2 Delivery O2 Flow Rate FiO2 07/05/17 11:47 97.9 83 20 116/53 97 07/05/17 08:58 79 133/65 07/05/17 08:26 98.1 79 20 133/65 98 07/05/17 07:12 60 20 Nasal Cannula 2.0 28 07/05/17 07:11 Nasal Cannula 2.0 28 07/05/17 06:58 57 20 90 Room Air 21 07/05/17 06:55 90 Room Air 21 07/05/17 04:33 74 24 97 Facial 35 07/05/17 04:00 97.5 75 22 117/66 99 07/05/17 02:15 77 20 95 Bi-pap 2.0 35 07/05/17 02:15 77 20 95 Facial 35 07/05/17 01:00 35 07/05/17 01:00 77 20 95 Bi-pap 35 07/05/17 00:00 Nasal Cannula 2.0 07/05/17 00:00 98.3 60 22 120/61 95 07/04/17 23:36 86 20 95 Facial 35 07/04/17 20:51 81 123/72 07/04/17 20:00 98.2 81 20 123/72 94 07/04/17 20:00 Nasal Cannula 2.0 07/04/17 19:47 77 20 97 Nasal Cannula 2.0 28 07/04/17 19:22 28 07/04/17 19:22 77 20 97 Nasal Cannula 2.0 28 07/04/17 19:21 Nasal Cannula 2.0 28 07/04/17 19:21 97 Nasal Cannula 2.0 28 07/04/17 16:00 97.3 77 20 120/62 97 07/04/17 14:05 70 20 100 Nasal Cannula 2.0 07/04/17 13:55 78 20 98 Nasal Cannula 3.0 Intake and Output 07/04/17 07/05/17 19:00 07:00 Intake Total 560 ml Output Total 900 ml 1000 ml Balance -340 ml -1000 ml Intake Oral 560 ml Output Urine Total 900 ml 1000 ml Objective General Appearance: bedridden, obese, awake, responsive, elderly AA female Lines, tubes and drains: peripheral HEENT: normocephalic, atraumatic, anicteric Neck: supple Respiratory/Chest : CTAB with decreased air exchange Cardiovascular/Chest: regular, SR on tele Abdomen: normal bowel sounds, non tender, soft , obese Extremities: edema BLE with chronic lymphedema Skin Exam: coccyx st 2 POA decub ulcer Neurologic: abnormal gait, somnolent, Microbiology Date/Time Source Procedure Growth Status 07/03/17 09:00 Urine,Clean Catch Urine Culture - Preliminary NO GROWTH AFTER 24 HOURS Resulted Laboratory Tests 07/05/17 04:00: Sodium Level 138, Potassium Level 4.6#, Chloride Level 103, Carbon Dioxide Level 30, Anion Gap 5, Blood Urea Nitrogen 44H, Creatinine 1.7H, Estimat Glomerular Filtration Rate , Glucose Level 93, Calcium Level 8.9 Current Medications Medications (Trade) Dose Ordered Sig/Lakshmi Route PRN Reason Start Time Stop Time Status Last Admin Dose Admin Acetaminophen (Tylenol) 650 mg Q4H PRN RECTAL fever 07/04/17 16:00 07/31/17 11:59 Acetaminophen (Tylenol) 650 mg Q4H PRN RECTAL Mild Pain (Pain Scale 1-3) 07/04/17 16:00 07/31/17 15:59 Acetaminophen/ Hydrocodone Bitart ([place] 5/325) 1 tab Q12H PRN ORAL Pain 4-10 07/04/17 16:00 07/11/17 15:59 Acetazolamide (Diamox) 250 mg TWICE A DAY ORAL 07/04/17 18:00 08/01/17 17:59 07/05/17 08:57 Albuterol/ Ipratropium (Albuterol/ Ipratropium) 3 ml Q4H PRN HHN Shortness of Breath 07/04/17 16:00 07/06/17 11:59 Albuterol/ Ipratropium (Albuterol/ Ipratropium) 3 ml Q6HRT HHN 07/04/17 19:00 07/06/17 18:59 07/05/17 07:07 Allopurinol (Allopurinol) 300 mg DAILY ORAL 07/05/17 09:00 07/31/17 12:59 07/05/17 08:57 Aspirin (Ecotrin) 81 mg DAILY ORAL 07/05/17 09:00 07/31/17 12:59 07/05/17 08:58 Atorvastatin Calcium (Lipitor) 10 mg BEDTIME ORAL 07/04/17 21:00 07/31/17 20:59 07/04/17 20:51 Bisacodyl (Dulcolax) 10 mg DAILYPRN PRN RECTAL Constipation 07/04/17 16:00 08/03/17 15:59 Carvedilol (Coreg) 12.5 mg EVERY 12 HOURS ORAL 07/04/17 21:00 07/31/17 12:59 07/05/17 08:58 Dextrose (Dextrose 50%) STAT PRN IV Hypoglycemia 07/04/17 16:00 08/03/17 15:59 Docusate Sodium (Colace) 100 mg TID ORAL 07/04/17 18:00 07/31/17 12:59 07/05/17 08:58 Heparin Sodium (Porcine) (Heparin 5000 units/ml) 5,000 units EVERY 12 HOURS SUBQ 07/04/17 21:00 07/31/17 12:59 07/05/17 09:00 Insulin Aspart (NovoLOG) BEFORE MEALS AND HS SUBQ 07/04/17 16:30 07/31/17 12:29 07/05/17 12:24 Lansoprazole (Prevacid) 30 mg BID ORAL 07/04/17 18:00 08/01/17 17:59 07/05/17 08:57 Levofloxacin 150 ml @ 100 mls/hr Q48H IVPB 07/05/17 05:00 07/10/17 04:59 07/05/17 06:14 Levothyroxine Sodium (Synthroid) 112 mcg DAILY@0630 ORAL 07/05/17 06:30 07/31/17 06:29 07/05/17 06:12 Lidocaine (Lidoderm 5% PATCH) 1 patch DAILY TDERMAL 07/05/17 09:00 07/31/17 12:59 07/05/17 08:57 Methylprednisolone Sodium Succinate (Solu-MEDROL) 40 mg Q12H IVP 07/04/17 18:00 08/03/17 17:59 07/05/17 06:12 Montelukast Sodium (Singulair) 10 mg DAILY ORAL 07/05/17 09:00 07/31/17 12:59 07/05/17 08:58 Nateglinide (Starlix) 60 mg THREE TIMES A DAY ORAL 07/04/17 18:00 07/31/17 08:59 07/05/17 08:57 Ondansetron HCl (Zofran) 4 mg Q6H PRN IVP Nausea & Vomiting 07/04/17 16:00 07/31/17 15:59 Polyethylene Glycol (Miralax) 17 gm DAILYPRN PRN ORAL Constipation 07/05/17 16:00 07/31/17 15:59 Quetiapine Fumarate (SEROquel) 25 mg Q6H PRN ORAL agitation 07/04/17 16:00 07/31/17 15:59 Iglesia BlandonMeron neff NP Jul 05, 2017 13:23
--- NOTE | 2017-07-05 13:25 | Discharge Instructions ---
Discharge Instructions Discharge Instructions Special Instructions please check renal parameters on and notify ( lasix on hold for now due to elev creatinine) For Congestive Heart Failure Reminder Report to your physician any weight gain of 5 pounds or more in one week. [facility]Meron CHADWICK Jul 05, 2017 13:25
--- NOTE | 2017-07-05 13:41 | Nephrology Progress Note ---
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 Acute component HyperKalemia Anemia HypoThyroidism DM Respiratory failure and Hypoxia . Plan K supplement Low dose Lasix and Diamox Mendez UA : Proteinuria ++ U Na Anemia goldman 2D Echo Pending Kidney GONZALES Pending monitor renal parameters Optimize pulmonary status taper steroids as possible per orders Subjective ROS Limited/Unobtainable: No Constitutional: Reports: malaise Objective Objective Last 24 Hour Vital Signs Date Time Temp Pulse Resp B/P (MAP) Pulse Ox O2 Delivery O2 Flow Rate FiO2 07/05/17 11:47 97.9 83 20 116/53 97 07/05/17 08:58 79 133/65 07/05/17 08:26 98.1 79 20 133/65 98 07/05/17 07:12 60 20 Nasal Cannula 2.0 28 07/05/17 07:11 Nasal Cannula 2.0 28 07/05/17 06:58 57 20 90 Room Air 21 07/05/17 06:55 90 Room Air 21 07/05/17 04:33 74 24 97 Facial 35 07/05/17 04:00 97.5 75 22 117/66 99 07/05/17 02:15 77 20 95 Bi-pap 2.0 35 07/05/17 02:15 77 20 95 Facial 35 07/05/17 01:00 35 07/05/17 01:00 77 20 95 Bi-pap 35 07/05/17 00:00 Nasal Cannula 2.0 07/05/17 00:00 98.3 60 22 120/61 95 07/04/17 23:36 86 20 95 Facial 35 07/04/17 20:51 81 123/72 07/04/17 20:00 98.2 81 20 123/72 94 07/04/17 20:00 Nasal Cannula 2.0 07/04/17 19:47 77 20 97 Nasal Cannula 2.0 28 07/04/17 19:22 28 07/04/17 19:22 77 20 97 Nasal Cannula 2.0 28 07/04/17 19:21 Nasal Cannula 2.0 28 2/19/18 19:21 97 Nasal Cannula 2.0 28 07/04/17 16:00 97.3 77 20 120/62 97 07/04/17 14:05 70 20 100 Nasal Cannula 2.0 07/04/17 13:55 78 20 98 Nasal Cannula 3.0 Intake and Output 07/04/17 07/05/17 19:00 07:00 Intake Total 560 ml Output Total 900 ml 1000 ml Balance -340 ml -1000 ml Intake Oral 560 ml Output Urine Total 900 ml 1000 ml Laboratory Tests 07/05/17 04:00: Sodium Level 138, Potassium Level 4.6#, Chloride Level 103, Carbon Dioxide Level 30, Anion Gap 5, Blood Urea Nitrogen 44H, Creatinine 1.7H, Estimat Glomerular Filtration Rate , Glucose Level 93, Calcium Level 8.9 Height (Feet): 5 Height (Inches): 8.00 Weight (Pounds): 173 General Appearance: no apparent distress Respiratory/Chest: decreased breath sounds Abdomen: soft Objective no other changes JD WOO Jul 05, 2017 13:41
[2017-07-05] MEDS ORDERED: CEFTRIAXON1 GM/50 ML IV (15:36)
[2017-07-05] MEDS ORDERED: Tubing IV Secondary IV ONE ×2 (15:39)
[2017-07-05] MEDS ORDERED: NS 275ml ONE ×2 (15:39)
[2017-07-05] MEDS ORDERED: Miralax 17gm pkt ORAL PRN (16:00)
--- NOTE | 2017-07-05 17:16 | Discharge Summary ---
Discharge Summary Hospital Course Date of Admission Jul 01, 2017 at 02:25 Date of Discharge Jul 05, 2017 at 15:40 Admitting Diagnosis copd exacerbation Reason for Hospitalization: Acute COPD exacerbation, hypoxia, hypercapnia HPI 87y/o female with pmh of HTN, DM2, hypothyroidism, COPD who presents with SOB. Unable to obtain history from pt as she is currently on BiPAP. Per EMS, pt hypoxic at SNF. O2 says in the 80s but improved w/ supplemental O2. No reports of f/c, chest pain, cough, abd pain, n/v, d/c, dysuria. In ED, pt w/ O2 sat 94% on 6L O2 via NC.CXR showed large R pleural effusion. Pt given levaquin, nebs, solumedrol 125mg IV, ativan 2mg IM. Consultations Pulmonology, Infectious disease, Nephrology Procedures Thoracentesis w/ 1L removed on R side Hospital Course On admission to tele, pt noted to be drowsy/sleepy. ABG showed acute respiratory acidosis w/ pH 7.2 and CO2 120s. Pt placed on BiPAP 15/5 and transferred to [facility]. Pt was continued on BiPAP 15/5 with improvement in mental status anad ABG. She was treated w/ course of steroids per pulm. Thoracentesis was done with 1L removed from R side. Pt was Discharge diagnoses: (1) Acute respiratory failure with hypoxia and hypercapnia ICD Codes: J96.01 - Acute respiratory failure with hypoxia; J96.02 - Acute respiratory failure with hypercapnia SNOMED: 62650071, 05366313, 486823471 (2) Acute toxic metabolic encephalopathy (3) COPD with acute exacerbation ICD Codes: J44.1 - Chronic obstructive pulmonary disease with (acute) exacerbation SNOMED: 402929323 (4) JERILYN on CKD (5) Hyperkalemia ICD Codes: E87.5 - Hyperkalemia SNOMED: 45420322 (6) DM2 (diabetes mellitus, type 2) Assessment & Plan: A1C 6.8 ICD Codes: E11.9 - Type 2 diabetes mellitus without complications SNOMED: 11782105 (7) HLD (hyperlipidemia) ICD Codes: E78.5 - Hyperlipidemia, unspecified SNOMED: 82814391 (8) HTN (hypertension) ICD Codes: I10 - Essential (primary) hypertension SNOMED: 73669564 (9) Hypothyroidism ICD Codes: E03.9 - Hypothyroidism, unspecified Discharge Medications Continued Medications: Albuterol Sulfate* (Albuterol Sulfate Hhn*) 2.5 Mg/3 Ml Vial.neb 3 ML INH Q4H PRN for Shortness of Breath, EA Allopurinol* (Allopurinol*) 300 Mg Tablet 300 MG ORAL DAILY, TAB Aspirin Ec* (Aspirin Ec*) 81 Mg Tablet.dr 81 MG ORAL DAILY, #30 TAB Carvedilol (Coreg) 12.5 Mg Tablet 12.5 MG ORAL EVERY 12 HOURS, #60 TAB Carvedilol* (Carvedilol*) 12.5 Mg Tablet 12.5 MG ORAL EVERY 12 HOURS, TAB Docusate Sodium* (Colace*) 100 Mg Capsule 100 MG ORAL THREE TIMES A DAY, #30 CAP Ferrous Sulfate* (Ferrous Sulfate*) 325 Mg Tablet 325 MG ORAL DAILY, #30 TAB 0 Refills Furosemide* (Lasix*) 40 Mg Tablet 40 MG ORAL DAILY, #30 TAB Gabapentin* (Gabapentin*) 600 Mg Tablet 600 MG ORAL BID, TAB Hydrocodone Bit/Acetaminophen 5-325* ([place] 5-325*) 1 Each Tablet 1 TAB ORAL Q12HR PRN for For Pain, #10 TAB 0 Refills Insulin Glargine (Lantus) 100 Unit/1 Ml Insuln.pen 0 SUBQ BEDTIME, #1 EA 0 Refills Insulin Regular, Human (Humulin R) 100 Unit/1 Ml Vial 0 SUBQ, VIAL Levothyroxine Sodium* (Levothyroxine Sodium*) 112 Mcg Tablet 112 MCG ORAL DAILY, TAB Take in the morning on an empty stomach, at least 30 minutes before food. Lidocaine (Lidoderm) 1 Each Adh..patch 1 PATCH TOPIC DAILY, #7 PATCH 0 Refills Patch(es) may remain in place for up to 12 hours in any 24-hour period. Montelukast Sodium* (Montelukast Sodium*) 10 Mg Tablet 10 MG ORAL DAILY, TAB Montelukast Sodium* (Montelukast Sodium*) 10 Mg Tablet 10 MG ORAL DAILY, TAB Nateglinide* (Starlix*) 60 Mg Tablet 60 MG ORAL THREE TIMES A DAY, #90 TAB Omeprazole (Omeprazole) 10 Mg Capsule.dr 10 MG ORAL DAILY, #30 CAP 0 Refills Polyethylene Glycol 3350* (Miralax*) 17 Gm Powd.pack 17 GM ORAL DAILYPRN PRN, #30 PACK Quetiapine Fumarate* (Seroquel*) 25 Mg Tablet 25 MG ORAL Q6H PRN, #20 TAB Simvastatin (Zocor) 20 Mg Tablet 20 MG ORAL BEDTIME, TAB Temazepam* (Temazepam*) 30 Mg Capsule 30 MG ORAL BEDTIME PRN for Insomnia, CAP Temazepam* (Temazepam*) 30 Mg Capsule 15 MG ORAL BEDTIME PRN for Insomnia, CAP [Medrol] () Discontinued Medications: Nitrofurantoin Macrocrystal (Macrodantin*) 50 Mg Capsule 100 MG ORAL BID, CAP Ramipril* (Ramipril*) 5 Mg Capsule 5 MG ORAL DAILY, #30 CAP 0 Refills Discharge Condition Upon Discharge: stable Discharge Disposition Patient was discharged to SNF/Subacute Facility(03) Discharge Diagnoses: Luciana Velázquez M.D. Jul 05, 2017 17:16
== END 2017-07-05 15:40 | DRG 189 ==
LOC: EDBD 00:34 → EMR 00:54 → 2E 02:25 → EDBEDREQ 04:39 → 2E 06:08 → 2W 09:55 → 2E 07-03 22:10 → 4E 07-04 15:19
PROC: 5A09457 Assistance with Respiratory Ventilation, 24-96 Consecutive Hours, Continuous Positive Airway Pressure (ICD-10-PCS; principal; 2017-07-01)
PROC: 0W993ZZ Drainage of Right Pleural Cavity, Percutaneous Approach (ICD-10-PCS; principal; 2017-07-01)
DX: J96.01 Acute respiratory failure with hypoxia (principal); N17.9 Acute kidney failure, unspecified; G92 Toxic encephalopathy; L89.152 Pressure ulcer of sacral region, stage 2; I27.20 Pulmonary hypertension, unspecified; J90 Pleural effusion, not elsewhere classified; J44.1 Chronic obstructive pulmonary disease with (acute) exacerbation; E11.21 Type 2 diabetes mellitus with diabetic nephropathy; F03.90 Unspecified dementia, unspecified severity, without behavioral disturbance, psychotic disturbance, mood disturbance, and anxiety; Z68.42 Body mass index [BMI] 45.0-49.9, adult; J96.02 Acute respiratory failure with hypercapnia; E66.01 Morbid (severe) obesity due to excess calories; E87.5 Hyperkalemia; D64.9 Anemia, unspecified; N18.9 Chronic kidney disease, unspecified; E03.9 Hypothyroidism, unspecified; I12.9 Hypertensive chronic kidney disease with stage 1 through stage 4 chronic kidney disease, or unspecified chronic kidney disease; Z91.041 Radiographic dye allergy status; E78.5 Hyperlipidemia, unspecified; Z86.73 Personal history of transient ischemic attack (TIA), and cerebral infarction without residual deficits; Z79.4 Long term (current) use of insulin
CPT/HCPCS: 36415; 36600; 71045; 74018; 76942; 80048; 80053; 80061; 81001; 81003; 82550; 82553; 82607; 82728; 82746; 82803; 82962; 82977; 83036; 83540; 83550; 83605; 83615; 83735; 83880; 84100; 84300; 84443; 84484; 84550; 85007; 85025; 85610; 85730; 86710; 87040; 87070; 87081; 87086; 87205; 88104; 89051; 93005; 94640; 94660; 94664; 94760; 99285; J1815; J7620; J8499

== ENCOUNTER 2017-07-13 22:15 | Inpatient (IN) | payer MEDICARE, OTHER ==
[~2017-07-13] VITALS: Ht 172.7 cm; Wt 127.0 kg
[~2017-07-13 22:15] MED LIST changes: +ALBUTEROL2.5 MG/3 M INH; +CARVEDILOL12.5 MG ORAL; +CEFTRIAXON1 GM/50 ML IV; +HUMULIN R100 UNIT/1 SUBQ; +LANTUS SOL100 UNIT/1 SUBQ; +MACRODANTIN50 MG ORAL; +Medrol; +NORCO 5-325 TA1 EACH ORAL; +ZOCOR20 MG ORAL; +medrol
--- NOTE | 2017-07-13 22:46 | Emergency Room Report ---
History of Present Illness General Chief Complaint: Abnormal Labs Source: Patient, Medical Record Present Illness HPI This is an 87-year-old female sent in by the nursing facility after increased generalized weakness and abnormal lab for studies. Patient was noted to have evidence of anemia as well as increased creatinine. Patient denies any current complaints. She prior history of psychiatric disease. Allergies: Coded Allergies: IODINE (Verified Allergy, Mild, 08/17/08) Uncoded Allergies: CONTRAST MEDIA (Allergy, Mild, 08/17/08) CONTRAST (Allergy, Unknown, 07/13/17) Patient History Past Medical History: see triage record Last Menstrual Period: NA Now: No Reviewed Nursing Documentation: PMH: Agreed, PSxH: Agreed Nursing Documentation-PMH Hx Hypertension: Yes - hyperlipidemia Hx COPD: Yes Hx Diabetes: Yes - hydronephrosis Hx Cancer: No Hx Cerebrovascular Accident: Yes - hemiplegia, hemiparesis Review of Systems All Other Systems: limited - by poor historian Physical Exam Vital Signs Date Time Temp Pulse Resp B/P (MAP) Pulse Ox O2 Delivery O2 Flow Rate FiO2 07/13/17 22:12 97.9 86 20 114/53 95 Nasal Cannula 2.0 97.9 Sp02 EP Interpretation: reviewed, normal General Appearance: normal inspection, well appearing, no apparent distress, obese, Chronically Ill Head: atraumatic ENT: normal ENT inspection, hearing grossly normal, normal voice Neck: normal inspection, full range of motion, supple, no bony tend Respiratory: normal inspection, lungs clear, normal breath sounds, no respiratory distress, no retraction, no wheezing Cardiovascular #1: regular rate, rhythm, no edema Gastrointestinal: normal inspection, normal bowel sounds, non tender, soft, no guarding, no hernia Genitourinary: no CVA tenderness Musculoskeletal: normal inspection, back normal, normal range of motion Neurologic: normal inspection, alert, responsive, speech normal Psychiatric: normal inspection, judgement/insight normal, mood/affect normal Skin: normal inspection Medical Decision Making Diagnostic Impression: Primary Impression: COPD with acute exacerbation Additional Impression: CKD (chronic kidney disease) ER Course Patient presented for generalized weakness and shortness of breath. Differential included but was not limited to anemia, pneumonia, pneumothorax, myocardial infarction, pericardial effusion, congestive heart failure, acidosis. Because of complexity of patient's case laboratory testing and imaging studies were ordered. The patient noted have markedly anemia. The patient was given supplemental oxygen. Patient noted have a significant anemia. Dr. Gabe Frias was contacted for inpatient management. Labs Test 07/13/17 23:23 07/14/17 02:10 White Blood Count 5.5 K/UL (4.8-10.8) Red Blood Count 2.78 M/UL (4.20-5.40) Hemoglobin 8.5 G/DL (12.0-16.0) Hematocrit 28.0 % (37.0-47.0) Mean Corpuscular Volume 101 FL (80-99) Mean Corpuscular Hemoglobin 30.4 PG (27.0-31.0) Mean Corpuscular Hemoglobin Concent 30.2 G/DL (32.0-36.0) Red Cell Distribution Width 15.6 % (11.6-14.8) Platelet Count 171 K/UL (150-450) Mean Platelet Volume 7.0 FL (6.5-10.1) Neutrophils (%) (Auto) 78.2 % (45.0-75.0) Lymphocytes (%) (Auto) 12.1 % (20.0-45.0) Monocytes (%) (Auto) 6.8 % (1.0-10.0) Eosinophils (%) (Auto) 1.7 % (0.0-3.0) Basophils (%) (Auto) 1.3 % (0.0-2.0) Prothrombin Time 11.4 SEC (9.30-11.50) Prothromb Time International Ratio 1.1 (0.9-1.1) Activated Partial Thromboplast Time 22 SEC (23-33) Sodium Level 143 MMOL/L (136-145) Potassium Level 4.9 MMOL/L (3.5-5.1) Chloride Level 106 MMOL/L (98-107) Carbon Dioxide Level 38 MMOL/L (21-32) Anion Gap -1 mmol/L (5-15) Blood Urea Nitrogen 35 mg/dL (7-18) Creatinine 1.4 MG/DL (0.55-1.30) Estimat Glomerular Filtration Rate mL/min (>60) Glucose Level 112 MG/DL (74-106) Lactic Acid Level 0.70 mmol/L (0.66-2.22) Calcium Level 9.1 MG/DL (8.5-10.1) Total Bilirubin 0.2 MG/DL (0.2-1.0) Aspartate Amino Transf (AST/SGOT) 16 U/L (15-37) Alanine Aminotransferase (ALT/SGPT) 15 U/L (12-78) Alkaline Phosphatase 82 U/L (46-116) Total Creatine Kinase 31 U/L (26-308) Creatine Kinase MB < 0.5 NG/ML (0.0-3.6) Creatine Kinase MB Relative Index 1.6 Troponin I 0.002 ng/mL (0.000-0.056) Total Protein 6.5 G/DL (6.4-8.2) Albumin 2.5 G/DL (3.4-5.0) Globulin 4.0 g/dL Albumin/Globulin Ratio 0.6 (1.0-2.7) Urine Color Pale yellow Urine Appearance Clear Urine pH 6 (4.5-8.0) Urine Specific [place] 1.015 (1.005-1.035) Urine Protein 2+ (NEGATIVE) Urine Glucose (UA) Negative (NEGATIVE) Urine Ketones Negative (NEGATIVE) Urine Occult Blood 2+ (NEGATIVE) Urine Nitrite Negative (NEGATIVE) Urine Bilirubin Negative (NEGATIVE) Urine Urobilinogen Normal MG/DL (0.0-1.0) Urine Leukocyte Esterase 2+ (NEGATIVE) Urine RBC 5-10 /HPF (0 - 2) Urine WBC 20-30 /HPF (0 - 2) Urine Squamous Epithelial Cells Few /LPF (NONE/OCC) Urine Bacteria Moderate /HPF (NONE) Last Vital Signs Date Time Temp Pulse Resp B/P (MAP) Pulse Ox O2 Delivery O2 Flow Rate FiO2 07/13/17 22:12 97.9 86 20 114/53 95 Nasal Cannula 2.0 97.9 Status: unchanged Disposition: ADMITTED INPATIENT Condition: Daryl Funk Jul 13, 2017 22:46
[2017-07-13 23:41] LABS: BASOPHILS % (AUTO) 1.3 % (0.0-2.0); EOSINOPHILS % (AUTO) 1.7 % (0.0-3.0); HEMOGLOBIN 8.5 G/DL (12.0-16.0); LYMPHOCYTES % (AUTO) 12.1 % (20.0-45.0); MEAN CORPUSCULAR VOLUME 101 FL (80-99); MONOCYTES % (AUTO) 6.8 % (1.0-10.0); NEUTROPHILS % (AUTO) 78.2 % (45.0-75.0); PLATELET COUNT 171 K/UL (150-450); RED BLOOD COUNT 2.78 M/UL (4.20-5.40); RED CELL DISTRIBUTION WIDTH 15.6 % (11.6-14.8); WHITE BLOOD COUNT 5.5 K/UL (4.8-10.8)
[2017-07-13 23:43] LABS: ANION GAP -1 mmol/L (5-15); BLOOD UREA NITROGEN 35 mg/dL (7-18); CALCIUM 9.1 MG/DL (8.5-10.1); CARBON DIOXIDE 38 MMOL/L (21-32); CHLORIDE 106 MMOL/L (98-107); CREATININE 1.4 MG/DL (0.55-1.30); POTASSIUM 4.9 MMOL/L (3.5-5.1); SODIUM 143 MMOL/L (136-145)
[2017-07-13 23:44] LABS: INR 1.1 (0.9-1.1)
[2017-07-13 23:56] LABS: ALANINE AMINOTRANSFERASE 15 U/L (12-78); ALBUMIN 2.5 G/DL (3.4-5.0); ALBUMIN/GLOBULIN RATIO 0.6 (1.0-2.7); ALKALINE PHOSPHATASE 82 U/L (46-116); ASPARTATE AMINO TRANSFERASE 16 U/L (15-37); BILIRUBIN,TOTAL 0.2 MG/DL (0.2-1.0); CKMB < 0.5 NG/ML (0.0-3.6); CREATINE KINASE 31 U/L (26-308)
[2017-07-14 00:30] VITALS: BP 120/54
[2017-07-14] MEDS ORDERED: TEMAZEPAM15 MG ORAL (01:23)
[2017-07-14 01:54] VITALS: BP 121/86
[2017-07-14 03:00] LABS: APPEARANCE,URINE CLEAR; BILIRUBIN, URINE NEGATIVE (NEGATIVE); COLOR,URINE PALE YELLOW; GLUCOSE, URINE (UA) NEGATIVE (NEGATIVE); KETONES,URINE NEGATIVE (NEGATIVE); LEUKOCYTE ESTERASE ,URINE 2+ (NEGATIVE); NITRITE,URINE NEGATIVE (NEGATIVE); PH,URINE 6 (4.5-8.0); PROTEIN,URINE 2+ (NEGATIVE); UROBILINOGEN,URINE NORMAL MG/DL (0.0-1.0)
[2017-07-14 04:02] VITALS: BP 98/66
[2017-07-14] MEDS ORDERED: Norco 5mg/325mg tab ORAL PRN (05:15)
[2017-07-14] MEDS ORDERED: Miralax 17gm pkt ORAL PRN (05:15)
[2017-07-14] MEDS: D5 1/2NS 1,000 ML IV SCH ×2 (05:46→22:46)
[2017-07-14] MEDS: Furosemide 40mg tab ORAL SCH (09:00)
[2017-07-14] MEDS: Montelukast 10mg tablet ORAL SCH (09:29)
[2017-07-14] MEDS: Aspirin EC 81mg tab ORAL SCH (09:29)
[2017-07-14] MEDS: Docusate 100mg cap ORAL SCH ×3 (09:30→17:52)
[2017-07-14] MEDS: Nateglinide 60mg tab ORAL SCH ×3 (09:31→17:52)
[2017-07-14] MEDS: Carvedilol 12.5mg tab ORAL SCH ×2 (09:32→22:37)
[2017-07-14 09:36] LABS: BASOPHILS % (AUTO) 1.1 % (0.0-2.0); EOSINOPHILS % (AUTO) 1.2 % (0.0-3.0); HEMOGLOBIN 8.1 G/DL (12.0-16.0); LYMPHOCYTES % (AUTO) 12.2 % (20.0-45.0); MEAN CORPUSCULAR VOLUME 103 FL (80-99); NEUTROPHILS % (AUTO) 79.5 % (45.0-75.0); PLATELET COUNT 151 K/UL (150-450); RED BLOOD COUNT 2.72 M/UL (4.20-5.40); RED CELL DISTRIBUTION WIDTH 15.6 % (11.6-14.8); WHITE BLOOD COUNT 6.1 K/UL (4.8-10.8)
[2017-07-14 09:56] LABS: ANION GAP 1 mmol/L (5-15); BLOOD UREA NITROGEN 30 mg/dL (7-18); CARBON DIOXIDE 37 MMOL/L (21-32); CHLORIDE 106 MMOL/L (98-107); CREATININE 1.4 MG/DL (0.55-1.30); POTASSIUM 4.5 MMOL/L (3.5-5.1); SODIUM 144 MMOL/L (136-145)
--- NOTE | 2017-07-14 10:01 | Diagnostic Imaging Report ---
Indication: Shortness of breath Technique: One view of the chest Comparison: 07/04/2017 Findings: There are bilateral pleural effusions which appears similar the previous study. There is bilateral interstitial congestion. The heart is enlarged Impression: Bilateral pleural effusions and interstitial congestion, appearing similar to prior exam 07/04/2017.
[2017-07-14] MEDS ORDERED: NovoLOG Insulin Flexpen SUBQ SCH ×3 (11:30→21:00)
--- NOTE | 2017-07-14 11:30 | Diagnostic Imaging Report ---
Indication: Shortness of breath Technique: One view of the chest Comparison: 07/13/2017 (9 hours earlier) Findings: Slightly increased large bilateral pleural effusions. Pulmonary venous congestion may slightly increased as well. The heart borders are obscured. Impression: Suspect slightly increased bilateral pleural effusions and pulmonary parenchymal edema, over 9 hours
[2017-07-14 12:00] VITALS: BP 117/64
[2017-07-14 16:00] VITALS: BP 124/52
--- NOTE | 2017-07-14 17:30 | Consultation ---
DATE OF CONSULTATION: 07/14/2017 PULMONARY CONSULTATION CONSULTING PHYSICIAN: Roe Gu M.D. REASON FOR ADMISSION: Anemia, generalized weakness, and shortness of breath. HISTORY OF PRESENT ILLNESS: The patient is an 87-year-old female, apparently had a recent admission here to the medical center. The patient with multiple medical problems including COPD and pleural effusion. The patient presented with generalized weakness and abnormal labs. The patient with apparently worsening anemia and renal insufficiency. The patient with history of recent admission, history of thoracentesis, notable for increased pleural effusion as well as COPD. The patient appears to be fairly bedbound, poorly ambulatory, and appears to be confused. Events noted and prior history reviewed. The patient is a long term patient. residential chart was reviewed. The patient has multitude of medical problems outlined. PAST MEDICAL HISTORY: Notable for chronic kidney disease, bacteremia, hydronephrosis, anasarca, COPD, hypothyroidism, pleural effusion, prior history of pressure ulcer, diabetes, and respiratory insufficiency. MEDICATIONS: Reviewed. ALLERGIES: Reviewed. SOCIAL HISTORY: The patient is a long term patient. PHYSICAL EXAMINATION: GENERAL: An obese female, in no significant distress. The patient is alert. VITAL SIGNS: Blood pressure 98/66, saturations 100% on 2 liters, respiratory rate 20, and temperature 97.9 degrees. HEENT: Overall negative. NECK: Supple. LUNGS: Moderate air entry, but somewhat distant. CARDIAC: S1 and S2. Somewhat distant. Regular rate and rhythm. ABDOMEN: Obese and nontender. EXTREMITIES: Significant lymphedema. NEUROLOGIC: Diffusely weak. LABORATORY DATA: Lab data reviewed. BUN 35 and creatinine 1.4. Hemoglobin 8.5, hematocrit 28, and platelets are 171,000. IMPRESSION: 1. History of chronic obstructive pulmonary disease. 2. History of pleural effusion. 3. History of hydronephrosis. 4. Evidence of renal insufficiency, acute on chronic. 5. Hyperlipidemia. 6. Hemiplegia. 7. History of cerebrovascular accident. 8. Evidence of anemia, possibly due to chronic disease versus gastrointestinal bleed. 9. Evidence of hypoxemia. RECOMMENDATIONS: Supportive care. Resume long term medications. Use albuterol as needed. Oxygen as needed. We will hold off on heparin, but we will obtain a venous ultrasound to rule out DVT. We will obtain x-ray to assess for recurrence of pleural effusion and consider GI evaluation and hematological evaluation to assess the patient's underlying anemia further. Roe Gu M.D. DR: JULIETTE JOB#: [id number] CC:
[2017-07-14 20:00] VITALS: BP 119/61
[2017-07-14] MEDS: NovoLOG Insulin Flexpen SUBQ SCH (21:00)
--- NOTE | 2017-07-14 23:30 | History and Physical Report ---
DATE OF ADMISSION: 07/13/2017 ATTENDING PHYSICIAN: Gabe Frias D.O. CONSULTANTS: 1. Beatriz Fields M.D. 2. Raciel Marin M.D. CHIEF COMPLAINT: Weakness, shortness of breath, anemia, edema, right pleural fusion. BRIEF HISTORY: This is an 87-year-old female from [facility], presented to [facility] with history of increased shortness of breath, was found to have pleural effusion, anemia, renal insufficiency, weakness, admitted to telemetry for further care. Currently O2 NC, calm, sleeping, slightly short of breath in bed. No complaint. REVIEW OF SYSTEMS: No chest pain. Slight shortness of breath. No nausea, vomiting, or diarrhea. PAST MEDICAL HISTORY: Renal insufficiency, edema, weakness, obesity, and diabetes. PAST SURGICAL HISTORY: Left knee and back and right hip surgery. MEDICATIONS: Temazepam, atorvastatin, NovoLog, dextrose, allopurinol, carvedilol, docusate sodium, furosemide, Ferrous sulfate, montelukast, lidocaine, levothyroxine, and quetiapine. ALLERGIES: Denies. SOCIAL HISTORY: No smoking. No alcohol. No intravenous drug abuse. FAMILY HISTORY: Noncontributory. PHYSICAL EXAMINATION: GENERAL: Calm in bed, oriented x2, in no acute distress. VITAL SIGNS: Temperature is 98.9, pulse 94, respirations 19, and blood pressure 117/64. CARDIOVASCULAR: No murmur. LUNGS: Poor air exchange. ABDOMEN: Bowel sounds distant. EXTREMITIES: No cyanosis or clubbing. 1+ edema. NEUROLOGIC: The patient moves all extremities, but slightly weak. LABORATORY AND DIAGNOSTIC DATA: Labs at this time show hemoglobin 8.1, otherwise, CBC is normal. BMP shows CO2 37, BUN and creatinine 30/1.4, glucose 181, INR is 1.1 and PTT 23. Urinalysis, 3+ occult blood, 2+ protein, and 2+ leukocyte esterase. ASSESSMENT: 1. Weakness. 2. Shortness of breath. 3. Anemia. 4. Renal insufficiency. 5. Edema. 6. Urinary tract infection. 7. Right pleural effusion. 8. Obesity. 9. Chronic obstructive pulmonary disease. 10. Diabetes. 11. Chronic kidney disease. PLAN: 1. O2 and pulmonary treatment. 2. Antibiotics per Infectious Disease. 3. OT, PT, and dietary evaluation. 4. Resume home medications. 5. Nephrology followup. 6. Pulmonary followup. 7. We will continue to follow the patient. Gabe Frias D.O. DR: FELIX JOB#: [id number] CC:
[2017-07-15] VITALS: BP 118/60
[2017-07-15 04:00] VITALS: BP 113/61
[2017-07-15] MEDS: NovoLOG Insulin Flexpen SUBQ SCH ×4 (06:15→21:00)
--- NOTE | 2017-07-15 07:08 | General Progress Note ---
Assessment/Plan Problem List: (1) JERILYN on CKD (2) UTI (urinary tract infection) ICD Codes: N39.0 - Urinary tract infection, site not specified SNOMED: 08872230 (3) COPD (chronic obstructive pulmonary disease) ICD Codes: J44.9 - Chronic obstructive pulmonary disease, unspecified SNOMED: 88744621 (4) DM2 (diabetes mellitus, type 2) ICD Codes: E11.9 - Type 2 diabetes mellitus without complications SNOMED: 51137768 (5) Acute respiratory failure with hypoxia and hypercapnia ICD Codes: J96.01 - Acute respiratory failure with hypoxia; J96.02 - Acute respiratory failure with hypercapnia SNOMED: 93926098, 36007400, 091585128 Status: unchanged Assessment/Plan o2 pum tx abx ot pt diet cbc bmp am Subjective Constitutional: Reports: weakness Allergies: Coded Allergies: IODINE (Verified Allergy, Mild, 08/17/08) Uncoded Allergies: CONTRAST MEDIA (Allergy, Mild, 08/17/08) CONTRAST (Allergy, Unknown, 07/13/17) All Systems: reviewed and negative except above Subjective 02nc sleepy Objective Last 24 Hour Vital Signs Date Time Temp Pulse Resp B/P (MAP) Pulse Ox O2 Delivery O2 Flow Rate FiO2 07/15/17 04:00 81 07/15/17 04:00 97.4 92 20 113/61 94 Nasal Cannula 3.0 97.4 07/15/17 00:00 83 07/15/17 00:00 97.7 84 18 118/60 95 Nasal Cannula 3.0 97.7 07/14/17 22:37 89 124/52 07/14/17 20:11 89 18 Nasal Cannula 3.0 32 07/14/17 20:11 Nasal Cannula 3.0 32 07/14/17 20:11 98 Nasal Cannula 3.0 32 07/14/17 20:00 102 07/14/17 20:00 97.7 93 22 119/61 96 Nasal Cannula 3.0 97.7 07/14/17 16:00 82 07/14/17 16:00 98.3 86 19 124/52 99 Nasal Cannula 3.0 98.3 86 07/14/17 12:00 98.1 94 19 117/64 100 Nasal Cannula 3.0 98.1 94 07/14/17 12:00 84 3/1/18 09:32 98 117/56 07/14/17 08:49 Nasal Cannula 2.0 07/14/17 08:48 97 Nasal Cannula 2.0 07/14/17 08:47 76 20 Nasal Cannula 2.0 07/14/17 08:00 84 07/14/17 08:00 99 Intake and Output 07/14/17 07/15/17 19:00 07:00 Intake Total 600 ml 100 ml Balance 600 ml 100 ml Intake Oral 480 ml 100 ml Other 120 ml # Voids 1 4 # Bowel Movements 3 Laboratory Tests 07/14/17 09:00: White Blood Count 6.1, Red Blood Count 2.72L, Hemoglobin 8.1L, Hematocrit 28.0L , Mean Corpuscular Volume 103H, Mean Corpuscular Hemoglobin 30.0, Mean Corpuscular Hemoglobin Concent 29.1L, Red Cell Distribution Width 15.6H, Platelet Count 151, Mean Platelet Volume 6.4L, Neutrophils (%) (Auto) 79.5H, Lymphocytes (%) (Auto) 12.2L, Monocytes (%) (Auto) 6.0, Eosinophils (%) (Auto) 1.2, Basophils (%) (Auto) 1.1, Sodium Level 144, Potassium Level 4.5, Chloride Level 106, Carbon Dioxide Level 37H, Anion Gap 1L, Blood Urea Nitrogen 30H, Creatinine 1.4H, Estimat Glomerular Filtration Rate , Glucose Level 181H, Calcium Level 9.0 07/15/17 06:30: White Blood Count [Pending], Red Blood Count [Pending], Hemoglobin [Pending], Hematocrit [Pending], Mean Corpuscular Volume [Pending], Mean Corpuscular Hemoglobin [Pending], Mean Corpuscular Hemoglobin Concent [Pending], Red Cell Distribution Width [Pending], Platelet Count [Pending], Mean Platelet Volume [ Pending], Neutrophils (%) (Auto) [Pending], Lymphocytes (%) (Auto) [Pending], Monocytes (%) (Auto) [Pending], Eosinophils (%) (Auto) [Pending], Basophils (%) (Auto) [Pending], Sodium Level [Pending], Potassium Level [Pending], Chloride Level [Pending], Carbon Dioxide Level [Pending], Blood Urea Nitrogen [Pending], Creatinine [Pending], Estimat Glomerular Filtration Rate [Pending], Glucose Level [Pending], Calcium Level [Pending], Total Bilirubin [Pending], Aspartate Amino Transf (AST/SGOT) [Pending], Alanine Aminotransferase (ALT/SGPT) [Pending] , Alkaline Phosphatase [Pending], Pro-B-Type Natriuretic Peptide [Pending], Total Protein [Pending], Albumin [Pending], Globulin [Pending] Height (Feet): 5 Height (Inches): 8.00 Weight (Pounds): 280 General Appearance: lethargic EENT: normal ENT inspection Neck: normal alignment Cardiovascular: normal peripheral pulses, normal rate, regular rhythm Respiratory/Chest: decreased breath sounds Abdomen: normal bowel sounds, non tender, soft Extremities: normal inspection Edema: 1+ Arm (L), 1+ Arm (R), 1+ Leg (L), 1+ Leg (R), 1+ Pedal (L), 1+ Pedal ( R), 1+ Generalized Edema: trace edema Neurologic: motor weakness Skin: normal pigmentation, warm/dry JIMMIE ARTHUR Jul 15, 2017 07:07
[2017-07-15 07:10] LABS: HEMATOCRIT 26.3 % (37.0-47.0); HEMOGLOBIN 7.8 G/DL (12.0-16.0); MEAN CORPUSCULAR VOLUME 102 FL (80-99); PLATELET COUNT 144 K/UL (150-450); RED BLOOD COUNT 2.58 M/UL (4.20-5.40); WHITE BLOOD COUNT 5.5 K/UL (4.8-10.8)
[2017-07-15 07:50] LABS: ALANINE AMINOTRANSFERASE 14 U/L (12-78); ALBUMIN 2.3 G/DL (3.4-5.0); ALBUMIN/GLOBULIN RATIO 0.6 (1.0-2.7); ALKALINE PHOSPHATASE 70 U/L (46-116); ANION GAP 3 mmol/L (5-15); ASPARTATE AMINO TRANSFERASE 17 U/L (15-37); BILIRUBIN,TOTAL 0.2 MG/DL (0.2-1.0); BLOOD UREA NITROGEN 28 mg/dL (7-18); CALCIUM 8.9 MG/DL (8.5-10.1); CARBON DIOXIDE 35 MMOL/L (21-32); CHLORIDE 105 MMOL/L (98-107); CREATININE 1.4 MG/DL (0.55-1.30); POTASSIUM 4.6 MMOL/L (3.5-5.1); SODIUM 143 MMOL/L (136-145)
[2017-07-15 08:00] VITALS: BP 110/54
[2017-07-15] MEDS: Docusate 100mg cap ORAL SCH ×3 (09:10→17:29)
[2017-07-15] MEDS: Furosemide 40mg tab ORAL SCH (09:11)
[2017-07-15] MEDS: Carvedilol 12.5mg tab ORAL SCH ×2 (09:11→21:59)
[2017-07-15] MEDS: Aspirin EC 81mg tab ORAL SCH (09:11)
[2017-07-15] MEDS: Nateglinide 60mg tab ORAL SCH ×3 (09:12→17:29)
[2017-07-15] MEDS: Montelukast 10mg tablet ORAL SCH (09:12)
--- NOTE | 2017-07-15 11:07 | Wound Care Consultation ---
Wound Assessment Wound Assessment : Wound Number: 1 Wound Present on Admission: Yes New Wound: No Status Change of Wound: No Wound Location Body Site Modif: mid Wound Location Body Site: other - sacrococcygeal Wound Type: pressure ulcer Bola Test: Does not Bola Pressure Ulcer Stage: III Wound Thickness: Full Thickness Wound Length: 4.5 Wound Width: 2.5 Wound Depth: 0.3 Percent of Wound [place]/Red: 100 Wound Drainage Description: Serosanguineous Wound Drainage Amount: Moderate Wound Drainage Odor: None/Absent Tissue Surrounding Wound: Erythemic Wound General Appearance: Reddened, Draining Wound Comment #1 Sacrococcygeal stage III pressure ulcer Recommendation -Local wound care per protocol -Keep clean and dry -Turn and reposition -Offload both heels -Heel protector on both heels -Optimize nutrition -Low air loss mattress -Assess and f/u accordingly for any changes DARREL PETER RN Jul 15, 2017 11:07
--- NOTE | 2017-07-15 11:27 | Cardiology Report ---
APPROVED REPORT EKG Measurement Heart [id number] Normal sinus rhythm Low voltage QRS Borderline ECG
--- NOTE | 2017-07-15 11:48 | Diagnostic Imaging Report ---
Indication: Dyspnea Comparison: 07/14/2017 A single view chest radiograph was obtained. Findings: Vascular congestion and interstitial edema demonstrated. Bilateral pleural effusions are suspected also. Heart is mildly enlarged. IMPRESSION: CHF/interstitial edema with slight interval improvement since the previous day
[2017-07-15 12:00] VITALS: BP 99/51
[2017-07-15] MEDS: D5 1/2NS 1,000 ML IV SCH (15:20)
--- NOTE | 2017-07-15 15:27 | Pulmonology Progress Note ---
Assessment/Plan Problems: (1) Pleural effusion (2) Acute toxic metabolic encephalopathy (3) COPD (chronic obstructive pulmonary disease) (4) DM2 (diabetes mellitus, type 2) (5) HTN (hypertension) (6) Anasarca Assessment/Plan respiratory treatment thoracentesis diuretic oncology evaluation Subjective ROS Limited/Unobtainable: No Interval Events: looks better, no new complains Allergies: Coded Allergies: IODINE (Verified Allergy, Mild, 08/17/08) Uncoded Allergies: CONTRAST MEDIA (Allergy, Mild, 08/17/08) CONTRAST (Allergy, Unknown, 07/13/17) Objective Last 24 Hour Vital Signs Date Time Temp Pulse Resp B/P (MAP) Pulse Ox O2 Delivery O2 Flow Rate FiO2 07/15/17 09:11 95 110/61 07/15/17 08:00 89 07/15/17 06:40 84 18 Nasal Cannula 3.0 32 07/15/17 06:40 Nasal Cannula 3.0 32 07/15/17 06:40 98 Nasal Cannula 3.0 32 07/15/17 04:00 81 07/15/17 04:00 97.4 92 20 113/61 94 Nasal Cannula 3.0 97.4 07/15/17 00:00 83 07/15/17 00:00 97.7 84 18 118/60 95 Nasal Cannula 3.0 97.7 07/14/17 22:37 89 124/52 07/14/17 20:11 89 18 Nasal Cannula 3.0 32 07/14/17 20:11 Nasal Cannula 3.0 32 07/14/17 20:11 98 Nasal Cannula 3.0 32 07/14/17 20:00 102 07/14/17 20:00 97.7 93 22 119/61 96 Nasal Cannula 3.0 97.7 07/14/17 16:00 82 07/14/17 16:00 98.3 86 19 124/52 99 Nasal Cannula 3.0 98.3 86 Intake and Output 07/14/17 07/15/17 19:00 07:00 Intake Total 600 ml 100 ml Balance 600 ml 100 ml Intake Oral 480 ml 100 ml Other 120 ml # Voids 1 4 # Bowel Movements 3 Objective General Appearance: WD/WN, Lines, tubes and drains: peripheral HEENT: normocephalic, atraumatic Neck: non-tender, normal alignment, supple Respiratory/Chest: chest wall non-tender, lungs clear, normal breath sounds Breasts: no masses Cardiovascular/Chest: normal peripheral pulses, normal rate Abdomen: normal bowel sounds, non tender Genitourinary/Rectal: normal genital exam, normal rectal exam Extremities: normal range of motion, non-tender Skin Exam: normal pigmentation 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, Microbiology Date/Time Source Procedure Growth Status 07/13/17 23:00 Blood Blood Culture - Preliminary NO GROWTH AFTER 24 HOURS Resulted 07/13/17 23:00 Blood Blood Culture - Preliminary NO GROWTH AFTER 24 HOURS Resulted 07/14/17 02:10 Nasal Nares MRSA Culture - Final Staphylococcus Aureus - Mrsa Complete 07/14/17 02:10 Urine,Clean Catch Urine Culture - Preliminary NO GROWTH Resulted Laboratory Tests 07/15/17 06:30: White Blood Count 5.5, Red Blood Count 2.58L, Hemoglobin 7.8L, Hematocrit 26.3L , Mean Corpuscular Volume 102H, Mean Corpuscular Hemoglobin 30.0, Mean Corpuscular Hemoglobin Concent 29.4L, Red Cell Distribution Width 16.0H, Platelet Count 144L, Mean Platelet Volume 6.7, Neutrophils (%) (Auto) , Lymphocytes (%) (Auto) , Monocytes (%) (Auto) , Eosinophils (%) (Auto) , Basophils (%) (Auto) , Differential Total Cells Counted 100, Neutrophils % ( Manual) 73, Lymphocytes % (Manual) 23, Monocytes % (Manual) 1, Eosinophils % ( Manual) 3, Basophils % (Manual) 0, Band Neutrophils 0, Platelet Estimate Adequate, Platelet Morphology Normal, Hypochromasia 1+, Anisocytosis 1+, Macrocytosis 1+, Sodium Level 143, Potassium Level 4.6, Chloride Level 105, Carbon Dioxide Level 35H, Anion Gap 3L, Blood Urea Nitrogen 28H, Creatinine 1.4H , Estimat Glomerular Filtration Rate , Glucose Level 104, Calcium Level 8.9, Total Bilirubin 0.2, Aspartate Amino Transf (AST/SGOT) 17, Alanine Aminotransferase (ALT/SGPT) 14, Alkaline Phosphatase 70, Pro-B-Type Natriuretic Peptide 400H, Total Protein 6.0L, Albumin 2.3L, Globulin 3.7, Albumin/Globulin Ratio 0.6L Current Medications Medications (Trade) Dose Ordered Sig/Lakshmi Route PRN Reason Start Time Stop Time Status Last Admin Dose Admin Acetaminophen/ Hydrocodone Bitart ([place] 5/325) 1 tab Q12HR PRN ORAL For Pain 07/14/17 05:15 07/21/17 05:14 Albuterol Sulfate (Proventil) 2.5 mg Q4H PRN HHN Shortness of Breath 07/14/17 05:15 07/19/17 05:14 Allopurinol (Allopurinol) 300 mg DAILY ORAL 07/14/17 09:00 08/13/17 08:59 07/15/17 09:10 Aspirin (Ecotrin) 81 mg DAILY ORAL 07/14/17 09:00 08/13/17 08:59 07/15/17 09:11 Atorvastatin Calcium (Lipitor) 10 mg BEDTIME ORAL 07/14/17 21:00 08/13/17 20:59 07/14/17 22:37 Carvedilol (Coreg) 12.5 mg EVERY 12 HOURS ORAL 07/14/17 09:00 08/13/17 08:59 07/15/17 09:11 Dextrose (Dextrose 50%) STAT PRN IV Hypoglycemia 07/14/17 17:45 08/13/17 17:44 Dextrose/Sodium Chloride 1,000 ml @ 60 mls/hr [id number] IV 07/14/17 06:00 08/13/17 05:59 07/14/17 22:46 Docusate Sodium (Colace) 100 mg THREE TIMES A DAY ORAL 07/14/17 09:00 08/13/17 08:59 07/15/17 12:33 Ferrous Sulfate (Feosol) 325 mg DAILY ORAL 07/14/17 09:00 08/13/17 08:59 07/15/17 09:12 Furosemide (Lasix) 40 mg DAILY ORAL 07/14/17 09:00 08/13/17 08:59 07/15/17 09:11 Gabapentin (Neurontin) 600 mg DAILY ORAL 07/14/17 09:00 08/13/17 08:59 07/15/17 09:11 Insulin Aspart (NovoLOG) BEFORE MEALS AND HS SUBQ 07/14/17 21:00 08/13/17 20:59 Levothyroxine Sodium (Synthroid) 112 mcg DAILY@0630 ORAL 07/14/17 06:30 08/13/17 06:29 07/15/17 06:28 Lidocaine (Lidoderm 5% PATCH) 1 patch DAILY TDERMAL 07/14/17 09:00 08/13/17 08:59 07/15/17 09:12 Montelukast Sodium (Singulair) 10 mg DAILY ORAL 07/14/17 09:00 08/13/17 08:59 07/15/17 09:12 Nateglinide (Starlix) 60 mg THREE TIMES A DAY ORAL 07/14/17 09:00 08/13/17 08:59 07/15/17 12:33 Pantoprazole (Protonix) 40 mg ACBREAKFAST ORAL 07/14/17 09:00 08/13/17 08:59 07/15/17 06:28 Polyethylene Glycol (Miralax) 17 gm DAILYPRN PRN ORAL Constipation 07/14/17 05:15 08/13/17 05:14 Quetiapine Fumarate (SEROquel) 25 mg Q6H PRN ORAL Agitation 07/14/17 05:15 08/13/17 05:14 Temazepam (Restoril) 15 mg BEDTIME ORAL 07/14/17 21:00 07/21/17 20:59 07/14/17 22:37 KAILA HASSAN Jul 15, 2017 15:26
[2017-07-15 16:00] VITALS: BP 109/59
[2017-07-15 16:40] LABS: INR 1.1 (0.9-1.1)
[2017-07-15 20:00] VITALS: BP 119/59
[2017-07-16] VITALS: BP 104/57
[2017-07-16] MEDS: NovoLOG Insulin Flexpen SUBQ SCH ×4 (06:16→21:00)
[2017-07-16 08:00] VITALS: BP 119/57
[2017-07-16 08:07] LABS: HEMATOCRIT 33.6 % (37.0-47.0); HEMOGLOBIN 10.1 G/DL (12.0-16.0); MEAN CORPUSCULAR VOLUME 102 FL (80-99); PLATELET COUNT 87 K/UL (150-450); RED BLOOD COUNT 3.31 M/UL (4.20-5.40); RED CELL DISTRIBUTION WIDTH 16.3 % (11.6-14.8); WHITE BLOOD COUNT 6.4 K/UL (4.8-10.8)
--- NOTE | 2017-07-16 08:08 | Pulmonology Progress Note ---
Assessment/Plan Assessment/Plan ASSESSMENT Acute respiratory distress ( prob due to tiburcio pl effusions) Bilateral pleural effusions , malignant COPD exacerbation possible CHF exacerbation HTN DM Anasarca Anemia CKD sacrococcyx decub st 3 POA PLAN OF CARE tele O2 titrate , HHN thoracentesis with pleural fluid analysis cytology of pleural fluid from previous admission revealed malignancy onco eval diuretic, monitor cardiorenal parameters, volumes on ASA, BB BS management with SS of insulin pain management PT/OT bowel regimen supportive care replace lytes as needed, monitor renal parameters, avoid nephrotoxic case discussed and evaluated by supervising physician Subjective Allergies: Coded Allergies: IODINE (Verified Allergy, Mild, 08/17/08) Uncoded Allergies: CONTRAST MEDIA (Allergy, Mild, 08/17/08) CONTRAST (Allergy, Unknown, 07/13/17) Subjective denies chest pain, SOB K-5.5 Objective Last 24 Hour Vital Signs Date Time Temp Pulse Resp B/P (MAP) Pulse Ox O2 Delivery O2 Flow Rate FiO2 07/16/17 06:55 Nasal Cannula 3.0 32 07/16/17 06:55 86 18 Nasal Cannula 3.0 32 07/16/17 06:55 97 Nasal Cannula 3.0 32 07/16/17 04:00 80 07/16/17 00:00 97.9 84 20 104/57 99 Nasal Cannula 3.0 97.9 07/16/17 00:00 82 07/15/17 21:59 80 109/59 07/15/17 20:08 97 Nasal Cannula 3.0 32 07/15/17 20:08 80 19 Nasal Cannula 3.0 32 07/15/17 20:08 Nasal Cannula 3.0 32 07/15/17 20:00 98.1 92 20 119/59 99 Nasal Cannula 3.0 98.1 07/15/17 20:00 92 07/15/17 16:00 97.5 82 19 109/59 95 Nasal Cannula 3.0 97.5 07/15/17 16:00 84 07/15/17 12:00 79 07/15/17 12:00 97.7 72 19 99/51 100 Nasal Cannula 3.0 97.7 07/15/17 09:11 95 110/61 Intake and Output 07/15/17 07/16/17 19:00 07:00 Intake Total 720 ml 100 ml Output Total 1250 ml Balance 720 ml -1150 ml Intake Oral 720 ml 100 ml Output Urine Total 1250 ml # Voids 2 # Bowel Movements 1 1 General Appearance: no acute distress HEENT: normocephalic, atraumatic, anicteric Respiratory/Chest: chest wall non-tender, no respiratory distress, crackles/ rales - at abses Cardiovascular: normal rate, regular rhythm - SR on tele Extremities: other - +2 chronci edema BLE Neurologic/Psychiatric: abnormal gait, alert, responsive Musculoskeletal: atrophy - BLE Microbiology Date/Time Source Procedure Growth Status 07/13/17 23:00 Blood Blood Culture - Preliminary NO GROWTH AFTER 24 HOURS Resulted 07/13/17 23:00 Blood Blood Culture - Preliminary NO GROWTH AFTER 24 HOURS Resulted 07/14/17 02:10 Nasal Nares MRSA Culture - Final Staphylococcus Aureus - Mrsa Complete 07/14/17 02:10 Urine,Clean Catch Urine Culture - Final NO GROWTH AFTER 48 HOURS Complete Laboratory Tests 07/15/17 16:16: Prothrombin Time 11.0, Prothromb Time International Ratio 1.1, Activated Partial Thromboplast Time 24 07/16/17 07:00: White Blood Count [Pending], Red Blood Count [Pending], Hemoglobin [Pending], Hematocrit [Pending], Mean Corpuscular Volume [Pending], Mean Corpuscular Hemoglobin [Pending], Mean Corpuscular Hemoglobin Concent [Pending], Red Cell Distribution Width [Pending], Platelet Count [Pending], Mean Platelet Volume [ Pending], Neutrophils (%) (Auto) [Pending], Lymphocytes (%) (Auto) [Pending], Monocytes (%) (Auto) [Pending], Eosinophils (%) (Auto) [Pending], Basophils (%) (Auto) [Pending], Sodium Level [Pending], Potassium Level [Pending], Chloride Level [Pending], Carbon Dioxide Level [Pending], Blood Urea Nitrogen [Pending], Creatinine [Pending], Estimat Glomerular Filtration Rate [Pending], Glucose Level [Pending], Calcium Level [Pending] Current Medications Medications (Trade) Dose Ordered Sig/Lakshmi Route PRN Reason Start Time Stop Time Status Last Admin Dose Admin Acetaminophen/ Hydrocodone Bitart ([place] 5/325) 1 tab Q12HR PRN ORAL For Pain 07/14/17 05:15 07/21/17 05:14 Albuterol Sulfate (Proventil) 2.5 mg Q4H PRN HHN Shortness of Breath 07/14/17 05:15 07/19/17 05:14 Allopurinol (Allopurinol) 300 mg DAILY ORAL 07/14/17 09:00 08/13/17 08:59 07/15/17 09:10 Aspirin (Ecotrin) 81 mg DAILY ORAL 07/14/17 09:00 08/13/17 08:59 07/15/17 09:11 Atorvastatin Calcium (Lipitor) 10 mg BEDTIME ORAL 07/14/17 21:00 08/13/17 20:59 07/15/17 21:59 Carvedilol (Coreg) 12.5 mg EVERY 12 HOURS ORAL 07/14/17 09:00 08/13/17 08:59 07/15/17 21:59 Dextrose (Dextrose 50%) STAT PRN IV Hypoglycemia 07/14/17 17:45 08/13/17 17:44 Docusate Sodium (Colace) 100 mg THREE TIMES A DAY ORAL 07/14/17 09:00 08/13/17 08:59 07/15/17 17:29 Ferrous Sulfate (Feosol) 325 mg DAILY ORAL 07/14/17 09:00 08/13/17 08:59 07/15/17 09:12 Furosemide (Lasix) 40 mg DAILY ORAL 07/14/17 09:00 08/13/17 08:59 07/15/17 09:11 Gabapentin (Neurontin) 600 mg DAILY ORAL 07/14/17 09:00 08/13/17 08:59 07/15/17 09:11 Insulin Aspart (NovoLOG) BEFORE MEALS AND HS SUBQ 07/14/17 21:00 08/13/17 20:59 Levothyroxine Sodium (Synthroid) 112 mcg DAILY@0630 ORAL 07/14/17 06:30 08/13/17 06:29 07/16/17 06:22 Lidocaine (Lidoderm 5% PATCH) 1 patch DAILY TDERMAL 07/14/17 09:00 08/13/17 08:59 07/15/17 09:12 Montelukast Sodium (Singulair) 10 mg DAILY ORAL 07/14/17 09:00 08/13/17 08:59 07/15/17 09:12 Nateglinide (Starlix) 60 mg THREE TIMES A DAY ORAL 07/14/17 09:00 08/13/17 08:59 07/15/17 17:29 Pantoprazole (Protonix) 40 mg ACBREAKFAST ORAL 07/14/17 09:00 08/13/17 08:59 07/16/17 06:22 Polyethylene Glycol (Miralax) 17 gm DAILYPRN PRN ORAL Constipation 07/14/17 05:15 08/13/17 05:14 Quetiapine Fumarate (SEROquel) 25 mg Q6H PRN ORAL Agitation 07/14/17 05:15 08/13/17 05:14 Temazepam (Restoril) 15 mg BEDTIME ORAL 07/14/17 21:00 07/21/17 20:59 07/15/17 21:59 [facility] Urias NP Jul 16, 2017 08:08
[2017-07-16 08:34] LABS: ANION GAP 2 mmol/L (5-15); BLOOD UREA NITROGEN 28 mg/dL (7-18); CALCIUM 8.9 MG/DL (8.5-10.1); CARBON DIOXIDE 36 MMOL/L (21-32); CHLORIDE 104 MMOL/L (98-107); CREATININE 1.4 MG/DL (0.55-1.30); POTASSIUM 5.5 MMOL/L (3.5-5.1); SODIUM 142 MMOL/L (136-145)
[2017-07-16] MEDS: Docusate 100mg cap ORAL SCH ×3 (09:38→17:12)
[2017-07-16] MEDS: Furosemide 40mg tab ORAL SCH (09:38)
[2017-07-16] MEDS: Aspirin EC 81mg tab ORAL SCH (09:38)
[2017-07-16] MEDS: Nateglinide 60mg tab ORAL SCH ×3 (09:38→17:12)
[2017-07-16] MEDS: Montelukast 10mg tablet ORAL SCH (09:38)
[2017-07-16] MEDS: Carvedilol 12.5mg tab ORAL SCH ×2 (09:39→21:39)
--- NOTE | 2017-07-16 09:54 | General Progress Note ---
Assessment/Plan Problem List: (1) JERILYN on CKD (2) UTI (urinary tract infection) ICD Codes: N39.0 - Urinary tract infection, site not specified SNOMED: 91816953 (3) COPD (chronic obstructive pulmonary disease) ICD Codes: J44.9 - Chronic obstructive pulmonary disease, unspecified SNOMED: 77212048 (4) DM2 (diabetes mellitus, type 2) ICD Codes: E11.9 - Type 2 diabetes mellitus without complications SNOMED: 95154086 (5) Acute respiratory failure with hypoxia and hypercapnia ICD Codes: J96.01 - Acute respiratory failure with hypoxia; J96.02 - Acute respiratory failure with hypercapnia SNOMED: 33632186, 49285122, [id number] Status: unchanged Assessment/Plan o2 pum tx abx ot pt diet cbc bmp am Subjective Constitutional: Reports: weakness Allergies: Coded Allergies: IODINE (Verified Allergy, Mild, 08/17/08) Uncoded Allergies: CONTRAST MEDIA (Allergy, Mild, 08/17/08) CONTRAST (Allergy, Unknown, 07/13/17) All Systems: reviewed and negative except above Subjective 02nc sleepy Objective Last 24 Hour Vital Signs Date Time Temp Pulse Resp B/P (MAP) Pulse Ox O2 Delivery O2 Flow Rate FiO2 07/16/17 09:39 94 119/57 07/16/17 08:00 97.0 94 19 119/57 99 Nasal Cannula 2.0 97.0 07/16/17 06:55 Nasal Cannula 3.0 32 07/16/17 06:55 86 18 Nasal Cannula 3.0 32 07/16/17 06:55 97 Nasal Cannula 3.0 32 07/16/17 04:00 80 07/16/17 00:00 97.9 84 20 104/57 99 Nasal Cannula 3.0 97.9 07/16/17 00:00 82 07/15/17 21:59 80 109/59 07/15/17 20:08 97 Nasal Cannula 3.0 32 07/15/17 20:08 80 19 Nasal Cannula 3.0 32 07/15/17 20:08 Nasal Cannula 3.0 32 07/15/17 20:00 98.1 92 20 119/59 99 Nasal Cannula 3.0 98.1 07/15/17 20:00 92 07/15/17 16:00 97.5 82 19 109/59 95 Nasal Cannula 3.0 97.5 07/15/17 16:00 84 07/15/17 12:00 79 07/15/17 12:00 97.7 72 19 99/51 100 Nasal Cannula 3.0 97.7 Intake and Output 07/15/17 07/16/17 19:00 07:00 Intake Total 720 ml 100 ml Output Total 1250 ml Balance 720 ml -1150 ml Intake Oral 720 ml 100 ml Output Urine Total 1250 ml # Voids 2 # Bowel Movements 1 1 Laboratory Tests 07/15/17 16:16: Prothrombin Time 11.0, Prothromb Time International Ratio 1.1, Activated Partial Thromboplast Time 24 07/16/17 07:00: White Blood Count 6.4, Red Blood Count 3.31L, Hemoglobin 10.1L, Hematocrit 33.6L , Mean Corpuscular Volume 102H, Mean Corpuscular Hemoglobin 30.5, Mean Corpuscular Hemoglobin Concent 30.1L, Red Cell Distribution Width 16.3H, Platelet Count 87L, Mean Platelet Volume 7.0, Neutrophils (%) (Auto) , Lymphocytes (%) (Auto) , Monocytes (%) (Auto) , Eosinophils (%) (Auto) , Basophils (%) (Auto) , Differential Total Cells Counted 100, Neutrophils % ( Manual) 70, Lymphocytes % (Manual) 20, Monocytes % (Manual) 7, Eosinophils % ( Manual) 2, Basophils % (Manual) 1, Band Neutrophils 0, Platelet Estimate DecreasedL, Platelet Morphology Normal, Hypochromasia 1+, Anisocytosis 1+, Macrocytosis 1+, Sodium Level 142, Potassium Level 5.5H, Chloride Level 104, Carbon Dioxide Level 36H, Anion Gap 2L, Blood Urea Nitrogen 28H, Creatinine 1.4H , Estimat Glomerular Filtration Rate , Glucose Level 74, Calcium Level 8.9 Height (Feet): 5 Height (Inches): 8.00 Weight (Pounds): 280 General Appearance: lethargic EENT: normal ENT inspection Neck: normal alignment Cardiovascular: normal peripheral pulses Respiratory/Chest: decreased breath sounds Abdomen: normal bowel sounds, non tender, soft Extremities: normal inspection Edema: 1+ Arm (L), 1+ Arm (R), 1+ Leg (L), 1+ Leg (R), 1+ Pedal (L), 1+ Pedal ( R), 1+ Generalized Edema: trace edema Neurologic: responsive, motor weakness Skin: normal pigmentation, warm/dry JIMMIE ARTHUR Jul 16, 2017 09:54
[2017-07-16] MEDS ORDERED: Sodium Polystyrene Sulfonate 15gm Powder ORAL ONE (10:15)
--- NOTE | 2017-07-16 11:59 | Cardiology Progress Note ---
Assessment/Plan Assessment/Plan [id number] pleural effusion thrombocytopenia anemai renal isnuf repat labs in am hesitent to sig diurese but cxr shows increase effusion will follow Objective Last 24 Hour Vital Signs Date Time Temp Pulse Resp B/P (MAP) Pulse Ox O2 Delivery O2 Flow Rate FiO2 07/16/17 09:39 94 119/57 07/16/17 08:00 97.0 94 19 119/57 99 Nasal Cannula 2.0 97.0 07/16/17 06:55 Nasal Cannula 3.0 32 07/16/17 06:55 86 18 Nasal Cannula 3.0 32 07/16/17 06:55 97 Nasal Cannula 3.0 32 07/16/17 04:00 80 07/16/17 00:00 97.9 84 20 104/57 99 Nasal Cannula 3.0 97.9 07/16/17 00:00 82 07/15/17 21:59 80 109/59 07/15/17 20:08 97 Nasal Cannula 3.0 32 07/15/17 20:08 80 19 Nasal Cannula 3.0 32 07/15/17 20:08 Nasal Cannula 3.0 32 07/15/17 20:00 98.1 92 20 119/59 99 Nasal Cannula 3.0 98.1 07/15/17 20:00 92 07/15/17 16:00 97.5 82 19 109/59 95 Nasal Cannula 3.0 97.5 07/15/17 16:00 84 07/15/17 12:00 79 07/15/17 12:00 97.7 72 19 99/51 100 Nasal Cannula 3.0 97.7 Intake and Output 07/15/17 07/16/17 19:00 07:00 Intake Total 720 ml 100 ml Output Total 1250 ml Balance 720 ml -1150 ml Intake Oral 720 ml 100 ml Output Urine Total 1250 ml # Voids 2 # Bowel Movements 1 1 Laboratory Tests Test 07/15/17 16:16 07/16/17 07:00 Prothrombin Time 11.0 SEC (9.30-11.50) Prothromb Time International Ratio 1.1 (0.9-1.1) Activated Partial Thromboplast Time 24 SEC (23-33) White Blood Count 6.4 K/UL (4.8-10.8) Red Blood Count 3.31 M/UL (4.20-5.40) L Hemoglobin 10.1 G/DL (12.0-16.0) L Hematocrit 33.6 % (37.0-47.0) L Mean Corpuscular Volume 102 FL (80-99) H Mean Corpuscular Hemoglobin 30.5 PG (27.0-31.0) Mean Corpuscular Hemoglobin Concent 30.1 G/DL (32.0-36.0) L Red Cell Distribution Width 16.3 % (11.6-14.8) H Platelet Count 87 K/UL (150-450) L Mean Platelet Volume 7.0 FL (6.5-10.1) Neutrophils (%) (Auto) % (45.0-75.0) Lymphocytes (%) (Auto) % (20.0-45.0) Monocytes (%) (Auto) % (1.0-10.0) Eosinophils (%) (Auto) % (0.0-3.0) Basophils (%) (Auto) % (0.0-2.0) Differential Total Cells Counted 100 Neutrophils % (Manual) 70 % (45-75) Lymphocytes % (Manual) 20 % (20-45) Monocytes % (Manual) 7 % (1-10) Eosinophils % (Manual) 2 % (0-3) Basophils % (Manual) 1 % (0-2) Band Neutrophils 0 % (0-8) Platelet Estimate Decreased L Platelet Morphology Normal Hypochromasia 1+ Anisocytosis 1+ Macrocytosis 1+ Sodium Level 142 MMOL/L (136-145) Potassium Level 5.5 MMOL/L (3.5-5.1) H Chloride Level 104 MMOL/L (98-107) Carbon Dioxide Level 36 MMOL/L (21-32) H Anion Gap 2 mmol/L (5-15) L Blood Urea Nitrogen 28 mg/dL (7-18) H Creatinine 1.4 MG/DL (0.55-1.30) H Estimat Glomerular Filtration Rate mL/min (>60) Glucose Level 74 MG/DL (74-106) Calcium Level 8.9 MG/DL (8.5-10.1) Microbiology Date/Time Source Procedure Growth Status 07/13/17 23:00 Blood Blood Culture - Preliminary NO GROWTH AFTER 48 HOURS Resulted 07/13/17 23:00 Blood Blood Culture - Preliminary NO GROWTH AFTER 48 HOURS Resulted 07/14/17 02:10 Nasal Nares MRSA Culture - Final Staphylococcus Aureus - Mrsa Complete 07/14/17 02:10 Urine,Clean Catch Urine Culture - Final NO GROWTH AFTER 48 HOURS Complete KELSI LAL Jul 16, 2017 11:59
[2017-07-16 12:00] VITALS: BP 110/53
--- NOTE | 2017-07-16 15:39 | Consultation ---
Consult Note Consult Note Hematology Oncology eval DOC: 07/16/17 Consulting MD: Rodriguez Fields REASON FOR CONSULTATION: Anemia and mullerian tumor eval ID 87-year-old female with multiple medical problems as listed below, who was admitted to this medical center due to shortness of breath. The patient was found to have large pleural effusion. On the last admission had a paracetensis which was performed and showed mullerian tumor origin, sue/onc was consulted now for malignancy evaluation and how to best proceed as well as anemia issue. Dififcult to obtain further hx as patient confused and unable to provide detailed information. Information is gathered through the chart and speaking to the staff. REVIEW OF SYSTEMS: Limited due to the above and the patient's confusion. PAST MEDICAL HISTORY: 1. History of sepsis. 2. History of large pleural effusion. 3. History of acute kidney injury. 4. Hypertension. 5. Diabetes. 6. Morbid obesity. 7. Dementia. MEDICATIONS: Levaquin. ALLERGIES: No allergies to antibiotics. FAMILY HISTORY: Not available. PHYSICAL EXAMINATION: VITAL SIGNS: Temperature 98 degrees, pulse 86, and respiratory rate 18. HEENT: No pale conjunctivae. No icterus. NECK: No lymphadenopathy. CHEST: Coarse breathing sounds. Mild wheezes at bases of both lungs. Decreased right lower lobe breathing sounds. ABDOMEN: Soft. EXTREMITIES: No cyanosis at this time. NEUROLOGIC: Awake and confused. Laboratory Tests Test 07/15/17 16:16 07/16/17 07:00 Prothrombin Time 11.0 SEC (9.30-11.50) Prothromb Time International Ratio 1.1 (0.9-1.1) Activated Partial Thromboplast Time 24 SEC (23-33) White Blood Count 6.4 K/UL (4.8-10.8) Red Blood Count 3.31 M/UL (4.20-5.40) L Hemoglobin 10.1 G/DL (12.0-16.0) L Hematocrit 33.6 % (37.0-47.0) L Mean Corpuscular Volume 102 FL (80-99) H Mean Corpuscular Hemoglobin 30.5 PG (27.0-31.0) Mean Corpuscular Hemoglobin Concent 30.1 G/DL (32.0-36.0) L Red Cell Distribution Width 16.3 % (11.6-14.8) H Platelet Count 87 K/UL (150-450) L Mean Platelet Volume 7.0 FL (6.5-10.1) Neutrophils (%) (Auto) % (45.0-75.0) Lymphocytes (%) (Auto) % (20.0-45.0) Monocytes (%) (Auto) % (1.0-10.0) Eosinophils (%) (Auto) % (0.0-3.0) Basophils (%) (Auto) % (0.0-2.0) Differential Total Cells Counted 100 Neutrophils % (Manual) 70 % (45-75) Lymphocytes % (Manual) 20 % (20-45) Monocytes % (Manual) 7 % (1-10) Eosinophils % (Manual) 2 % (0-3) Basophils % (Manual) 1 % (0-2) Band Neutrophils 0 % (0-8) Platelet Estimate Decreased L Platelet Morphology Normal Hypochromasia 1+ Anisocytosis 1+ Macrocytosis 1+ Sodium Level 142 MMOL/L (136-145) Potassium Level 5.5 MMOL/L (3.5-5.1) H Chloride Level 104 MMOL/L (98-107) Carbon Dioxide Level 36 MMOL/L (21-32) H Anion Gap 2 mmol/L (5-15) L Blood Urea Nitrogen 28 mg/dL (7-18) H Creatinine 1.4 MG/DL (0.55-1.30) H Estimat Glomerular Filtration Rate mL/min (>60) Glucose Level 74 MG/DL (74-106) Calcium Level 8.9 MG/DL (8.5-10.1) ASSESSMENT/RECS: #. 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 Anemia likely related to chronic diseaes --> hgb goal is >7, and workup has been reviewed #. Chronic obstructive pulmonary disease exacerbation. #. Right-sided pleural effusion, status post tap, no evidence of parapneumonic versus empyema. Tim Dillon. Jul 16, 2017 15:39
[2017-07-16 16:00] VITALS: BP 116/56
[2017-07-16 20:00] VITALS: BP 140/63
--- NOTE | 2017-07-16 20:15 | Consultation ---
DATE OF CONSULTATION: 07/16/2017 NOTE: INCOMPLETE DICTATION CARDIOLOGY CONSULTATION REFERRING PHYSICIAN: Beatriz Fields M.D. REASON FOR REFERRAL: Shortness of breath, possible congestive heart failure. HISTORY OF PRESENT ILLNESS: This is an 87-year-old female, who one prior evaluation here in the hospital during month of June. The patient has multiple problems as delineated below. She was brought to the emergency room on 07/13/2017 from a convalescent facility after she was noted to have generalized weakness and abnormal laboratories with significant anemia and increased creatinine. She was admitted to the hospital. This consultation subsequently requested by Dr. Fields to help manage the symptoms of shortness of breath that the patient has also been having. She does have history of pleural effusion. She does admit to having shortness of breath at this time, but there is no PND. She uses two pillows at the facility with head of bed elevation slightly. She does not get dizzy or lightheaded when she stands up. She does not have any heart pounding or palpitations and absolutely denies any pain, pressure, tightness, or heaviness in her chest whatsoever. PAST MEDICAL HISTORY: Positive with history of respiratory failure hypercapnic in origin requiring BiPAP therapy, large right-sided pleural effusion status post thoracentesis one liter, which was apparently negative for parapneumonic effusion or empyema, COPD, has moderate pulmonary hypertension, renal insufficiency, hyperkalemia, diabetes mellitus, hypertension, history of CVA, hyperlipidemia, hypothyroidism, anemia, sacral stage II decubitus ulcers, and hypokalemia. She has had history of hospitalizations at [facility] for history of congestive heart failure and at that time thoracentesis was performed and pleural effusion was felt to be present. 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 Alan Sheikh M.D. DR: Hernando JOB#: [id number] CC:
--- NOTE | 2017-07-16 21:45 | Consultation ---
DATE OF CONSULTATION: 07/16/2017 ADDENDUM REFERRING PHYSICIAN: Beatriz Fields M.D. REVIEW OF SYSTEMS: GASTROINTESTINAL: The patient denies any nausea, vomiting, diarrhea, or constipation. GENITOURINARY: She denies any discomfort on urination. PULMONARY: Negative. CONSTITUTIONAL: Negative. PHYSICAL EXAMINATION: GENERAL: Shows to be elderly, obese female, in no respiratory distress. NECK: Supple. No jugular venous distention noted. LUNGS: Appear to be clear to auscultation in upper lobes, but decreased in right lower lobe. CARDIAC: Regular rate and rhythm. No heaves, thrills, or gallops noted. ABDOMEN: Soft and nontender. Positive bowel sounds. EXTREMITIES: There is edema of chronic nature in the lower extremities bilaterally. NEUROLOGICAL: She is awake, alert, and responsive, in no apparent respiratory distress. LABORATORY AND DIAGNOSTIC DATA: White count of 6.4, hemoglobin 10.1, and platelet count of 87,000. The platelet counts are lower than the level of 144,000 and the hemoglobin is higher than the level of 7.8 from yesterday. Sodium 142, potassium 5.1, chloride 105, bicarbonate 36, BUN of 28, creatinine 1.4, and glucose of 74. The troponin was negative at the time of admission and proBNP was only 400 down from 2200 on prior evaluation back in May. The urine so far negative for 48 hours and imaging shows negative for DVT, CHF, interstitial edema, and slight interval improvement based on that EKG. The venous duplex study was just technically difficult. ASSESSMENT AND PLAN: 1. Questionable congestive heart failure. 2. Chronic obstructive pulmonary disease with exacerbation. 3. History of pleural effusion. 4. Thrombocytopenia. 5. Anemia. Dr. Fields, this patient was seen in cardiac consultation. The patient seems to have pleural effusion again on the right side and on direct comparison with the chest x-ray that was performed immediately after her thoracentesis from 07/01/2017, appears to may have progressed apparently. Previous checks at [facility] felt that this was exudative pleural effusion and that remains to be same. She may require further reassessment of this fluid again. Her proBNP is now significantly elevated to suggest heart failure as a cause and because of her renal insufficiency, I am hesitant to be very aggressive with the diuretics baseline diuresis is appropriate. She is off IV fluids at this time and her creatinine appears to be stable. Her blood pressure is also relatively stable at this time and she is saturating adequately on 2 liters of nasal cannula. I will follow the patient along with you. Alan Sheikh M.D. DR: Hernando JOB#: [id number] CC:
[2017-07-17] VITALS: BP 143/72
[2017-07-17 04:00] VITALS: BP 139/72
[2017-07-17] MEDS: NovoLOG Insulin Flexpen SUBQ SCH ×4 (06:05→21:28)
[2017-07-17 08:00] VITALS: BP 113/51
[2017-07-17] MEDS: Aspirin EC 81mg tab ORAL SCH (08:09)
[2017-07-17] MEDS: Nateglinide 60mg tab ORAL SCH ×3 (08:09→17:47)
[2017-07-17] MEDS: Montelukast 10mg tablet ORAL SCH (08:09)
[2017-07-17] MEDS: Carvedilol 12.5mg tab ORAL SCH ×2 (08:10→20:40)
[2017-07-17] MEDS: Docusate 100mg cap ORAL SCH ×3 (08:10→17:46)
[2017-07-17] MEDS: Furosemide 40mg tab ORAL SCH (08:10)
--- NOTE | 2017-07-17 09:18 | General Progress Note ---
Assessment/Plan Problem List: (1) JERILYN on CKD (2) UTI (urinary tract infection) ICD Codes: N39.0 - Urinary tract infection, site not specified SNOMED: 06699641 (3) COPD (chronic obstructive pulmonary disease) ICD Codes: J44.9 - Chronic obstructive pulmonary disease, unspecified SNOMED: 89295797 (4) DM2 (diabetes mellitus, type 2) ICD Codes: E11.9 - Type 2 diabetes mellitus without complications SNOMED: 23500916 (5) Acute respiratory failure with hypoxia and hypercapnia ICD Codes: J96.01 - Acute respiratory failure with hypoxia; J96.02 - Acute respiratory failure with hypercapnia SNOMED: 46909407, 95935932, 385543249 Status: unchanged Assessment/Plan o2 pum tx abx ot pt diet cbc bmp am Subjective Constitutional: Reports: weakness Allergies: Coded Allergies: IODINE (Verified Allergy, Mild, 08/17/08) Uncoded Allergies: CONTRAST MEDIA (Allergy, Mild, 08/17/08) CONTRAST (Allergy, Unknown, 07/13/17) All Systems: reviewed and negative except above Subjective 02nc sleepy Objective Last 24 Hour Vital Signs Date Time Temp Pulse Resp B/P (MAP) Pulse Ox O2 Delivery O2 Flow Rate FiO2 07/17/17 08:10 87 139/72 07/17/17 08:07 91 18 Nasal Cannula 2.0 28 07/17/17 08:07 Nasal Cannula 2.0 28 07/17/17 08:07 98 Nasal Cannula 2.0 28 07/17/17 04:00 87 07/17/17 04:00 97.9 96 19 139/72 94 Nasal Cannula 2.0 97.9 07/17/17 02:42 Room Air 21 07/17/17 02:42 96 Room Air 21 07/17/17 02:41 94 18 Room Air 21 07/17/17 00:00 90 07/17/17 00:00 97.3 105 22 143/72 97 Nasal Cannula 2.0 97.3 07/16/17 21:39 89 116/56 07/16/17 20:00 96.6 86 20 140/63 98 Nasal Cannula 2.0 96.6 07/16/17 20:00 111 07/16/17 16:00 89 07/16/17 16:00 96.6 90 20 116/56 96 Room Air 96.6 07/16/17 12:00 97.7 87 20 110/53 95 Room Air 97.7 07/16/17 12:00 92 07/16/17 09:39 94 119/57 Intake and Output 07/16/17 07/17/17 19:00 07:00 Intake Total 352 ml Balance 352 ml Intake Oral 352 ml # Voids 3 1 Height (Feet): 5 Height (Inches): 8.00 Weight (Pounds): 280 General Appearance: lethargic EENT: normal ENT inspection Neck: normal alignment Cardiovascular: normal peripheral pulses, normal rate, regular rhythm Respiratory/Chest: decreased breath sounds Abdomen: normal bowel sounds, non tender, soft Extremities: normal inspection Edema: 1+ Arm (L), 1+ Arm (R), 1+ Leg (L), 1+ Leg (R), 1+ Pedal (L), 1+ Pedal ( R), 1+ Generalized Edema: trace edema Neurologic: motor weakness Skin: normal pigmentation, warm/dry JIMMIE ARTHUR Jul 17, 2017 09:17
[2017-07-17] MEDS: Albuterol ud Inhalation HHN PRN ×2 (10:32→13:48)
[2017-07-17 11:57] LABS: EOSINOPHILS % (AUTO) 1.7 % (0.0-3.0); HEMATOCRIT 35.5 % (37.0-47.0); HEMOGLOBIN 10.4 G/DL (12.0-16.0); LYMPHOCYTES % (AUTO) 16.1 % (20.0-45.0); MEAN CORPUSCULAR VOLUME 104 FL (80-99); MONOCYTES % (AUTO) 4.9 % (1.0-10.0); NEUTROPHILS % (AUTO) 76.3 % (45.0-75.0); PLATELET COUNT 116 K/UL (150-450); RED BLOOD COUNT 3.43 M/UL (4.20-5.40); RED CELL DISTRIBUTION WIDTH 16.3 % (11.6-14.8); WHITE BLOOD COUNT 6.3 K/UL (4.8-10.8)
[2017-07-17 12:00] VITALS: BP 91/40
[2017-07-17 12:11] LABS: ANION GAP 2 mmol/L (5-15); BLOOD UREA NITROGEN 25 mg/dL (7-18); CALCIUM 8.8 MG/DL (8.5-10.1); CARBON DIOXIDE 40 MMOL/L (21-32); CHLORIDE 101 MMOL/L (98-107); CREATININE 1.4 MG/DL (0.55-1.30); POTASSIUM 3.7 MMOL/L (3.5-5.1); SODIUM 143 MMOL/L (136-145)
--- NOTE | 2017-07-17 12:34 | Cardiology Progress Note ---
Assessment/Plan Assessment/Plan 1. Questionable congestive heart failure. 2. Chronic obstructive pulmonary disease with exacerbation. 3. History of pleural effusion. 4. Thrombocytopenia. 5. Anemia. she look comfortable but is drowsey bicarb 40 consider diamox? is on lasix po dialy telel reviewed pulm rxn as per dr mahmood Subjective Cardiovascular: Denies: chest pain, lightheadedness, palpitations Respiratory: Denies: shortness of breath Gastrointestinal/Abdominal: Denies: abdominal pain Genitourinary: Denies: burning Objective Last 24 Hour Vital Signs Date Time Temp Pulse Resp B/P (MAP) Pulse Ox O2 Delivery O2 Flow Rate FiO2 07/17/17 10:35 89 19 100 Nasal Cannula 2.0 28 07/17/17 10:32 88 22 99 Nasal Cannula 2.0 28 07/17/17 10:32 28 07/17/17 08:10 87 139/72 07/17/17 08:07 91 18 Nasal Cannula 2.0 28 07/17/17 08:07 Nasal Cannula 2.0 28 07/17/17 08:07 98 Nasal Cannula 2.0 28 07/17/17 08:00 96.9 78 19 113/51 97 Nasal Cannula 2.0 96.9 07/17/17 04:00 87 07/17/17 04:00 97.9 96 19 139/72 94 Nasal Cannula 2.0 97.9 07/17/17 02:42 Room Air 21 07/17/17 02:42 96 Room Air 21 07/17/17 02:41 94 18 Room Air 21 07/17/17 00:00 90 07/17/17 00:00 97.3 105 22 143/72 97 Nasal Cannula 2.0 97.3 07/16/17 21:39 89 116/56 07/16/17 20:00 96.6 86 20 140/63 98 Nasal Cannula 2.0 96.6 07/16/17 20:00 111 07/16/17 16:00 89 07/16/17 16:00 96.6 90 20 116/56 96 Room Air 96.6 General Appearance: no apparent distress, alert Neck: supple Cardiovascular: regular rhythm Respiratory/Chest: decreased breath sounds Abdomen: normal bowel sounds, non tender, soft Extremities: trace edema Intake and Output 07/16/17 07/17/17 19:00 07:00 Intake Total 352 ml Balance 352 ml Intake Oral 352 ml # Voids 3 1 Laboratory Tests Test 07/17/17 11:20 White Blood Count 6.3 K/UL (4.8-10.8) Red Blood Count 3.43 M/UL (4.20-5.40) L Hemoglobin 10.4 G/DL (12.0-16.0) L Hematocrit 35.5 % (37.0-47.0) L Mean Corpuscular Volume 104 FL (80-99) H Mean Corpuscular Hemoglobin 30.4 PG (27.0-31.0) Mean Corpuscular Hemoglobin Concent 29.4 G/DL (32.0-36.0) L Red Cell Distribution Width 16.3 % (11.6-14.8) H Platelet Count 116 K/UL (150-450) L Mean Platelet Volume 6.5 FL (6.5-10.1) Neutrophils (%) (Auto) 76.3 % (45.0-75.0) H Lymphocytes (%) (Auto) 16.1 % (20.0-45.0) L Monocytes (%) (Auto) 4.9 % (1.0-10.0) Eosinophils (%) (Auto) 1.7 % (0.0-3.0) Basophils (%) (Auto) 1.0 % (0.0-2.0) Sodium Level 143 MMOL/L (136-145) Potassium Level 3.7 MMOL/L (3.5-5.1) Chloride Level 101 MMOL/L (98-107) Carbon Dioxide Level 40 MMOL/L (21-32) H Anion Gap 2 mmol/L (5-15) L Blood Urea Nitrogen 25 mg/dL (7-18) H Creatinine 1.4 MG/DL (0.55-1.30) H Estimat Glomerular Filtration Rate mL/min (>60) Glucose Level 157 MG/DL (74-106) H Calcium Level 8.8 MG/DL (8.5-10.1) KELSI LAL 4, 2018 12:34
--- NOTE | 2017-07-17 14:04 | Pulmonology Progress Note ---
Assessment/Plan Assessment/Plan ASSESSMENT Acute respiratory distress ( prob due to tiburcio pl effusions) Bilateral pleural effusions , malignant COPD exacerbation possible CHF HTN DM Anasarca Anemia CKD sacrococcyx decub st 3 POA PLAN OF CARE tele O2 titrate , HHN thoracentesis with pleural fluid analysis thoracentesis with pleural fluid analysis cytology of pleural fluid from previous admission revealed malignancy onco eval diuretic, monitor cardiorenal parameters, volumes on ASA, BB BS management with SS of insulin pain management PT/OT bowel regimen supportive care replace lytes as needed, monitor renal parameters, avoid nephrotoxic case discussed and evaluated by supervising physician Subjective Allergies: Coded Allergies: IODINE (Verified Allergy, Mild, 08/17/08) Uncoded Allergies: CONTRAST MEDIA (Allergy, Mild, 08/17/08) CONTRAST (Allergy, Unknown, 07/13/17) Subjective denies chest pain, SOB K-5.5 Objective Last 24 Hour Vital Signs Date Time Temp Pulse Resp B/P (MAP) Pulse Ox O2 Delivery O2 Flow Rate FiO2 07/17/17 13:53 85 19 100 Nasal Cannula 2.0 28 07/17/17 13:50 28 07/17/17 13:48 88 20 99 Nasal Cannula 2.0 28 07/17/17 12:00 97.0 75 20 91/40 100 Nasal Cannula 2.0 97.0 07/17/17 10:35 89 19 100 Nasal Cannula 2.0 28 07/17/17 10:32 88 22 99 Nasal Cannula 2.0 28 07/17/17 10:32 28 07/17/17 08:10 87 139/72 07/17/17 08:07 91 18 Nasal Cannula 2.0 28 07/17/17 08:07 Nasal Cannula 2.0 28 07/17/17 08:07 98 Nasal Cannula 2.0 28 07/17/17 08:00 87 07/17/17 08:00 96.9 78 19 113/51 97 Nasal Cannula 2.0 96.9 07/17/17 04:00 87 07/17/17 04:00 97.9 96 19 139/72 94 Nasal Cannula 2.0 97.9 07/17/17 02:42 Room Air 21 07/17/17 02:42 96 Room Air 21 07/17/17 02:41 94 18 Room Air 21 07/17/17 00:00 90 07/17/17 00:00 97.3 105 22 143/72 97 Nasal Cannula 2.0 97.3 07/16/17 21:39 89 116/56 07/16/17 20:00 96.6 86 20 140/63 98 Nasal Cannula 2.0 96.6 07/16/17 20:00 111 07/16/17 16:00 89 07/16/17 16:00 96.6 90 20 116/56 96 Room Air 96.6 Intake and Output 07/16/17 07/17/17 19:00 07:00 Intake Total 352 ml Balance 352 ml Intake Oral 352 ml # Voids 3 1 Objective General Appearance: no acute distress HEENT: normocephalic, atraumatic, anicteric Respiratory/Chest: chest wall non-tender, no respiratory distress, some crackles/rales at bases Cardiovascular: normal rate, regular rhythm - SR on tele with some PVC Extremities: other - +2 chronic edema BLE Neurologic/Psychiatric: abnormal gait, alert, responsive Musculoskeletal: atrophy - BLE Laboratory Tests 07/17/17 11:20: White Blood Count 6.3, Red Blood Count 3.43L, Hemoglobin 10.4L, Hematocrit 35.5L , Mean Corpuscular Volume 104H, Mean Corpuscular Hemoglobin 30.4, Mean Corpuscular Hemoglobin Concent 29.4L, Red Cell Distribution Width 16.3H, Platelet Count 116L, Mean Platelet Volume 6.5, Neutrophils (%) (Auto) 76.3H, Lymphocytes (%) (Auto) 16.1L, Monocytes (%) (Auto) 4.9, Eosinophils (%) (Auto) 1.7, Basophils (%) (Auto) 1.0, Sodium Level 143, Potassium Level 3.7, Chloride Level 101, Carbon Dioxide Level 40H, Anion Gap 2L, Blood Urea Nitrogen 25H, Creatinine 1.4H, Estimat Glomerular Filtration Rate , Glucose Level 157H, Calcium Level 8.8 Current Medications Medications (Trade) Dose Ordered Sig/Lakshmi Route PRN Reason Start Time Stop Time Status Last Admin Dose Admin Acetaminophen/ Hydrocodone Bitart ([place] 5/325) 1 tab Q12HR PRN ORAL For Pain 07/14/17 05:15 07/21/17 05:14 Albuterol Sulfate (Proventil) 2.5 mg Q4H PRN HHN Shortness of Breath 07/14/17 05:15 07/19/17 05:14 07/17/17 13:48 Allopurinol (Allopurinol) 300 mg DAILY ORAL 07/14/17 09:00 08/13/17 08:59 07/17/17 08:10 Aspirin (Ecotrin) 81 mg DAILY ORAL 07/14/17 09:00 08/13/17 08:59 07/17/17 08:09 Atorvastatin Calcium (Lipitor) 10 mg BEDTIME ORAL 07/14/17 21:00 08/13/17 20:59 07/16/17 21:39 Carvedilol (Coreg) 12.5 mg EVERY 12 HOURS ORAL 07/14/17 09:00 08/13/17 08:59 07/17/17 08:10 Dextrose (Dextrose 50%) STAT PRN IV Hypoglycemia 07/14/17 17:45 08/13/17 17:44 Docusate Sodium (Colace) 100 mg THREE TIMES A DAY ORAL 07/14/17 09:00 08/13/17 08:59 07/17/17 12:43 Ferrous Sulfate (Feosol) 325 mg DAILY ORAL 07/14/17 09:00 08/13/17 08:59 07/17/17 08:10 Furosemide (Lasix) 40 mg DAILY ORAL 07/14/17 09:00 08/13/17 08:59 07/17/17 08:10 Gabapentin (Neurontin) 600 mg DAILY ORAL 07/14/17 09:00 08/13/17 08:59 07/17/17 08:10 Insulin Aspart (NovoLOG) BEFORE MEALS AND HS SUBQ 07/14/17 21:00 08/13/17 20:59 07/17/17 12:28 Levothyroxine Sodium (Synthroid) 112 mcg DAILY@0630 ORAL 07/14/17 06:30 08/13/17 06:29 07/17/17 06:21 Lidocaine (Lidoderm 5% PATCH) 1 patch DAILY TDERMAL 07/14/17 09:00 08/13/17 08:59 07/17/17 08:09 Montelukast Sodium (Singulair) 10 mg DAILY ORAL 07/14/17 09:00 08/13/17 08:59 07/17/17 08:09 Nateglinide (Starlix) 60 mg THREE TIMES A DAY ORAL 07/14/17 09:00 08/13/17 08:59 07/17/17 12:43 Pantoprazole (Protonix) 40 mg ACBREAKFAST ORAL 07/14/17 09:00 08/13/17 08:59 07/17/17 06:21 Polyethylene Glycol (Miralax) 17 gm DAILYPRN PRN ORAL Constipation 07/14/17 05:15 08/13/17 05:14 Quetiapine Fumarate (SEROquel) 25 mg Q6H PRN ORAL Agitation 07/14/17 05:15 08/13/17 05:14 Temazepam (Restoril) 15 mg BEDTIME ORAL 07/14/17 21:00 07/21/17 20:59 07/16/17 21:39 [facility]ellUnited [facility] ServicesMeron Urias NP Jul 17, 2017 14:04
[2017-07-17] MEDS ORDERED: Tubing Blood Filter IV ONE (18:49)
[2017-07-17] MEDS ORDERED: NS 275ml ONE (18:49)
[2017-07-17] MEDS ORDERED: Miralax 17gm pkt ORAL PRN (19:00)
[2017-07-17 20:00] VITALS: BP 137/72
[2017-07-17] MEDS ORDERED: Norco 5mg/325mg tab ORAL PRN (21:00)
[2017-07-17] MEDS ORDERED: Albuterol ud Inhalation HHN PRN (21:15)
--- NOTE | 2017-07-18 00:01 | General Progress Note ---
Assessment/Plan Assessment/Plan #. 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 Anemia likely related to chronic disease --> hgb goal is >7, and workup has been reviewed --> Blood transfusion not required unless symptomatic or if hgb falls below goal. #. Chronic obstructive pulmonary disease exacerbation. #. Right-sided pleural effusion, status post tap, no evidence of parapneumonic versus empyema. Subjective Date patient seen: Jul 17, 2017 Constitutional: Denies: no symptoms, chills, diaphoresis, fever, malaise, weakness, other HEENT: Denies: no symptoms, eye pain, blurred vision, tearing, double vision, ear pain, ear discharge, nose pain, nose congestion, throat pain, throat swelling, mouth pain, mouth swelling, other Cardiovascular: Denies: no symptoms, chest pain, edema, irregular heart rate, lightheadedness, palpitations, syncope, other Respiratory: Denies: no symptoms, cough, orthopnea, shortness of breath, SOB with excertion, SOB at rest, sputum, stridor, wheezing, other Gastrointestinal/Abdominal: Denies: no symptoms, abdomen distended, abdominal pain, black stools, tarry stools, blood in stool, constipated, diarrhea, difficulty swallowing, nausea, poor appetite, poor fluid intake, rectal bleeding , vomiting, other Genitourinary: Denies: no symptoms, burning, discharge, frequency, flank pain, hematuria, incontinence, pain, urgency, other Hematologic/Lymphatic: Reports: anemia Allergies: Coded Allergies: IODINE (Verified Allergy, Mild, 08/17/08) Uncoded Allergies: CONTRAST MEDIA (Allergy, Mild, 08/17/08) CONTRAST (Allergy, Unknown, 07/13/17) Subjective No major events. Afebrile. Objective Last 24 Hour Vital Signs Date Time Temp Pulse Resp B/P (MAP) Pulse Ox O2 Delivery O2 Flow Rate FiO2 07/17/17 20:40 72 137/72 07/17/17 20:00 97.9 72 24 137/72 98 97.9 3/4/18 13:53 85 19 100 Nasal Cannula 2.0 28 07/17/17 13:50 28 07/17/17 13:48 88 20 99 Nasal Cannula 2.0 28 07/17/17 12:00 97.0 75 20 91/40 100 Nasal Cannula 2.0 97.0 07/17/17 10:35 89 19 100 Nasal Cannula 2.0 28 07/17/17 10:32 88 22 99 Nasal Cannula 2.0 28 07/17/17 10:32 28 07/17/17 08:10 87 139/72 07/17/17 08:07 91 18 Nasal Cannula 2.0 28 07/17/17 08:07 Nasal Cannula 2.0 28 07/17/17 08:07 98 Nasal Cannula 2.0 28 07/17/17 08:00 87 07/17/17 08:00 96.9 78 19 113/51 97 Nasal Cannula 2.0 96.9 07/17/17 04:00 87 07/17/17 04:00 97.9 96 19 139/72 94 Nasal Cannula 2.0 97.9 07/17/17 02:42 Room Air 21 07/17/17 02:42 96 Room Air 21 07/17/17 02:41 94 18 Room Air 21 Laboratory Tests 07/17/17 11:20: White Blood Count 6.3, Red Blood Count 3.43L, Hemoglobin 10.4L, Hematocrit 35.5L , Mean Corpuscular Volume 104H, Mean Corpuscular Hemoglobin 30.4, Mean Corpuscular Hemoglobin Concent 29.4L, Red Cell Distribution Width 16.3H, Platelet Count 116L, Mean Platelet Volume 6.5, Neutrophils (%) (Auto) 76.3H, Lymphocytes (%) (Auto) 16.1L, Monocytes (%) (Auto) 4.9, Eosinophils (%) (Auto) 1.7, Basophils (%) (Auto) 1.0, Sodium Level 143, Potassium Level 3.7, Chloride Level 101, Carbon Dioxide Level 40H, Anion Gap 2L, Blood Urea Nitrogen 25H, Creatinine 1.4H, Estimat Glomerular Filtration Rate , Glucose Level 157H, Calcium Level 8.8 Height (Feet): 5 Height (Inches): 8.00 Weight (Pounds): 280 General Appearance: confused Respiratory/Chest: decreased breath sounds Tim Dillon Jul 18, 2017 00:01
[2017-07-18 00:33] VITALS: BP 117/62
[2017-07-18 04:08] VITALS: BP 114/63
[2017-07-18] MEDS: NovoLOG Insulin Flexpen SUBQ SCH ×4 (05:39→20:46)
[2017-07-18 08:00] VITALS: BP 139/86
[2017-07-18 08:10] LABS: EOSINOPHILS % (AUTO) 1.1 % (0.0-3.0); HEMATOCRIT 31.3 % (37.0-47.0); HEMOGLOBIN 9.2 G/DL (12.0-16.0); LYMPHOCYTES % (AUTO) 13.6 % (20.0-45.0); MEAN CORPUSCULAR VOLUME 104 FL (80-99); MONOCYTES % (AUTO) 6.6 % (1.0-10.0); NEUTROPHILS % (AUTO) 77.6 % (45.0-75.0); PLATELET COUNT 135 K/UL (150-450); RED BLOOD COUNT 3.02 M/UL (4.20-5.40); RED CELL DISTRIBUTION WIDTH 16.4 % (11.6-14.8); WHITE BLOOD COUNT 6.8 K/UL (4.8-10.8)
--- NOTE | 2017-07-18 08:15 | Diagnostic Imaging Report ---
Indication: Abdominal tenderness Technique: Grayscale and duplex images Comparison: none Findings: Exam is very limited. Patient body habitus, and incompletely distended bladder limit transabdominal images, and body habitus and inability to assume the appropriate position severely limits the endovaginal images. Uterus measures 6 cm in length by 3.3 cm AP. The endometrium measures 2 mm thick on transabdominal images. The ovaries cannot be visualized. No gross pelvic cul-de-sac fluid. Impression: Limited, essentially nondiagnostic exam. No gross abnormality demonstrated.
[2017-07-18 08:49] LABS: ANION GAP 0 mmol/L (5-15); CHLORIDE 101 MMOL/L (98-107); POTASSIUM 4.4 MMOL/L (3.5-5.1); SODIUM 144 MMOL/L (136-145)
[2017-07-18 08:50] LABS: BLOOD UREA NITROGEN 26 mg/dL (7-18); CALCIUM 8.8 MG/DL (8.5-10.1); CARBON DIOXIDE 43 MMOL/L (21-32); CREATININE 1.4 MG/DL (0.55-1.30)
[2017-07-18] MEDS: Furosemide 40mg tab ORAL SCH (09:42)
[2017-07-18] MEDS: Docusate 100mg cap ORAL SCH ×3 (09:42→17:02)
[2017-07-18] MEDS: Nateglinide 60mg tab ORAL SCH ×3 (09:43→17:02)
[2017-07-18] MEDS: Montelukast 10mg tablet ORAL SCH (09:43)
[2017-07-18] MEDS: Carvedilol 12.5mg tab ORAL SCH ×2 (09:43→20:44)
[2017-07-18] MEDS: Aspirin EC 81mg tab ORAL SCH (09:44)
[2017-07-18 11:00] VITALS: BP 125/56
--- NOTE | 2017-07-18 13:54 | General Progress Note ---
Assessment/Plan Problem List: (1) JERILYN on CKD (2) UTI (urinary tract infection) ICD Codes: N39.0 - Urinary tract infection, site not specified SNOMED: 22274362 (3) COPD (chronic obstructive pulmonary disease) ICD Codes: J44.9 - Chronic obstructive pulmonary disease, unspecified SNOMED: 17818362 (4) DM2 (diabetes mellitus, type 2) ICD Codes: E11.9 - Type 2 diabetes mellitus without complications SNOMED: 33540276 (5) Acute respiratory failure with hypoxia and hypercapnia ICD Codes: J96.01 - Acute respiratory failure with hypoxia; J96.02 - Acute respiratory failure with hypercapnia SNOMED: 94651025, 11998605, 792118648 Status: unchanged Assessment/Plan o2 pum tx abx ot pt diet cbc bmp am pending thorocentesis Subjective Constitutional: Reports: weakness Allergies: Coded Allergies: IODINE (Verified Allergy, Mild, 08/17/08) Uncoded Allergies: CONTRAST MEDIA (Allergy, Mild, 08/17/08) CONTRAST (Allergy, Unknown, 07/13/17) All Systems: reviewed and negative except above Subjective 02nc sleepy Objective Last 24 Hour Vital Signs Date Time Temp Pulse Resp B/P (MAP) Pulse Ox O2 Delivery O2 Flow Rate FiO2 07/18/17 11:00 97.6 84 19 125/56 99 97.6 07/18/17 09:43 87 139/86 07/18/17 08:03 98 Nasal Cannula 4.0 30 07/18/17 08:03 83 18 Venturi Mask 4.0 30 07/18/17 08:03 Venturi Mask 4.0 30 07/18/17 08:00 97.3 87 19 139/86 99 Venturi Mask 4.0 30 97.3 07/18/17 04:58 Non-Rebreather 07/18/17 04:08 96.8 82 18 114/63 100 96.8 07/18/17 00:33 97.7 84 23 117/62 99 Non-Rebreather 97.7 07/17/17 20:40 72 137/72 07/17/17 20:00 Non-Rebreather 07/17/17 20:00 97.9 72 24 137/72 98 97.9 07/17/17 19:18 Nasal Cannula 2.0 28 07/17/17 19:18 87 18 Nasal Cannula 2.0 28 07/17/17 19:18 98 Nasal Cannula 2.0 28 Intake and Output 07/17/17 07/18/17 19:00 07:00 # Voids 2 Laboratory Tests 07/18/17 06:05: White Blood Count 6.8, Red Blood Count 3.02L, Hemoglobin 9.2L, Hematocrit 31.3L , Mean Corpuscular Volume 104H, Mean Corpuscular Hemoglobin 30.6, Mean Corpuscular Hemoglobin Concent 29.5L, Red Cell Distribution Width 16.4H, Platelet Count 135L, Mean Platelet Volume 6.4L, Neutrophils (%) (Auto) 77.6H, Lymphocytes (%) (Auto) 13.6L, Monocytes (%) (Auto) 6.6, Eosinophils (%) (Auto) 1.1, Basophils (%) (Auto) 1.0, Sodium Level 144, Potassium Level 4.4, Chloride Level 101, Carbon Dioxide Level 43*H, Anion Gap 0L, Blood Urea Nitrogen 26H, Creatinine 1.4H, Estimat Glomerular Filtration Rate , Glucose Level 98, Calcium Level 8.8 Height (Feet): 5 Height (Inches): 8.00 Weight (Pounds): 280 General Appearance: lethargic EENT: normal ENT inspection Neck: normal alignment Cardiovascular: normal peripheral pulses, normal rate, regular rhythm Respiratory/Chest: decreased breath sounds Abdomen: normal bowel sounds, non tender, soft Extremities: normal inspection Edema: no edema noted Arm (L), no edema noted Arm (R), no edema noted Leg (L), no edema noted Leg (R), no edema noted Pedal (L), no edema noted Pedal (R), no edema noted Generalized Neurologic: motor weakness Skin: normal pigmentation, warm/dry JIMMIE ARTHUR Jul 18, 2017 13:54
--- NOTE | 2017-07-18 14:27 | Diagnostic Imaging Report ---
Indication: Reason For Exam: S/P THORA Technique: One view of the chest Comparison: 07/15/2017 Findings: Partially improved right-sided pleural effusion, status post thoracentesis. No gross pneumothorax Large left-sided pleural effusion persists. Diffuse interstitial and airspace edema persists. Cardiomegaly persists. Impression: Decreased right pleural effusion, status post thoracentesis. Clinical indication Increasing left pleural effusion, since 07/15/2017 Persistent pulmonary interstitial and airspace edema.
--- NOTE | 2017-07-18 15:34 | Pulmonology Progress Note ---
Assessment/Plan Problems: (1) Pleural effusion (2) Acute toxic metabolic encephalopathy (3) COPD (chronic obstructive pulmonary disease) (4) DM2 (diabetes mellitus, type 2) (5) HTN (hypertension) (6) Anasarca Assessment/Plan respiratory treatment s/p thoracentesis diuretic oncology evaluation appreciated pt has possibly ovarian or uterine cancer oncology f/un symptomatic Subjective ROS Limited/Unobtainable: Yes Interval Events: comfortable, wants to leave Allergies: Coded Allergies: IODINE (Verified Allergy, Mild, 08/17/08) Uncoded Allergies: CONTRAST MEDIA (Allergy, Mild, 08/17/08) CONTRAST (Allergy, Unknown, 07/13/17) Objective Last 24 Hour Vital Signs Date Time Temp Pulse Resp B/P (MAP) Pulse Ox O2 Delivery O2 Flow Rate FiO2 07/18/17 11:01 Venturi Mask 4.0 30 07/18/17 11:00 97.6 84 19 125/56 99 97.6 07/18/17 09:43 87 139/86 07/18/17 08:03 98 Nasal Cannula 4.0 30 07/18/17 08:03 83 18 Venturi Mask 4.0 30 07/18/17 08:03 Venturi Mask 4.0 30 07/18/17 08:00 97.3 87 19 139/86 99 Venturi Mask 4.0 30 97.3 07/18/17 04:58 Non-Rebreather 07/18/17 04:08 96.8 82 18 114/63 100 96.8 07/18/17 00:33 97.7 84 23 117/62 99 Non-Rebreather 97.7 07/17/17 20:40 72 137/72 07/17/17 20:00 Non-Rebreather 07/17/17 20:00 97.9 72 24 137/72 98 97.9 07/17/17 19:18 Nasal Cannula 2.0 28 07/17/17 19:18 87 18 Nasal Cannula 2.0 28 07/17/17 19:18 98 Nasal Cannula 2.0 28 Intake and Output 07/17/17 07/18/17 19:00 07:00 # Voids 2 Objective General Appearance: WD/WN, Lines, tubes and drains: peripheral HEENT: normocephalic, atraumatic Neck: non-tender, normal alignment, supple Respiratory/Chest: chest wall non-tender, lungs clear, normal breath sounds Breasts: no masses Cardiovascular/Chest: normal peripheral pulses, normal rate Abdomen: normal bowel sounds, non tender Genitourinary/Rectal: normal genital exam, normal rectal exam Extremities: normal range of motion, non-tender Skin Exam: normal pigmentation Neurologic: phlebotomy director II-XII grossly normal, Laboratory Tests 07/18/17 06:05: White Blood Count 6.8, Red Blood Count 3.02L, Hemoglobin 9.2L, Hematocrit 31.3L , Mean Corpuscular Volume 104H, Mean Corpuscular Hemoglobin 30.6, Mean Corpuscular Hemoglobin Concent 29.5L, Red Cell Distribution Width 16.4H, Platelet Count 135L, Mean Platelet Volume 6.4L, Neutrophils (%) (Auto) 77.6H, Lymphocytes (%) (Auto) 13.6L, Monocytes (%) (Auto) 6.6, Eosinophils (%) (Auto) 1.1, Basophils (%) (Auto) 1.0, Sodium Level 144, Potassium Level 4.4, Chloride Level 101, Carbon Dioxide Level 43*H, Anion Gap 0L, Blood Urea Nitrogen 26H, Creatinine 1.4H, Estimat Glomerular Filtration Rate , Glucose Level 98, Calcium Level 8.8 07/18/17 12:30: Body Fluid Glucose [Pending], Body Fluid Total Protein [Pending], Body Fluid Albumin [Pending] 07/18/17 12:50: Body Fluid Source [Pending], Body Fluid Volume [Pending], Body Fluid Appearance [Pending], Body Fluid RBC [Pending], Body Fluid Total Nucleated Cells [Pending] , Body Fluid Polynuclear WBCs (%) [Pending], Body Fluid Mononuclear WBCs (%) [ Pending], Body Fluid Mesothelial Cells (%) [Pending] Current Medications Medications (Trade) Dose Ordered Sig/Lakshmi Route PRN Reason Start Time Stop Time Status Last Admin Dose Admin Acetaminophen/ Hydrocodone Bitart ([place] 5/325) 1 tab Q12H PRN ORAL For Pain 07/17/17 21:00 07/24/17 20:59 Albuterol Sulfate (Proventil) 2.5 mg Q4H PRN HHN Shortness of Breath 07/17/17 21:15 07/19/17 05:14 Allopurinol (Allopurinol) 300 mg DAILY ORAL 07/18/17 09:00 08/13/17 08:59 07/18/17 09:43 Aspirin (Ecotrin) 81 mg DAILY ORAL 07/18/17 09:00 08/13/17 08:59 07/18/17 09:44 Atorvastatin Calcium (Lipitor) 10 mg BEDTIME ORAL 07/17/17 21:00 08/13/17 20:59 07/17/17 20:39 Carvedilol (Coreg) 12.5 mg EVERY 12 HOURS ORAL 07/17/17 21:00 08/13/17 08:59 07/18/17 09:43 Dextrose (Dextrose 50%) STAT PRN IV Hypoglycemia 07/17/17 19:00 08/16/17 18:59 Docusate Sodium (Colace) 100 mg THREE TIMES A DAY ORAL 07/18/17 09:00 08/13/17 08:59 07/18/17 13:53 Ferrous Sulfate (Feosol) 325 mg DAILY ORAL 07/18/17 09:00 08/13/17 08:59 07/18/17 09:43 Furosemide (Lasix) 40 mg DAILY ORAL 07/18/17 09:00 08/13/17 08:59 07/18/17 09:42 Gabapentin (Neurontin) 600 mg DAILY ORAL 07/18/17 09:00 08/13/17 08:59 07/18/17 09:43 Insulin Aspart (NovoLOG) BEFORE MEALS AND HS SUBQ 07/17/17 21:00 08/13/17 20:59 07/17/17 21:28 Levothyroxine Sodium (Synthroid) 112 mcg DAILY@0630 ORAL 07/18/17 06:30 08/13/17 06:29 07/18/17 05:55 Lidocaine (Lidoderm 5% PATCH) 1 patch DAILY TDERMAL 07/18/17 09:00 08/13/17 08:59 07/18/17 09:44 Montelukast Sodium (Singulair) 10 mg DAILY ORAL 07/18/17 09:00 08/13/17 08:59 07/18/17 09:43 Nateglinide (Starlix) 60 mg THREE TIMES A DAY ORAL 07/18/17 09:00 08/13/17 08:59 07/18/17 13:53 Pantoprazole (Protonix) 40 mg ACBREAKFAST ORAL 07/18/17 06:30 08/13/17 08:59 07/18/17 05:55 Polyethylene Glycol (Miralax) 17 gm DAILYPRN PRN ORAL Constipation 07/17/17 19:00 08/16/17 18:59 Quetiapine Fumarate (SEROquel) 25 mg Q6H PRN ORAL Agitation 07/17/17 19:00 08/13/17 18:59 Temazepam (Restoril) 15 mg BEDTIME ORAL 07/17/17 21:00 07/21/17 20:59 KAILA HASSAN Jul 18, 2017 15:34
--- NOTE | 2017-07-18 15:55 | Diagnostic Imaging Report ---
Indications: Pleural effusion Technique: Ultrasound used to localize optimal puncture site. Sterile prepping and draping right chest. Local anesthesia with 1% lidocaine. Under real-time ultrasound guidance, puncture pleural space using thoracentesis needle. Stylet removed. Catheter placed to vacuum bottle suction. Total 1000 milliliters of very blood-tinged fluid aspirated. Patient tolerated procedure well, without immediate complication. Findings: Followup sonography demonstrates complete resolution of pleural fluid. Impression: Successful ultrasound-guided thoracentesis, yielding 1000 milliliters of fluid
[2017-07-18 16:00] VITALS: BP 117/63
[2017-07-18 20:08] VITALS: BP 123/63
--- NOTE | 2017-07-18 22:48 | Consultation ---
History of Present Illness General Date patient seen: Jul 16, 2017 Chief Complaint: Abnormal Labs Present Illness HPI 87-year-old female from [facility], presented to [place] ER with history of increased shortness of breath, was found to have pleural effusion, anemia, renal insufficiency, weakness, admitted to telemetry for further care. the pt was agitated Allergies: Coded Allergies: IODINE (Verified Allergy, Mild, 08/17/08) Uncoded Allergies: CONTRAST MEDIA (Allergy, Mild, 08/17/08) CONTRAST (Allergy, Unknown, 07/13/17) Medication History Scheduled Allopurinol* (Allopurinol*), 300 MG ORAL DAILY, (Reported) Aspirin Ec* (Aspirin Ec*), 81 MG ORAL DAILY Carvedilol (Coreg), 12.5 MG ORAL EVERY 12 HOURS Carvedilol* (Carvedilol*), 12.5 MG ORAL EVERY 12 HOURS, (Reported) Docusate Sodium* (Colace*), 100 MG ORAL THREE TIMES A DAY Ferrous Sulfate* (Ferrous Sulfate*), 325 MG ORAL DAILY, (Reported) Furosemide* (Lasix*), 40 MG ORAL DAILY Gabapentin* (Gabapentin*), 600 MG ORAL BID, (Reported) Insulin Glargine (Lantus), 0 SUBQ BEDTIME, (Reported) Levothyroxine Sodium* (Levothyroxine Sodium*), 112 MCG ORAL DAILY, (Reported) Lidocaine (Lidoderm), 1 PATCH TOPIC DAILY, (Reported) Montelukast Sodium* (Montelukast Sodium*), 10 MG ORAL DAILY, (Reported) Montelukast Sodium* (Montelukast Sodium*), 10 MG ORAL DAILY, (Reported) Nateglinide* (Starlix*), 60 MG ORAL THREE TIMES A DAY Omeprazole (Omeprazole), 10 MG ORAL DAILY, (Reported) Simvastatin (Zocor), 20 MG ORAL BEDTIME, (Reported) Temazepam (Temazepam*), 15 MG ORAL BEDTIME, (Reported) Scheduled PRN Albuterol Sulfate* (Albuterol Sulfate Hhn*), 3 ML INH Q4H PRN for Shortness of Breath, (Reported) Hydrocodone Bit/Acetaminophen 5-325* (Robins 5-325*), 1 TAB ORAL Q12HR PRN for For Pain, (Reported) Polyethylene Glycol 3350* (Miralax*), 17 GM ORAL DAILYPRN PRN Quetiapine Fumarate* (Seroquel*), 25 MG ORAL Q6H PRN Temazepam* (Temazepam*), 30 MG ORAL BEDTIME PRN for Insomnia, (Reported) Temazepam* (Temazepam*), 15 MG ORAL BEDTIME PRN for Insomnia, (Reported) Miscellaneous Medications Insulin Regular, Human (Humulin R), 0 SUBQ, (Reported) [Medrol], (Reported) [medrol], (Reported) Patient History Healthcare 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 DAUGHTER Resuscitation status Advanced Directive on File No Review of Systems Psychiatric: Reports: prior hx, anxiety, depressed feelings, emotional problems Physical Exam General Appearance: alert, confused, agitated Last 24 Hour Vital Signs Date Time Temp Pulse Resp B/P (MAP) Pulse Ox O2 Delivery O2 Flow Rate FiO2 07/18/17 20:44 90 123/63 07/18/17 20:08 98.1 90 21 123/63 94 Venturi Mask 4.0 30 98.1 07/18/17 19:46 86 20 Venturi Mask 4.0 30 07/18/17 19:46 96 Venturi Mask 4.0 30 07/18/17 19:46 Venturi Mask 4.0 30 07/18/17 16:00 97.3 105 21 117/63 91 97.3 07/18/17 11:01 Venturi Mask 4.0 30 07/18/17 11:00 97.6 84 19 125/56 99 97.6 07/18/17 09:43 87 139/86 07/18/17 08:03 98 Nasal Cannula 4.0 30 07/18/17 08:03 83 18 Venturi Mask 4.0 30 07/18/17 08:03 Venturi Mask 4.0 30 07/18/17 08:00 97.3 87 19 139/86 99 Venturi Mask 4.0 30 97.3 07/18/17 04:58 Non-Rebreather 07/18/17 04:08 96.8 82 18 114/63 100 96.8 07/18/17 00:33 97.7 84 23 117/62 99 Non-Rebreather 97.7 Intake and Output 07/17/17 07/18/17 19:00 07:00 # Voids 2 Laboratory Tests Test 07/18/17 06:05 07/18/17 12:30 07/18/17 12:50 White Blood Count 6.8 K/UL (4.8-10.8) Red Blood Count 3.02 M/UL (4.20-5.40) L Hemoglobin 9.2 G/DL (12.0-16.0) L Hematocrit 31.3 % (37.0-47.0) L Mean Corpuscular Volume 104 FL (80-99) H Mean Corpuscular Hemoglobin 30.6 PG (27.0-31.0) Mean Corpuscular Hemoglobin Concent 29.5 G/DL (32.0-36.0) L Red Cell Distribution Width 16.4 % (11.6-14.8) H Platelet Count 135 K/UL (150-450) L Mean Platelet Volume 6.4 FL (6.5-10.1) L Neutrophils (%) (Auto) 77.6 % (45.0-75.0) H Lymphocytes (%) (Auto) 13.6 % (20.0-45.0) L Monocytes (%) (Auto) 6.6 % (1.0-10.0) Eosinophils (%) (Auto) 1.1 % (0.0-3.0) Basophils (%) (Auto) 1.0 % (0.0-2.0) Sodium Level 144 MMOL/L (136-145) Potassium Level 4.4 MMOL/L (3.5-5.1) Chloride Level 101 MMOL/L (98-107) Carbon Dioxide Level 43 MMOL/L (21-32) *H Anion Gap 0 mmol/L (5-15) L Blood Urea Nitrogen 26 mg/dL (7-18) H Creatinine 1.4 MG/DL (0.55-1.30) H Estimat Glomerular Filtration Rate mL/min (>60) Glucose Level 98 MG/DL (74-106) Calcium Level 8.8 MG/DL (8.5-10.1) Body Fluid Glucose Pending Body Fluid Total Protein Pending Body Fluid Albumin Pending Body Fluid Source Pending Body Fluid Volume Pending Body Fluid Appearance Pending Body Fluid RBC Pending Body Fluid Total Nucleated Cells Pending Body Fluid Polynuclear WBCs (%) Pending Body Fluid Mononuclear WBCs (%) Pending Body Fluid Mesothelial Cells (%) Pending Height (Feet): 5 Height (Inches): 8.00 Weight (Pounds): 280 Medications Current Medications Medications (Trade) Dose Ordered Sig/Lakshmi Route PRN Reason Start Time Stop Time Status Last Admin Dose Admin Acetaminophen/ Hydrocodone Bitart ([place]ins 5/325) 1 tab Q12H PRN ORAL For Pain 07/17/17 21:00 07/24/17 20:59 Albuterol Sulfate (Proventil) 2.5 mg Q4H PRN HHN Shortness of Breath 07/17/17 21:15 07/19/17 05:14 Allopurinol (Allopurinol) 300 mg DAILY ORAL 07/18/17 09:00 08/13/17 08:59 07/18/17 09:43 Aspirin (Ecotrin) 81 mg DAILY ORAL 07/18/17 09:00 08/13/17 08:59 07/18/17 09:44 Atorvastatin Calcium (Lipitor) 10 mg BEDTIME ORAL 07/17/17 21:00 08/13/17 20:59 07/18/17 20:44 Carvedilol (Coreg) 12.5 mg EVERY 12 HOURS ORAL 07/17/17 21:00 08/13/17 08:59 07/18/17 20:44 Dextrose (Dextrose 50%) STAT PRN IV Hypoglycemia 07/17/17 19:00 08/16/17 18:59 Docusate Sodium (Colace) 100 mg THREE TIMES A DAY ORAL 07/18/17 09:00 08/13/17 08:59 07/18/17 17:02 Ferrous Sulfate (Feosol) 325 mg DAILY ORAL 07/18/17 09:00 08/13/17 08:59 07/18/17 09:43 Furosemide (Lasix) 40 mg DAILY ORAL 07/18/17 09:00 08/13/17 08:59 07/18/17 09:42 Gabapentin (Neurontin) 600 mg DAILY ORAL 07/18/17 09:00 08/13/17 08:59 07/18/17 09:43 Insulin Aspart (NovoLOG) BEFORE MEALS AND HS SUBQ 07/17/17 21:00 08/13/17 20:59 07/18/17 20:46 Levothyroxine Sodium (Synthroid) 112 mcg DAILY@0630 ORAL 3/5/18 06:30 08/13/17 06:29 07/18/17 05:55 Lidocaine (Lidoderm 5% PATCH) 1 patch DAILY TDERMAL 07/18/17 09:00 08/13/17 08:59 07/18/17 09:44 Montelukast Sodium (Singulair) 10 mg DAILY ORAL 07/18/17 09:00 08/13/17 08:59 07/18/17 09:43 Nateglinide (Starlix) 60 mg THREE TIMES A DAY ORAL 07/18/17 09:00 08/13/17 08:59 07/18/17 17:02 Pantoprazole (Protonix) 40 mg ACBREAKFAST ORAL 07/18/17 06:30 08/13/17 08:59 07/18/17 05:55 Polyethylene Glycol (Miralax) 17 gm DAILYPRN PRN ORAL Constipation 07/17/17 19:00 08/16/17 18:59 Quetiapine Fumarate (SEROquel) 25 mg Q6H PRN ORAL Agitation 07/17/17 19:00 08/13/17 18:59 Temazepam (Restoril) 15 mg BEDTIME ORAL 07/17/17 21:00 07/21/17 20:59 07/18/17 21:55 Assessment/Plan Status: stable Assessment/Plan encephalopathy agitation -seroquel Alyssa Reid M.D. Jul 18, 2017 22:48
--- NOTE | 2017-07-18 23:50 | General Progress Note ---
Assessment/Plan Assessment/Plan #. 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 Anemia likely related to chronic disease --> hgb goal is >7, and workup has been reviewed --> Blood transfusion not required unless symptomatic or if hgb falls below goal. --> Downtrended from yesterday, monitor closely. #. Chronic obstructive pulmonary disease exacerbation. --> On breathing support. #. Right-sided pleural effusion, status post tap, no evidence of parapneumonic versus empyema. Subjective Date patient seen: Jul 18, 2017 Constitutional: Denies: no symptoms, chills, diaphoresis, fever, malaise, weakness, other HEENT: Denies: no symptoms, eye pain, blurred vision, tearing, double vision, ear pain, ear discharge, nose pain, nose congestion, throat pain, throat swelling, mouth pain, mouth swelling, other Cardiovascular: Denies: no symptoms, chest pain, edema, irregular heart rate, lightheadedness, palpitations, syncope, other Respiratory: Denies: no symptoms, cough, orthopnea, shortness of breath, SOB with excertion, SOB at rest, sputum, stridor, wheezing, other Gastrointestinal/Abdominal: Denies: no symptoms, abdomen distended, abdominal pain, black stools, tarry stools, blood in stool, constipated, diarrhea, difficulty swallowing, nausea, poor appetite, poor fluid intake, rectal bleeding , vomiting, other Genitourinary: Denies: no symptoms, burning, discharge, frequency, flank pain, hematuria, incontinence, pain, urgency, other Neurologic/Psychiatric: Denies: no symptoms, anxiety, depressed, emotional problems, headache, numbness, paresthesia, pre-existing deficit, seizure, tingling, tremors, weakness, other Hematologic/Lymphatic: Reports: anemia Allergies: Coded Allergies: IODINE (Verified Allergy, Mild, 08/17/08) Uncoded Allergies: CONTRAST MEDIA (Allergy, Mild, 08/17/08) CONTRAST (Allergy, Unknown, 07/13/17) Subjective Hgb downtrended. Pt on venturi mask. No acute events. Objective Last 24 Hour Vital Signs Date Time Temp Pulse Resp B/P (MAP) Pulse Ox O2 Delivery O2 Flow Rate FiO2 07/18/17 20:44 90 123/63 07/18/17 20:08 98.1 90 21 123/63 94 Venturi Mask 4.0 30 98.1 07/18/17 19:46 86 20 Venturi Mask 4.0 30 07/18/17 19:46 96 Venturi Mask 4.0 30 07/18/17 19:46 Venturi Mask 4.0 30 07/18/17 16:00 97.3 105 21 117/63 91 97.3 07/18/17 11:01 Venturi Mask 4.0 30 07/18/17 11:00 97.6 84 19 125/56 99 97.6 07/18/17 09:43 87 139/86 07/18/17 08:03 98 Nasal Cannula 4.0 30 07/18/17 08:03 83 18 Venturi Mask 4.0 30 07/18/17 08:03 Venturi Mask 4.0 30 07/18/17 08:00 97.3 87 19 139/86 99 Venturi Mask 4.0 30 97.3 07/18/17 04:58 Non-Rebreather 07/18/17 04:08 96.8 82 18 114/63 100 96.8 07/18/17 00:33 97.7 84 23 117/62 99 Non-Rebreather 97.7 Intake and Output 07/17/17 07/18/17 19:00 07:00 # Voids 2 Laboratory Tests 07/18/17 06:05: White Blood Count 6.8, Red Blood Count 3.02L, Hemoglobin 9.2L, Hematocrit 31.3L , Mean Corpuscular Volume 104H, Mean Corpuscular Hemoglobin 30.6, Mean Corpuscular Hemoglobin Concent 29.5L, Red Cell Distribution Width 16.4H, Platelet Count 135L, Mean Platelet Volume 6.4L, Neutrophils (%) (Auto) 77.6H, Lymphocytes (%) (Auto) 13.6L, Monocytes (%) (Auto) 6.6, Eosinophils (%) (Auto) 1.1, Basophils (%) (Auto) 1.0, Sodium Level 144, Potassium Level 4.4, Chloride Level 101, Carbon Dioxide Level 43*H, Anion Gap 0L, Blood Urea Nitrogen 26H, Creatinine 1.4H, Estimat Glomerular Filtration Rate , Glucose Level 98, Calcium Level 8.8 07/18/17 12:30: Body Fluid Glucose [Pending], Body Fluid Total Protein [Pending], Body Fluid Albumin [Pending] 07/18/17 12:50: Body Fluid Source [Pending], Body Fluid Volume [Pending], Body Fluid Appearance [Pending], Body Fluid RBC [Pending], Body Fluid Total Nucleated Cells [Pending] , Body Fluid Polynuclear WBCs (%) [Pending], Body Fluid Mononuclear WBCs (%) [ Pending], Body Fluid Mesothelial Cells (%) [Pending] Height (Feet): 5 Height (Inches): 8.00 Weight (Pounds): 280 Tim Dillon Jul 18, 2017 23:50
[2017-07-19] VITALS (7 sets, daily range): BP systolic 105–138; BP diastolic 53–66
[2017-07-19] MEDS: NovoLOG Insulin Flexpen SUBQ SCH ×4 (06:13→21:00)
[2017-07-19 08:49] LABS: BASOPHILS % (AUTO) 0.6 % (0.0-2.0); EOSINOPHILS % (AUTO) 1.9 % (0.0-3.0); HEMATOCRIT 30.5 % (37.0-47.0); MEAN CORPUSCULAR VOLUME 102 FL (80-99); MONOCYTES % (AUTO) 7.4 % (1.0-10.0); NEUTROPHILS % (AUTO) 75.1 % (45.0-75.0); PLATELET COUNT 121 K/UL (150-450); RED BLOOD COUNT 2.98 M/UL (4.20-5.40); RED CELL DISTRIBUTION WIDTH 16.2 % (11.6-14.8); WHITE BLOOD COUNT 6.8 K/UL (4.8-10.8)
[2017-07-19] MEDS: Aspirin EC 81mg tab ORAL SCH (08:56)
[2017-07-19] MEDS: Montelukast 10mg tablet ORAL SCH (08:56)
[2017-07-19] MEDS: Nateglinide 60mg tab ORAL SCH ×3 (08:57→17:23)
[2017-07-19] MEDS: Furosemide 40mg tab ORAL SCH (08:57)
[2017-07-19] MEDS: Docusate 100mg cap ORAL SCH ×3 (08:57→17:23)
[2017-07-19] MEDS: Carvedilol 12.5mg tab ORAL SCH ×2 (08:57→21:14)
[2017-07-19 09:34] LABS: ANION GAP 2 mmol/L (5-15); BLOOD UREA NITROGEN 26 mg/dL (7-18); CALCIUM 8.8 MG/DL (8.5-10.1); CARBON DIOXIDE 43 MMOL/L (21-32); CHLORIDE 101 MMOL/L (98-107); CREATININE 1.5 MG/DL (0.55-1.30); POTASSIUM 3.9 MMOL/L (3.5-5.1); SODIUM 145 MMOL/L (136-145)
--- NOTE | 2017-07-19 10:53 | Diagnostic Imaging Report ---
APPROVED REPORT CPT Code: 21440 Present Symptoms Comments: R/O DVT BILATERAL: Imaging reveals a patent deep venous system bilaterally. There is no evidence of thrombus within the common, proximal superficial femoral, and popliteal venous segments. The greater saphenous veins are also within normal limits. Doppler indicates normal spontaneous flow within these segments. Technically difficult study due to vessel depth ( mid- distal thigh and calf area).
--- NOTE | 2017-07-19 13:14 | Pulmonology Progress Note ---
Assessment/Plan Problems: (1) Pleural effusion (2) Acute toxic metabolic encephalopathy (3) COPD (chronic obstructive pulmonary disease) (4) DM2 (diabetes mellitus, type 2) (5) HTN (hypertension) (6) Anasarca Assessment/Plan respiratory treatment s/p thoracentesis need another on on the left ,pt signed the consent. diuretic oncology evaluation appreciated pt has possibly ovarian or uterine cancer oncology f/un symptomatic Subjective ROS Limited/Unobtainable: No - pt agreed with thoracentesis Allergies: Coded Allergies: IODINE (Verified Allergy, Mild, 08/17/08) Uncoded Allergies: CONTRAST MEDIA (Allergy, Mild, 08/17/08) CONTRAST (Allergy, Unknown, 07/13/17) Objective Last 24 Hour Vital Signs Date Time Temp Pulse Resp B/P (MAP) Pulse Ox O2 Delivery O2 Flow Rate FiO2 07/19/17 12:00 97.9 91 20 107/61 94 Venturi Mask 4.0 30 97.9 07/19/17 08:57 101 119/62 07/19/17 08:00 98.4 101 20 119/62 97 Venturi Mask 4.0 30 98.4 07/19/17 07:51 97 Venturi Mask 4.0 30 07/19/17 07:51 Venturi Mask 4.0 30 07/19/17 07:50 101 18 Venturi Mask 4.0 30 07/19/17 04:00 Venturi Mask 4.0 30 07/19/17 04:00 97.7 91 18 109/59 96 Nasal Cannula 97.7 07/19/17 00:00 Venturi Mask 4.0 30 07/19/17 00:00 98.2 101 19 113/60 94 Nasal Cannula 98.2 07/18/17 20:44 90 123/63 07/18/17 20:08 98.1 90 21 123/63 94 Venturi Mask 4.0 30 98.1 07/18/17 19:46 86 20 Venturi Mask 4.0 30 07/18/17 19:46 96 Venturi Mask 4.0 30 07/18/17 19:46 Venturi Mask 4.0 30 07/18/17 16:00 97.3 105 21 117/63 91 97.3 Intake and Output 07/18/17 07/19/17 19:00 07:00 Intake Total 1340 ml 120 ml Balance 1340 ml 120 ml Intake Oral 1340 ml 120 ml # Voids 2 2 Objective General Appearance: WD/WN, Lines, tubes and drains: peripheral HEENT: normocephalic, atraumatic Neck: non-tender, normal alignment, supple Respiratory/Chest: chest wall non-tender, lungs clear, normal breath sounds Breasts: no masses Cardiovascular/Chest: normal peripheral pulses, normal rate Abdomen: normal bowel sounds, non tender Genitourinary/Rectal: normal genital exam, normal rectal exam Extremities: normal range of motion, non-tender Skin Exam: normal pigmentation 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, Microbiology Date/Time Source Procedure Growth Status 07/18/17 12:30 Pleural Fluid Gram Stain - Final Resulted 07/18/17 12:30 Pleural Fluid Body Fluid Culture - Preliminary NO GROWTH Resulted Laboratory Tests 07/19/17 08:05: White Blood Count 6.8, Red Blood Count 2.98L, Hemoglobin 9.0L, Hematocrit 30.5L , Mean Corpuscular Volume 102H, Mean Corpuscular Hemoglobin 30.1, Mean Corpuscular Hemoglobin Concent 29.4L, Red Cell Distribution Width 16.2H, Platelet Count 121L, Mean Platelet Volume 6.9, Neutrophils (%) (Auto) 75.1H, Lymphocytes (%) (Auto) 15.0L, Monocytes (%) (Auto) 7.4, Eosinophils (%) (Auto) 1.9, Basophils (%) (Auto) 0.6, Sodium Level 145, Potassium Level 3.9, Chloride Level 101, Carbon Dioxide Level 43*H, Anion Gap 2L, Blood Urea Nitrogen 26H, Creatinine 1.5H, Estimat Glomerular Filtration Rate , Glucose Level 120H, Calcium Level 8.8 Current Medications Medications (Trade) Dose Ordered Sig/Lakshmi Route PRN Reason Start Time Stop Time Status Last Admin Dose Admin Acetaminophen/ Hydrocodone Bitart ([place] 5/325) 1 tab Q12H PRN ORAL For Pain 07/17/17 21:00 07/24/17 20:59 Allopurinol (Allopurinol) 300 mg DAILY ORAL 07/18/17 09:00 08/13/17 08:59 07/19/17 08:56 Aspirin (Ecotrin) 81 mg DAILY ORAL 07/18/17 09:00 08/13/17 08:59 07/19/17 08:56 Atorvastatin Calcium (Lipitor) 10 mg BEDTIME ORAL 07/17/17 21:00 08/13/17 20:59 07/18/17 20:44 Carvedilol (Coreg) 12.5 mg EVERY 12 HOURS ORAL 07/17/17 21:00 08/13/17 08:59 07/19/17 08:57 Dextrose (Dextrose 50%) STAT PRN IV Hypoglycemia 07/17/17 19:00 08/16/17 18:59 Docusate Sodium (Colace) 100 mg THREE TIMES A DAY ORAL 07/18/17 09:00 08/13/17 08:59 07/19/17 08:57 Ferrous Sulfate (Feosol) 325 mg DAILY ORAL 07/18/17 09:00 08/13/17 08:59 07/19/17 08:57 Furosemide (Lasix) 40 mg DAILY ORAL 07/18/17 09:00 08/13/17 08:59 07/19/17 08:57 Gabapentin (Neurontin) 600 mg DAILY ORAL 07/18/17 09:00 08/13/17 08:59 07/19/17 08:56 Insulin Aspart (NovoLOG) BEFORE MEALS AND HS SUBQ 07/17/17 21:00 08/13/17 20:59 07/18/17 20:46 Levothyroxine Sodium (Synthroid) 112 mcg DAILY@0630 ORAL 07/18/17 06:30 08/13/17 06:29 07/19/17 06:13 Lidocaine (Lidoderm 5% PATCH) 1 patch DAILY TDERMAL 07/18/17 09:00 08/13/17 08:59 07/18/17 09:44 Montelukast Sodium (Singulair) 10 mg DAILY ORAL 07/18/17 09:00 08/13/17 08:59 07/19/17 08:56 Nateglinide (Starlix) 60 mg THREE TIMES A DAY ORAL 07/18/17 09:00 08/13/17 08:59 07/19/17 08:57 Pantoprazole (Protonix) 40 mg ACBREAKFAST ORAL 07/18/17 06:30 08/13/17 08:59 07/19/17 06:13 Polyethylene Glycol (Miralax) 17 gm DAILYPRN PRN ORAL Constipation 07/17/17 19:00 08/16/17 18:59 Quetiapine Fumarate (SEROquel) 25 mg Q6H PRN ORAL Agitation 07/17/17 19:00 08/13/17 18:59 Temazepam (Restoril) 15 mg BEDTIME ORAL 07/17/17 21:00 07/21/17 20:59 07/18/17 21:55 KAILA HASSAN Jul 19, 2017 13:14
--- NOTE | 2017-07-19 14:42 | General Progress Note ---
Assessment/Plan Problem List: (1) JERILYN on CKD (2) UTI (urinary tract infection) ICD Codes: N39.0 - Urinary tract infection, site not specified SNOMED: 62772709 (3) COPD (chronic obstructive pulmonary disease) ICD Codes: J44.9 - Chronic obstructive pulmonary disease, unspecified SNOMED: 79439946 (4) DM2 (diabetes mellitus, type 2) ICD Codes: E11.9 - Type 2 diabetes mellitus without complications SNOMED: 90658102 (5) Acute respiratory failure with hypoxia and hypercapnia ICD Codes: J96.01 - Acute respiratory failure with hypoxia; J96.02 - Acute respiratory failure with hypercapnia SNOMED: 10602941, 39981090, 932964526 Status: unchanged Assessment/Plan o2 pum tx abx ot pt diet cbc bmp am Subjective Allergies: Coded Allergies: IODINE (Verified Allergy, Mild, 08/17/08) Uncoded Allergies: CONTRAST MEDIA (Allergy, Mild, 08/17/08) CONTRAST (Allergy, Unknown, 07/13/17) All Systems: reviewed and negative except above Subjective 02 mask sleepy Objective Last 24 Hour Vital Signs Date Time Temp Pulse Resp B/P (MAP) Pulse Ox O2 Delivery O2 Flow Rate FiO2 07/19/17 12:00 97.9 91 20 107/61 94 Venturi Mask 4.0 30 97.9 07/19/17 08:57 101 119/62 07/19/17 08:00 98.4 101 20 119/62 97 Venturi Mask 4.0 30 98.4 07/19/17 07:51 97 Venturi Mask 4.0 30 07/19/17 07:51 Venturi Mask 4.0 30 07/19/17 07:50 101 18 Venturi Mask 4.0 30 07/19/17 04:00 Venturi Mask 4.0 30 07/19/17 04:00 97.7 91 18 109/59 96 Nasal Cannula 97.7 07/19/17 00:00 Venturi Mask 4.0 30 07/19/17 00:00 98.2 101 19 113/60 94 Nasal Cannula 98.2 07/18/17 20:44 90 123/63 07/18/17 20:08 98.1 90 21 123/63 94 Venturi Mask 4.0 30 98.1 07/18/17 19:46 86 20 Venturi Mask 4.0 30 07/18/17 19:46 96 Venturi Mask 4.0 30 07/18/17 19:46 Venturi Mask 4.0 30 07/18/17 16:00 97.3 105 21 117/63 91 97.3 Intake and Output 07/18/17 07/19/17 19:00 07:00 Intake Total 1340 ml 120 ml Balance 1340 ml 120 ml Intake Oral 1340 ml 120 ml # Voids 2 2 Laboratory Tests 07/19/17 08:05: White Blood Count 6.8, Red Blood Count 2.98L, Hemoglobin 9.0L, Hematocrit 30.5L , Mean Corpuscular Volume 102H, Mean Corpuscular Hemoglobin 30.1, Mean Corpuscular Hemoglobin Concent 29.4L, Red Cell Distribution Width 16.2H, Platelet Count 121L, Mean Platelet Volume 6.9, Neutrophils (%) (Auto) 75.1H, Lymphocytes (%) (Auto) 15.0L, Monocytes (%) (Auto) 7.4, Eosinophils (%) (Auto) 1.9, Basophils (%) (Auto) 0.6, Sodium Level 145, Potassium Level 3.9, Chloride Level 101, Carbon Dioxide Level 43*H, Anion Gap 2L, Blood Urea Nitrogen 26H, Creatinine 1.5H, Estimat Glomerular Filtration Rate , Glucose Level 120H, Calcium Level 8.8 Height (Feet): 5 Height (Inches): 8.00 Weight (Pounds): 280 General Appearance: lethargic EENT: normal ENT inspection Neck: normal alignment Cardiovascular: normal peripheral pulses, normal rate, regular rhythm Respiratory/Chest: decreased breath sounds Abdomen: normal bowel sounds, non tender, soft Extremities: normal inspection Edema: 1+ Arm (L), 1+ Arm (R), 1+ Leg (L), 1+ Leg (R), 1+ Pedal (L), 1+ Pedal ( R), 1+ Generalized Edema: trace edema Neurologic: motor weakness Skin: normal pigmentation, warm/dry JIMMIE ARTHUR Jul 19, 2017 14:42
--- NOTE | 2017-07-19 18:23 | General Progress Note ---
Assessment/Plan Problem List: (1) JERILYN on CKD (2) Pleural effusion ICD Codes: J90 - Pleural effusion, not elsewhere classified SNOMED: 80857923 (3) Bacteremia ICD Codes: R78.81 - Bacteremia SNOMED: 6754389 (4) Hydronephrosis ICD Codes: N13.30 - Unspecified hydronephrosis SNOMED: 34630899 (5) Anasarca ICD Codes: R60.1 - Generalized edema SNOMED: 462518067, 185212897 (6) UTI (urinary tract infection) ICD Codes: N39.0 - Urinary tract infection, site not specified SNOMED: 60259991 (7) Renal failure (ARF), acute on chronic ICD Codes: N17.9 - Acute kidney failure, unspecified; N18.9 - Chronic kidney disease, unspecified SNOMED: 792763445 (8) COPD (chronic obstructive pulmonary disease) ICD Codes: J44.9 - Chronic obstructive pulmonary disease, unspecified SNOMED: 11947971 (9) Hypothyroidism ICD Codes: E03.9 - Hypothyroidism, unspecified SNOMED: 49096142 (10) HTN (hypertension) ICD Codes: I10 - Essential (primary) hypertension SNOMED: 30756474 (11) Hypothyroid ICD Codes: E03.9 - Hypothyroidism, unspecified SNOMED: 42056352 (12) HLD (hyperlipidemia) ICD Codes: E78.5 - Hyperlipidemia, unspecified SNOMED: 16581293 (13) Pressure ulcer of coccygeal region, stage 2 ICD Codes: L89.152 - Pressure ulcer of sacral region, stage 2 SNOMED: 783554895 (14) CKD (chronic kidney disease) ICD Codes: N18.9 - Chronic kidney disease, unspecified SNOMED: 140660837 (15) DM2 (diabetes mellitus, type 2) ICD Codes: E11.9 - Type 2 diabetes mellitus without complications SNOMED: 22070939 (16) resides in SNF (17) Hyperkalemia ICD Codes: E87.5 - Hyperkalemia SNOMED: 27803597 (18) COPD with acute exacerbation ICD Codes: J44.1 - Chronic obstructive pulmonary disease with (acute) exacerbation SNOMED: 299832263 (19) Acute respiratory failure with hypoxia and hypercapnia ICD Codes: J96.01 - Acute respiratory failure with hypoxia; J96.02 - Acute respiratory failure with hypercapnia SNOMED: 50249074, 59171625, 833506257 (20) Acute toxic metabolic encephalopathy Assessment & Plan: stable cont prn seroquel Status: stable Assessment/Plan cont prn seroquel Subjective Date patient seen: Jul 19, 2017 Neurologic/Psychiatric: Reports: anxiety, depressed, emotional problems Allergies: Coded Allergies: IODINE (Verified Allergy, Mild, 08/17/08) Uncoded Allergies: CONTRAST MEDIA (Allergy, Mild, 08/17/08) CONTRAST (Allergy, Unknown, 07/13/17) Objective Last 24 Hour Vital Signs Date Time Temp Pulse Resp B/P (MAP) Pulse Ox O2 Delivery O2 Flow Rate FiO2 07/19/17 16:00 97.7 102 20 138/66 95 Venturi Mask 4.0 30 97.7 07/19/17 12:00 97.9 91 20 107/61 94 Venturi Mask 4.0 30 97.9 07/19/17 08:57 101 119/62 07/19/17 08:00 98.4 101 20 119/62 97 Venturi Mask 4.0 30 98.4 07/19/17 07:51 97 Venturi Mask 4.0 30 07/19/17 07:51 Venturi Mask 4.0 30 07/19/17 07:50 101 18 Venturi Mask 4.0 30 07/19/17 04:00 Venturi Mask 4.0 30 07/19/17 04:00 97.7 91 18 109/59 96 Nasal Cannula 97.7 07/19/17 00:00 Venturi Mask 4.0 30 07/19/17 00:00 98.2 101 19 113/60 94 Nasal Cannula 98.2 07/18/17 20:44 90 123/63 07/18/17 20:08 98.1 90 21 123/63 94 Venturi Mask 4.0 30 98.1 07/18/17 19:46 86 20 Venturi Mask 4.0 30 07/18/17 19:46 96 Venturi Mask 4.0 30 07/18/17 19:46 Venturi Mask 4.0 30 Intake and Output 07/18/17 07/19/17 19:00 07:00 Intake Total 1340 ml 120 ml Balance 1340 ml 120 ml Intake Oral 1340 ml 120 ml # Voids 2 2 Laboratory Tests 07/19/17 08:05: White Blood Count 6.8, Red Blood Count 2.98L, Hemoglobin 9.0L, Hematocrit 30.5L , Mean Corpuscular Volume 102H, Mean Corpuscular Hemoglobin 30.1, Mean Corpuscular Hemoglobin Concent 29.4L, Red Cell Distribution Width 16.2H, Platelet Count 121L, Mean Platelet Volume 6.9, Neutrophils (%) (Auto) 75.1H, Lymphocytes (%) (Auto) 15.0L, Monocytes (%) (Auto) 7.4, Eosinophils (%) (Auto) 1.9, Basophils (%) (Auto) 0.6, Sodium Level 145, Potassium Level 3.9, Chloride Level 101, Carbon Dioxide Level 43*H, Anion Gap 2L, Blood Urea Nitrogen 26H, Creatinine 1.5H, Estimat Glomerular Filtration Rate , Glucose Level 120H, Calcium Level 8.8 Height (Feet): 5 Height (Inches): 8.00 Weight (Pounds): 280 General Appearance: no apparent distress, alert, confused Alyssa Alvarado M.D. Jul 19, 2017 18:23
[2017-07-20 04:00] VITALS: BP 110/53
[2017-07-20] MEDS: NovoLOG Insulin Flexpen SUBQ SCH ×4 (05:52→20:31)
[2017-07-20 07:22] LABS: BASOPHILS % (AUTO) 0.6 % (0.0-2.0); HEMATOCRIT 28.8 % (37.0-47.0); HEMOGLOBIN 8.7 G/DL (12.0-16.0); LYMPHOCYTES % (AUTO) 23.5 % (20.0-45.0); MEAN CORPUSCULAR VOLUME 100 FL (80-99); MONOCYTES % (AUTO) 9.3 % (1.0-10.0); NEUTROPHILS % (AUTO) 65.6 % (45.0-75.0); PLATELET COUNT 120 K/UL (150-450); RED BLOOD COUNT 2.88 M/UL (4.20-5.40); RED CELL DISTRIBUTION WIDTH 15.5 % (11.6-14.8); WHITE BLOOD COUNT 7.5 K/UL (4.8-10.8)
[2017-07-20 08:00] VITALS: BP 110/60
--- NOTE | 2017-07-20 08:01 | General Progress Note ---
Assessment/Plan Problem List: (1) JERILYN on CKD (2) UTI (urinary tract infection) ICD Codes: N39.0 - Urinary tract infection, site not specified SNOMED: 53399399 (3) COPD (chronic obstructive pulmonary disease) ICD Codes: J44.9 - Chronic obstructive pulmonary disease, unspecified SNOMED: 28056886 (4) DM2 (diabetes mellitus, type 2) ICD Codes: E11.9 - Type 2 diabetes mellitus without complications SNOMED: 26201624 (5) Acute respiratory failure with hypoxia and hypercapnia ICD Codes: J96.01 - Acute respiratory failure with hypoxia; J96.02 - Acute respiratory failure with hypercapnia SNOMED: 09903665, 31267981, 617737907 Status: unchanged Assessment/Plan o2 pum tx abx ot pt diet cbc bmp am Subjective Constitutional: Reports: weakness Allergies: Coded Allergies: IODINE (Verified Allergy, Mild, 08/17/08) Uncoded Allergies: CONTRAST MEDIA (Allergy, Mild, 08/17/08) CONTRAST (Allergy, Unknown, 07/13/17) All Systems: reviewed and negative except above Subjective 02 mask sleepy Objective Last 24 Hour Vital Signs Date Time Temp Pulse Resp B/P (MAP) Pulse Ox O2 Delivery O2 Flow Rate FiO2 07/20/17 04:00 97.9 115 20 110/53 94 97.9 07/20/17 00:00 96 Simple Mask 4.0 07/19/17 23:53 98.6 95 18 105/53 96 98.6 07/19/17 21:14 103 111/53 07/19/17 19:46 98.1 103 19 111/53 95 98.1 07/19/17 19:11 105 22 Venturi Mask 4.0 30 07/19/17 19:11 Venturi Mask 4.0 30 07/19/17 19:11 98 Venturi Mask 4.0 30 07/19/17 16:00 97.7 102 20 138/66 95 Venturi Mask 4.0 30 97.7 07/19/17 12:00 97.9 91 20 107/61 94 Venturi Mask 4.0 30 97.9 07/19/17 08:57 101 119/62 Intake and Output 07/19/17 07/20/17 19:00 07:00 Intake Total 720 ml Balance 720 ml Intake Oral 720 ml # Voids 3 1 # Bowel Movements 1 Laboratory Tests 07/19/17 08:05: White Blood Count 6.8, Red Blood Count 2.98L, Hemoglobin 9.0L, Hematocrit 30.5L , Mean Corpuscular Volume 102H, Mean Corpuscular Hemoglobin 30.1, Mean Corpuscular Hemoglobin Concent 29.4L, Red Cell Distribution Width 16.2H, Platelet Count 121L, Mean Platelet Volume 6.9, Neutrophils (%) (Auto) 75.1H, Lymphocytes (%) (Auto) 15.0L, Monocytes (%) (Auto) 7.4, Eosinophils (%) (Auto) 1.9, Basophils (%) (Auto) 0.6, Sodium Level 145, Potassium Level 3.9, Chloride Level 101, Carbon Dioxide Level 43*H, Anion Gap 2L, Blood Urea Nitrogen 26H, Creatinine 1.5H, Estimat Glomerular Filtration Rate , Glucose Level 120H, Calcium Level 8.8 07/20/17 05:20: White Blood Count 7.5, Red Blood Count 2.88L, Hemoglobin 8.7L, Hematocrit 28.8L , Mean Corpuscular Volume 100H, Mean Corpuscular Hemoglobin 30.3, Mean Corpuscular Hemoglobin Concent 30.3L, Red Cell Distribution Width 15.5H, Platelet Count 120L, Mean Platelet Volume 7.3, Neutrophils (%) (Auto) 65.6, Lymphocytes (%) (Auto) 23.5, Monocytes (%) (Auto) 9.3, Eosinophils (%) (Auto) 1.0, Basophils (%) (Auto) 0.6, Sodium Level [Pending], Potassium Level [Pending] , Chloride Level [Pending], Carbon Dioxide Level [Pending], Blood Urea Nitrogen [Pending], Creatinine [Pending], Estimat Glomerular Filtration Rate [Pending], Glucose Level [Pending], Calcium Level [Pending], Total Bilirubin [Pending], Aspartate Amino Transf (AST/SGOT) [Pending], Alanine Aminotransferase (ALT/SGPT ) [Pending], Alkaline Phosphatase [Pending], Pro-B-Type Natriuretic Peptide [ Pending], Total Protein [Pending], Albumin [Pending], Globulin [Pending] Height (Feet): 5 Height (Inches): 8.00 Weight (Pounds): 280 General Appearance: lethargic EENT: normal ENT inspection Neck: normal alignment Cardiovascular: normal peripheral pulses, normal rate, regular rhythm Respiratory/Chest: decreased breath sounds Abdomen: normal bowel sounds, non tender, soft Extremities: normal inspection Edema: 1+ Arm (L), 1+ Arm (R), 1+ Leg (L), 1+ Leg (R), 1+ Pedal (L), 1+ Pedal ( R), 1+ Generalized Edema: trace edema Neurologic: motor weakness Skin: normal pigmentation, warm/dry JIMMIE ARTHUR Jul 20, 2017 08:01
[2017-07-20 09:01] LABS: ALANINE AMINOTRANSFERASE 13 U/L (12-78); ALBUMIN 2.1 G/DL (3.4-5.0); ALBUMIN/GLOBULIN RATIO 0.5 (1.0-2.7); ALKALINE PHOSPHATASE 65 U/L (46-116); ASPARTATE AMINO TRANSFERASE 13 U/L (15-37); BILIRUBIN,TOTAL 0.3 MG/DL (0.2-1.0); BLOOD UREA NITROGEN 25 mg/dL (7-18); CALCIUM 8.7 MG/DL (8.5-10.1); CHLORIDE 99 MMOL/L (98-107); CREATININE 1.5 MG/DL (0.55-1.30); POTASSIUM 4.4 MMOL/L (3.5-5.1); SODIUM 140 MMOL/L (136-145)
[2017-07-20 09:11] LABS: ANION GAP 0 mmol/L (5-15); CARBON DIOXIDE 41 MMOL/L (21-32)
[2017-07-20] MEDS: Docusate 100mg cap ORAL SCH ×3 (09:56→17:48)
[2017-07-20] MEDS: Aspirin EC 81mg tab ORAL SCH (09:57)
[2017-07-20] MEDS: Carvedilol 12.5mg tab ORAL SCH ×2 (09:57→20:31)
[2017-07-20] MEDS: Montelukast 10mg tablet ORAL SCH (09:58)
[2017-07-20] MEDS: Nateglinide 60mg tab ORAL SCH ×3 (09:59→17:48)
[2017-07-20] MEDS: Furosemide 40mg tab ORAL SCH (10:00)
--- NOTE | 2017-07-20 10:29 | General Progress Note ---
Assessment/Plan Assessment/Plan #. 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 Anemia likely related to chronic disease --> hgb goal is >7, and workup has been reviewed --> Blood transfusion not required unless symptomatic or if hgb falls below goal. --> Downtrended from yesterday, monitor closely. Trend cbc daily. #. Chronic obstructive pulmonary disease exacerbation. --> On breathing support. #. Right-sided pleural effusion, status post tap, no evidence of parapneumonic versus empyema. Subjective Date patient seen: Jul 19, 2017 Constitutional: Denies: no symptoms, chills, diaphoresis, fever, malaise, weakness, other HEENT: Denies: no symptoms, eye pain, blurred vision, tearing, double vision, ear pain, ear discharge, nose pain, nose congestion, throat pain, throat swelling, mouth pain, mouth swelling, other Cardiovascular: Denies: no symptoms, chest pain, edema, irregular heart rate, lightheadedness, palpitations, syncope, other Respiratory: Denies: no symptoms, cough, orthopnea, shortness of breath, SOB with excertion, SOB at rest, sputum, stridor, wheezing, other Gastrointestinal/Abdominal: Denies: no symptoms, abdomen distended, abdominal pain, black stools, tarry stools, blood in stool, constipated, diarrhea, difficulty swallowing, nausea, poor appetite, poor fluid intake, rectal bleeding , vomiting, other Genitourinary: Denies: no symptoms, burning, discharge, frequency, flank pain, hematuria, incontinence, pain, urgency, other Hematologic/Lymphatic: Reports: anemia Allergies: Coded Allergies: IODINE (Verified Allergy, Mild, 08/17/08) Uncoded Allergies: CONTRAST MEDIA (Allergy, Mild, 08/17/08) CONTRAST (Allergy, Unknown, 07/13/17) Subjective NAD. Pt on venturi mask. Hypotensive. Objective Last 24 Hour Vital Signs Date Time Temp Pulse Resp B/P (MAP) Pulse Ox O2 Delivery O2 Flow Rate FiO2 07/20/17 09:57 104 93/48 07/20/17 04:00 97.9 115 20 110/53 94 97.9 07/20/17 00:00 96 Simple Mask 4.0 07/19/17 23:53 98.6 95 18 105/53 96 98.6 07/19/17 21:14 103 111/53 07/19/17 19:46 98.1 103 19 111/53 95 98.1 07/19/17 19:11 105 22 Venturi Mask 4.0 30 07/19/17 19:11 Venturi Mask 4.0 30 07/19/17 19:11 98 Venturi Mask 4.0 30 07/19/17 16:00 97.7 102 20 138/66 95 Venturi Mask 4.0 30 97.7 07/19/17 12:00 97.9 91 20 107/61 94 Venturi Mask 4.0 30 97.9 Intake and Output 07/19/17 07/20/17 19:00 07:00 Intake Total 720 ml Balance 720 ml Intake Oral 720 ml # Voids 3 1 # Bowel Movements 1 Laboratory Tests 07/20/17 05:20: White Blood Count 7.5, Red Blood Count 2.88L, Hemoglobin 8.7L, Hematocrit 28.8L , Mean Corpuscular Volume 100H, Mean Corpuscular Hemoglobin 30.3, Mean Corpuscular Hemoglobin Concent 30.3L, Red Cell Distribution Width 15.5H, Platelet Count 120L, Mean Platelet Volume 7.3, Neutrophils (%) (Auto) 65.6, Lymphocytes (%) (Auto) 23.5, Monocytes (%) (Auto) 9.3, Eosinophils (%) (Auto) 1.0, Basophils (%) (Auto) 0.6, Sodium Level 140, Potassium Level 4.4, Chloride Level 99, Carbon Dioxide Level 41*H, Anion Gap 0L, Blood Urea Nitrogen 25H, Creatinine 1.5H, Estimat Glomerular Filtration Rate , Glucose Level 92, Calcium Level 8.7, Total Bilirubin 0.3, Aspartate Amino Transf (AST/SGOT) 13L, Alanine Aminotransferase (ALT/SGPT) 13, Alkaline Phosphatase 65, Pro-B-Type Natriuretic Peptide 490H, Total Protein 6.1L, Albumin 2.1L, Globulin 4.0, Albumin/Globulin Ratio 0.5L Height (Feet): 5 Height (Inches): 8.00 Weight (Pounds): 280 General Appearance: lethargic Respiratory/Chest: decreased breath sounds Abdomen: non tender, soft Tim Dillon Jul 20, 2017 10:29
--- NOTE | 2017-07-20 11:06 | Diagnostic Imaging Report ---
Indication: Dyspnea Comparison: 07/18/2017 A single view chest radiograph was obtained. Findings: Bilateral pleural effusions and interstitial edema demonstrated with cardiomegaly. Findings appear unchanged. IMPRESSION: CHF and bilateral pleural effusions
[2017-07-20 12:00] VITALS: BP 106/55
[2017-07-20 16:00] VITALS: BP 107/58
--- NOTE | 2017-07-20 16:10 | Diagnostic Imaging Report ---
Indication: Status post thoracentesis on the left side Comparison: 07/20/17 @08: 23 A single view chest radiograph was obtained. Findings: No pneumothorax demonstrated. Left pleural effusion appears resolved. Right pleural effusion persists. IMPRESSION: No pneumothorax
--- NOTE | 2017-07-20 16:16 | Diagnostic Imaging Report ---
Indications: Pleural effusion Technique: Ultrasound used to localize optimal puncture site. Sterile prepping and draping of the left lower chest performed. Local anesthesia with 1% lidocaine. Dermatotomy made. Puncture of the pleural space using thoracentesis needle. Stylet removed. Catheter placed to vacuum bottle suction. Fluid was aspirated. Patient tolerated procedure well, without immediate complication. Findings: Followup sonography demonstrates complete resolution of pleural fluid. Followup chest x-ray is pending. Impression: Successful ultrasound-guided left thoracentesis, yielding 0.4 liters of blood-tinged fluid
--- NOTE | 2017-07-20 17:46 | Pulmonology Progress Note ---
Assessment/Plan Problems: (1) Pleural effusion (2) Acute toxic metabolic encephalopathy (3) COPD (chronic obstructive pulmonary disease) (4) DM2 (diabetes mellitus, type 2) (5) HTN (hypertension) (6) Anasarca Assessment/Plan respiratory treatment s/p thoracentesis on both sides diuretic oncology f/u pt has possibly ovarian or uterine cancer dc planning soon. pt is a good candidate for end of life /hospice care. Subjective ROS Limited/Unobtainable: No Constitutional: Reports: no symptoms HEENT: Repors: no symptoms Respiratory: Reports: no symptoms Allergies: Coded Allergies: IODINE (Verified Allergy, Mild, 08/17/08) Uncoded Allergies: CONTRAST MEDIA (Allergy, Mild, 08/17/08) CONTRAST (Allergy, Unknown, 07/13/17) Objective Last 24 Hour Vital Signs Date Time Temp Pulse Resp B/P (MAP) Pulse Ox O2 Delivery O2 Flow Rate FiO2 07/20/17 16:00 98.8 100 20 107/58 95 Venturi Mask 98.8 07/20/17 12:00 98.1 101 20 106/55 95 98.1 07/20/17 09:57 104 93/48 07/20/17 08:00 97.9 105 17 110/60 96 97.9 07/20/17 04:00 97.9 115 20 110/53 94 97.9 07/20/17 00:00 96 Simple Mask 4.0 07/19/17 23:53 98.6 95 18 105/53 96 98.6 07/19/17 21:14 103 111/53 07/19/17 19:46 98.1 103 19 111/53 95 98.1 07/19/17 19:11 105 22 Venturi Mask 4.0 30 07/19/17 19:11 Venturi Mask 4.0 30 07/19/17 19:11 98 Venturi Mask 4.0 30 Intake and Output 07/19/17 07/20/17 19:00 07:00 Intake Total 720 ml Balance 720 ml Intake Oral 720 ml # Voids 3 1 # Bowel Movements 1 Objective General Appearance: WD/WN, Lines, tubes and drains: peripheral HEENT: normocephalic, atraumatic Neck: non-tender, normal alignment, supple Respiratory/Chest: chest wall non-tender, lungs clear, normal breath sounds Breasts: no masses Cardiovascular/Chest: normal peripheral pulses, normal rate Abdomen: normal bowel sounds, non tender Genitourinary/Rectal: normal genital exam, normal rectal exam Extremities: normal range of motion, non-tender Skin Exam: normal pigmentation 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, Microbiology Date/Time Source Procedure Growth Status 07/18/17 12:30 Pleural Fluid Gram Stain - Final Resulted 07/18/17 12:30 Pleural Fluid Body Fluid Culture - Preliminary Resulted Laboratory Tests 07/20/17 05:20: White Blood Count 7.5, Red Blood Count 2.88L, Hemoglobin 8.7L, Hematocrit 28.8L , Mean Corpuscular Volume 100H, Mean Corpuscular Hemoglobin 30.3, Mean Corpuscular Hemoglobin Concent 30.3L, Red Cell Distribution Width 15.5H, Platelet Count 120L, Mean Platelet Volume 7.3, Neutrophils (%) (Auto) 65.6, Lymphocytes (%) (Auto) 23.5, Monocytes (%) (Auto) 9.3, Eosinophils (%) (Auto) 1.0, Basophils (%) (Auto) 0.6, Sodium Level 140, Potassium Level 4.4, Chloride Level 99, Carbon Dioxide Level 41*H, Anion Gap 0L, Blood Urea Nitrogen 25H, Creatinine 1.5H, Estimat Glomerular Filtration Rate , Glucose Level 92, Calcium Level 8.7, Total Bilirubin 0.3, Aspartate Amino Transf (AST/SGOT) 13L, Alanine Aminotransferase (ALT/SGPT) 13, Alkaline Phosphatase 65, Pro-B-Type Natriuretic Peptide 490H, Total Protein 6.1L, Albumin 2.1L, Globulin 4.0, Albumin/Globulin Ratio 0.5L Current Medications Medications (Trade) Dose Ordered Sig/Lakshmi Route PRN Reason Start Time Stop Time Status Last Admin Dose Admin Acetaminophen/ Hydrocodone Bitart (Arroyo 5/325) 1 tab Q12H PRN ORAL For Pain 07/17/17 21:00 07/24/17 20:59 Allopurinol (Allopurinol) 300 mg DAILY ORAL 07/18/17 09:00 08/13/17 08:59 07/20/17 09:56 Aspirin (Ecotrin) 81 mg DAILY ORAL 07/18/17 09:00 08/13/17 08:59 07/19/17 08:56 Atorvastatin Calcium (Lipitor) 10 mg BEDTIME ORAL 07/17/17 21:00 08/13/17 20:59 07/19/17 21:14 Carvedilol (Coreg) 12.5 mg EVERY 12 HOURS ORAL 07/17/17 21:00 08/13/17 08:59 07/19/17 21:14 Dextrose (Dextrose 50%) STAT PRN IV Hypoglycemia 07/17/17 19:00 08/16/17 18:59 Docusate Sodium (Colace) 100 mg THREE TIMES A DAY ORAL 07/18/17 09:00 08/13/17 08:59 07/20/17 12:40 Ferrous Sulfate (Feosol) 325 mg DAILY ORAL 07/18/17 09:00 08/13/17 08:59 07/20/17 09:58 Furosemide (Lasix) 40 mg DAILY ORAL 07/18/17 09:00 08/13/17 08:59 07/19/17 08:57 Gabapentin (Neurontin) 600 mg DAILY ORAL 07/18/17 09:00 08/13/17 08:59 07/20/17 09:58 Insulin Aspart (NovoLOG) BEFORE MEALS AND HS SUBQ 07/17/17 21:00 08/13/17 20:59 07/19/17 17:30 Levothyroxine Sodium (Synthroid) 112 mcg DAILY@0630 ORAL 07/18/17 06:30 08/13/17 06:29 07/20/17 05:52 Lidocaine (Lidoderm 5% PATCH) 1 patch DAILY TDERMAL 07/18/17 09:00 08/13/17 08:59 07/20/17 09:59 Montelukast Sodium (Singulair) 10 mg DAILY ORAL 07/18/17 09:00 08/13/17 08:59 07/20/17 09:58 Nateglinide (Starlix) 60 mg THREE TIMES A DAY ORAL 07/18/17 09:00 08/13/17 08:59 07/20/17 12:41 Pantoprazole (Protonix) 40 mg ACBREAKFAST ORAL 07/18/17 06:30 08/13/17 08:59 07/20/17 05:52 Polyethylene Glycol (Miralax) 17 gm DAILYPRN PRN ORAL Constipation 07/17/17 19:00 08/16/17 18:59 Quetiapine Fumarate (SEROquel) 25 mg Q6H PRN ORAL Agitation 07/17/17 19:00 08/13/17 18:59 Temazepam (Restoril) 15 mg BEDTIME ORAL 07/17/17 21:00 07/21/17 20:59 07/19/17 21:14 KAILA HASSAN Jul 20, 2017 17:46
--- NOTE | 2017-07-20 19:36 | General Progress Note ---
Assessment/Plan Problem List: (1) JERILYN on CKD (2) Pleural effusion ICD Codes: J90 - Pleural effusion, not elsewhere classified SNOMED: 08921219 (3) Bacteremia ICD Codes: R78.81 - Bacteremia SNOMED: 0653735 (4) Hydronephrosis ICD Codes: N13.30 - Unspecified hydronephrosis SNOMED: 33445632 (5) Anasarca ICD Codes: R60.1 - Generalized edema SNOMED: 192694041, 258624054 (6) UTI (urinary tract infection) ICD Codes: N39.0 - Urinary tract infection, site not specified SNOMED: 75764222 (7) Renal failure (ARF), acute on chronic ICD Codes: N17.9 - Acute kidney failure, unspecified; N18.9 - Chronic kidney disease, unspecified SNOMED: 703316625 (8) COPD (chronic obstructive pulmonary disease) ICD Codes: J44.9 - Chronic obstructive pulmonary disease, unspecified SNOMED: 71036482 (9) Hypothyroidism ICD Codes: E03.9 - Hypothyroidism, unspecified SNOMED: 34148879 (10) HTN (hypertension) ICD Codes: I10 - Essential (primary) hypertension SNOMED: 81454432 (11) Hypothyroid ICD Codes: E03.9 - Hypothyroidism, unspecified SNOMED: 35364873 (12) HLD (hyperlipidemia) ICD Codes: E78.5 - Hyperlipidemia, unspecified SNOMED: 99364198 (13) Pressure ulcer of coccygeal region, stage 2 ICD Codes: L89.152 - Pressure ulcer of sacral region, stage 2 SNOMED: 325310032 (14) CKD (chronic kidney disease) ICD Codes: N18.9 - Chronic kidney disease, unspecified SNOMED: 627096876 (15) DM2 (diabetes mellitus, type 2) ICD Codes: E11.9 - Type 2 diabetes mellitus without complications SNOMED: 60123638 (16) resides in SNF (17) Hyperkalemia ICD Codes: E87.5 - Hyperkalemia SNOMED: 01826313 (18) COPD with acute exacerbation ICD Codes: J44.1 - Chronic obstructive pulmonary disease with (acute) exacerbation SNOMED: 286807079 (19) Acute respiratory failure with hypoxia and hypercapnia ICD Codes: J96.01 - Acute respiratory failure with hypoxia; J96.02 - Acute respiratory failure with hypercapnia SNOMED: 97476887, 07831636, 493762803 (20) Acute toxic metabolic encephalopathy Assessment & Plan: stable cont prn seroquel Status: stable, progressing Assessment/Plan cont prn seroquel Subjective Date patient seen: Jul 20, 2017 Neurologic/Psychiatric: Reports: anxiety, depressed, emotional problems Allergies: Coded Allergies: IODINE (Verified Allergy, Mild, 08/17/08) Uncoded Allergies: CONTRAST MEDIA (Allergy, Mild, 08/17/08) CONTRAST (Allergy, Unknown, 07/13/17) Objective Last 24 Hour Vital Signs Date Time Temp Pulse Resp B/P (MAP) Pulse Ox O2 Delivery O2 Flow Rate FiO2 07/20/17 16:00 98.8 100 20 107/58 95 Venturi Mask 98.8 07/20/17 12:00 98.1 101 20 106/55 95 98.1 07/20/17 09:57 104 93/48 07/20/17 08:00 97.9 105 17 110/60 96 97.9 07/20/17 04:00 97.9 115 20 110/53 94 97.9 07/20/17 00:00 96 Simple Mask 4.0 07/19/17 23:53 98.6 95 18 105/53 96 98.6 07/19/17 21:14 103 111/53 07/19/17 19:46 98.1 103 19 111/53 95 98.1 Intake and Output 07/19/17 07/20/17 19:00 07:00 Intake Total 720 ml Balance 720 ml Intake Oral 720 ml # Voids 3 1 # Bowel Movements 1 Laboratory Tests 07/20/17 05:20: White Blood Count 7.5, Red Blood Count 2.88L, Hemoglobin 8.7L, Hematocrit 28.8L , Mean Corpuscular Volume 100H, Mean Corpuscular Hemoglobin 30.3, Mean Corpuscular Hemoglobin Concent 30.3L, Red Cell Distribution Width 15.5H, Platelet Count 120L, Mean Platelet Volume 7.3, Neutrophils (%) (Auto) 65.6, Lymphocytes (%) (Auto) 23.5, Monocytes (%) (Auto) 9.3, Eosinophils (%) (Auto) 1.0, Basophils (%) (Auto) 0.6, Sodium Level 140, Potassium Level 4.4, Chloride Level 99, Carbon Dioxide Level 41*H, Anion Gap 0L, Blood Urea Nitrogen 25H, Creatinine 1.5H, Estimat Glomerular Filtration Rate , Glucose Level 92, Calcium Level 8.7, Total Bilirubin 0.3, Aspartate Amino Transf (AST/SGOT) 13L, Alanine Aminotransferase (ALT/SGPT) 13, Alkaline Phosphatase 65, Pro-B-Type Natriuretic Peptide 490H, Total Protein 6.1L, Albumin 2.1L, Globulin 4.0, Albumin/Globulin Ratio 0.5L Height (Feet): 5 Height (Inches): 8.00 Weight (Pounds): 280 General Appearance: no apparent distress, alert, confused, agitated Alyssa Alvarado M.D. Jul 20, 2017 19:36
[2017-07-20 20:00] VITALS: BP 103/53
--- NOTE | 2017-07-20 23:46 | General Progress Note ---
Assessment/Plan Assessment/Plan #. 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 Anemia likely related to chronic disease --> hgb goal is >7, and workup has been reviewed --> Blood transfusion not required unless symptomatic or if hgb falls below goal. --> Downtrended from yesterday, monitor closely. Trend cbc daily. #. Chronic obstructive pulmonary disease exacerbation. --> On breathing support. #. Right-sided pleural effusion, status post tap, no evidence of parapneumonic versus empyema. Subjective Date patient seen: Jul 20, 2017 Constitutional: Denies: no symptoms, chills, diaphoresis, fever, malaise, weakness, other HEENT: Denies: no symptoms, eye pain, blurred vision, tearing, double vision, ear pain, ear discharge, nose pain, nose congestion, throat pain, throat swelling, mouth pain, mouth swelling, other Cardiovascular: Denies: no symptoms, chest pain, edema, irregular heart rate, lightheadedness, palpitations, syncope, other Respiratory: Denies: no symptoms, cough, orthopnea, shortness of breath, SOB with excertion, SOB at rest, sputum, stridor, wheezing, other Gastrointestinal/Abdominal: Denies: no symptoms, abdomen distended, abdominal pain, black stools, tarry stools, blood in stool, constipated, diarrhea, difficulty swallowing, nausea, poor appetite, poor fluid intake, rectal bleeding , vomiting, other Genitourinary: Denies: no symptoms, burning, discharge, frequency, flank pain, hematuria, incontinence, pain, urgency, other Neurologic/Psychiatric: Denies: no symptoms, anxiety, depressed, emotional problems, headache, numbness, paresthesia, pre-existing deficit, seizure, tingling, tremors, weakness, other Hematologic/Lymphatic: Reports: anemia Allergies: Coded Allergies: IODINE (Verified Allergy, Mild, 08/17/08) Uncoded Allergies: CONTRAST MEDIA (Allergy, Mild, 08/17/08) CONTRAST (Allergy, Unknown, 07/13/17) Subjective No major events overnight. No fever. Tachycardic Objective Last 24 Hour Vital Signs Date Time Temp Pulse Resp B/P (MAP) Pulse Ox O2 Delivery O2 Flow Rate FiO2 07/20/17 21:27 Bi-pap 4.0 30 07/20/17 21:26 94 Bi-pap 4.0 30 07/20/17 20:31 105 103/53 07/20/17 20:00 99.2 105 18 103/53 94 Venturi Mask 4.0 30 99.2 07/20/17 16:00 98.8 100 20 107/58 95 Venturi Mask 98.8 07/20/17 12:00 98.1 101 20 106/55 95 98.1 07/20/17 09:57 104 93/48 07/20/17 08:00 97.9 105 17 110/60 96 97.9 07/20/17 04:00 97.9 115 20 110/53 94 97.9 07/20/17 00:00 96 Simple Mask 4.0 07/19/17 23:53 98.6 95 18 105/53 96 98.6 Intake and Output 07/19/17 07/20/17 19:00 07:00 Intake Total 720 ml Balance 720 ml Intake Oral 720 ml # Voids 3 1 # Bowel Movements 1 Laboratory Tests 07/20/17 05:20: White Blood Count 7.5, Red Blood Count 2.88L, Hemoglobin 8.7L, Hematocrit 28.8L , Mean Corpuscular Volume 100H, Mean Corpuscular Hemoglobin 30.3, Mean Corpuscular Hemoglobin Concent 30.3L, Red Cell Distribution Width 15.5H, Platelet Count 120L, Mean Platelet Volume 7.3, Neutrophils (%) (Auto) 65.6, Lymphocytes (%) (Auto) 23.5, Monocytes (%) (Auto) 9.3, Eosinophils (%) (Auto) 1.0, Basophils (%) (Auto) 0.6, Sodium Level 140, Potassium Level 4.4, Chloride Level 99, Carbon Dioxide Level 41*H, Anion Gap 0L, Blood Urea Nitrogen 25H, Creatinine 1.5H, Estimat Glomerular Filtration Rate , Glucose Level 92, Calcium Level 8.7, Total Bilirubin 0.3, Aspartate Amino Transf (AST/SGOT) 13L, Alanine Aminotransferase (ALT/SGPT) 13, Alkaline Phosphatase 65, Pro-B-Type Natriuretic Peptide 490H, Total Protein 6.1L, Albumin 2.1L, Globulin 4.0, Albumin/Globulin Ratio 0.5L Height (Feet): 5 Height (Inches): 8.00 Weight (Pounds): 280 Tim Dillon Jul 20, 2017 23:46
[2017-07-21] VITALS (7 sets, daily range): BP systolic 108–117; BP diastolic 53–59
[2017-07-21] MEDS: NovoLOG Insulin Flexpen SUBQ SCH ×4 (06:24→22:22)
[2017-07-21 07:14] LABS: BASOPHILS % (AUTO) 0.4 % (0.0-2.0); EOSINOPHILS % (AUTO) 1.1 % (0.0-3.0); HEMATOCRIT 27.7 % (37.0-47.0); HEMOGLOBIN 8.4 G/DL (12.0-16.0); LYMPHOCYTES % (AUTO) 22.1 % (20.0-45.0); MEAN CORPUSCULAR VOLUME 99 FL (80-99); MONOCYTES % (AUTO) 10.7 % (1.0-10.0); NEUTROPHILS % (AUTO) 65.7 % (45.0-75.0); PLATELET COUNT 121 K/UL (150-450); RED BLOOD COUNT 2.79 M/UL (4.20-5.40); RED CELL DISTRIBUTION WIDTH 15.2 % (11.6-14.8); WHITE BLOOD COUNT 7.1 K/UL (4.8-10.8)
[2017-07-21 07:53] LABS: ANION GAP 0 mmol/L (5-15); BLOOD UREA NITROGEN 25 mg/dL (7-18); CALCIUM 8.8 MG/DL (8.5-10.1); CHLORIDE 98 MMOL/L (98-107); CREATININE 1.4 MG/DL (0.55-1.30); POTASSIUM 4.1 MMOL/L (3.5-5.1); SODIUM 140 MMOL/L (136-145)
[2017-07-21 07:55] LABS: CARBON DIOXIDE 41 MMOL/L (21-32)
[2017-07-21] MEDS: Montelukast 10mg tablet ORAL SCH (08:59)
[2017-07-21] MEDS: Docusate 100mg cap ORAL SCH ×3 (08:59→17:26)
[2017-07-21] MEDS: Carvedilol 12.5mg tab ORAL SCH ×2 (08:59→22:10)
[2017-07-21] MEDS: Furosemide 40mg tab ORAL SCH (09:00)
[2017-07-21] MEDS: Nateglinide 60mg tab ORAL SCH ×3 (09:19→17:27)
[2017-07-21] MEDS: Aspirin EC 81mg tab ORAL SCH (09:19)
--- NOTE | 2017-07-21 16:15 | General Progress Note ---
Assessment/Plan Problem List: (1) JERILYN on CKD (2) Pleural effusion ICD Codes: J90 - Pleural effusion, not elsewhere classified SNOMED: 02215987 (3) Bacteremia ICD Codes: R78.81 - Bacteremia SNOMED: 5466271 (4) Hydronephrosis ICD Codes: N13.30 - Unspecified hydronephrosis SNOMED: 50657248 (5) Anasarca ICD Codes: R60.1 - Generalized edema SNOMED: 670464056, 581246103 (6) UTI (urinary tract infection) ICD Codes: N39.0 - Urinary tract infection, site not specified SNOMED: 27449054 (7) Renal failure (ARF), acute on chronic ICD Codes: N17.9 - Acute kidney failure, unspecified; N18.9 - Chronic kidney disease, unspecified SNOMED: 134734370 (8) COPD (chronic obstructive pulmonary disease) ICD Codes: J44.9 - Chronic obstructive pulmonary disease, unspecified SNOMED: 75977408 (9) Hypothyroidism ICD Codes: E03.9 - Hypothyroidism, unspecified SNOMED: 41974490 (10) HTN (hypertension) ICD Codes: I10 - Essential (primary) hypertension SNOMED: 96514999 (11) Pressure ulcer of coccygeal region, stage 2 ICD Codes: L89.152 - Pressure ulcer of sacral region, stage 2 SNOMED: 649172320 (12) DM2 (diabetes mellitus, type 2) ICD Codes: E11.9 - Type 2 diabetes mellitus without complications SNOMED: 09135991 (13) resides in SNF (14) Hyperkalemia ICD Codes: E87.5 - Hyperkalemia SNOMED: 58960586 (15) COPD with acute exacerbation ICD Codes: J44.1 - Chronic obstructive pulmonary disease with (acute) exacerbation SNOMED: 857124060 (16) Acute respiratory failure with hypoxia and hypercapnia ICD Codes: J96.01 - Acute respiratory failure with hypoxia; J96.02 - Acute respiratory failure with hypercapnia SNOMED: 17025779, 33486597, 352470762 (17) Acute toxic metabolic encephalopathy Assessment & Plan: stable cont prn seroquel Status: stable, progressing Assessment/Plan cont prn seroquel Subjective Date patient seen: Jul 21, 2017 Neurologic/Psychiatric: Reports: anxiety, depressed, emotional problems Allergies: Coded Allergies: IODINE (Verified Allergy, Mild, 08/17/08) Uncoded Allergies: CONTRAST MEDIA (Allergy, Mild, 08/17/08) CONTRAST (Allergy, Unknown, 07/13/17) Objective Last 24 Hour Vital Signs Date Time Temp Pulse Resp B/P (MAP) Pulse Ox O2 Delivery O2 Flow Rate FiO2 07/21/17 11:43 98.8 93 20 116/53 93 98.8 07/21/17 08:59 107 108/58 07/21/17 08:31 97.8 107 20 108/58 93 97.8 07/21/17 08:02 Venturi Mask 4.0 30 07/21/17 08:02 96 Venturi Mask 4.0 30 07/21/17 04:00 Venturi Mask 4.0 30 07/21/17 04:00 97.9 103 20 115/59 95 97.9 07/21/17 00:00 Venturi Mask 4.0 30 07/21/17 00:00 98.2 89 20 113/55 95 98.2 07/20/17 21:27 Bi-pap 4.0 30 07/20/17 21:26 94 Bi-pap 4.0 30 07/20/17 20:31 105 103/53 07/20/17 20:00 99.2 105 18 103/53 94 Venturi Mask 4.0 30 99.2 Intake and Output 07/20/17 07/21/17 19:00 07:00 Intake Total 600 ml Balance 600 ml Intake Oral 600 ml # Voids 3 1 # Bowel Movements 1 Laboratory Tests 07/21/17 05:05: White Blood Count 7.1, Red Blood Count 2.79L, Hemoglobin 8.4L, Hematocrit 27.7L , Mean Corpuscular Volume 99, Mean Corpuscular Hemoglobin 30.2, Mean Corpuscular Hemoglobin Concent 30.4L, Red Cell Distribution Width 15.2H, Platelet Count 121L, Mean Platelet Volume 7.6, Neutrophils (%) (Auto) 65.7, Lymphocytes (%) (Auto) 22.1, Monocytes (%) (Auto) 10.7H, Eosinophils (%) (Auto) 1.1, Basophils (%) (Auto) 0.4, Sodium Level 140, Potassium Level 4.1, Chloride Level 98, Carbon Dioxide Level 41*H, Anion Gap 0L, Blood Urea Nitrogen 25H, Creatinine 1.4H, Estimat Glomerular Filtration Rate , Glucose Level 73L, Calcium Level 8.8 Height (Feet): 5 Height (Inches): 8.00 Weight (Pounds): 280 General Appearance: no apparent distress, alert, agitated Alyssa Alvarado M.D. Jul 21, 2017 16:15
--- NOTE | 2017-07-21 18:56 | Pulmonology Progress Note ---
Assessment/Plan Problems: (1) Pleural effusion (2) Acute toxic metabolic encephalopathy (3) COPD (chronic obstructive pulmonary disease) (4) DM2 (diabetes mellitus, type 2) (5) HTN (hypertension) (6) Anasarca Assessment/Plan respiratory treatment s/p thoracentesis on both sides diuretic oncology f/u pt has possibly ovarian or uterine cancer dc planning for today pt is a good candidate for end of life /hospice care. Subjective ROS Limited/Unobtainable: No Constitutional: Reports: no symptoms HEENT: Repors: no symptoms Respiratory: Reports: no symptoms Allergies: Coded Allergies: IODINE (Verified Allergy, Mild, 08/17/08) Uncoded Allergies: CONTRAST MEDIA (Allergy, Mild, 08/17/08) CONTRAST (Allergy, Unknown, 07/13/17) Objective Last 24 Hour Vital Signs Date Time Temp Pulse Resp B/P (MAP) Pulse Ox O2 Delivery O2 Flow Rate FiO2 07/21/17 16:00 100.2 19 109/54 100 Room Air 100.2 07/21/17 16:00 98.4 95 Nasal Cannula 98.4 07/21/17 11:43 98.8 93 20 116/53 93 98.8 07/21/17 08:59 107 108/58 07/21/17 08:31 97.8 107 20 108/58 93 97.8 07/21/17 08:02 Venturi Mask 4.0 30 07/21/17 08:02 96 Venturi Mask 4.0 30 07/21/17 04:00 Venturi Mask 4.0 30 07/21/17 04:00 97.9 103 20 115/59 95 97.9 07/21/17 00:00 Venturi Mask 4.0 30 07/21/17 00:00 98.2 89 20 113/55 95 98.2 07/20/17 21:27 Bi-pap 4.0 30 07/20/17 21:26 94 Bi-pap 4.0 30 07/20/17 20:31 105 103/53 07/20/17 20:00 99.2 105 18 103/53 94 Venturi Mask 4.0 30 99.2 Intake and Output 07/20/17 07/21/17 19:00 07:00 Intake Total 600 ml Balance 600 ml Intake Oral 600 ml # Voids 3 1 # Bowel Movements 1 Objective General Appearance: WD/WN, Lines, tubes and drains: peripheral HEENT: normocephalic, atraumatic Neck: non-tender, normal alignment, supple Respiratory/Chest: chest wall non-tender, lungs clear, normal breath sounds Breasts: no masses Cardiovascular/Chest: normal peripheral pulses, normal rate Abdomen: normal bowel sounds, non tender Genitourinary/Rectal: normal genital exam, normal rectal exam Extremities: normal range of motion, non-tender Skin Exam: normal pigmentation Neurologic: economic forecaster II-XII grossly normal, Laboratory Tests 07/21/17 05:05: White Blood Count 7.1, Red Blood Count 2.79L, Hemoglobin 8.4L, Hematocrit 27.7L , Mean Corpuscular Volume 99, Mean Corpuscular Hemoglobin 30.2, Mean Corpuscular Hemoglobin Concent 30.4L, Red Cell Distribution Width 15.2H, Platelet Count 121L, Mean Platelet Volume 7.6, Neutrophils (%) (Auto) 65.7, Lymphocytes (%) (Auto) 22.1, Monocytes (%) (Auto) 10.7H, Eosinophils (%) (Auto) 1.1, Basophils (%) (Auto) 0.4, Sodium Level 140, Potassium Level 4.1, Chloride Level 98, Carbon Dioxide Level 41*H, Anion Gap 0L, Blood Urea Nitrogen 25H, Creatinine 1.4H, Estimat Glomerular Filtration Rate , Glucose Level 73L, Calcium Level 8.8 Current Medications Medications (Trade) Dose Ordered Sig/Lakshmi Route PRN Reason Start Time Stop Time Status Last Admin Dose Admin Acetaminophen/ Hydrocodone Bitart ([place] 5/325) 1 tab Q12H PRN ORAL For Pain 07/17/17 21:00 07/24/17 20:59 07/20/17 22:22 Allopurinol (Allopurinol) 300 mg DAILY ORAL 07/18/17 09:00 08/13/17 08:59 07/21/17 08:59 Aspirin (Ecotrin) 81 mg DAILY ORAL 07/18/17 09:00 08/13/17 08:59 07/21/17 09:19 Atorvastatin Calcium (Lipitor) 10 mg BEDTIME ORAL 07/17/17 21:00 08/13/17 20:59 07/20/17 20:16 Carvedilol (Coreg) 12.5 mg EVERY 12 HOURS ORAL 07/17/17 21:00 08/13/17 08:59 07/21/17 08:59 Dextrose (Dextrose 50%) STAT PRN IV Hypoglycemia 07/17/17 19:00 08/16/17 18:59 Docusate Sodium (Colace) 100 mg THREE TIMES A DAY ORAL 07/18/17 09:00 08/13/17 08:59 07/21/17 17:26 Ferrous Sulfate (Feosol) 325 mg DAILY ORAL 07/18/17 09:00 08/13/17 08:59 07/21/17 08:59 Furosemide (Lasix) 40 mg DAILY ORAL 07/18/17 09:00 08/13/17 08:59 07/21/17 09:00 Gabapentin (Neurontin) 600 mg DAILY ORAL 07/18/17 09:00 08/13/17 08:59 07/21/17 08:59 Insulin Aspart (NovoLOG) BEFORE MEALS AND HS SUBQ 07/17/17 21:00 08/13/17 20:59 07/21/17 17:19 Levothyroxine Sodium (Synthroid) 112 mcg DAILY@0630 ORAL 07/18/17 06:30 08/13/17 06:29 07/21/17 05:54 Lidocaine (Lidoderm 5% PATCH) 1 patch DAILY TDERMAL 07/18/17 09:00 08/13/17 08:59 07/21/17 09:19 Montelukast Sodium (Singulair) 10 mg DAILY ORAL 07/18/17 09:00 08/13/17 08:59 07/21/17 08:59 Nateglinide (Starlix) 60 mg THREE TIMES A DAY ORAL 07/18/17 09:00 08/13/17 08:59 07/21/17 17:27 Pantoprazole (Protonix) 40 mg ACBREAKFAST ORAL 07/18/17 06:30 08/13/17 08:59 07/21/17 05:54 Polyethylene Glycol (Miralax) 17 gm DAILYPRN PRN ORAL Constipation 07/17/17 19:00 08/16/17 18:59 Quetiapine Fumarate (SEROquel) 25 mg Q6H PRN ORAL Agitation 07/17/17 19:00 08/13/17 18:59 Temazepam (Restoril) 15 mg BEDTIME ORAL 07/17/17 21:00 07/21/17 20:59 07/20/17 20:16 KAILA HASSAN Jul 21, 2017 18:56
--- NOTE | 2017-07-22 09:07 | General Progress Note ---
Assessment/Plan Assessment/Plan #. 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 #. Anemia likely related to chronic disease --> hgb goal is >7, and workup has been reviewed --> Blood transfusion not required unless symptomatic or if hgb falls below goal. --> Downtrended from yesterday, monitor closely. Trend cbc daily. #. Chronic obstructive pulmonary disease exacerbation. --> On breathing support. #. Right-sided pleural effusion, status post tap, no evidence of parapneumonic versus empyema. Subjective Date patient seen: Jul 21, 2017 Constitutional: Denies: no symptoms, chills, diaphoresis, fever, malaise, weakness, other HEENT: Denies: no symptoms, eye pain, blurred vision, tearing, double vision, ear pain, ear discharge, nose pain, nose congestion, throat pain, throat swelling, mouth pain, mouth swelling, other Cardiovascular: Denies: no symptoms, chest pain, edema, irregular heart rate, lightheadedness, palpitations, syncope, other Respiratory: Denies: no symptoms, cough, orthopnea, shortness of breath, SOB with excertion, SOB at rest, sputum, stridor, wheezing, other Gastrointestinal/Abdominal: Denies: no symptoms, abdomen distended, abdominal pain, black stools, tarry stools, blood in stool, constipated, diarrhea, difficulty swallowing, nausea, poor appetite, poor fluid intake, rectal bleeding , vomiting, other Genitourinary: Denies: no symptoms, burning, discharge, frequency, flank pain, hematuria, incontinence, pain, urgency, other Neurologic/Psychiatric: Denies: no symptoms, anxiety, depressed, emotional problems, headache, numbness, paresthesia, pre-existing deficit, seizure, tingling, tremors, weakness, other Hematologic/Lymphatic: Reports: anemia Allergies: Coded Allergies: IODINE (Verified Allergy, Mild, 08/17/08) Uncoded Allergies: CONTRAST MEDIA (Allergy, Mild, 08/17/08) CONTRAST (Allergy, Unknown, 07/13/17) Subjective NAD. No fever or chills. Objective Last 24 Hour Vital Signs Date Time Temp Pulse Resp B/P (MAP) Pulse Ox O2 Delivery O2 Flow Rate FiO2 07/21/17 22:10 101 117/58 07/21/17 19:55 99.3 101 20 117/58 95 Nasal Cannula 99.3 07/21/17 16:00 100.2 19 109/54 100 Room Air 100.2 07/21/17 16:00 98.4 95 Nasal Cannula 98.4 07/21/17 11:43 98.8 93 20 116/53 93 98.8 Intake and Output 07/21/17 07/22/17 19:00 07:00 Intake Total 960 ml Balance 960 ml Intake Oral 480 ml Other 480 ml # Voids 2 # Bowel Movements 2 Height (Feet): 5 Height (Inches): 8.00 Weight (Pounds): 280 General Appearance: no apparent distress Respiratory/Chest: decreased breath sounds Abdomen: non tender, soft Edema: trace edema Tim Dillon Jul 22, 2017 09:07
--- NOTE | 2017-07-22 21:56 | General Progress Note ---
Assessment/Plan Problem List: (1) JERILYN on CKD (2) Pleural effusion ICD Codes: J90 - Pleural effusion, not elsewhere classified SNOMED: 55195618 (3) Bacteremia ICD Codes: R78.81 - Bacteremia SNOMED: 6846926 (4) Hydronephrosis ICD Codes: N13.30 - Unspecified hydronephrosis SNOMED: 22301557 (5) Anasarca ICD Codes: R60.1 - Generalized edema SNOMED: 272495801, 915200564 (6) UTI (urinary tract infection) ICD Codes: N39.0 - Urinary tract infection, site not specified SNOMED: 70186336 (7) Renal failure (ARF), acute on chronic ICD Codes: N17.9 - Acute kidney failure, unspecified; N18.9 - Chronic kidney disease, unspecified SNOMED: 520203644 (8) COPD (chronic obstructive pulmonary disease) ICD Codes: J44.9 - Chronic obstructive pulmonary disease, unspecified SNOMED: 96421848 (9) Hypothyroidism ICD Codes: E03.9 - Hypothyroidism, unspecified SNOMED: 06951388 (10) HTN (hypertension) ICD Codes: I10 - Essential (primary) hypertension SNOMED: 21054935 (11) Pressure ulcer of coccygeal region, stage 2 ICD Codes: L89.152 - Pressure ulcer of sacral region, stage 2 SNOMED: 263742397 (12) DM2 (diabetes mellitus, type 2) ICD Codes: E11.9 - Type 2 diabetes mellitus without complications SNOMED: 83005801 (13) resides in SNF (14) Hyperkalemia ICD Codes: E87.5 - Hyperkalemia SNOMED: 36626450 (15) COPD with acute exacerbation ICD Codes: J44.1 - Chronic obstructive pulmonary disease with (acute) exacerbation SNOMED: 401425622 (16) Acute respiratory failure with hypoxia and hypercapnia ICD Codes: J96.01 - Acute respiratory failure with hypoxia; J96.02 - Acute respiratory failure with hypercapnia SNOMED: 45775419, 50120328, 869955935 (17) Acute toxic metabolic encephalopathy Assessment & Plan: stable cont prn seroquel Assessment/Plan cont prn seroquel Subjective Allergies: Coded Allergies: IODINE (Verified Allergy, Mild, 08/17/08) Uncoded Allergies: CONTRAST MEDIA (Allergy, Mild, 08/17/08) CONTRAST (Allergy, Unknown, 07/13/17) Objective Last 24 Hour Vital Signs Date Time Temp Pulse Resp B/P (MAP) Pulse Ox O2 Delivery O2 Flow Rate FiO2 07/21/17 22:10 101 117/58 Intake and Output 07/21/17 07/22/17 19:00 07:00 Intake Total 960 ml Balance 960 ml Intake Oral 480 ml Other 480 ml # Voids 2 # Bowel Movements 2 Height (Feet): 5 Height (Inches): 8.00 Weight (Pounds): 280 Alyssa Alvarado M.D. Jul 22, 2017 21:56
--- NOTE | 2017-07-25 12:19 | Discharge Summary ---
Discharge Summary Hospital Course Date of Admission Jul 13, 2017 at 23:22 Date of Discharge Jul 22, 2017 at 00:30 Admitting Diagnosis ANEMIA, GENERALIZED WEAKNESS HPI Lena Bro is a 87 year old female who was admitted on Jul 13, 2017 at 23: 22 for Anemia/Generalized Weakness Hospital Course dc summary #[id number] Discharge Medications Continued Medications: Carvedilol (Coreg) 12.5 Mg Tablet 12.5 MG ORAL EVERY 12 HOURS, #60 TAB Furosemide* (Lasix*) 40 Mg Tablet 40 MG ORAL DAILY, #30 TAB Gabapentin* (Gabapentin*) 600 Mg Tablet 600 MG ORAL BID, TAB Hydrocodone Bit/Acetaminophen 5-325* ([place] 5-325*) 1 Each Tablet 1 TAB ORAL Q12HR PRN for For Pain, #10 TAB 0 Refills Insulin Glargine (Lantus) 100 Unit/1 Ml Insuln.pen 0 SUBQ BEDTIME, #1 EA 0 Refills Insulin Regular, Human (Humulin R) 100 Unit/1 Ml Vial 0 SUBQ, VIAL Levothyroxine Sodium* (Levothyroxine Sodium*) 112 Mcg Tablet 112 MCG ORAL DAILY, TAB Take in the morning on an empty stomach, at least 30 minutes before food. Lidocaine (Lidoderm) 1 Each Adh..patch 1 PATCH TOPIC DAILY, #7 PATCH 0 Refills Patch(es) may remain in place for up to 12 hours in any 24-hour period. Nateglinide* (Starlix*) 60 Mg Tablet 60 MG ORAL THREE TIMES A DAY, #90 TAB Omeprazole (Omeprazole) 10 Mg Capsule.dr 10 MG ORAL DAILY, #30 CAP 0 Refills Polyethylene Glycol 3350* (Miralax*) 17 Gm Powd.pack 17 GM ORAL DAILYPRN PRN, #30 PACK Quetiapine Fumarate* (Seroquel*) 25 Mg Tablet 25 MG ORAL Q6H PRN, #20 TAB Discharge Condition Upon Discharge: stable Discharge Disposition Patient was discharged to SNF/Subacute Facility(03) Discharge Diagnoses: Iglesia (Vanchtein)Meron NP Jul 25, 2017 12:19
--- NOTE | 2017-07-26 01:45 | Discharge Summary 2 SIG ---
DATE OF ADMISSION: 07/13/2017 DATE OF DISCHARGE: 07/22/2017 REASON FOR ADMISSION: 87-year-old female with past medical history significant for CHF, COPD, diabetes, hypertension, hyperlipidemia, and history of CVA, presented to emergency department with generalized weakness, shortness of breath. Vital signs were stable. On 2 L pulse oximetry was 95%. There was no leukocytosis. Hemoglobin -8.5, hematocrit -28. Electrolytes stable. BUN -35, creatinine- 1.4. Lactic acid -0.7. Troponin -0.002. Urinalysis revealed moderate bacteria and 20 to 30 WBC. Chest x-ray revealed bilateral pleural effusion and interstitial congestion. The patient admitted with diagnoses of acute COPD exacerbation, chronic kidney disease, pleural effusion, anemia, renal insufficiency, diabetes mellitus, and acute toxic metabolic encephalopathy. HOSPITAL COURSE: The patient admitted, initially on telemetry floor. Paper Mill Supervisor clsoely followed. Supplemental oxygen provided and titrated to keep pulse oximetry above 92%. Pulmonary toilet provided. The patient was started on empiric antibiotics and followed up with culture. Home medications were resumed. Renal parameters were closely monitored. The patient had undergone thoracentesis of bilateral pleural effusions, yielding 1 L on one side and 4.4 L on another side. Pleural fluid culture was negative. Chest x-ray after thoracentesis revealed no pneumothorax; resolved left pleural effusion and persisted right pleural effusion. No evidence of empyema or parapneumonic effusion. Blood cultures were negative. Urine culture was negative. Antibiotics stopped. Cytology of the pleural fluid from the previous tap of 07/07/2017, demonstrated metastatic carcinoma. 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 CA-125 elevated - 445.8. CA 15-3 elevated -191. Serum protein electrophoresis stable. According to hr business partner/oncologist, given age and multiple comorbidities, conservative treatment would be more appropriate, follow up with oncologist as an outpatient. patient care specialist recommended to consider end-of-life comfort care. Upper Leather Cutter closely followed. The patient was on diuresis. Cardiorenal parameters and volumes were closely monitored. Creatinine without change. The patient was on aspirin and beta-isai. Blood sugar was managed with sliding scale of insulin. Pain management provided, and pain was controlled. Bowel regimen instituted. Supportive care provided. Electrolytes corrected as needed. Nephrotoxics were avoided. The patient was working with physical and occupational therapists. Wound care provided for sacrococcyx decubitus ulcer stage III, present on admission as per wound nurse recommendations. Closely monitor platelet count in the facility. The patient is status post 1 unit of packed red blood cell transfusion. Per Hematology, no further transfusion necessary and transfuse only if symptomatic or hemoglobin below 7. Psychiatrist closely followed. The patient was started on Seroquel as needed and to be continued at the senior care facility. The patient subsequently was stable for discharge. patient care specialist recommended that the patient was a good candidate for end-of-life/hospice care. FINAL DIAGNOSES: 1. Acute toxic metabolic encephalopathy. 2. Bilateral pleural effusion. malignant. 3. Status post thoracentesis of bilateral pleural effusion ( no evidence of empyema or parapneumonic effusion). 4. Likely stage IV Mullerian tumor (likely originated either in ovary, fallopian tube, or uterus). 5. Possible CHF. 6. Hypertension. 7. Diabetes. 8. Anemia, likely secondary to chronic disease. 9. Chronic kidney disease. 10. Anasarca. 11. Sacrococcyx decubitus stage III, present on admission. 12. Thrombocytopenia. DISCHARGE MEDICATIONS: See medication reconciliation list. DISCHARGE INSTRUCTIONS: The patient discharged to senior care facility. FOLLOWUP: Follow up with medical doctor at the facility. Gabe Frias D.O. [facility] NewellMoh[facility] SystemAdonay N.PJc DR: RACHEL JOB#: [id number] CC: KARLENE
== END 2017-07-22 00:30 | DRG 180 ==
LOC: EDBD 22:15 → EMR 22:25 → 2E 23:22 → EDBEDREQ 07-14 00:47 → 4W 07-17 18:38
PROC: 0W993ZX Drainage of Right Pleural Cavity, Percutaneous Approach, Diagnostic (ICD-10-PCS; principal; 2017-07-15)
PROC: 0W9B3ZX Drainage of Left Pleural Cavity, Percutaneous Approach, Diagnostic (ICD-10-PCS; 2017-07-19)
DX: C78.2 Secondary malignant neoplasm of pleura (principal); L89.153 Pressure ulcer of sacral region, stage 3; G92 Toxic encephalopathy; I13.0 Hypertensive heart and chronic kidney disease with heart failure and stage 1 through stage 4 chronic kidney disease, or unspecified chronic kidney disease; E11.22 Type 2 diabetes mellitus with diabetic chronic kidney disease; C56.9 Malignant neoplasm of unspecified ovary; I50.9 Heart failure, unspecified; I69.959 Hemiplegia and hemiparesis following unspecified cerebrovascular disease affecting unspecified side; D69.6 Thrombocytopenia, unspecified; J44.1 Chronic obstructive pulmonary disease with (acute) exacerbation; N39.0 Urinary tract infection, site not specified; Z68.41 Body mass index [BMI] 40.0-44.9, adult; D64.9 Anemia, unspecified; C55 Malignant neoplasm of uterus, part unspecified; N18.9 Chronic kidney disease, unspecified; R09.02 Hypoxemia; C57.00 Malignant neoplasm of unspecified fallopian tube; E66.9 Obesity, unspecified; E03.9 Hypothyroidism, unspecified
CPT/HCPCS: 36415; 51701; 71045; 76856; 76942; 80048; 80053; 81003; 82378; 82550; 82553; 82962; 83605; 83880; 84165; 84484; 85007; 85025; 85610; 85730; 86300; 86304; 86850; 86900; 86901; 86920; 87040; 87070; 87081; 87086; 87205; 89051; 93005; 93970; 94640; 94664; 94760; 99285; J1815